=== PATIENT | male | born 1980 | race Caucasian/White ===

== ENCOUNTER 2022-08-04 09:50 | Outpatient (OUT) | payer MEDICAID, SELFPAY ==
--- NOTE | 2022-08-04 11:09 | CONS_ITS ---
CONSULTATION DATE: ??08/04/2022 TO:? HEIDI Jones CHIEF COMPLAINT:? Severe right sided mid back pain. HISTORY:? He rates the pain as being 7/10, sharp in character, increased with activities such as lifting maneuvers, pushing/pulling maneuvers, standing and walking and performing transitioning maneuvers.? He feels most comfortable in the semi-recumbent position.? Denies any change in bowel and bladder habits or new sensorimotor changes in the lower extremities. EXAM:? Notable for patient having no clinical radiculopathy or myelopathy involving the lower extremities.? Patient did have severe pain with thoracic facet loading maneuvers on the right side at T10-11, T11-12, with myofascial spasm over the thoracic iliocostalis muscle on the right side as well.? IMPRESSION:? 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 He has undergone one diagnostic facet joint injection on the right side at T10-11, T11-12 levels with 95-100% reduction in pain symptoms, starting in the immediate post procedural period, lasting for several hours, with recurrence of pain back to his baseline.? During that time, his activity level also improved.? RECOMMENDATIONS:? I have recommended repeating the second diagnostic procedure at the same levels to establish reliability.? In the interim, I have asked him to continue with the Celebrex, Lyrica and Flexeril.? As part of providing excellent, safe, comprehensive care, the following was completed at our patient's visit: 1. A medication reconciliation and review to ensure accurate knowledge of current/active medications, including asking our patients to inform us about any xska-han-uywuafh medications or herbal remedies/nutritional supplements/alternative remedies. 2. A review to specifically ensure our patients have had annual screening for: elevated body mass index (BMI, see intake chart for exact total), tobacco use, screening for depression, and screening for unhealthy alcohol use.? When screening is concerning, patients are provided with education and the specific recommendation to discuss the concerning health issue and treatment options with their primary care provider. AISSATOU
== END 2022-08-04 09:51 ==
LOC: PM 09:59
PROVIDERS: PCP Nurse Practitioner Family; Visit Provider Anesthesiology Pain Medicine
DX: G89.29 Other chronic pain (principal); M47.814 Spondylosis without myelopathy or radiculopathy, thoracic region; M54.9 Dorsalgia, unspecified
CPT/HCPCS: G0463

== ENCOUNTER 2022-08-30 07:09 | Day surgery (SDC) | payer MEDICAID, SELFPAY ==
[2022-08-30 07:26] VITALS: BP 119/75; PULSE 61; RESP 16; TEMP 36.7; O2SAT 98
[2022-08-30 07:31] LABS: INR 1.59; Prothrombin Time 16.4 sec (9.0-11.6)
[2022-08-30 08:05] VITALS: BP 143/80; PULSE 53; RESP 20; O2SAT 96
[2022-08-30] MEDS: BUPIVACAINE HCL 0.25% PF 25 MG/10 ML VIAL 4 ML INJ (08:08)
[2022-08-30 08:09] VITALS: BP 138/77; PULSE 52; RESP 20; O2SAT 97
--- NOTE | 2022-08-30 09:59 | W.PM.PROCNOT ---
Date of procedure: 08/30/22 Pre-op diagnosis: Thoracic Spondylosis Post-op diagnosis: same Procedure: Right Thoracic 11/23 and 12/25 facet injection Under fluoroscopic guidance Solution injected: 2millilitersMarcaine 0.25% Anesthesia :none Immediate complications none Time out process compliant After informed consent obtained from the patient placed in the Prone proposition . area was prepped and draped in a sterile fashion using betadine. 25 gauge spinal needle inserted over each of the above mentioned target areas. [place] were directed towards the target under fluoroscopic guidance . after encountering each of the targets , no indication of intravascular intraneuronal or intrathecal needle tip placement. Then 0 .5 to 1 Milliliter was injected at each level. [place] removed postoperatively. patient transferred to recovery in stable condition to be discharged home after meeting criteria Surgeon: Dalila Venegas
== END 2022-08-30 08:13 | disposition home or self-care (01) ==
LOC: SURGOUT 07:09
PROVIDERS: PCP Nurse Practitioner Family; Visit Provider Anesthesiology Pain Medicine
DX: M47.814 Spondylosis without myelopathy or radiculopathy, thoracic region (principal)
CPT/HCPCS: 36415; 64490; 64491; 85610

== ENCOUNTER 2022-09-09 09:17 | Outpatient (OUT) | payer MEDICAID, SELFPAY ==
--- NOTE | 2022-09-09 09:58 | P.CN_ITS ---
Consult Note: HPI Data of Consult Patient: known to practice within the last 3 years Requesting Physician: Analia Talbot NP Primary Care Provider: PAOLO BLACKMON Consult Narrative Reason for consult: FI #2 Right Side T 11/23 12/25 cc:: CC: Analia Talbot NP Review of Systems ROS Status of ROS 10 or more systems reviewed and unremarkable except as noted in history and below [facility] Medical History (Updated 09/09/22 @ 10:01 by nAalia Talbot NP) Surgical History Meds Home Medications and Allergies Home Medications Medication Instructions Recorded Confirmed Type albuterol sulfate 2.5 mg/0.5 mL 2.5 mg inhalation Q6H 08/08/22 08/30/22 History solution for nebulization albuterol sulfate 90 mcg/actuation 1 inh inhalation Q6H 08/08/22 08/30/22 Histor y aerosol inhaler (Proventil HFA) amlodipine 10 mg tablet 10 mg PO DAILY 08/08/22 08/30/22 History aspirin 81 mg capsule 81 mg PO DAILY 08/08/22 08/30/22 History atorvastatin 20 mg tablet 20 mg PO DAILY 08/08/22 08/30/22 History celecoxib 100 mg capsule 100 mg PO DAILY 08/08/22 08/30/22 History cholecalciferol (vitamin D3) 10 10 mcg PO DAILY 08/08/22 08/30/22 History mcg (400 unit) capsule cyclobenzaprine 10 mg tablet 10 mg PO TID 08/08/22 08/30/22 History duloxetine 60 mg capsule,delayed 60 mg PO DAILY 08/08/22 08/30/22 History release (Cymbalta) krill oil 500 mg capsule 500 mg PO DAILY 08/08/22 08/30/22 History loratadine 10 mg tablet 10 mg PO DAILY 08/08/22 08/30/22 History magnesium 250 mg tablet 250 mg PO DAILY 08/08/22 08/30/22 History metoprolol tartrate 25 mg tablet 12.5 mg PO BID 08/08/22 08/30/22 History omeprazole 40 mg capsule,delayed 40 mg PO DAILY 08/08/22 08/30/22 History release pregabalin 150 mg capsule (Lyrica) 150 mg PO BID 08/08/22 08/30/22 History warfarin 5 mg tablet 5 mg PO QTUTHSASU 08/08/22 08/30/22 History warfarin 7.5 mg tablet 7.5 mg PO QMWF 08/08/22 08/30/22 History Allergies Allergy/AdvReac Type Severity Reaction Status Date / Time No Known Drug Allergies Allergy Verified 08/08/22 10:46 Exam Constitutional Common normals: no apparent distress, oriented x3, healthy appearing, alert and well nourished General appearance: cooperative HENID Common normals: normocephalic Head and scalp: normocephalic Mouth: oral and palatal mucosa normal Eye Common normals: PERRL Pupil: PERRL Neck & C-Spine Common normals: full ROM General: normal visual inspection Chest Common normals: inspection of chest normal Respiratory Common normals: normal respiratory effort, no retractions and no use of accessory muscles Back & Pelvis Thoracic spine/upper back: normal to inspection, thoracic ROM normal, pain with ROM and paraspinal muscle tenderness Lumbar spine/lower back: normal to inspection, lumbar ROM normal and pain with ROM Extremity Common normals: normal to inspection, full ROM and no joint enlargement Neuro Common normals: oriented x3, CN's II-XII intact bilaterally, moves all extremities, no focal motor deficits, no sensory deficits noted, deep tendon reflexes 2+ bilaterally and gait normal Sensorium/orientation: alert Cranial nerves: CN normal except as noted Speech: speech normal Gait (neuro): normal gait Motor exam: no movement abnormalities noted and strength abnormal (4/5 BLE strength) Psych Common normals: mental status grossly normal, thought process normal, cooperativ e, affect normal, speech normal and activity/motor behavior normal Speech: normal speech Thought process: normal thought process Assessment and Plan Assessment and Plan (1) Spondylosis of thoracic region without myelopathy or radiculopathy: (2) Muscle spasm: Plan Patient following up after facet injection #2 at T10/11 11/12 levels. Patient experienced 90% pain relief from injection with improvement in ADLs. Patient does not have radiculopathy. No change in bowel or bladder continence. Patient would like to proceed with RFA at T10/11 11/12 and would benefit from thermal radiofrequency ablation under fluoroscopy with IV sedation as he has failed conservative therapies and benefited from 2 diagnostic blocks. Patient does not have any questions at this time, has had RFAs in the past with success for at [place] one year.
== END 2022-09-09 09:18 | disposition home or self-care (01) ==
LOC: PM 09:36
PROVIDERS: PCP Nurse Practitioner Family; Visit Provider Nurse Practitioner
DX: M47.814 Spondylosis without myelopathy or radiculopathy, thoracic region (principal); M62.838 Other muscle spasm
CPT/HCPCS: G0463

== ENCOUNTER 2022-10-31 08:02 | Outpatient (OUT) | payer MEDICAID, SELFPAY ==
--- NOTE | 2022-10-31 08:31 | PM.CN ---
Consult Note: HPI Data of Consult Patient: known to practice within the last 3 years Consult date: 10/31/22 Requesting Physician: Mahamed Driver MD Primary Care Provider: PAOLO BLACKMON Consult Narrative Reason for consult: right shoulder pain Narrative: 42yom who presents for assessment. new patient to me. increasing right paracervical pain which prevents activity with right upper extremity. has had TPIs in the past, which provided >50% relief for >3 months. continues in home exercise program. utilizes lyrica and celebrex. denies adverse medication side effects. cc:: CC: Mahamed Driver MD Review of Systems ROS Status of ROS 10 or more systems reviewed and unremarkable except as noted in history and below [facility] Medical History Surgical History Meds Home Medications and Allergies Home Medications Medication Instructions Recorded Confirmed Type albuterol sulfate 2.5 mg/0.5 mL 2.5 mg inhalation Q6H 08/08/22 08/30/22 History solution for nebulization albuterol sulfate 90 mcg/actuation 1 inh inhalation Q6H 08/08/22 08/30/22 History aerosol inhaler (Proventil HFA) amlodipine 10 mg tablet 10 mg PO DAILY 08/08/22 08/30/22 History aspirin 81 mg capsule 81 mg PO DAILY 08/08/22 08/30/22 History atorvastatin 20 mg tablet 20 mg PO DAILY 08/08/22 08/30/22 History celecoxib 100 mg capsule 100 mg PO DAILY 08/08/22 08/30/22 History cholecalciferol (vitamin D3) 10 10 mcg PO DAILY 08/08/22 08/30/22 History mcg (400 unit) capsule cyclobenzaprine 10 mg tablet 10 mg PO TID 08/08/22 08/30/22 History duloxetine 60 mg capsule,delayed 60 mg PO DAILY 08/08/22 08/30/22 History release (Cymbalta) krill oil 500 mg capsule 500 mg PO DAILY 08/08/22 08/30/22 History loratadine 10 mg tablet 10 mg PO DAILY 08/08/22 08/30/22 History magnesium 250 mg tablet 250 mg PO DAILY 08/08/22 08/30/22 History metoprolol tartrate 25 mg tablet 12.5 mg PO BID 08/08/22 08/30/22 History omeprazole 40 mg capsule,delayed 40 mg PO DAILY 08/08/22 08/30/22 History release pregabalin 150 mg capsule (Lyrica) 150 mg PO BID 08/08/22 08/30/22 History warfarin 5 mg tablet 5 mg PO QTUTHSASU 08/08/22 08/30/22 History warfarin 7.5 mg tablet 7.5 mg PO QMWF 08/08/22 08/30/22 History Allergies Allergy/AdvReac Type Severity Reaction Status Date / Time No Known Drug Allergies Allergy Verified 08/08/22 10:46 Exam Narrative Exam Narrative: Psych-alert and oriented x 3.? Attentive and appropriate, constitutionally normal, displays normal mood and affect per situation.? There are no obvious deficits in memory, reasoning, or intellect.? Skin-no obvious rashes, bruising, or erythema noted to the patient's area of pain. Extremities-upper extremities are warm with minimal edema and palpable pulses. Cervical- tenderness to palpation noted in the cervical spine and paraspinal musculature.?Multiple trigger points expressed on palpation. Pain is elicited with extension, and lateral rotation of the cervical spine.? Range of motion is slightly diminished due to pain. Facet loading maneuvers are positive bilaterally. Coordination remains intact.? Gait remains non-antalgic. Assessment and Plan Assessment and Plan (1) Myofascial pain syndrome, cervical: Plan pleasant 42yom who presents for assessment. worsening right paracervical and shoulder pain. previous relief with TPIs, as noted above. given previous relief and current symptoms, prudent to repeat right paracervical trigger point injections. he is in agreement. medications reviewed, and no changes. follow up in 3 months. Procedure: Right paracervical trigger point injection Medications: Bupivacaine 0.25% 4cc, kenalog 40mg I explained the details of the procedure to the patient including the risks, benefits and alternatives. We had an informed discussion and the patient verbalized understanding and signed the consent form. All questions were answered appropriately.? A time out was performed.? After obtaining a comfortable seated position, the right paracervical region was prepped with alcohol x3. A syringe containing the above medication was attached to a 27 guage, 1.5 inch needle under strict aseptic technique. The trigger points were palpated. The needle was then advanced through the subcutaneous tissue.? The contents of the syringe were gently injected without any resistance. The needle was removed and pressure was applied to the injection site to decrease the incidence of ecchymosis and hematoma formation.? A sterile bandage was applied.
== END 2022-10-31 08:03 | disposition home or self-care (01) ==
LOC: PM 08:02
PROVIDERS: PCP Nurse Practitioner Family; Visit Provider Anesthesiology
DX: M79.18 Myalgia, other site (principal); M25.511 Pain in right shoulder; M54.2 Cervicalgia
CPT/HCPCS: 20553

== ENCOUNTER 2022-11-01 07:10 | Day surgery (SDC) | payer MEDICAID, SELFPAY ==
[2022-11-01 07:42] VITALS: BP 118/76; PULSE 63; RESP 16; TEMP 36.7; O2SAT 97
[2022-11-01] MEDS: 0.9 % SODIUM CHLORIDE 500 ML 50 ML IV (07:47)
[2022-11-01 07:50] LABS: INR 0.94
[2022-11-01] MEDS: METHYLPREDNISOLONE ACETATE 40 MG/ML VIAL INJ (08:35)
[2022-11-01] MEDS: LIDOCAINE HCL 2% 400 MG/20 ML MDV 8 ML INJ (08:35)
[2022-11-01] MEDS: BUPIVACAINE HCL 0.25% PF 25 MG/10 ML VIAL 4 ML INJ (08:35)
[2022-11-01 08:48] VITALS: BP 106/60; PULSE 51; RESP 16; TEMP 36.8; O2SAT 98
[2022-11-01 08:49] VITALS: BP 92/59; PULSE 53; RESP 16; TEMP 36.8; O2SAT 98
--- NOTE | 2022-11-01 09:03 | W.PM.PROCNOT ---
Date of procedure: 11/01/22 Pre-op diagnosis: Thoracic Spondylosis Post-op diagnosis: same as pre-op Procedure: Right Thoracic 11/23, 12/25 Radiofrequency ablation Under fluoroscopic guidance Rhizotomy was created using radio frequency ablation at 80?C for 90 seconds 1 to 2 lesions created at each site. Post lesioning injection of 2 mL each of 0.25% Marcaine and 2% lidocaine with Depo-Medrol 40mg. 0.5 to 1 mL injected at each site IV in place yes If Intravenous fluids: NS at KVO Anesthesia local 2% lidocaine for Anesthesia Other: MAC Timeout process compliant After informed consent obtained.Patient brought to the procedure room placed in the prone position skin overlying the area was prepped and draped in a sterile fashion using betadine. 25 gauge needle was used to create a skin wheal over each of the targeted areas utilizing 2% lidocaine. A rhizotomy needle with a 10 mm active tip was inserted over each of the anesthetized areas and directed towards each of the medial branches accomplished under fluoroscopic guidance. after encountering the same we had positive sensory stimulation, negative motor stimulation was noted. lesions were then created. Post lesioning, steroid solution was injected needles removed. Patient was transferred to recovery room in stable condition to be discharged home after meeting criteria. Anesthesia: MAC Surgeon: Dalila Venegas Condition: stable
== END 2022-11-01 09:13 | disposition home or self-care (01) ==
PROVIDERS: PCP Nurse Practitioner Family; Visit Provider Anesthesiology Pain Medicine
PROC: (CPT 1992; principal; 2022-11-01 08:10)
DX: M47.814 Spondylosis without myelopathy or radiculopathy, thoracic region (principal)
CPT/HCPCS: 36415; 64633; 64634; 85610; J1030; J2704

== ENCOUNTER 2022-11-30 15:04 | Outpatient (OUT) | payer MEDICAID, SELFPAY ==
--- NOTE | 2022-11-30 15:41 | PM.CN ---
Consult Note: HPI Data of Consult Patient: known to practice within the last 3 years Requesting Physician: Analia Talbot NP Primary Care Provider: PAOLO BLACKMON Consult Narrative Reason for consult: F/u Narrative: Chris Malhotra a pleasant 42 year old male presents for evaluation and management of chronic pain, today neck and low back pain. Patient recently had a right T10/11 T11/12 RFA with 90-95% pain relief ongoing and functional improvement. Today rating pain 3/10 ache. Reports he is doing well on current medication regimen without side effects. cc:: CC: Analia Talbot NP Review of Systems ROS Status of ROS 10 or more systems reviewed and unremarkable except as noted in history and below Musculoskeletal Reports: back pain and neck pain PFSH PFSH Medical History Acid reflux ?K21.9 - Gastro-esophageal reflux disease without esophagitis (ICD-10) Angina at rest ?I20.8 - Other forms of angina pectoris (ICD-10) Asthma ?J45.909 - Unspecified asthma, uncomplicated (ICD-10) Chronic cough ?R05.3 - Chronic cough (ICD-10) Heart murmur ?R01.1 - Cardiac murmur, unspecified (ICD-10) Heartburn ?R12 - Heartburn (ICD-10) High cholesterol ?E78.00 - Pure hypercholesterolemia, unspecified (ICD-10) Irregular heart beat ?I49.9 - Cardiac arrhythmia, unspecified (ICD-10) Kidney stone ?N20.0 - Calculus of kidney (ICD-10) Loud snoring ?R06.83 - Snoring (ICD-10) Low back pain ?M54.50 - Low back pain, unspecified (ICD-10) Neck pain ?M54.2 - Cervicalgia (ICD-10) Numbness and tingling ?R20.0 - Anesthesia of skin (ICD-10) ?R20.2 - Paresthesia of skin (ICD-10) Osteoarthritis ?M19.90 - Unspecified osteoarthritis, unspecified site (ICD-10) Smoker ?F17.200 - Nicotine dependence, unspecified, uncomplicated (ICD-10) Upper back pain ?M54.9 - Dorsalgia, unspecified (ICD-10) Surgical History H/O aortic valve replacement ?Z95.2 - Presence of prosthetic heart valve (ICD-10) H/O arthroscopy of shoulder ?Z98.890 - Other specified postprocedural states (ICD-10) H/O cardiac catheterization ?Z98.890 - Other specified postprocedural states (ICD-10) Meds Home Medications and Allergies Home Medications Medication Instructions Recorded Confirmed Type albuterol sulfate 2.5 mg/0.5 mL 2.5 mg inhalation Q6H 08/08/22 11/01/22 History solution for nebulization albuterol sulfate 90 mcg/actuation 1 inh inhalation Q6H 08/08/22 11/01/22 History aerosol inhaler (Proventil HFA) amlodipine 10 mg tablet 10 mg PO DAILY 08/08/22 11/01/22 History aspirin 81 mg capsule 81 mg PO DAILY 08/08/22 11/01/22 History atorvastatin 20 mg tablet 20 mg PO DAILY 08/08/22 11/01/22 History celecoxib 100 mg capsule 100 mg PO DAILY 08/08/22 11/01/22 History cholecalciferol (vitamin D3) 10 10 mcg PO DAILY 08/08/22 11/01/22 History mcg (400 unit) capsule cyclobenzaprine 10 mg tablet 10 mg PO TID 08/08/22 11/01/22 History duloxetine 60 mg capsule,delayed 60 mg PO DAILY 08/08/22 11/01/22 History release (Cymbalta) krill oil 500 mg capsule 500 mg PO DAILY 08/08/22 11/01/22 History loratadine 10 mg tablet 10 mg PO DAILY 08/08/22 11/01/22 History magnesium 250 mg tablet 250 mg PO DAILY 08/08/22 11/01/22 History metoprolol tartrate 25 mg tablet 12.5 mg PO BID 08/08/22 11/01/22 History omeprazole 40 mg capsule,delayed 40 mg PO DAILY 08/08/22 11/01/22 History release pregabalin 150 mg capsule (Lyrica) 150 mg PO BID 08/08/22 11/01/22 History warfarin 5 mg tablet 5 mg PO QTUTHSASU 08/08/22 11/01/22 History warfarin 7.5 mg tablet 7.5 mg PO QMWF 08/08/22 11/01/22 History Allergies Allergy/AdvReac Type Severity Reaction Status Date / Time No Known Drug Allergies Allergy Verified 11/01/22 07:36 Exam Constitutional Documenting provider has reviewed patient's vital signs: yes Common normals: no apparent distress, oriented x3, healthy appearing, alert and well nourished General appearance: cooperative HENMT Common normals: normocephalic, hearing grossly normal bilaterally and moist oral mucous membranes Head and scalp: normocephalic Eye Common normals: PERRL Pupil: PERRL Neck & C-Spine General: normal visual inspection Cervical spine: pain with cervical ROM, cervical spine tenderness and paracervical muscle tenderness Chest Common normals: inspection of chest normal Respiratory Common normals: normal respiratory effort, no retractions and no use of accessory muscles Neuro Common normals: oriented x3, CN's II-XII intact bilaterally, moves all extremities, no focal motor deficits, no sensory deficits noted and deep tendon reflexes 2+ bilaterally Sensorium/orientation: alert Motor exam: strength 5/5 throughout and no movement abnormalities noted Psych Common normals: mental status grossly normal, thought process normal, cooperative, affect normal, speech normal and activity/motor behavior normal Speech: normal speech Thought process: normal thought process Results Additional Findings Additional findings: I have checked an [facility] report on this patient today and there are no aberrancies noted in the prescribing history.?? A drug screen was completed and reviewed within the last year, and if there has not been a drug screen completed we ordered one today to monitor higher risk, state monitored pain medication use. As part of providing excellent, safe, comprehensive care, the following was completed at our patient's visit: 1. A medication reconciliation and review to ensure accurate knowledge of current/active medications, including asking our patients to inform us about any xdke-oyi-[id number] medications or herbal remedies/nutritional supplements/alternative remedies. 2. A review to specifically ensure our patients have had annual screening for: elevated body mass index (BMI), tobacco use, screening for depression, and screening for unhealthy alcohol use. When screening is concerning, patients are provided with education and the specific recommendation to discuss the concerning health issue and treatment options with their primary care provider. Assessment and Plan Assessment and Plan (1) Myofascial pain syndrome, cervical: (2) Muscle spasm: (3) Spondylosis of thoracic region without myelopathy or radiculopathy: Plan continue current medication regimen start transdermal therapeutics cream #8 to neck TID-QID f/u 3 months
== END 2022-11-30 15:05 | disposition home or self-care (01) ==
PROVIDERS: PCP Nurse Practitioner Family; Visit Provider Nurse Practitioner
DX: M62.838 Other muscle spasm (principal); M47.814 Spondylosis without myelopathy or radiculopathy, thoracic region; M79.18 Myalgia, other site
CPT/HCPCS: G0463

== ENCOUNTER 2023-02-01 12:36 | Emergency (ER) | payer MEDICAID, SELFPAY ==
[2023-02-01 12:58] VITALS: BP 154/94; PULSE 72; RESP 18; TEMP 36.6; O2SAT 95; BMI 29.8
[2023-02-01 13:30] LABS: SARS-CoV-2 Ag NEGATIVE (NEGATIVE)
--- NOTE | 2023-02-01 13:49 | XR_ITS ---
The [address] [address] Patient Name: KEVIN HILTON MRN: [id number] date: 1980 Sex: M Assigned Patient Location: ER Current Patient Location: ER Accession/Order Number: [id number] Exam Date: 02/01/2023 14:04 Report Date: 02/01/2023 14:16 At the request of: RENETTA MOJICA Procedure: XR chest 1V EXAMINATION: XR chest 1V, 02/01/2023 2:04 PM EST HISTORY: cough COMPARISON: 01/30/2022 TECHNIQUE: AP portable view of the chest performed. FINDINGS: Medical devices: None. Cardiomediastinal silhouette is within normal limits. The lungs are clear. No large pleural effusion, or pneumothorax. XR/XR chest 1V IMPRESSION: 1. No acute cardiopulmonary abnormality. Electronically authenticated by: WALTER RODRIGUEZ Date: 02/01/2023 14:16
--- NOTE | 2023-02-01 13:50 | ED_ITS ---
Documented by User: Kelley Arciniega 02/01/23 15:54 HPI - URI/Sore Throat General Chief Complaint: Upper Respiratory Infection Stated Complaint: FLU SYMPTOMS Time Seen by Provider: 02/01/23 13:49 Source: patient Limitations: no limitations History of Present Illness HPI Narrative: 42 year old male presents to the ED for cough, SOB, wheezing, fatigue, body aches. Onset was 01/27/23. Denies fever, emesis, diarrhea. He has been using his inhaler without relief. He misplaced his nebulizer tubing. States he was advised by his employer to come to the ED today for evaluation. Denies pain. Related Data Home Medications Medication Instructions Recorded Confirmed albuterol sulfate 2.5 mg/0.5 mL 2.5 mg inhalation Q6H 08/08/22 11/01/22 solution for nebulization albuterol sulfate 90 mcg/actuation 1 inh inhalation Q6H 08/08/22 11/01/22 aerosol inhaler (Proventil HFA) amlodipine 10 mg tablet 10 mg PO DAILY 08/08/22 11/01/22 aspirin 81 mg capsule 81 mg PO DAILY 08/08/22 11/01/22 atorvastatin 20 mg tablet 20 mg PO DAILY 08/08/22 11/01/22 celecoxib 100 mg capsule 100 mg PO DAILY 08/08/22 11/01/22 cholecalciferol (vitamin D3) 10 10 mcg PO DAILY 08/08/22 11/01/22 mcg (400 unit) capsule cyclobenzaprine 10 mg tablet 10 mg PO TID 08/08/22 11/01/22 duloxetine 60 mg capsule,delayed 60 mg PO DAILY 08/08/22 11/01/22 release (Cymbalta) krill oil 500 mg capsule 500 mg PO DAILY 08/08/22 11/01/22 loratadine 10 mg tablet 10 mg PO DAILY 08/08/22 11/01/22 magnesium 250 mg tablet 250 mg PO DAILY 08/08/22 11/01/22 metoprolol tartrate 25 mg tablet 12.5 mg PO BID 08/08/22 11/01/22 omeprazole 40 mg capsule,delayed 40 mg PO DAILY 08/08/22 11/01/22 release pregabalin 150 mg capsule (Lyrica) 150 mg PO BID 08/08/22 11/01/22 warfarin 5 mg tablet 5 mg PO QTUTHSASU 08/08/22 11/01/22 warfarin 7.5 mg tablet 7.5 mg PO QMWF 08/08/22 11/01/22 Previous Rx's Medication Instructions Recorded celecoxib 100 mg capsule (Celebrex) 100 mg PO DAILY #30 caps 11/30/22 pregabalin 150 mg capsule (Lyrica) 150 mg PO BID #60 caps 11/30/22 benzonatate 100 mg capsule 200 mg (2 x 100 mg) PO TID PRN 02/01/23 cough #30 caps prednisone 10 mg tablet See Rx Instructions .Route 02/01/23 .COMPLEX #30 tabs Allergies Allergy/AdvReac Type Severity Reaction Status Date / Time No Known Drug Allergies Allergy Verified 11/01/22 07:36 Review of Systems ROS Constitutional Reports: fatigue; Denies: fever Ears, nose, mouth, and throat Denies: throat pain or neck pain Cardiovascular Denies: chest pain or palpitations Respiratory Reports: shortness of breath, cough and wheezing Gastrointestinal Denies: abdominal pain, nausea, vomiting or diarrhea Musculoskeletal Denies: back pain or neck pain Integumentary/Breast Denies: rash Neurological Denies: headache PFSH PFS Medical History Acid reflux ?K21.9 - Gastro-esophageal reflux disease without esophagitis (ICD-10) Angina at rest ?I20.8 - Other forms of angina pectoris (ICD-10) Asthma ?J45.909 - Unspecified asthma, uncomplicated (ICD-10) Chronic cough ?R05.3 - Chronic cough (ICD-10) Heart murmur ?R01.1 - Cardiac murmur, unspecified (ICD-10) Heartburn ?R12 - Heartburn (ICD-10) High cholesterol ?E78.00 - Pure hypercholesterolemia, unspecified (ICD-10) Irregular heart beat ?I49.9 - Cardiac arrhythmia, unspecified (ICD-10) Kidney stone ?N20.0 - Calculus of kidney (ICD-10) Loud snoring ?R06.83 - Snoring (ICD-10) Low back pain ?M54.50 - Low back pain, unspecified (ICD-10) Neck pain ?M54.2 - Cervicalgia (ICD-10) Numbness and tingling ?R20.0 - Anesthesia of skin (ICD-10) ?R20.2 - Paresthesia of skin (ICD-10) Osteoarthritis ?M19.90 - Unspecified osteoarthritis, unspecified site (ICD-10) Smoker ?F17.200 - Nicotine dependence, unspecified, uncomplicated (ICD-10) Upper back pain ?M54.9 - Dorsalgia, unspecified (ICD-10) Surgical History H/O aortic valve replacement ?Z95.2 - Presence of prosthetic heart valve (ICD-10) H/O arthroscopy of shoulder ?Z98.890 - Other specified postprocedural states (ICD-10) H/O cardiac catheterization ?Z98.890 - Other specified postprocedural states (ICD-10) Social History Smoking status: Current every day smoker Exam Constitutional Vital Signs, click to edit/add: Last Vital Signs Temp 97.9 F 02/01/23 12:58 Pulse 66 02/01/23 14:08 Resp 18 02/01/23 12:58 BP 154/94 H 02/01/23 12:58 Pulse Ox 97 02/01/23 14:09 O2 Del Method Room Air 02/01/23 14:09 Common normals: no apparent distress and oriented x3 General appearance: cooperative; not ill appearing [facility] Common normals: normocephalic Nose: external nose normal External ear: external ears normal Mouth: oral and palatal mucosa normal, lip normal and tongue normal Eye Common normals: conjunctivae normal and no scleral icterus Neck & C-Spine Common normals: supple Chest Chest: symmetrical chest wall rise Respiratory Common normals: normal respiratory effort Effort & inspection: symmetric chest movement Auscultation: wheezes Cardio Common normals: regular rate and regular rhythm Neuro Common normals: oriented x3 Sensorium/orientation: awake and alert Speech: speech normal Course Vital Signs Vital signs: Vital Signs Temperature 97.9 F 02/01/23 12:58 Pulse Rate 72 02/01/23 12:58 Respiratory Rate 18 02/01/23 12:58 Blood Pressure 154/94 H 02/01/23 12:58 Pulse Oximetry 95 02/01/23 12:58 Oxygen Delivery Method Room Air 02/01/23 12:58 Temperature 97.9 F 02/01/23 12:58 Pulse Rate 66 02/01/23 14:08 Respiratory Rate 18 02/01/23 12:58 Blood Pressure 154/94 H 02/01/23 12:58 Pulse Oximetry 97 02/01/23 14:09 Oxygen Delivery Method Room Air 02/01/23 14:09 MDM - URI/Sore Throat MDM Narrative Medical decision making narrative: Covid-19 was negative. Chest x-ray was negative for acute findings. He was medicated with prednisone and an albuterol treatment here in the ED with improvement. He preferred discharge home. He has nebulizer medication at home. He was sent home with nebulizer tubing and a mouthpiece. Prescriptions were provided for prednisone and tessalon perles. Follow up with pcp for a recheck, further evaluation and treatment. Return precautions were discussed. Differential Diagnosis Differential diagnosis: Likely upper respiratory infection, viral infection and influenza Medical Records Attestation: I reviewed the patient's medical records. Lab Data Attestation: I reviewed the patient's lab results. Labs: Lab Results 02/01/23 Range/Units 13:04 SARS-CoV-2 (PCR) Negative (NEGATIVE) Imaging Data Chest x-ray: Attestation: I have reviewed the pertinent imaging results. Radiologist's impression: Procedure: XR chest 1V EXAMINATION: XR chest 1V, 02/01/2023 2:04 PM EST HISTORY: cough COMPARISON: 01/30/2022 TECHNIQUE: AP portable view of the chest performed. FINDINGS: Medical devices: None. Cardiomediastinal silhouette is within normal limits. The lungs are clear. No large pleural effusion, or pneumothorax. XR/XR chest 1V IMPRESSION: 1. No acute cardiopulmonary abnormality. Electronically authenticated by: WALTER RODRIGUEZ Date: 02/01/2023 14:16 Discharge Plan Discharge Chief Complaint: Upper Respiratory Infection Clinical Impression: Upper respiratory infection, viral, COPD exacerbation Patient Disposition: Home, Self-Care Time of Disposition Decision: 14:30 Condition: Good Mode of Transportation: Private Vehicle Prescriptions / Home Meds: New prednisone 10 mg tablet See Rx Instructions .ROUTE .COMPLEX Qty: 30 0RF Rx Instructions: Take 5 tablets on days 1-2, 4 tabs on days 3-4, 3 tabs on days 5-6, 2 tabs on days 7-8, 1 tab on days 9-10. benzonatate 100 mg capsule 200 mg PO TID PRN (Reason: cough) Qty: 30 0RF No Action aspirin 81 mg capsule 81 mg PO DAILY celecoxib 100 mg capsule 100 mg PO DAILY cholecalciferol (vitamin D3) 10 mcg (400 unit) capsule 10 mcg PO DAILY warfarin 7.5 mg tablet 7.5 mg PO QMWF warfarin 5 mg tablet 5 mg PO QTUTHSASU duloxetine [Cymbalta] 60 mg capsule,delayed release(DR/EC) 60 mg PO DAILY cyclobenzaprine 10 mg tablet 10 mg PO TID krill oil 500 mg capsule 500 mg PO DAILY loratadine 10 mg tablet 10 mg PO DAILY pregabalin [Lyrica] 150 mg capsule 150 mg PO BID magnesium 250 mg tablet 250 mg PO DAILY albuterol sulfate [Proventil HFA] 90 mcg/actuation HFA aerosol inhaler 1 inh inhalation Q6H albuterol sulfate 2.5 mg/0.5 mL solution for nebulization 2.5 mg inhalation Q6H amlodipine 10 mg tablet 10 mg PO DAILY atorvastatin 20 mg tablet 20 mg PO DAILY metoprolol tartrate 25 mg tablet 12.5 mg PO BID omeprazole 40 mg capsule,delayed release(DR/EC) 40 mg PO DAILY pregabalin [Lyrica] 150 mg capsule 150 mg PO BID Qty: 60 0RF celecoxib [Celebrex] 100 mg capsule 100 mg PO DAILY Qty: 30 2RF Instructions: Upper Respiratory Infection (ED), COPD (Chronic Obstructive Pulmonary Disease) (ED) Stand Alone Forms: Portal Instructions Referrals: PAOLO BLACKMON [Primary Care Provider] - As soon as possible Discharge Date/Time: 02/01/23 14:38 Documented by User: Gianni Perez MD 02/01/23 18:44 HPI - URI/Sore Throat General Chief Complaint: Upper Respiratory Infection Stated Complaint: FLU SYMPTOMS Time Seen by Provider: 02/01/23 13:49 Related Data Home Medications Medication Instructions Recorded Confirmed albuterol sulfate 2.5 mg/0.5 mL 2.5 mg inhalation Q6H 08/08/22 11/01/22 solution for nebulization albuterol sulfate 90 mcg/actuation 1 inh inhalation Q6H 08/08/22 11/01/22 aerosol inhaler (Proventil HFA) amlodipine 10 mg tablet 10 mg PO DAILY 08/08/22 11/01/22 aspirin 81 mg capsule 81 mg PO DAILY 08/08/22 11/01/22 atorvastatin 20 mg tablet 20 mg PO DAILY 08/08/22 11/01/22 celecoxib 100 mg capsule 100 mg PO DAILY 08/08/22 11/01/22 cholecalciferol (vitamin D3) 10 10 mcg PO DAILY 08/08/22 11/01/22 mcg (400 unit) capsule cyclobenzaprine 10 mg tablet 10 mg PO TID 08/08/22 11/01/22 duloxetine 60 mg capsule,delayed 60 mg PO DAILY 08/08/22 11/01/22 release (Cymbalta) krill oil 500 mg capsule 500 mg PO DAILY 08/08/22 11/01/22 loratadine 10 mg tablet 10 mg PO DAILY 08/08/22 11/01/22 magnesium 250 mg tablet 250 mg PO DAILY 08/08/22 11/01/22 metoprolol tartrate 25 mg tablet 12.5 mg PO BID 08/08/22 11/01/22 omeprazole 40 mg capsule,delayed 40 mg PO DAILY 08/08/22 11/01/22 release pregabalin 150 mg capsule (Lyrica) 150 mg PO BID 08/08/22 11/01/22 warfarin 5 mg tablet 5 mg PO QTUTHSASU 08/08/22 11/01/22 warfarin 7.5 mg tablet 7.5 mg PO QMWF 08/08/22 11/01/22 Previous Rx's Medication Instructions Recorded celecoxib 100 mg capsule (Celebrex) 100 mg PO DAILY #30 caps 11/30/22 pregabalin 150 mg capsule (Lyrica) 150 mg PO BID #60 caps 11/30/22 benzonatate 100 mg capsule 200 mg (2 x 100 mg) PO TID PRN 02/01/23 cough #30 caps prednisone 10 mg tablet See Rx Instructions .Route 02/01/23 .COMPLEX #30 tabs Allergies Allergy/AdvReac Type Severity Reaction Status Date / Time No Known Drug Allergies Allergy Verified 11/01/22 07:36 [facility] Medical History Acid reflux ?K21.9 - Gastro-esophageal reflux disease without esophagitis (ICD-10) Angina at rest ?I20.8 - Other forms of angina pectoris (ICD-10) Asthma ?J45.909 - Unspecified asthma, uncomplicated (ICD-10) Chronic cough ?R05.3 - Chronic cough (ICD-10) Heart murmur ?R01.1 - Cardiac murmur, unspecified (ICD-10) Heartburn ?R12 - Heartburn (ICD-10) High cholesterol ?E78.00 - Pure hypercholesterolemia, unspecified (ICD-10) Irregular heart beat ?I49.9 - Cardiac arrhythmia, unspecified (ICD-10) Kidney stone ?N20.0 - Calculus of kidney (ICD-10) Loud snoring ?R06.83 - Snoring (ICD-10) Low back pain ?M54.50 - Low back pain, unspecified (ICD-10) Neck pain ?M54.2 - Cervicalgia (ICD-10) Numbness and tingling ?R20.0 - Anesthesia of skin (ICD-10) ?R20.2 - Paresthesia of skin (ICD-10) Osteoarthritis ?M19.90 - Unspecified osteoarthritis, unspecified site (ICD-10) Smoker ?F17.200 - Nicotine dependence, unspecified, uncomplicated (ICD-10) Upper back pain ?M54.9 - Dorsalgia, unspecified (ICD-10) Surgical History H/O aortic valve replacement ?Z95.2 - Presence of prosthetic heart valve (ICD-10) H/O arthroscopy of shoulder ?Z98.890 - Other specified postprocedural states (ICD-10) H/O cardiac catheterization ?Z98.890 - Other specified postprocedural states (ICD-10) Social History Smoking status: Current every day smoker Exam Constitutional Vital Signs, click to edit/add: Last Vital Signs Temp 97.9 F 02/01/23 12:58 Pulse 66 02/01/23 14:08 Resp 18 02/01/23 12:58 BP 154/94 H 02/01/23 12:58 Pulse Ox 97 02/01/23 14:09 O2 Del Method Room Air 02/01/23 14:09 Course Vital Signs Vital signs: Vital Signs Temperature 97.9 F 02/01/23 12:58 Pulse Rate 72 02/01/23 12:58 Respiratory Rate 18 02/01/23 12:58 Blood Pressure 154/94 H 02/01/23 12:58 Pulse Oximetry 95 02/01/23 12:58 Oxygen Delivery Method Room Air 02/01/23 12:58 Temperature 97.9 F 02/01/23 12:58 Pulse Rate 66 02/01/23 14:08 Respiratory Rate 18 02/01/23 12:58 Blood Pressure 154/94 H 02/01/23 12:58 Pulse Oximetry 97 02/01/23 14:09 Oxygen Delivery Method Room Air 02/01/23 14:09 MDM - URI/Sore Throat MDM Narrative Medical decision making narrative: Covid-19 was negative. Chest x-ray was negative for acute findings. He was medicated with prednisone and an albuterol treatment here in the ED with improvement. He preferred discharge home. He has nebulizer medication at home. He was sent home with nebulizer tubing and a mouthpiece. Prescriptions were provided for prednisone and tessalon perles. Follow up with pcp for a recheck, further evaluation and treatment. Return precautions were discussed. I, Dr Perez, have reviewed the above progress note and course of action in the ER; agree with the above. I have personally seen and evaluated this patient, gone over history and physical, and discussed disposition and treatment plan with the patient. Lab Data Labs: Lab Results 02/01/23 Range/Units 13:04 SARS-CoV-2 (PCR) Negative (NEGATIVE) Discharge Plan Discharge Chief Complaint: Upper Respiratory Infection Clinical Impression: Upper respiratory infection, viral, COPD exacerbation Patient Disposition: Home, Self-Care Time of Disposition Decision: 14:30 Condition: Good Mode of Transportation: Private Vehicle Prescriptions / Home Meds: New prednisone 10 mg tablet See Rx Instructions .ROUTE .COMPLEX Qty: 30 0RF Rx Instructions: Take 5 tablets on days 1-2, 4 tabs on days 3-4, 3 tabs on days 5-6, 2 tabs on days 7-8, 1 tab on days 9-10. benzonatate 100 mg capsule 200 mg PO TID PRN (Reason: cough) Qty: 30 0RF No Action aspirin 81 mg capsule 81 mg PO DAILY celecoxib 100 mg capsule 100 mg PO DAILY cholecalciferol (vitamin D3) 10 mcg (400 unit) capsule 10 mcg PO DAILY warfarin 7.5 mg tablet 7.5 mg PO QMWF warfarin 5 mg tablet 5 mg PO QTUTHSASU duloxetine [Cymbalta] 60 mg capsule,delayed release(DR/EC) 60 mg PO DAILY cyclobenzaprine 10 mg tablet 10 mg PO TID krill oil 500 mg capsule 500 mg PO DAILY loratadine 10 mg tablet 10 mg PO DAILY pregabalin [Lyrica] 150 mg capsule 150 mg PO BID magnesium 250 mg tablet 250 mg PO DAILY albuterol sulfate [Proventil HFA] 90 mcg/actuation HFA aerosol inhaler 1 inh inhalation Q6H albuterol sulfate 2.5 mg/0.5 mL solution for nebulization 2.5 mg inhalation Q6H amlodipine 10 mg tablet 10 mg PO DAILY atorvastatin 20 mg tablet 20 mg PO DAILY metoprolol tartrate 25 mg tablet 12.5 mg PO BID omeprazole 40 mg capsule,delayed release(DR/EC) 40 mg PO DAILY pregabalin [Lyrica] 150 mg capsule 150 mg PO BID Qty: 60 0RF celecoxib [Celebrex] 100 mg capsule 100 mg PO DAILY Qty: 30 2RF Instructions: Upper Respiratory Infection (ED), COPD (Chronic Obstructive Pulmonary Disease) (ED) Stand Alone Forms: Portal Instructions Referrals: PAOLO BLACKMON [Primary Care Provider] - As soon as possible Discharge Date/Time: 02/01/23 14:38
[2023-02-01] MEDS: PREDNISONE 20 MG TABLET 40 MG PO (14:01)
[2023-02-01 14:08] VITALS: PULSE 66; O2SAT 97
[2023-02-01] MEDS: ALBUTEROL SULFATE 2.5 MG/3 ML VIAL NEB IH (14:08)
[2023-02-01 14:09] VITALS: O2SAT 97
[2023-02-02 16:01] LABS: SARS-CoV-2 NAA INCONCLUSIVE (NOT DETECTE)
== END 2023-02-01 14:38 | disposition home or self-care (01) ==
PROVIDERS: Emergency Provider Emergency Medicine; PCP Nurse Practitioner Family
DX: J06.9 Acute upper respiratory infection, unspecified (principal); J44.1 Chronic obstructive pulmonary disease with (acute) exacerbation; Z20.822 Contact with and (suspected) exposure to COVID-19; Z79.899 Other long term (current) drug therapy; Z79.82 Long term (current) use of aspirin; Z79.01 Long term (current) use of anticoagulants; K21.9 Gastro-esophageal reflux disease without esophagitis; E78.00 Pure hypercholesterolemia, unspecified; Z87.442 Personal history of urinary calculi; M19.90 Unspecified osteoarthritis, unspecified site; Z95.2 Presence of prosthetic heart valve; Z98.890 Other specified postprocedural states; F17.210 Nicotine dependence, cigarettes, uncomplicated
CPT/HCPCS: 71045; 87635; 87811; 94640; 99284

== ENCOUNTER 2023-03-02 08:18 | Outpatient (OUT) | payer MEDICAID, SELFPAY ==
--- OUTSIDE RECORDS SUMMARY | 2023-03-02 08:21 | XMS_ITS | CCD ---
Author Name Unknown Address [address] [place] [address] Organization [facility] Care Team Providers Care Cafeteria Team Leader Name Role Phone Bharti Perez Unavailable Joanna Bower Unavailable ENID ., DR JESSICA Rowell Attending Unavailable BYRNE ., DR JESSICA Rowell Admitting Unavailable ROHRBACHER, JOANNA A Primary Care Unavailab le PLATA .GALINA Consulting Unavailable LAKSHMIPATHY ., NARENDGLENDYATH Consulting Amanda vailable LAKSHMIPATHY ., ADRIANNA Attending Amanda vailable LAKSHMIPATHY ., REYNOLDATH Admitting Amanda vailable BRYANNARBACHEParish JOANNA A Primary Care Unavailab le ROHRBACHERVICENTEJOANNA A Primary Care Unavailab le LAKSHMIPATHY ., NARENDGLENDYATH Attending Amanda vailable LAKSHMIPATHY ., NARENDGLENDYATH Admitting Amanda vailable VICENTE BOWERNIFER A Consulting Unavailab le LAKSHMIPATHY ., NARTAMIA Consulting Amanda vailable BYRNE ., DR JESSICA Rowell Admitting Unavailable BYRNE ., DR JESSICA Rowell Consulting Unavailable EMACHEARCELIA LugoFER A Primary Care Unavailab le BYRNE ., DR JESSICA Rowell Attending Unavailable JOANNA BOWER A Consulting Unavailab le ERIK PEREZ Consulting Unavailable LAKSHMIPATHY ., NARENDGLENDYATH Consulting Amanda vailable LAKSHMIPATHY ., NARENDADALBERTO Attending Amanda vailable LAKSHMIPATHY ., ADRIANNA Admitting Amanda vailable EMACHER, JOANNA A Primary Care Unavailab le BYRNE ., DR JESSICA Rowell Attending Unavailable ROHRBACHER, JOANNA A Primary Care Unavailab le BYRNE ., DR JESSICA Rowell Admitting Unavailable ROHRBACHER, JOANNA A Primary Care Unavailab le ROHRBACHER, JOANNA A Admitting Unavailab le ROHRBACHER, JOANNA A Attending Unavailab le ROHRBACHER, JOANNA A Consulting Unavailab le ROHRBACHER, JOANNA A Primary Care Unavailab le BYRNE ., DR JESSICA Rowell Admitting Unavailable BYRNE ., DR JESSICA Rowell Consulting Unavailable BYRNE ., DR JESSICA Rowell Attending Unavailable ROHRBACHER, JOANNA A Consulting Unavailab le FRANSICO, CLAUDIA Consulting Unavailable RUFUS, SHELL Consulting Unavailable ROHRBACHER, JOANNA A Primary Care Unavailab le PLATA ., GALINA Consulting Unavailable BYRNE ., DR JESSICA Rowell Admitting Unavailable BYRNE ., DR JESSICA Rowell Attending Unavailable ROHRBACHER, JOANNA A Primary Care Unavailab le BYRNE ., DR JESSICA Rowell Admitting Unavailable BYRNE ., DR JESSICA Rowell Consulting Unavailable BYRNE ., DR JESSICA Rowell Attending Unavailable BYRNE ., DR JESSICA Rowell Consulting Unavailable BYRNE ., DR JESSICA Rowell Admitting Unavailable ROHRBACHER, JOANNA A Primary Care Unavailab le BYRNE ., DR JESSICA Rowell Attending Unavailable ANAERIK Butts Consulting Unavailable BYRNE ., DR JESSICA Rowell Consulting Unavailable MISC, DR MÁRQUEZ Primary Care Unavailable BYRNE ., DR JESSICA Rowell Admitting Unavailable BYRNE ., DR JESSICA Rowell Attending Unavailable PLATA ., GALINA Consulting Unavailable ROHRBACHER, JOANNA A Primary Care Unavailab le BYRNE ., DR JESSICA Rowell Admitting Unavailable MISC, DR MÁRQUEZ Consulting Unavailable BYRNE ., DR JESSICA Rowell Attending Unavailable BYRNE ., DR JESSICA Rowell Consulting Unavailable ROHRBACHER, JOANNA A Primary Care Unavailab le PLATA ., GALINA Consulting Unavailable BYRNE ., DR JESSICA Rowell Attending Unavailable BYRNE ., DR JESSICA Rowell Admitting Unavailable ROHRBACHER, JOANNA A Primary Care Unavailab le AGNES ., JOHNY Attending Unavailable AGNES ., JOHNY Admitting Unavailable DAVID ., MR MATIAS Consulting Unavailable AGNES ., JOHNY Consulting Unavailable GISELL OJEDA Consulting Unavailable ROHRBACHER, JOANNA A Primary Care Unavailab le PAY ., DR VARGAS Consulting Unavailable PAY ., DR VARGAS Admitting Unavailable PAY ., DR VARGAS Attending Unavailable LAKSHMIPATHY ., ADRIANNA Attending Amanda vailable RAMU ., LAENDGLENDYATH Admitting Amanda leninilable DR DORINA CERNA Consulting Unavailable JOANNA BOWER Primary Care Unavailab le RAOULMIPATHY ., ADRIANNA Consulting Amanda vailable Asaad, Imad Unavailable ANEL Bower Primary Care Provider MD Bryant Sharma Attending Provider Bryant Sharma Unavailable Joanna Bower Primary Care Unavailable Bryant Sharma Attending UnavailBryant Flores Admitting UnavailLorenzo Wade Unavailable Sathish TAM-CHAIR SPRING ASSEMBLER, Joanna Primary Care Provid er SERVICE, JOBST Referring Unavailable JOANNA BOWER Primary [facility] Unavailable SERVICE, JOBST Referring Unavailable JOANNA BOWER Primary [facility] Unavailable JOANNA BOWER Primary [facility] Unavailable DORINA MEYERS Attending Unavailable Medications Current Medications Medication Drug Class(es) Dates Sig (Normalized) Sig (Original) [id number] 200 actuat albuterol 0.09 mg/actuat metered dose inhaler (1 source) beta2-Adrenergic Agonist take 1-2 puff(s) by mouth every four hours as needed Albuterol Sulfate HFA 108 (90 Base) MCG/ACT INHALE 1-2 PUFFS BY MOUTH EVERY 4 HOURS NEEDED for 25 Active amLODIPine 5 mg oral tablet (10 sources) Dihydropyridine Calcium Channel Dee Start: 11-11-2022 take 5 mg by mouth once daily Amlodipine Active 5 MG PO Daily November 11, 2022 12:00am Start: 02-27-2019 take 1 tablet by anusha th once daily amLODIPine (NORVASC) 10 mg tablet Indications: S/P aortic valve replacement TAKE 1 TABLET BY MOUTH EVERY DAY 30 tablet 11 02/27/2019 Active amoxicillin 500 mg oral capsule (1 source) Penicillin-class Antibacterial Start: 02-17-2023 End: 02-27-2023 take 1 capsule by mouth three times daily amoxicillin (AMOXIL) 500 mg capsule Take 1 capsule (500 mg total) by mouth 3 (three) times a day for 10 days. 30 capsule 0 02/17/2023 02/27/2023 Active aspirin 81 mg delayed release oral tablet (9 sources) Platelet Aggregation Inhibitor, Nonsteroidal Anti-inflammatory Drug take 1 tablet by mouth in the morning aspirin 81 mg Take 1 tablet (81 mg total) by mouth in the morning. 0 Active take 1 tablet by mouth once susanne y Aspirin 81 81 MG 1 tablet Orally Once a day Active take 1 tablet by mouth once susanne y Aspirin 81 81 MG 1 tablet Orally Once a day Active atorvastatin 40 mg oral tablet (10 sources) HMG-CoA Reductase Inhibitor Start: 11-11-2022 take 40 mg by mouth at bedtime Atorvastatin Active 40 MG PO Bedtime November 11, 2022 12:00am Start: 02-27-2017 take 1 tablet by anusha th in the morning atorvastatin (LIPITOR) 20 mg tablet Take 1 tablet (20 mg total) by mouth in the morning. 0 02/27/2017 Active BALANCED B-100 400 mcg tablet extended release (2 sources) Start: 07-30-2019 take 1 tablet by mouth once daily BALANCED B-100 400 mcg tablet extended release Take 1 tablet by mouth daily. 0 07/30/2019 Active benzonatate 100 mg oral capsule (1 source) Non-narcotic Antitussive Start: 02-17-2023 take 1 capsule by mouth three times daily as needed for cough benzonatate (TESSALON PERLES) 100 mg capsule Take 1 capsule (100 mg total) by mouth 3 (three) times a day as needed for cough. 20 capsule 0 02/17/2023 Active busPIRone hydrochloride 30 mg oral tablet (1 source) take 1 tablet by mouth every twelve hours busPIRone HCl 30 MG 1 tablet Orally Twice a day Active calcium carbonate 1250 mg / cholecalciferol 200 unt oral tablet (3 sources) Vitamin D Start: 07-01-2019 take 1 tablet by mouth once in the morning [facility] 500 + D3 500 mg(1,250mg) -200 unit per tablet Take 1 tablet by mouth in the morning. 0 07/01/2019 Active take 1 tablet by mouth once susanne y [facility] Calcium + D3 500-200 MG-UNIT TAKE 1 TABLET BY MOUTH EVERY DAY Oral for 30 Active celecoxib 100 mg oral capsule (10 sources) Nonsteroidal Anti-inflammatory Drug Start: 07-26-2018 take 1 capsule by mouth once daily celecoxib (CeleBREX) 100 mg capsule Indications: Cervical spondylosis without myelopathy Take 1 capsule (100 mg total) by mouth daily. 30 day supply 30 capsule 5 07/26/2018 Active cholecalciferol 0.025 mg oral tablet (9 sources) Vitamin D take 1 tablet by mouth in the morning cholecalciferol, vitamin D3, (VITAMIN D3) 1,000 units tablet Take 1 tablet (1,000 Units total) by mouth in the morning. 0 Active take 2 capsules by m outh every twenty-four hours [facility] D3 50 MCG (2000 UT) 2 capsule Oral Once a day for 30 days Needs Refill Active [facility] Balanced B100 - (7 sources) take 1 tablet by mouth once daily [facility] Balanced B100 - TAKE 1 TABLET BY MOUTH EVERY DAY Oral for 30 Active [facility] One Daily Essential - (7 sources) take 1 tablet by mouth once daily [facility] One Daily Essential - TAKE 1 TABLET BY MOUTH EVERY DAY Oral for 30 Active cyclobenzaprine hydrochloride 10 mg oral tablet (10 sources) Muscle Relaxant Start: 11-12-19 take 10 mg by mouth three times daily Cyclobenzaprine Active 10 MG PO Three times daily November 11, 2022 12:00am take 1 tablet by anusha once daily at bedtime cyclobenzaprine (FLEXERIL) 10 mg tablet Take 1 tablet (10 mg total) by mouth once daily at bedtime. 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 16 mL 0 12/02/2022 Active Fish Oils (8 sources) Start: 07-29-2019 take 1 tablet by mouth once daily FISH OIL 300-1,000 mg capsule Take 1 tablet by mouth daily. 0 07/29/2019 Active take 1 capsule by mouth twice da tammy Fish Oil 1000 MG 1 capsule Orally Twice a day for 30 day(s) Active fluocinonide 0.5 mg/ml topical solution (7 sources) Corticosteroid Fluocinonide 0.0 5 % APPLY TO SCALP TWICE DAILY External for 30 Active hydrOXYzine hydrochloride 25 mg oral tablet (2 sources) Antihistamine Start: 01-29-2020 take 1 tablet by mouth every six hours as needed hydrOXYzine (ATARAX) 25 mg tablet Take 1 tablet (25 mg total) by mouth every 6 (six) hours as needed for itching for up to 20 doses. 20 tablet 0 01/29/2020 Active krill oil 500 mg oral capsule (8 sources) krill oil 500 mg capsule Take by mouth. 0 Active Krill Oil 1000 M G as directed Orally bid for 30 day(s) Active 200 actuat levalbuterol 0.045 mg/actuat metered dose inhaler (3 sources) beta2-Adrenergic Agonist Start: 11-11-2022 take 1 puff(s) by inhalation four times daily Levalbuterol Tartrate Active 2 PUFF INHALATION Four times daily November 11, 2022 12:00am Start: 06-27-2022 take 2 puff(s) by mo uth four times daily as needed for wheezing levalbuterol (XOPENEX HFA) 45 mcg/actuation inhaler INHALE 2 PUFFS BY MOUTH 4 TIMES A DAY NEEDED FOR WHEEZING 15 g 5 06/27/2022 Active loratadine 10 mg oral tablet (10 sources) Start: 05-24-2018 take 1 tablet by mouth in the morning loratadine (CLARITIN) 10 mg tablet Take 1 tablet (10 mg total) by mouth in the morning. 2 05/24/2018 Active magnesium oxide 400 mg oral tablet (9 sources) Start: 07-03-2019 take 1 tablet by mouth once daily at bedtime magnesium oxide (MAG-OX) 400 mg tablet TAKE 1 TABLET BY MOUTH EVERYDAY AT BEDTIME 0 07/03/2019 Active melatonin 10 mg sublingual tablet (9 sources) Start: 07-13-2019 melatonin 10 m g tablet, sublingual as needed. 0 07/13/2019 Active take 2 tablets by mo uth once daily at bedtime [facility] Melatonin 10 MG TAKE 2 TABLETS BY MO UTH EVERY DAY AT BEDTIME Sublingual for 30 2200 - 2300 Active metoprolol tartrate 25 mg oral tablet (10 sources) beta-Adrenergic Dee Start: 10-10-2022 take 1 tablet by mouth in the morning, then take 1 tablet by mouth at bedtime metoprolol tartrate (LOPRESSOR) 25 mg tablet Indications: S/P aortic valve replacement TAKE 1 TABLET (25 MG TOTAL) BY MOUTH IN THE MORNING AND 1 TABLET (25 MG TOTAL) BEFORE BEDTIME. 60 tablet 8 10/10/2022 Active [id number]-c alcium &mins (THERAGRAN-M) 9 mg iron-400 mcg tablet (2 sources) [id number] - calcium &mins (THERAGRAN-M) 9 mg iron-400 mcg tablet Take 1 tablet by mouth in the morning. 0 Active Multivitamin With Folic Acid (Daily-Shena (With Folic Acid)) 400 mcg tablet (1 source) Start: 11-11-2022 take 1 tablet by mouth once daily Multivitamin With Folic Acid (Daily-Shena (With Folic Acid)) 400 mcg tablet Active 1 TAB PO Daily November 11, 2022 12:00am nicotine 4 mg chewing gum (1 source) Cholinergic Nicotinic Agonist [facility] Nicotine Polacrilex 4 MG CHEW 1 PIECE OF GUM FOR 30 MINUTES NEEDED 24 TIMES A DAY for 30 Active omeprazole 40 mg delayed release oral capsule (10 sources) Proton Pump Inhibitor Start: 07-13-2019 omeprazole (PriLOSEC) 40 mg capsule Take by mouth daily. 0 07/13/2019 Active ONE DAILY ESSENTIAL 400 mcg tablet (2 sources) Start: 07-29-2019 take 1 tablet by mouth once daily in the morning ONE DAILY ESSENTIAL 400 mcg tablet Take 1 tablet by mouth in the morning. 0 07/29/2019 Active Oyster Shell Calcium/D 500-200 MG-UNIT (7 sources) take 1 tablet by mouth once daily Oyster Shell Calcium/D 500-200 MG-UNIT TAKE 1 TABLET BY MOUTH EVERY DAY Oral for 30 Active polyethylene glycol 3350 313857 mg / potassium chloride 2970 mg / sodium bicarbonate 6740 mg / sodium chloride 5860 mg / sodium sulfate 74940 mg powder for oral solution (5 sources) Osmotic Laxative Start: 12-22-2022 take 4000 mL by mouth once Golytely 236 GM 4,000 ML Orally once for 1 Dec, Active Start: 10-03-2022 Golytely 236 G M At 4:00 pm the day prior to colonoscopy Orally 8 ounces every 15 minutes for 1 days PLEASE CHECK ALLERGIES Sep, Active pregabalin 150 mg oral capsule (10 sources) Start: 11-11-2022 take 150 mg by mouth twice daily Pregabalin Active 150 MG PO Twice daily November 11, 2022 12:00am Start: 11-08-2018 take 1 capsule by [facility] three times daily pregabalin (LYRICA) 100 mg capsule Indications: Cervical spondylosis without myelopathy Take 1 capsule (100 mg total) by mouth 3 (three) times a day. 90 capsule 1 11/08/2018 Active terbinafine hydrochloride 10 mg/ml topical cream (2 sources) Allylamine Antifungal Start: 02-14-2019 ATHLETE'S FOOT, TERBINAFINE, 1 % cream as needed. 0 02/14/2019 Active traZODone hydrochloride 50 mg oral tablet (9 sources) Serotonin Reuptake Inhibitor Start: 07-13-2019 traZODone (DESYREL) 50 mg tablet 7 actuat umeclidinium 0.0625 mg/actuat / vilanterol 0.025 mg/actuat dry powder inhaler (1 source) Anticholinergic, beta2-Adrenergic Agonist take 1 puff(s) by inhalation once daily Anoro Ellipta 62.5-25 MCG/INH 1 puff Inhalation Once a day for 30 days Active Vitamin B Complex (2 sources) take 1 tablet by mouth once daily vitamin B complex (COMPLEX B-100 ORAL) Take 1 tablet by mouth daily. 0 Active warfarin sodium 5 mg oral tablet (10 sources) Vitamin K Antagonist Start: 01-04-2023 take 1-1.5 tablets by mouth in the evening warfarin (COUMADIN) 5 mg tablet Indications: S/P AVR (aortic valve replacement) , History of aortic valve replacement Take 1-1.5 tablets (5-7.5 mg total) by mouth in the evening. as directed by Francoise ROGER (Medication Therapy Management). 135 tablet 1 01/04/2023 Active Start: 11-11-2022 Warfarin Activ e 5 MG PO As Directed November 11, 2022 12:00am 7.5MG 5 DAYS A WEEK, 5MG THE OTHER 2 DAYS Coumadin 5 MG 1 tablet Orally Once a day 3 days. 7.5 mg 4 days Active Coumadin 5 MG 1 tablet Orally Once a day 4x a week as needed, Patient takes 7.5 mg 3 times a week Active Completed/Discontinued Medications Medication Drug Class(es) Dates Sig (Normalized) Sig (Original) Tiotropium-Olodate rol (3 sources) Anticholinergic, beta2-Adrenergic Agonist Start: 11-11-2022 End: 11-11-2022 Tiotropium-Olodatero l (Stiolto Respimat) 2.5-2.5 mcg/actuation mist Discontinued INHALATION November 11, 2022 12:00am November 11, 2022 10:06am Start: 07-07-2022 STIOLTO RESPIM AT 2.5-2.5 mcg/actuation mist INHALE 2 PUFFS BY MOUTH DAILY 4 g 6 07/07/2022 Active triamcinolone acetonide 0.001 mg/mg topical ointment (1 source) Corticosteroid Start: 08-07-2019 Triamcinolone Acetonide 0.1 % 1 application Externally Twice a day for 14 days Jul, Not-Taking Problems Active Problems Problem Classification Problem Date Documented Date Episodic/Chronic Acute and chronic tonsillitis (2 sources) Chronic tonsillitis; Translations: [Chronic tonsillitis] Onset: 09-02-2019 Resolved: 09-23-2019 09-23-2019 Chronic Anxiety disorders (7 sources) Mixed anxiety and depressive disorder; Translations: [Other specified anxiety disorders] Chronic Asthma (8 sources) Mild intermittent asthma; Translations: [Mild intermittent asthma, uncomplicated] Chronic Chronic obstructive pulmonary disease and bronchiectasis (4 sources) Emphysema, unspecified; Translations: [Moderate chronic obstructive pulmonary disease] Onset: 05-24-2018 05-24-2018 Chronic Coma; stupor; and brain damage (7 sources) Daytime somnolence; Translations: [Somnolence] Episodic Disorders of lipid metabolism (14 sources) Hypercholesterolemia; Translations: [Pure hypercholesterolemia, unspecified] Onset: 04-20-2022 Chronic Esophageal disorders (8 sources) Gastroesophageal reflux disease; Translations: [Gastro-esophageal reflux disease without esophagitis] Chronic Essential hypertension (15 sources) Essential hypertension; Translations: [Essential (primary) hypertension] Onset: 04-01-2019 Chronic Headache; including migraine (1 source) Headache; including migraine Onset: 02-17-2023 Heart valve disorders (17 sources) History of aortic valve replacement; Translations: [Presence of prosthetic heart valve] Onset: 06-30-2014 Resolved: 04-01-2019 Chronic Nutritional deficiencies (9 sources) Vitamin D deficiency; Translations: [Vitamin D deficiency, unspecified] Onset: 04-20-2022 Chronic Other aftercare (6 sources) Anticoagulant effect; Translations: [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) use of anticoagulants] Episodic Other aftercare (1 source) Encounter for therapeutic drug level monitoring; Translations: [Encounter for therapeutic drug level monitoring] Onset: 01-13-2023 Episodic Other hereditary and degenerative nervous system conditions (7 sources) Restless legs; Translations: [Restless legs syndrome] Chronic Other inflammatory condition of skin (7 sources) Lupus erythematosus tumidus; 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 Other inflammatory condition of skin (1 source) Discoid lupus erythematosus Chronic Other lower respiratory disease (7 sources) Lung mass; Translations: [Solitary pulmonary nodule] Episodic Other lower respiratory disease (1 source) Solitary pulmonary nodule Episodic Other nervous system disorders (7 sources) Chronic pain; Translations: [Other chronic pain] Chronic Other nervous system disorders (7 sources) Sleep-wake schedule disorder, delayed phase type; Translations: [Circadian rhythm sleep disorder, delayed sleep phase type] Chronic Other nervous system disorders (6 sources) Other chronic pain; Translations: [OTHER CHRONIC PAIN] Onset: 05-20-2022 Chronic Other non-traumatic joint disorders (4 sources) Pain in right hip; Translations: [PAIN IN RIGHT HIP] Onset: 2022 Episodic Other non-traumatic joint disorders (1 source) Pain in left hip; Translations: [PAIN IN LEFT HIP] Onset: 05-20-2022 Episodic Other nutritional; endocrine; and metabolic disorders (7 sources) Body mass index 30+ - obesity; Translations: [Body mass index (BMI) 30.0-30.9, adult] Chronic Other nutritional; endocrine; and metabolic disorders (7 sources) Cholesterol level - finding; Translations: [Lipoprotein deficiency] Chronic Other nutritional; endocrine; and metabolic disorders (7 sources) Obesity; Translations: [Other obesity due to excess calories] Chronic Other nutritional; endocrine; and metabolic disorders (2 sources) Lipoprotein deficiency; Translations: [LIPOPROTEIN DEFICIENCY] Onset: 04-20-2022 Chronic Other nutritional; endocrine; and metabolic disorders (1 source) Other obesity due to excess calories Chronic Other nutritional; endocrine; and metabolic disorders (1 source) Body mass index (BMI) 29.0-29.9, adult Episodic Residual codes; unclassified (7 sources) Periodic limb movement disorder; Translations: [Periodic limb movement disorder] Chronic Residual codes; unclassified (1 source) Tobacco use Episodic Residual codes; unclassified (2 sources) Family history of malignant neoplasm of digestive organs; Translations: [Family history of malignant neoplasm of gastrointestinal tract] Episodic Residual codes; unclassified (1 source) Family history of cancer of colon; Translations: [Family history of malignant neoplasm of digestive organs] 11-11-2022 Episodic Spondylosis; intervertebral disc disorders; other back problems (20 sources) Spondylosis without myelopathy or radiculopathy, thoracic region; Translations: [Other intervertebral disc degeneration, thoracic region] Onset: 06-06-2016 Chronic Substance-related disorders (8 sources) Tobacco dependence syndrome; Translations: [Nicotine dependence, cigarettes, with other nicotine-induced disorders] Onset: 02-01-2022 Chronic Systemic lupus erythematosus and connective tissue disorders (2 sources) Lupus erythematosus; Translations: [Systemic lupus erythematosus, unspecified] Onset: 01-04-2021 01-04-2021 Chronic Unclassified (1 source) CONTACT W/AND (SUSP) EXPOS COVID-19; Translations: [CONTACT W/AND (SUSP) EXPOS COVID-19] Onset: 02-01-2022 Unclassified (2 sources) COUGH, UNSPECIFIED; Translations: [COUGH, UNSPECIFIED] Onset: 01-25-2022 Unclassified (1 source) Encounter for screening for malignant neoplasm of colon; Translations: [Encounter for screening for malignant neoplasm of colon] Onset: 11-11-2022 Unclassified (1 source) Cold Like Symptoms Onset: 02-17-2023 Past or Other Problems Problem Classification Problem Date Documented Da te Episodic/Chronic Immunizations and screening for infectious disease (1 source) Contact with and (suspected) exposure to other viral communicable diseases Onset: 06-11-2021 Resolved: 06-11-2021 Episodic Mood disorders (2 sources) Mood disorders Onset: 09-02-2019 09-02-2019 Nonspecific chest pain (3 sources) Chest pain, unspecified; Translations: [Precordial pain] Onset: 02-18-2019 02-18-2019 Episodic Other aftercare (1 source) Other [facility] (current[facility] drug therapy; Translations: [OTH SECOND BUTLER CURRENT DRUG THERAPY] Onset: 02-01-2022 Episodic Other aftercare (3 sources) halfway (current) use of anticoagulants; Translations: [SECOND BUTLER CURRNT USE ANTICOAGULANTS] Onset: 10-24-2017 Episodic Other aftercare (1 source) halfway (current) use of aspirin; Translations: [[facility] CURRENT USE OF ASPIRIN] Onset: 02-01-2022 Episodic Other aftercare (3 sources) Long-term current use of anticoagulant; Translations: [halfway (current) use of anticoagulants] Onset: 06-13-2016 02-17-2023 Episodic Other connective tissue disease (5 sources) Other muscle spasm; Translations: [OTHER MUSCLE SPASM] Onset: 01-24-2022 Episodic Other lower respiratory disease (4 sources) Shortness of breath; Translations: [SHORTNESS OF BREATH] Onset: 01-30-2022 Episodic Other lower respiratory disease (2 sources) Nodule of lung; Translations: [Solitary pulmonary nodule] Onset: 06-25-2019 06-25-2019 Episodic Other lower respiratory disease (2 sources) Dyspnea; Translations: [Shortness of breath] Onset: 04-04-2017 Resolved: 06-25-2019 06-25-2019 Episodic Other lower respiratory disease (2 sources) Radiologic infiltrate of lung ; Translations: [Other nonspecific abnormal finding of lung field] Onset: 05-24-2018 Resolved: 06-25-2019 06-25-2019 Episodic Other nervous system disorders (9 sources) Paresthesia; Translations: [Paresthesia of skin] Onset: 04-13-2017 04-13-2017 Episodic Other non-traumatic joint disorders (2 sources) Bilateral chronic pain of upper limbs; Translations: [Pain in right shoulder] Onset: 09-12-2017 02-22-2018 Episodic Other non-traumatic joint disorders (2 sources) Chronic pain of right upper limb; Translations: [Pain in right shoulder] Onset: 10-04-2018 10-04-2018 Episodic Other screening for suspected conditions (not mental disorders or infectious disease) (3 sources) Encounter for screening for malignant neoplasm of colon; Translations: [Echocardiogram abnormal] Onset: 03-18-2019 Episodic Other upper respiratory disease (2 sources) Deviated nasal septum; Translations: [Deviated nasal septum] Onset: 09-02-2019 Resolved: 09-23-2019 09-23-2019 Episodic Other upper respiratory infections (6 sources) Acute upper respiratory infection, unspecified; Translations: [Acute pharyngitis, unspecified] Onset: 06-07-2016 Resolved: 06-11-2021 Episodic Residual codes; unclassified (9 sources) Tobacco user; Translations: [Tobacco use] Onset: 05-24-2018 05-24-2018 Episodic Spondylosis; intervertebral disc disorders; other back problems (12 sources) Dorsalgia, unspecified; Translations: [Muscle spasm of back] Onset: 06-06-2016 Episodic Unclassified (1 source) COUGH, UNSPECIFIED; Translations: [COUGH, UNSPECIFIED] Onset: 01-21-2022 Unclassified (1 source) Lumbar pain M54.50 Results Test Name Value Interpretation Reference Range Facility POCT Protime / INRon 024 INR Coag (PPP) [Relative time] 2.1 {INR} Abnormal 0.8 - 1.2 [facility] Interpretation and review of laboratory results Abnormal [facility] RAPID STREP SCR NURSINGon S. pyogenes Ag EIA Ql (Throat) Positive Abnormal NEG [facility] Comment on above: Performed By: #### 6 [id number] #### [facility] ([id number]) [address] [place] [address], [place] [address] SARS/FLU A+B/RSV by NAAT/Mol ecularon 02-17-2023 SARS/FLU A+B/RSV by NAAT/Molecular FLU A PCR Negative (qualifier value) FLU B PCR Negative (qualifier value) RSV by PCR Negative (qualifier value) SARS CoV 2 Not detected (qualifier value) NOTE The Xpert Xpress SARS-CoV-2/Flu/RSV Plus test is a rapid, multiplexed real-time RT-PCR test intended for the simultaneous qualitative detection and differentiation of SARS-CoV-2, influenza A, influenza B and respiratory syncytial virus (RSV) viral RNA from individuals suspected of respiratory viral infection consistent with COVID-19 by their healthcare provider. This test has not been validated in asymptomatic patients. The Xpert Xpress SARS-CoV-2 test is intended for use by qualified and trained operators who are performing tests using either GeneXpert DX or GeneXpert Infinity systems and is limited to laboratories that meet the CLIA requirements to perform high and moderate complexity tests. The Xpert Xpress SARS-CoV-2/Flu/RSV Plus is only for use under the Food and Drug Administration's Emergency Use Authorization. Results are for the simultaneous detection and differentiation of SARS-CoV-2, influenza A, influenza B and RSV nucleic acids in clinical specimens. SARS-CoV-2, influenza A, influenza B and RSV RNA identified by this test are generally detectable in upper respiratory samples during the acute phase of infection. Positive results are indicative of the presence of the identified virus, but do not rule out bacterial infection or co-infection with other pathogens not detected by this test. Clinical correlation with patient history and other diagnostic information is necessary to determine patient infection status. The agent detected may not be the definite cause of disease. Negative results do not preclude SARS-CoV-2, influenza A, influenza B and RSV infection and should not be used as the sole basis for treatment or other patient management decisions. Negative results must be combined with clinical observations, patient history and epidemiological information. An Invalid result may occur with specimen-associated inhibition unable to be resolved with specimen repeat. Fact Sheet for Healthcare Providers: https://www.fda.gov/media/ 016998/download Fact Sheet for Patients: https://www.fda.gov/media/ 390751/download Normal [facility] Comment on above: Performed By: #### C OVFLR #### [facility] ([id number]) [address] [place] [address], [place] [address] Activated partial thrombopla stin time (aPTT) in platelet poor plasma by coagulation aOrdered By: Bryant Sharma on 11-11-2022 aPTT Coag (PPP) [Time] 28.5 s 25.1-36.5 [facility] Comment on above: A hematocrit value g reater than 55% may lead to inaccurate results in coagulation testing. Patients having hematocrit values >55% require a special collection tube for coagulation studies. Please contact the laboratory at [phone] for redraw instructions. Amphetamine Screen Ql (U)Ord ered By: Bryant Sharma on 11-11-2022 Amphetamines Ql (U) Negative Negative [facility] Barbiturates [Presence] in U rine by Screen methodOrdered By: Bryant Sharma on 11-11-2022 Barbiturates Screen Ql (U) Negative Negative [facility] Basophils Auto (Bld) [#/Vol] Ordered By: Bryant Sharma on 11-11-2022 Basophils (Bld) [#/Vol] 0.1 10*3/uL 0.0-0.2 [facility] Basophils/100 WBC Auto (Bld) Ordered By: Bryant Sharma on 11-11-2022 Basophils/100 WBC (Bld) 1.1 % . [facility] Benzodiazepines Screen Ql (U )Ordered By: Bryant Sharma on 11-11-2022 Benzodiazepines Ql (U) Negative Negative [facility] Benzoylecgonine [Presence] i n Urine by Screen methodOrdered By: Bryant Sharma on 11-11-2022 Benzoylecgonine Screen Ql (U) Negative Negative [facility] Cannabinoids [Presence] in U rine by Screen methodOrdered By: Bryant Sharma on 11-11-2022 Cannabinoids Screen Ql (U) Positive Negative [facility] Comment on above: These are unconfirme d results and should not be used for legal purposes. Drug Cut-Off Concentration: AMPH 1000 ng/mL LISA 200 ng/mL VILMA 200 ng/mL COCM 300 ng/mL OP 300 ng/mL PCP 25 ng/mL THC 20 ng/mL Complete Blood Count Auto Di ffon 11-11-2022 Basophils (Bld) [#/Vol] 0.1 10*3/uL Normal 0.0-0.2 [facility] Comment on above: Result Comment: PERF ORMED BY: [place] [address] PATHOLOGIST CHEMISTRY TUTOR MATT VIEIRA M.D. Performed By: #### C BC #### [facility] [address] Basophils/100 WBC (Bld) 1.1 % Normal . [facility] Comment on above: Performed By: #### C BC #### [facility] [address] Eosinophils (Bld) [#/Vol] 0.2 10*3/uL Normal 0.0-0.45 [facility] Comment on above: Performed By: #### C BC #### [address] Eosinophils/100 WBC (Bld) 1.6 % Normal . [facility] Comment on above: Performed By: #### C BC #### [address] Erythrocyte distribution width (RBC) [Ratio] 14.8 % Normal 12.0-14.8 [facility] Comment on above: Performed By: #### C BC #### [address] Hematocrit (Bld) [Volume fraction] 42.6 % Normal 38.8-50.0 [facility] Comment on above: Performed By: #### C BC #### [address] Hemoglobin (Bld) [Mass/Vol] 14.5 g/dL Normal 13.0-17.0 [facility] Comment on above: Performed By: #### C BC #### [address] Lymphocytes (Bld) [#/Vol] 2.5 10*3/uL Normal 1.00-4.8 [facility] Comment on above: Performed By: #### C BC #### [address] Lymphocytes/100 WBC (Bld) 25.7 % Normal . [facility] Comment on above: Performed By: #### C BC #### [address] MCH (RBC) [Entitic mass] 31.1 pg Normal 27.5-35.2 [facility] Comment on above: Performed By: #### C BC #### [address] MCV (RBC) [Entitic vol] 91.0 fL Normal 83.5-101 [facility] Comment on above: Performed By: #### C BC #### [facility] [address] Mean Corpuscular HGB Conc 34.1 g/dL Normal 32.5-35.6 [facility] Comment on above: Performed By: #### C BC #### [facility] [address] [place] [address] [place] Monocytes (Bld) [#/Vol] 0.6 10*3/uL Normal 0.0-0.8 [facility] Comment on above: Performed By: #### C BC #### [facility] [address] Monocytes/100 WBC (Bld) 6.5 % Normal . [facility] Comment on above: Performed By: #### C BC #### [facility] [address] Neutrophils (Bld) [#/Vol] 6.4 10*3/uL Normal 1.8-7.7 [facility] Comment on above: Performed By: #### C BC #### [facility] [address] Neutrophils/100 WBC (Bld) 65.1 % Normal . [facility] Comment on above: Performed By: #### C BC #### [facility] [address] [place] [address] [place] NRBC% 0.0 /100{WBC} Normal 0-0.5 [facility] Comment on above: Performed By: #### C BC #### [facility] [address] Platelet mean volume (Bld) [Entitic vol] 7.5 fL Normal 6.6-10.1 [facility] Comment on above: Performed By: #### C BC #### [facility] [address] [place] [address] [place] Platelets (Bld) [#/Vol] 223 10*3/uL Normal 150-450 [facility] Comment on above: Performed By: #### C BC #### [facility] [address] RBC (Bld) [#/Vol] 4.68 10*6/uL Normal 3.90-5.60 [facility] Comment on above: Performed By: #### C BC #### [address] WBC (Bld) [#/Vol] 9.8 10*3/uL Normal 4.1-10.5 [facility] Comment on above: Performed By: #### C BC #### [address] Drug Screen,Urineon 11-12-19 23 Amphetamine Screen,Urine Negative Normal Negative [facility] Comment on above: Performed By: #### U RDS #### [address] Barbiturate Screen,Urine Negative Normal Negative [facility] Comment on above: Performed By: #### U RDS #### [address] Benzodiazepines Screen,Urine Negative Normal Negative [facility] Comment on above: Performed By: #### U RDS #### [address] Cannabinoid Screen,Urine Positive High Negative [facility] Comment on above: Result Comment: Thes e are unconfirmed results and should not be used for legal purposes. Drug Cut-Off Concentration: AMPH 1000 ng/mL LISA 200 ng/mL VILMA 200 ng/mL COCM 300 ng/mL OP 300 ng/mL PCP 25 ng/mL THC 20 ng/mL PERFORMED BY: [place] [address] PATHOLOGIST CHEMISTRY TUTOR MATT VIEIRA M.D. Performed By: #### U RDS #### [place] [address] [place] Cocaine Screen,Urine Negative Normal Negative [facility] Comment on above: Performed By: #### U RDS #### [place] [address] [place] Opiate Screen,Urine Negative Normal Negative [facility] Comment on above: Performed By: #### U RDS #### [facility] [address] [place] [address] [place] Phencyclidine Screen,Urine Negative Normal Negative [facility] Comment on above: Performed By: #### U RDS #### [facility] [address] Eosinophils Auto (Bld) [#/Vo l]Ordered By: Bryant Sharma on 11-11-2022 Eosinophils (Bld) [#/Vol] 0.2 10*3/uL 0.0-0.45 [facility] Eosinophils/100 WBC Auto (Bl d)Ordered By: Bryant Sharma on 11-11-2022 Eosinophils/100 WBC (Bld) 1.6 % . [facility] Erythrocyte distribution wid th Auto (RBC) [Ratio]Ordered By: Bryant Sharma on 11-11-2022 Erythrocyte distribution width (RBC) [Ratio] 14.8 % 12.0-14.8 [facility] Hematocrit Auto (Bld) [Volum e fraction]Ordered By: Bryant Sharma on 11-11-2022 Hematocrit (Bld) [Volume fraction] 42.6 % 38.8-50.0 [facility] Hemoglobin [Mass/volume] in BloodOrdered By: Bryant Sharma on 11-11-2022 Hemoglobin (Bld) [Mass/Vol] 14.5 g/dL 13.0-17.0 [facility] INR in Platelet poor plasma by Coagulation assayOrdered By: Bryant Sharma on 11-11-2022 INR Coag (PPP) [Relative time] 1.0 {INR} [facility] Comment on above: INR Therapeutic Rang e A) Pre- and Peroperative OAT started two weeks before surgery. NOT HIP SURGERY: 1.5 - 2.5 HIP SURGERY: 2 - 3B) Primary and secondary prevention of venous THROMBOSIS: 2 - 3C) Active venous thrombosis, pulmonary embolismand prevention of recurrent venous thrombosis: 2 - 3D) Prevention of arterial thromboembolismincluding patients with mechanical heart valves: 3 - 4.5 Leukocytes [#/volume] correc shari for nucleated erythrocytes in Blood by Automated counOrdered By: Bryant Sharma on 11-11-2022 WBC corrected for nucl RBC Auto (Bld) [#/Vol] 9.8 10*3/uL 4.1-10.5 [facility] Lymphocytes Auto (Bld) [#/Vo l]Ordered By: Bryant Sharma on 11-11-2022 Lymphocytes (Bld) [#/Vol] 2.5 10*3/uL 1.00-4.8 [facility] Lymphocytes/100 WBC Auto (Bl d)Ordered By: Bryant Sharma on 11-11-2022 Lymphocytes/100 WBC (Bld) 25.7 % . [facility] MCH Auto (RBC) [Entitic mass ]Ordered By: Bryant Sharma on 11-11-2022 MCH (RBC) [Entitic mass] 31.1 pg 27.5-35.2 [facility] MCHC Auto (RBC) [Mass/Vol]Or dered By: Bryant Sharma on 11-11-2022 MCHC (RBC) [Mass/Vol] 34.1 g/dL 32.5-35.6 [facility] MCV Auto (RBC) [Entitic vol] Ordered By: Bryant Sharma on 11-11-2022 MCV (RBC) [Entitic vol] 91.0 fL 83.5-101 [facility] Monocytes Auto (Bld) [#/Vol] Ordered By: Bryant Sharma on 11-11-2022 Monocytes (Bld) [#/Vol] 0.6 10*3/uL 0.0-0.8 [facility] Monocytes/100 WBC Auto (Bld) Ordered By: Bryant Sharma on 11-11-2022 Monocytes/100 WBC (Bld) 6.5 % . [facility] Neutrophils Auto (Bld) [#/Vo l]Ordered By: Bryant Sharma on 11-11-2022 Neutrophils (Bld) [#/Vol] 6.4 10*3/uL 1.8-7.7 [facility] Neutrophils/100 WBC Auto (Bl d)Ordered By: Bryant Sharma on 11-11-2022 Neutrophils/100 WBC (Bld) 65.1 % . [facility] Nucleated erythrocytes [Pres ence] in Blood by Automated countOrdered By: Bryant Sharma on 11-11-2022 Nucleated RBC Auto Ql (Bld) 0.0 /100{WBC} 0-0.5 [facility] Opiates [Presence] in Urine by Screen methodOrdered By: Bryant Sharma on 11-11-2022 Opiates Screen Ql (U) Negative Negative [facility] Partial Thromboplastin Timeo n 11-11-2022 aPTT Coag (Bld) [Time] 28.5 s Normal 25.1-36.5 [facility] Comment on above: Result Comment: A he matocrit value greater than 55% may lead to inaccurate results in coagulation testing. Patients having hematocrit values >55% require a special collection tube for coagulation studies. Please contact the laboratory at [phone] for redraw instructions. PERFORMED BY: [place] [address] PATHOLOGIST CHEMISTRY TUTOR MATT VIEIRA M.D. Performed By: #### P T, PTT #### [address] Phencyclidine Screen Ql (U)O rdered By: Bryant Sharma on 11-11-2022 Phencyclidine Ql (U) Negative Negative [facility] Platelet mean volume Auto (B ld) [Entitic vol]Ordered By: Bryant Sharma on 11-11-2022 Platelet mean volume (Bld) [Entitic vol] 7.5 fL 6.6-10.1 [facility] Platelets Auto (Bld) [#/Vol] Ordered By: Bryant Sharma on 11-11-2022 Platelets (Bld) [#/Vol] 223 10*3/uL 150-450 [facility] Prothrombin Time INRon 11-11 INR Coag (PPP) [Relative time] 1.0 {INR} Normal [facility] Comment on above: Result Comment: INR Therapeutic Range A) Pre- and Peroperative OAT started two weeks before surgery. NOT HIP SURGERY: 1.5 - 2.5 HIP SURGERY: 2 - 3 B) Primary and secondary prevention of venous THROMBOSIS: 2 - 3 C) Active venous thrombosis, pulmonary embolism and prevention of recurrent venous thrombosis: 2 - 3 D) Prevention of arterial thromboembolism including patients with mechanical heart valves: 3 - 4.5 Performed By: #### P T, PTT #### [facility] [address] [place] [address] [facility] PT Coag (PPP) [Time] 11.8 s Normal 9.0-12.9 [facility] Comment on above: Result Comment: A he matocrit value greater than 55% may lead to inaccurate results in coagulation testing. Patients having hematocrit values >55% require a special collection tube for coagulation studies. Please contact the laboratory at [phone] for redraw instructions. Performed By: #### P T, PTT #### [facility] [address] [place] [address] [facility] Prothrombin time (PT)Ordered By: Bryant Sharma on 11-11-2022 PT Coag (PPP) [Time] 11.8 s 9.0-12.9 [facility] Comment on above: A hematocrit value g reater than 55% may lead to inaccurate results in coagulation testing. Patients having hematocrit values >55% require a special collection tube for coagulation studies. Please contact the laboratory at [phone] for redraw instructions. RBC Auto (Bld) [#/Vol]Ordere d By: Bryant Sharma on 11-11-2022 RBC (Bld) [#/Vol] 4.68 10*6/uL 3.90-5.60 [facility] WBC Auto (Bld) [#/Vol]Ordere d By: Bryant Sharma on 11-11-2022 WBC (Bld) [#/Vol] 9.8 10*3/uL 4.1-10.5 [facility] XR HIPS JUAN 3_4V WO PELVISon 05-20-2022 XR HIPS JUAN 3_4V WO PELVIS EXAMINATION: XR HIPS JUAN 3_4V WO PELVIS HISTORY: Bilateral hip joint pain COMPARISON: No relevant comparison available. FINDINGS: RIGHT FINDINGS: BONES: No significant arthropathy or acute abnormality. SOFT TISSUES: No visible soft tissue swelling. OTHER: Negative. LEFT FINDINGS: BONES: No significant arthropathy or acute abnormality. SOFT TISSUES: No visible soft tissue swelling. OTHER: Negative. IMPRESSION: RIGHT CONCLUSION: Unremarkable right hip. LEFT CONCLUSION: Unremarkable left hip. Electronically authenticated by: DORINA CERNA Date: 2022-05-20 06:51 Normal [facility] XR TSPINE 2 VIEWSon 05-21-19 XR TSPINE 2 VIEWS EXAMINATION: XR TSPI NE 2 VIEWS HISTORY: Thoracic spondylosis COMPARISON: XR T-spine 01/21/2021 FINDINGS: BONES: No significant spondylosis, scoliosis, fracture, or visible bony lesion. DISC SPACES: Multilevel mild degenerative disc disease. PARASPINOUS: Negative. No paraspinous abnormality is seen. OTHER: Skin surface marker projects posterior to the right T10-T11 facet joint. IMPRESSION: 1. Minimal degenerative changes of the thoracic spine. Electronically authenticated by: DORINA CERNA Date: 2022-05-20 06:54 Normal [facility] CBC AUTO DIFFon 04-19-2022 BASO # 0.1 103/ul Normal 0.0-0.1 [facility] Comment on above: Performed By: #### P T #### [facility] [address] [address] [address] Priya Cespedes Basophils/100 WBC (Bld) 0.9 % Normal 0.2-2.0 [facility] Comment on above: Performed By: #### P T #### [facility] [address] [place] [address] Dr. Priya Cespedes EO # 0.1 103/ul Normal 0.0-0.7 [facility] Comment on above: Performed By: #### P T #### [facility] [address] [address] [address] Pirya Cespedes Eosinophils/100 WBC (Bld) 1.5 % Normal 0.9-7.0 [facility] Comment on above: Performed By: #### P T #### [facility] [address] [address] [address] Priya Cespedes Erythrocyte distribution width (RBC) [Ratio] 14.5 % Normal 11.0-15.0 [facility] Comment on above: Performed By: #### P T #### [facility] [address] [place] [address] Dr. Priya Cespedes Hematocrit (Bld) [Volume fraction] 40.5 % Critically low 42.0-54.0 [facility] Comment on above: Performed By: #### P T #### [facility] [address] [place] [address] Dr. Priya Cespedes Hemoglobin (Bld) [Mass/Vol] 14.1 g/dL Normal 14.0-18.0 [facility] Comment on above: Performed By: #### P T #### [facility] [address] [place] [address] Dr. Priya Cespedes IG # 0.02 10e3/ul Normal 0.00-0.03 [facility] Comment on above: Performed By: #### P T #### [facility] [address] [place] [address] Dr. Priya Cespedes IG % 0.3 % Normal 0.0-0.5 [facility] Comment on above: Performed By: #### P T #### [facility] [address] [place] [address] Dr. Priya Cespedes LYMPH # 2.0 103/ul Normal 1.2-3.8 [facility] Comment on above: Performed By: #### P T #### [facility] [address] [place] [address] Dr. Priya Cespedes Lymphocytes/100 WBC (Bld) 25.8 % Normal 20.5-60.0 [facility] Comment on above: Performed By: #### P T #### [facility] [address] [place] [address] Dr. Priya Cespedes MANUAL DIFF REQ NO Normal [facility] Comment on above: Performed By: #### P T #### [facility] [address] [place] [address] Dr. Priya Cespedes MCH (RBC) [Entitic mass] 31.1 pg Normal 25.9-34.0 [facility] Comment on above: Performed By: #### P T #### [facility] [address] [place] [address] Dr. Priya Cespedes MCHC (RBC) [Mass/Vol] 34.8 g/dL Normal 29.9-35.2 [facility] Comment on above: Performed By: #### P T #### [facility] [address] [address] [address] Priya Cespedes MCV (RBC) [Entitic vol] 89.2 fL Normal 80.0-94.0 [facility] Comment on above: Performed By: #### P T #### [facility] [address] [address] [address] Priya Cespedes MONO # 0.6 103/ul Normal 0.3-0.8 [facility] Comment on above: Performed By: #### P T #### [facility] [address] [address] [address] Priya Cespedes Monocytes/100 WBC (Bld) 7.1 % Normal 1.7-12.0 [facility] Comment on above: Performed By: #### P T #### [facility] [address] [address] [address] Priya Cespedes NEUT # 5.1 103/ul Normal 1.4-6.5 [facility] Comment on above: Performed By: #### P T #### [facility] [address] [address] [address] Priya Cespedes Neutrophils/100 WBC (Bld) 64.4 % Normal 43.0-75.0 [facility] Comment on above: Performed By: #### P T #### [facility] [address] [address] [address] Priya Cespedes Platelet mean volume (Bld) [Entitic vol] 8.7 fL Critically low 9.5-13.5 [facility] Comment on above: Performed By: #### P T #### [facility] [address] [address] [address] Priya Cespedes PLT 191 103/ul Normal 150-450 [facility] Comment on above: Performed By: #### P T #### [facility] [address] [address] [address] Priya Cespedes RBC 4.54 106/ul Critically low 4.70-6.10 [facility] Comment on above: Performed By: #### P T #### [facility] [address] [address] [address] Priya Cespedes WBC 7.9 103/ul Normal 4.0-11.0 [facility] Comment on above: Performed By: #### P T #### [facility] [address] [address] [address] Priya Cespedes LIPID PROFILEon 04-19-2022 CHOL-HDL RATIO NORM SEE BELOW Normal [facility] Comment on above: Result Comment: 3.3 - 4.4 LOW RISK 4.4 - 7.1 AVERAGE RISK 7.1 - 11.0 MODERATE RISK >11.0 HIGH RISK Performed By: #### L IPID, CMP #### [facility] [address] [place] [address] Dr. Priya Cespedes Cholesterol [Mass/Vol] 249 mg/dL Critically high <=200 [facility] Comment on above: Performed By: #### L IPID, CMP #### [facility] [address] [place] [address] Dr. Priya Cespedes Cholesterol in HDL [Mass/Vol] 40 mg/dL Normal 40-60 [facility] Comment on above: Performed By: #### L IPID, CMP #### [facility] [address] [place] [address] Dr. Priya Cespedes Cholesterol in LDL [Mass/Vol] 174.0 mg/dL Normal [facility] Comment on above: Performed By: #### L IPID, CMP #### [facility] [address] [place] [address] Dr. Priya Cespedes Cholesterol.total/ Cholesterol in HDL [Mass ratio] 6.2 {ratio} Normal [facility] Comment on above: Performed By: #### L IPID, CMP #### [facility] [address] [place] [address] Dr. Priya Cespedes HDL NORMAL > or = 60 mg/dl - LO W CARDIOVASCULAR RISK <40 mg/dl - HIGH CARDIOVASCULAR RISK Normal [facility] Comment on above: Performed By: #### L IPID, CMP #### [facility] [address] [place] [address] Dr. Priya Cespedes LDL CALC NORMAL SEE BELOW Normal [facility] Comment on above: Result Comment: <100 mg/dl OPTIMAL 100 - 129 mg/dl NEAR OR ABOVE OPTIMAL 130 - 159 mg/dl BORDERLINE HIGH 160 - 189 mg/dl HIGH >190 mg/dl VERY HIGH Performed By: #### L IPID, CMP #### [facility] [address] [place] [address] Dr. Priya Cespedes Triglyceride [Mass/Vol] 175 mg/dL Critically high <=150 [facility] Comment on above: Performed By: #### L IPID, CMP #### [facility] [address] [place] [address] [address] Priya Cespedes VLDL CALC 35.0 mg/dL Normal [facility] Comment on above: Performed By: #### L IPID, CMP #### [facility] [address] [place] [address] Dr. Priya Cespedes PROF 14(COMP METB)on 023 Albumin [Mass/Vol] 3.9 g/dL Normal 3.4-5.0 [facility] Comment on above: Performed By: #### L IPID, CMP #### [facility] [address] [address] [address] Priya Cespedes Albumin/Globulin [Mass ratio] 1.3 {ratio} Normal [facility] Comment on above: Performed By: #### L IPID, CMP #### [facility] [address] [address] [address] Priya Cespedes ALP [Catalytic activity/Vol] 67 U/L Normal 46-116 [facility] Comment on above: Performed By: #### L IPID, CMP #### [facility] [address] [address] [address] Priya Cespedes ALT [Catalytic activity/Vol] 20 U/L Normal 16-63 [facility] Comment on above: Performed By: #### L IPID, CMP #### [facility] [address] [address] [address] Priya Cespedes Anion gap [Moles/Vol] 11.7 mmol/L Normal [facility] Comment on above: Performed By: #### L IPID, CMP #### [facility] [address] [address] [address] Priya Cespedes AST [Catalytic activity/Vol] 21 U/L Normal 15-37 [facility] Comment on above: Performed By: #### L IPID, CMP #### [facility] [address] [address] [address] Priya Cespedes Bilirubin [Mass/Vol] 0.5 mg/dL Normal 0.2-1.0 [facility] Comment on above: Performed By: #### L IPID, CMP #### [facility] [address] [address] [address] Priya Cespedes Calcium [Mass/Vol] 8.8 mg/dL Normal 8.5-10.1 [facility] Comment on above: Performed By: #### L IPID, CMP #### [facility] [address] [place] [address] Dr. Priya Cespedes Chloride [Moles/Vol] 107 mmol/L Normal 98-107 [facility] Comment on above: Performed By: #### L IPID, CMP #### [facility] [address] [place] [address] Dr. Priya Cespedes CO2 [Moles/Vol] 27.5 mmol/L Normal 21.0-32.0 [facility] Comment on above: Performed By: #### L IPID, CMP #### [facility] [address] [place] [address] Dr. Priya Cespedes Creatinine [Mass/Vol] 0.95 mg/dL Normal 0.70-1.30 [facility] Comment on above: Performed By: #### L IPID, CMP #### [facility] [address] [place] [address] Dr. Priya Cespedes EGFR-AF BRUNEIAN >60 Normal >=60 [facility] Comment on above: Performed By: #### L IPID, CMP #### [facility] [address] [place] [address] Dr. Priya Cespedes EGFR-NON AF BRUNEIAN >60 Normal >=60 [facility] Comment on above: Performed By: #### L IPID, CMP #### [facility] [address] [address] [address] Priya Cespedes Globulin (S) [Mass/Vol] 3.1 g/dL Normal [facility] Comment on above: Performed By: #### L IPID, CMP #### [facility] [address] [address] [address] Priya Cespedes Glucose [Mass/Vol] 107 mg/dL Critically high 74-106 [facility] Comment on above: Performed By: #### L IPID, CMP #### [facility] [address] [place] [address] Dr. Priya Cespedes Potassium [Moles/Vol] 4.2 mmol/L Normal 3.5-5.1 [facility] Comment on above: Performed By: #### L IPID, CMP #### [facility] [address] [place] [address] Dr. Priya Cespedes Protein [Mass/Vol] 7.0 g/dL Normal 6.4-8.2 [facility] Comment on above: Performed By: #### L IPID, CMP #### [facility] [address] [place] [address] Dr. Priya Cespedes Sodium [Moles/Vol] 142 mmol/L Normal 136-145 [facility] Comment on above: Performed By: #### L IPID, CMP #### [facility] [address] [place] [address] Dr. Priya Cespedes Urea nitrogen [Mass/Vol] 24.0 mg/dL Critically high 7.0-18.0 [facility] Comment on above: Performed By: #### L IPID, CMP #### [facility] [address] [place] [address] Dr. Priya Cespedes Urea nitrogen/Creatinin e [Mass ratio] 25.3 mg/mg Normal [facility] Comment on above: Performed By: #### L IPID, CMP #### [facility] [address] [place] [address] Dr. Priya Cespedes PROTIMEon 04-19-2022 INR Coag (PPP) [Relative time] 0.95 {INR} Normal [facility] Comment on above: Performed By: #### P T #### [facility] [address] [place] [address] Dr. Priya Cespedes INR GUIDELINES SEE BELOW Normal [facility] Comment on above: Result Comment: SOLIS RED INR: 2.0 - 3.0 CONDITIONS NOT LISTED BELOW 2.5 - 3.5 FOR PROSTHETIC HEART VALVE REPLACEMENT 2.5 - 3.5 RECURRENT THROMBOSIS Performed By: #### P T #### [facility] [address] [place] [address] Dr. Priya Cespedes PT Coag (PPP) [Time] 10.1 s Normal 9.0-11.6 [facility] Comment on above: Performed By: #### P T #### [facility] [address] [place] [address] Dr. Priya Cespedes VITAMIN D 25 OHon 04-19-2022 VIT D 25-OH 18.2 ng/mL Normal [facility] Comment on above: Performed By: #### V ITAD #### [facility] [address] [place] [address] Dr. Priya Cespedes VIT D RANGES SEE BELOW Normal [facility] Comment on above: Result Comment: <20 ng/mL Vit D deficient 20 - <30 ng/mL Vit D insufficient 30 - 100 ng/mL Vit D sufficient >100 ng/mL Potential Toxicity Performed By: #### V ITAD #### [facility] [address] [place] [address] Dr. Priya Cespedes PROTIMEon 02-22-2022 INR Coag (PPP) [Relative time] 1.00 {INR} Normal [facility] Comment on above: Performed By: #### P T #### [facility] [address] [place] [address] Dr. Priya Cespedes INR GUIDELINES SEE BELOW Normal [facility] Comment on above: Result Comment: SOLIS RED INR: 2.0 - 3.0 CONDITIONS NOT LISTED BELOW 2.5 - 3.5 FOR PROSTHETIC HEART VALVE REPLACEMENT 2.5 - 3.5 RECURRENT THROMBOSIS Performed By: #### P T #### [facility] [address] [place] [address] Dr. Priya Cespedes PT Coag (PPP) [Time] 10.8 s Normal 9.0-11.6 [facility] Comment on above: Performed By: #### P T #### [facility] [address] [place] [address] Dr. Priya Cespedes BNPon 01-30-2022 Natriuretic peptide B (Bld) [Mass/Vol] 31.0 pg/mL Normal <=450.0 [facility] Comment on above: Performed By: #### P T #### [facility] [address] [place] [address] Dr. Priya Cespedes CARDIAC OUSMANE ADMITon 022 CK [Catalytic activity/Vol] 61 U/L Normal 39-308 [facility] Comment on above: Performed By: #### P T #### [facility] [address] [place] [address] Dr. Priya Cespedes CK.MB [Mass/Vol] 0.53 ng/mL Normal <=3.[address] [facility] Comment on above: Performed By: #### P T #### [facility] [address] [place] [address] Dr. Priya Cespedes HSTROP 5.4 pg/mL Normal 4.0-76.1 [facility] Comment on above: Result Comment: CUT- OFF POINTS HAVE BEEN ESTABLISHED BASED ON THE FOURTH UNIVERSAL DEFINITIONS OF MYOCARDIAL INFARCTION. THE UPPER REFERENCE LIMIT (URL) OF TROPONIN, DEFINED THE 99TH PERCENTILE OF cTnI DISTRIBUTION IN A REFERENCE POPULATION, HAS BEEN CONFIRMED THE DECISION THRESHOLD FOR TX DIAGNOSIS. Performed By: #### P T #### [facility] [address] [place] [address] Dr. Priya Cespedes LAYLA 47 ng/mL Normal 16-96 [facility] Comment on above: Performed By: #### P T #### [facility] [address] [place] [address] Dr. Priya Cespedes CBC AUTO DIFFon 01-30-2022 BASO # 0.1 103/ul Normal 0.0-0.1 [facility] Comment on above: Performed By: #### C BC #### [facility] [address] [place] [address] Dr. Priya Cespedes Basophils/100 WBC (Bld) 0.5 % Normal 0.2-2.0 [facility] Comment on above: Performed By: #### C BC #### [facility] [address] [place] [address] Dr. Priya Cespedes EO # 0.1 103/ul Normal 0.0-0.7 [facility] Comment on above: Performed By: #### C BC #### [facility] [address] [place] [address] Dr. Priya Cespedes Eosinophils/100 WBC (Bld) 1.1 % Normal 0.9-7.0 [facility] Comment on above: Performed By: #### C BC #### [facility] [address] [place] [address] Dr. Priya Cespedes Erythrocyte distribution width (RBC) [Ratio] 13.1 % Normal 11.0-15.0 [facility] Comment on above: Performed By: #### C BC #### [facility] [address] [place] [address] Dr. Priya Cespedes Hematocrit (Bld) [Volume fraction] 43.5 % Normal 42.0-54.0 [facility] Comment on above: Performed By: #### C BC #### [facility] [address] [place] [address] Dr. Priya Cespedes Hemoglobin (Bld) [Mass/Vol] 15.3 g/dL Normal 14.0-18.0 [facility] Comment on above: Performed By: #### C BC #### [facility] [address] [place] [address] Dr. Priya Cespedes IG # 0.02 10e3/ul Normal 0.00-0.03 [facility] Comment on above: Performed By: #### C BC #### [facility] [address] [place] [address] Dr. Priya Cespedes IG % 0.2 % Normal 0.0-0.5 [facility] Comment on above: Performed By: #### C BC #### [facility] [address] [place] [address] Dr. Priya Cespedes LYMPH # 3.2 103/ul Normal 1.2-3.8 [facility] Comment on above: Performed By: #### C BC #### [facility] [address] [place] [address] Dr. Priya Cespedes Lymphocytes/100 WBC (Bld) 34.6 % Normal 20.5-60.0 [facility] Comment on above: Performed By: #### C BC #### [facility] [address] [place] [address] Dr. Priya Cespedes MANUAL DIFF REQ NO Normal [facility] Comment on above: Performed By: #### C BC #### [facility] [address] [place] [address] Dr. Pryia Cespedes MCH (RBC) [Entitic mass] 30.7 pg Normal 25.9-34.0 [facility] Comment on above: Performed By: #### C BC #### [facility] [address] [place] [address] Dr. Priya Cespedes MCHC (RBC) [Mass/Vol] 35.2 g/dL Normal 29.9-35.2 [facility] Comment on above: Performed By: #### C BC #### [facility] [address] [place] [address] Dr. Priya Cespedes MCV (RBC) [Entitic vol] 87.3 fL Normal 80.0-94.0 [facility] Comment on above: Performed By: #### C BC #### [facility] [address] [place] [address] Dr. Priya Cespedes MONO # 0.6 103/ul Normal 0.3-0.8 [facility] Comment on above: Performed By: #### C BC #### [facility] [address] [place] [address] Dr. Priya Cespedes Monocytes/100 WBC (Bld) 6.3 % Normal 1.7-12.0 [facility] Comment on above: Performed By: #### C BC #### [facility] [address] [place] [address] Dr. Priya Cespedes NEUT # 5.2 103/ul Normal 1.4-6.5 [facility] Comment on above: Performed By: #### C BC #### [facility] [address] [place] [address] Dr. Priya Cespedes Neutrophils/100 WBC (Bld) 57.3 % Normal 43.0-75.0 [facility] Comment on above: Performed By: #### C BC #### [facility] [address] [place] [address] Dr. Priya Cespedes Platelet mean volume (Bld) [Entitic vol] 9.1 fL Critically low 9.5-13.5 [facility] Comment on above: Performed By: #### C BC #### [facility] [address] [place] [address] Dr. Priya Cespedes PLT 375 103/ul Normal 150-450 [facility] Comment on above: Performed By: #### C BC #### [facility] [address] [place] [address] Dr. Priya Cespedes RBC 4.98 106/ul Normal 4.70-6.10 [facility] Comment on above: Performed By: #### C BC #### [facility] [address] [place] [address] Dr. Priya Cespedes WBC 9.2 103/ul Normal 4.0-11.0 [facility] Comment on above: Performed By: #### C BC #### [facility] [address] [place] [address] Dr. Priya Cespedes Covid-19 PCR ([facility])on 01-13 SARS-CoV-2 (COVID-19) RNA CHATO+probe Ql (Unsp spec) Not detected Normal NOT DETECTED [facility] Comment on above: Result Comment: When diagnostic testing is negative, the possibility of a false negative should be considered in the context of a patient's recent exposures and the presence of clinical signs and symptoms consistent with SARS-CoV-2. This test is not yet approved or cleared by the [place] FDA. When there are no FDA-approved or cleared tests available, and other criteria are met, FDA can make tests available under an emergency access mechanism called an Emergency Use Authorization (EUA). The EUA for this test is supported by the [place] of Health and Human Service's declaration that circumstances exist to justify the emergency use of in vitro diagnostics for the detection and/or diagnosis of the virus that causes COVID-19. This EUA will remain in effect for the duration of the COVID-19 declaration justifying emergency of IVDs, unless it is terminated or revoked by the FDA (after which the test may no longer be used). Performed By: #### [facility] #### [facility] [address] [place] [address] Dr. Priya Cespedes INFLUENZA A AND B [facility] 01-30 [facility] SEE BELOW Normal [facility] Comment on above: Result Comment: Nega tive for Flu A protein angiten. Infection due to Flu A cannot be ruled out. Flu A angiten in the sample may be below the detection limit of the test. Performed By: #### P T #### [facility] [address] [place] [address] Dr. [facility] Normal [facility] Comment on above: Result Comment: Nega tive for Flu B protein antigen. Infection due to Flu B cannot be ruled out. Flu B antigen in the sample may be below the detection limit of the test. Performed By: #### P T #### [facility] [address] [place] [address] Dr. Priya Cespedes INFLUENZA A AG Negative Normal NEGATIVE SEE COMMENT [facility] Comment on above: Performed By: #### P T #### [facility] [address] [place] [address] Dr. Priya Cespedes INFLUENZA B AG Negative Normal NEGATIVE SEE COMMENT [facility] Comment on above: Performed By: #### P T #### [facility] [address] [place] [address] Dr. Priya Cespedes INTERNAL CONTROLS Within Normal Limits Normal Wi thin Normal Limits [facility] Comment on above: Performed By: #### P T #### [facility] [address] [place] [address] Dr. Priya Cespedes LIPASEon 01-30-2022 Lipase [Catalytic activity/Vol] 169.0 U/L Normal 73.0-393.0 [facility] Comment on above: Performed By: #### P T #### [facility] [address] [place] [address] Dr. Priya Cespedes PROF CHEM 8 (BAS METB)on Anion gap [Moles/Vol] 10.6 mmol/L Normal [facility] Comment on above: Performed By: #### P T #### [facility] [address] [place] [address] Dr. Priya Cespedes Calcium [Mass/Vol] 9.1 mg/dL Normal 8.5-10.1 [facility] Comment on above: Performed By: #### P T #### [facility] [address] [place] [address] Dr. Priya Cespedes Chloride [Moles/Vol] 101 mmol/L Normal 98-107 [facility] Comment on above: Performed By: #### P T #### [facility] [address] [place] [address] Dr. Priya Cespedes CO2 [Moles/Vol] 27.0 mmol/L Normal 21.0-32.0 [facility] Comment on above: Performed By: #### P T #### [facility] [address] [place] [address] Dr. Priya Cespedes Creatinine [Mass/Vol] 1.13 mg/dL Normal 0.70-1.30 [facility] Comment on above: Performed By: #### P T #### [facility] [address] [place] [address] Dr. Priya Cespedes EGFR-AF BRUNEIAN >60 Normal >=[address] [facility] Comment on above: Performed By: #### P T #### [facility] [address] [place] [address] Dr. Priya Cespedes EGFR-NON AF BRUNEIAN >60 Normal >=60 [facility] Comment on above: Performed By: #### P T #### [facility] [address] [place] [address] Dr. Priya Cespedes Glucose [Mass/Vol] 138 mg/dL Critically high 74-106 T [facility] Comment on above: Performed By: #### P T #### [facility] [address] [place] [address] Dr. Priya Cespedes Potassium [Moles/Vol] 3.6 mmol/L Normal 3.5-5.1 [facility] Comment on above: Performed By: #### P T #### [facility] [address] [address] [address] Priya Cespedes Sodium [Moles/Vol] 135 mmol/L Critically low 136-145 [facility] Comment on above: Performed By: #### P T #### [facility] [address] [place] [address] Dr. Priya Cespedes Urea nitrogen [Mass/Vol] 22.0 mg/dL Critically high 7.0-18.0 [facility] Comment on above: Performed By: #### P T #### [facility] [address] [place] [address] Dr. Priya Cespedes Urea nitrogen/Creatinin e [Mass ratio] 19.5 mg/mg Normal [facility] Comment on above: Performed By: #### P T #### [facility] [address] [place] [address] Dr. Priya Cespedes PROTIMEon 01-30-2022 INR Coag (PPP) [Relative time] 1.06 {INR} Normal [facility] Comment on above: Performed By: #### P T #### [facility] [address] [place] [address] Dr. Priya Cespedes INR GUIDELINES SEE BELOW Normal [facility] Comment on above: Result Comment: SOLIS RED INR: 2.0 - 3.0 CONDITIONS NOT LISTED BELOW 2.5 - 3.5 FOR PROSTHETIC HEART VALVE REPLACEMENT 2.5 - 3.5 RECURRENT THROMBOSIS Performed By: #### P T #### [facility] [address] [place] [address] Dr. Priya Cespedes PT Coag (PPP) [Time] 11.4 s Normal 9.0-11.6 [facility] Comment on above: Performed By: #### P T #### [facility] [address] [place], [place] [address] Dr. Priya Cespedes PTTon 01-30-2022 aPTT Coag (Bld) [Time] 29.8 s Normal 22.3-36.2 [facility] Comment on above: Performed By: #### P T #### [facility] [address] [address] [address] Priya Cespedes RSVon 01-30-2022 RSV AG Negative Normal NEGATIVE [facility] Comment on above: Performed By: #### P T #### [facility] [address] [address] [address] Priya Cespedes XR CHEST 1 Von 01-30-2022 XR CHEST 1 V EXAM: XR CHEST 1 V, 01/30/2022 HISTORY: SHORTNESS OF BREATH COMPARISON: Previous x-ray from 10/30/2013. TECHNIQUE: Portable AP upright x-ray of the chest. FINDINGS: Status post sternotomy. Heart size within normal limits. No hilar or mediastinal enlargement. Lungs and costophrenic angles are clear. No acute osseous findings. IMPRESSION: No acute cardiopulmonary findings. Electronically authenticated by: GISELL OJEDA Date: 2022-01-30 15:10 Normal [facility] Covid-19 PCR ([facility]on SARS-CoV-2 (COVID-19) RNA CHATO+probe Ql (Unsp spec) Not detected Normal NOT DETECTED [facility] Comment on above: Result Comment: When diagnostic testing is negative, the possibility of a false negative should be considered in the context of a patient's recent exposures and the presence of clinical signs and symptoms consistent with SARS-CoV-2. This test is not yet approved or cleared by the [place] FDA. When there are no FDA-approved or cleared tests available, and other criteria are met, FDA can make tests available under an emergency access mechanism called an Emergency Use Authorization (EUA). The EUA for this test is supported by the [employer] of Health and Human Service's declaration that circumstances exist to justify the emergency use of in vitro diagnostics for the detection and/or diagnosis of the virus that causes COVID-19. This EUA will remain in effect for the duration of the COVID-19 declaration justifying emergency of IVDs, unless it is terminated or revoked by the FDA (after which the test may no longer be used). Performed By: #### C VDTBH #### [facility] [address] [place] [address] Dr. Priya Cespedes GROUP A STREP CULTUREon S. pyogenes Ag Ql (Unsp spec) Culture Observations: NEGATIVE FOR GROUP A STREPTOCOCCUS. Normal [facility] Comment on above: Performed By: #### C VDTBH #### [facility] [address] [place] [address] Dr. Priya Cespedes INFLUENZA A AND B AGon 01-21 INFLUBNEGH SEE BELOW Normal [facility] Comment on above: Result Comment: Nega tive for Flu B protein antigen. Infection due to Flu B cannot be ruled out. Flu B antigen in the sample may be below the detection limit of the test. Performed By: #### I NFLUAB #### [facility] [address] [place] [address] Dr. Priya Cespedes INFLUENZA A AG Positive Abnormal NEGATIVE SEE COMMENT [facility] Comment on above: Performed By: #### I NFLUAB #### [facility] [address] [place] [address] Dr. Priya Cespedes INFLUENZA B AG Negative Normal NEGATIVE SEE COMMENT [facility] Comment on above: Performed By: #### I NFLUAB #### [facility] [address] [place] [address] Dr. Priya Cespedes INFLUPOSH SEE BELOW Normal [facility] Comment on above: Result Comment: NOTE : Live attenuated influenzae vaccine viruses can cause a positive result for a rapid influenza diagnostic test if administered up to 7 days prior to rapid testing. Performed By: #### I NFLUAB #### [facility] [address] [place] [address] Dr. Priya Cespedes INTERNAL CONTROLS Within Normal Limits Normal Wi thin Normal Limits [facility] Comment on above: Performed By: #### I NFLUAB #### [facility] [address] [place] [address] Dr. Priya Cespedes STREPT SCREENon 01-21-2022 STREP SCREEN A Negative Normal NEGATIVE [facility] Comment on above: Performed By: #### C VDTBH #### [facility] [address] [place] [address] Dr. Priya Cespedes PROTIMEon 01-04-2022 INR Coag (PPP) [Relative time] 0.96 {INR} Normal [facility] Comment on above: Performed By: #### P T #### [facility] [address] [place] [address] Dr. Priya Cespedes INR GUIDELINES SEE BELOW Normal [facility] Comment on above: Result Comment: SOLIS RED INR: 2.0 - 3.0 CONDITIONS NOT LISTED BELOW 2.5 - 3.5 FOR PROSTHETIC HEART VALVE REPLACEMENT 2.5 - 3.5 RECURRENT THROMBOSIS Performed By: #### P T #### [facility] [address] [place] [address] Dr. Priya Cespedes PT Coag (PPP) [Time] 10.4 s Normal 9.0-11.6 [facility] Comment on above: Performed By: #### P T #### [facility] [address] [place] [address] Dr. Priya Cespedes PROTIMEon 08-24-2021 INR Coag (PPP) [Relative time] 0.93 {INR} Normal [facility] Comment on above: Performed By: #### P T #### [facility] [address] [place] [address] Dr. Priya Cespedes INR GUIDELINES SEE BELOW Normal [facility] Comment on above: Result Comment: SOLIS RED INR: 2.0 - 3.0 CONDITIONS NOT LISTED BELOW 2.5 - 3.5 FOR PROSTHETIC HEART VALVE REPLACEMENT 2.5 - 3.5 RECURRENT THROMBOSIS Performed By: #### P T #### [facility] [address] [place] [address] Dr. Priya Cespedes PT Coag (PPP) [Time] 10.1 s Normal 9.0-11.6 [facility] Comment on above: Performed By: #### P T #### [facility] [address] [place] [address] Dr. Priya Cespedes Quick Fluon 08-06-2021 FLUAV Ab CF (S) [Titer] Negative [employer] [facility] [employer] Other FLUBV Ab CF (S) [Titer] Negative [employer] [facility] [employer] Other PROTIMEon 08-03-2021 INR Coag (PPP) [Relative time] 0.95 {INR} Normal [facility] Comment on above: Performed By: #### P T #### [facility] [address] [address] [address] Priya Cespedes INR GUIDELINES SEE BELOW Normal [facility] Comment on above: Result Comment: SOLIS RED INR: 2.0 - 3.0 CONDITIONS NOT LISTED BELOW 2.5 - 3.5 FOR PROSTHETIC HEART VALVE REPLACEMENT 2.5 - 3.5 RECURRENT THROMBOSIS Performed By: #### P T #### [facility] [address] [address] [address] Priya Cespedes PT Coag (PPP) [Time] 10.3 s Normal 9.0-11.6 [facility] Comment on above: Performed By: #### P T #### [facility] [address] [address] [address] Priya Cespedes Provider Orderson 07-26-2021 Provider Orders [id number] [facility] Coding Summaryon 07-16-2021 Coding Summary [facility] XeynaymzGEj4aCp+PGhlYWQ+PE 5AWDAnJ47lmWOexD4FS3tNAA2Z UAMADOUHKY8BWC0qfQZ3KZdqH3 VybiAv UzefxTKzVI06XGv2TOZ5iGqtJO hwqH7uvSLrM1f7SnNyGF46cT99 PQcxESDlKcA5IvMxhcwjxGAl U8roVcXtkMZuWoj+PHRhYmxlIH ccSFOdKWvlCLIrQqYxqYweJR6v Pg3zKFJgNPQqqIixpFZaKrEc f0kiLCDoQCyrIP2koCrtB7OvhP Z4PSBce1s4Un94wKW+PHRkIHN0 hRayHTrhg696UrCvo8diIKP1 fKPfKFcpBPC0C67pg6H2JUWwID FtLCY6xPJ9zA0otAcvlthpN4Kq vSMnXgW6DYH5jUBxxM1kxBqz aaupnR6dBcl+V41IUL6GBWNXUK 6PCix5U9RaEwhsjCX+WC59WCBl RC13zYGayYCae8nadQz5VrFn NDPwWAF6hHccJTvqs7PtXSBrG4 7rbJMsa2W2QPEajNmapRUvCaJw pSX9vX1mGFqaoloko3msvsab Mdysx8nnss74uP77Y65qXTdsKP UcSRI0EXJvKWVcvWailq8mkN8g Ii8+RVpyt1yeg9geyIg1SmXx FBNaqmVeuXwxPUA1q5NaDt42H0 MxjDhev1CwZtf4sz36pYEmn3M6 fCX3YHhjHKZtfA5fPNsxGoP1 DJIwXmRavS07zDGnDDxkRw8zmH loeXrfRA0eGRQejosaFBSelB1e IKDnpZYknHtsSL7ySXAvqpmi f347IpAlQMI6KWAxdMOpF0XhpI 4gKnTsUJRdQJVnW1VhfMYuEPcp W866ORogPmK9QMVnncGyJ5Xz BRXsuGahBaV0q2S0Rw2Le8Work pzGQL1UYwaBSI1CpSuSdQuSrB0 T3FvHop9GISocOkgXJ0eZ2Ff JLIfplyosktqkZJ7WSGaISKjxA 70pEKaCCrrPb1tu4V1r997OULl BYHvtO26Lj2uyOxbXRDveVKQ aE8jmlads4lkwodbHdArCOFcOR u3ZVb7FAQxuEugMdGzXVN0LaT8 OMC2nIAfqW1htImjkyegvS9f Oyc+C45xdG7yJKR3QWB5lcvrSS WmqmRcLZ81QI38K0NoAxincQSc bGU+ZAVxdgLmaKdoUT5dEfHt j5vff0DbRMnoX5EfFJVmGVduYd e4CZHsKZU6cCP9kB4nMXWsRBst n4O1rRM4T4TifzKzlx4fh6ee UVCdOSppR14dwHRil4O4UBUlxF N7PLGnpPdtYrUzlN86Mhd+PGNv yMwjk3LsMtkta9vht5hpyFj8 MyXgNUAstkHitSbySAU7k2BuGk 25R33zBKdxTVVtDQKsPKYuBYBf iQhtmk7jvG1iSa9+PGNvbCB3 pOP4aC4sASTvFgW2QPtsR343Vt MsnBDlUaekt4nej5keiIk2JwPu AMZzrvTzuSxlAJA1u7CkKu07 V42sDWqqOKZsFHVzZQWsCFOviN qhtq0svJ7zUq8+HW6ls4thng79 wV67lYX+SAGnGWJ0sZbjROfb RBNupK7aUXjcKgL9MQGxVkXaaZ 50xJFfYPftNd4rdMtkzOvaMR3q GFHqnlocn353HrSlg4duFAUh nBRbFAhmOLI4J76ki3Z3OUJiLH ApZFJ7xKA1tC9jxRqogsbyyPXs wClzkdYeiLilOKevRJlgX424 IHRvcDsnPlBhdGllbnQgTmFtZT l0G9FaIuo3ODMesUmfZP6caWDh DQfzIy7whXhouNnaVZ3nSGTn shtpw432XeTol3neFASbqMEwUT qbWRZ0M30gq5U4NSNsUKGfUCM8 xTO4rH0paGjsndeleZWpgOds nuAndLqzISgkZAriZ883CICnoC gbRnSajnYqLGYcwSM7OD40LP50 dXCov9U0gOE7P3MzIEMswnxj szxgyEY5IHNxJKTgtQ43Pj2oxU rrQh2tHFCpDVW2GHGkoHHoY4Gq dP1nItLmIFWiIMVfG3TkvKOn TNgzE651FQrwZaX9LKQcmbHjN2 StDMXjuBygFwF7n1P7Xl3FY8L3 OO16XO86jJQxm5I7nHM1V6Bi GVNjbeejpvazpPL3TOJnJNVkxW 11Sr2fxTwfBd8aLWMgXVL4FIDb uMDxN1HatH9yDzIsHQXiGSYv L7RhtLRjJHijR720DDxzWbQ7VL HndrOiK5WrRXPtgZhrNeY9p6G7 Ej4LGBu4OA22XS74xFMfd4D0 lEH9S3CxXDJbwfrlgkbywHH9LG VyEJGuvH34Yc4jpZbvSt6tJYFw YIW6BIAdrCZdJ8CwoT1oKpOe AWXpVEKlF2RhoVLzVOfnI595IM yhLaW8BJKwhpQfZ0ReMTWnvNwt SdS7h3F7Zf3AZQCwBQ45UUD1 lIE8ZN27WM24N3TuFwbiyIBleN U+PHRhYmxlIHdpZHRoPScxMDAl NjJonQdvXY2qJo9rZYOnNBXg oRujuRBzFnWds1iePWRvTSwaAN 2bpCdkU4MalRC9CQNji5t4Hy21 G14eM4FtdNV+HYXiyAW5dZU9 sW6rGsJtRgU2KDzqO361PrIriQ RcAitwt0ztt1qntSr2JxR8OXPn vfZcvIocCAF1q1CfYv33E67q IHdpZHRoPSIxNSUiIHZhbGlnbj 7dgP6pUu8+YZDvxCV7qCM5uU7d JnYoGfD7PAkmB943WhKfdKNb Hjjev2aaf2susUj5PbEiYHZnjl ZysDsbNRS9l4JfSj91E7UulIwk s9EkIkz8ef67lPTjt0D5bPK1 A4MbSOCftrsztDUouSpdRN2gET LnyklxIUMduN3jZQUjQ6p4ZkQq ZxL5VOfjM5EatdJ9PDNxzCEf RXbeBIS3T72wn0B2ILAjDHGwAY O5eWD1lC5shBurfsdtgQDmoSea ibBggNpaOHicYDusA763GSFs iRexIJHcxU0eJVFbtPLtgSwfHE 6gWDAwajdlLxlUQyLrHWVKB76Q OqIZDO64GX29hFDyh3Z3qSP7 V2YdFQQsiwtudtnjxEY7VSEtFS BneC41wMTjGSgaDu9xm6K8c162 LMAyUMPyrO72Kj1xoPbkHYRg lMGPkX3yvhgoc5ylgtbaHbXpDW IqEBl0DMv3VQWmlUdeTrFzOWW1 LnQ3BJV7rMSuiN6yfGbpxhbc gT0jNlj+SBNtYLKeDPv7GKftwG Q+HOKzHBM8iKaeEVfxBCYwqF9x BYRdU8m6RjFoDdZ9QEmvZ6Am GHOxljprYi88lR3fRjNnOfJ9YE cjX1AfynN7LDImnPLyRUnvFYS2 V07lp8O4EDJbYUAsZDG6jIZ5 pW3uiFcubgoreJHtrYmmplUzwD ziTCbiOMkgO457LCVqwBuuDeWg QZivLCYnSO86FK89hMEii3I3 pJO3Q6IuWMVgyhuziimdpAW2DP SrSPPhpM94pCYpAZyeMs9ta3T0 n692DYFfECJqwW70Qb1ywKtq JJRwwIRSwK4hqfvyt9uueoxxOi PuMKPwHZg0STv7CXVuqCoiKnNd IGS1NhR3NML4yEGsfZ6elIeu jbjjnR8mOlp+TUFMRTwvdGQ+PH XqPLE8gCvpLUgdBVZvaL5iPJDg X5c1AbOuVsM8KZkiZ2CeDZWf ijscWc60qL4sDnKxVwE1HAkwO3 QmysV1LCIikKJkCYacUTL6L99n h2Z6LLRkIHHfVOM4fYP0jS6t bGlnbjogbGVmdDsgdmVydGljYW orFYefG666WPRdhDigSl6JTN70 GV15P7BlFpuoeJHlcJZ+PHRh YmxlIHdpZHRoPScxMDAlJyBzdH liFD1mRi7nDKDsSHBlxQrzsTNs ByUfh5ewKLHyYDthOK8aePwi F7SteMN3KXPug3p9Nk13E78nQ1 JvdXA+FZQtmPH9wMM1iB3yFzUk YpX3QSxgE454JmPnqZGwPjkc e2epk3xgtEp8GzDvSPYyhrPceH esAGC6c1ZlYq81E05iPDpsWGQo QXGeMCLaNVPvkOohlh3jvY5c Ii8+HIFxbEB7bTA3xV8yEzHrEw G6ZNsgD268TwXefMWeGhayP81j R0JjiWW+PKVyCmt9HCIqiDwk QX2naXGxTXlwXr8qNHV5PeEdSg CgRPkfA0ZxPKWkyyreqnvuvSG2 YUDoLOLpsU03Dp8vjNpeLw1s QAAvNEM7JKAgxANcE7PhdB4xTg YhFRIlXWHdP1HguCUpULrkK225 NStrJrT8TDUjueLiC3TqAFHv yGmbSeT0b6G1Km0YnLymjDVrDC 7nSjOzSIc0P8MjAfw1FWRvjNen WB8xzYRlUEeaEo1amDulkZrq IW3wPIGjwajij560TfArz1deQK StyAPoSHfdZTW4L26vg4X0TOUh SUZnMVO2gMX0eO9jeNbqyhvw bGVmdDsgdmVydGljYWwtYWxpZ2 58TFNicOisPlZWRdn9J0YgTyh8 TBLqlPimUV9tmRYgJQruPo1m rHjpyYwwTY1hXLYinaucx790Bx Fvh9ehBDBnaKCfCJxfITJ1B20f x9J8XFQdIVQrYID4fCB3uW0m bGlnbjogbGVmdDsgdmVydGljYW ehWZbnT959ISQiqEtnPt2QHoh7 R0BbUkb5QOPzmUsvJE7gcGKk RDecMs3dwErmsQavJS6tDFDnxj fpt327DuOzn9rpRSFkaODnUMay RIE8M95aq9M0FXJlIHMpYJT7 bZC5oD3maFnxubjqmXVvfIitus QibWevWAvpOGvbC916DSBqtBhe PlBheWVyOjwvdGQ+RU70cu43 S9ZcDcrbZaf4IDNhJXA2zWO1rV 9fELMiHSkne7O0xDO5V8JfhbQx eb3wt2meOTSkLVywG25miVZi c2U (more content not included)... Normal [facility] Quick Strepon 06-11-2021 S. pyogenes Org specific cx Ql (Throat) Negative [employer] Other Quick Strep [facility] [employer] Other Coding Summary.on 09-02-2018 Coding Summary. CODING DATE: 019 [facility] STATUS: Home (Routine DC) PAYOR: Medicaid EAPG DESCRIPTION 0471 PLAIN FILM 0674 CONTUSION, OPEN WOUND & OTHER TRAUMA TO SKIN & SUBCUTANEOUS TISSUE ADMIT DX: REASON FOR VISIT DX: M25.561 Pain in right knee FINAL DX: PRINCIPAL: S80.01XA Contusion of right knee, initial encounter SECONDARY: W22.8XXA Striking against or struck by other objects, initial encounter F17.210 Nicotine dependence, cigarettes, uncomplicated PYMT PROC EAPG STAT DESCRIPTION DOCTOR NAME DATE NOTE: The code number assigned matches the documented diagnosis and / or procedure in the patient's chart. However, the narrative phrase printed from the coding software may appear abbreviated, or result in slightly different terminology. Revised Coded By: Mayra NettlesrMerline Revised Date Saved: 09/02/2018 12:31 pm Normal [facility] ED Clinical Summaryon 2018 ED Clinical Summary [address] [place] [id number] ED Clinical Summary Person Information Name: KEVIN MALHOTRA [facility] Age: 38 Years : 1980 12:00 AM Sex: Male Language: Mongolian PCP: KIT AIKEN CNP Marital Status: Phone: [phone] Visit Id: Visit Reason: Knee pain-swelling; RIGHT KNEE INJURY Speciality: Acuity: 4 Enc Type: Emergency Med Service: Emergency Arrival: 08/29/2018 12:39 AM Discharge: 08/29/2018 2:01 AM LOS: 000 01:22 Checkin: 08/29/2018 12:39 AM Checkout: 08/29/2018 2:01 AM Dispo Type: Home (Routine DC) EVENTS: Event Name Event Status Request Date/Time Start Date/Time Complete Date/Time Arrive Complete 08/29/2018 12:39 AM 08/29/2018 12:39 AM 08/29/2018 12:39 AM Document Home Meds Request 08/29/2018 12:39 AM Triage Complete 08/29/2018 12:39 AM 08/29/2018 12:45 AM 08/29/2018 12:45 AM Bed Assign Complete 08/29/2018 12:45 AM 08/29/2018 12:45 AM 08/29/2018 12:[address] Exam Complete 08/29/2018 12:45 AM 08/29/2018 12:47 AM 08/29/2018 12:47 AM RN Exam Complete 08/29/2018 12:45 AM 08/29/2018 12:52 AM 08/29/2018 12:52 AM Registration Complete 08/29/2018 12:47 AM 08/29/2018 1:03 AM 08/29/2018 1:03 AM X-Ray Cancel 08/29/2018 12:48 AM 08/29/2018 12:50 AM X-Ray Complete 08/29/2018 12:50 AM 08/29/2018 12:52 AM 08/29/2018 1:01 AM Wet Read Request 08/29/2018 1:01 AM Reg Complete Request 08/29/2018 1:03 AM Patient Care Request 08/29/2018 1:42 AM Meds Admin Complete 08/29/2018 1:42 AM 08/29/2018 1:57 AM Discharge Complete 08/29/2018 1:44 AM 08/29/2018 2:01 AM 08/29/2018 2:01 AM Transfer Complete 08/29/2018 2:01 AM 08/29/2018 2:01 AM 08/29/2018 2:01 AM ADDRESS: [address] [place] [phone] PHYS DOC NOTES: MEDICAL INFORMATION: Prescriptions Given: Prescription Display orphenadrine (orphenadrine 100 mg ER Tab) 100 mg = 1 tab(s), Oral, BID, X 7 day(s), # 14 tab(s), Refills(s) 0, Pharmacy: [facility]/pharmacy #[id number] PATIENT EDUCATION INFORMATION: Instructions: Contusion, Dhlj-uc-Ppje; Cryotherapy, Xzfy-ey-Cvqu Follow up: With: Address: When: Ramu Kamara [address] [place] [address] Business (1) Within 1 to 2 days Comments: ORTHO With: Address: When: KIT AIKEN [address] [place] [address] Business (1) Within 1 to 2 days Comments: Return to ED if symptoms worsen DIAGNOSIS: 1:Knee contusion Normal [facility] ED Note-Physicianon 08-30-19 ED Note-Physician Basic Information Time Seen: Renuka Brantley DO 08/29/2018 00:47 Chief Complaint states tripped over a corn hole board on monday causingi him to fall. pain to right knee History of Present Illness 38M PRESENTS TO THE ED WITH RIGHT KNEE HE STATES HE WAS OUT PLAYING [employer]N HOLE ON MONDAY HE STATES HE TRIPPED OVER THE BOARD HE CAUGHT HIMSELF BUT FELT SOME PAIN IN THE KNEE HE STATES HE HAS TRIED ICE AND ELEVATION WITH NO RELIEF NO MEDICATIONS TAKEN Review of Systems ALL ORGAN SYSTEMS ARE REVIEWED. PERTINENT POSITIVE AND NEGATIVE FINDINGS MENTIONED IN THE HPI Physical Exam Vitals & Measurements T: 36.4 ?C (Oral) HR: 84(Peripheral) RR: 16 BP: 121/71 SpO2: 98% HT: 170 cm WT: 83 kg BMI: 28.72 General: no acute distress Head: Normacephalic, atraumatic. Skin: warm, dry and intact. no rash, no pallor Neck: Supple Cardio: Normal peripheral perfusion Resp: Nonlabored MSK: No edema No deformiy Right knee: Diffuse tenderness to palpation to the knee. There is minimal swelling noted. No ligamentous laxity. The extensor mechanism is intact. Negative anterior and posterior drawer signs. Negative Alta's test. No tenderness to the joints above and below. Pain is noted with range of motion. Neuro: Alert Psych: cooperative Medical Decision Making XRAY NEGATIVE PERCOCET X 1 DOSE FOR PAIN KNEE IMMOBILIZER AND CRUTCHES FOLLOW UP WITH ORTHO REST, ICE AND ELEVATE Assessment/Plan 1. Knee contusion (S80.00XA: Contusion of unspecified knee, initial encounter) Orders: acetaminophen-oxycodone, 1 tab(s), Tab, Oral, Once, Stop date 08/29/18 1:42:00 EDT, STAT, Start date 08/29/18 1:42:00 EDT orphenadrine, 100 mg = 1 tab(s), Oral, BID, X 7 day(s), # 14 tab(s), Refills(s) 0, Pharmacy: [facility]/pharmacy #[id number] Crutches Immobilizer XR Knee Complete 4+ Views Right Medications Administered Given Percocet 325 mg-5 mg Tab, 1 tab(s), Oral Disposition Plan Patient Discharge Condition STABLE Discharge Disposition HOME Discharge Prescription List Prescriptions orphenadrine 100 mg ER Tab, 100 mg= 1 tab(s), Oral, BID Follow-up With When Contact Information Ramu Brown Within 1 to 2 days [address] [place] [address]- Business (1) Additional Instructions: ORTHO KIT AIKEN Within 1 to 2 days [address] [place] [address]- Business (1) Additional Instructions: Return to ED if symptoms worsen Patient Education Contusion, Orxd-mv-Aami Cryotherapy, Mdns-ga-Ayca Problem List/Past Medical History Ongoing Smoker Historical No qualifying data Medications Inpatient No active inpatient medications Home orphenadrine 100 mg ER Tab, 100 mg= 1 tab(s), Oral, BID Allergies No Known Medication Allergies Social History Alcohol - Denies Alcohol Use, 04/06/2018 Substance Abuse - Denies Substance Abuse, 04/06/2018 Tobacco - High Risk, 08/29/2018 10 or more cigarettes (1/2 pack or more)/day in last 30 days Tobacco Use:. Cigarettes, 04/06/2018 Lab Results No qualifying data available. Diagnostic Results No qualifying data available. Normal [facility] Comment on above: Result Comment: Elec tronically Signed By: Renuka Brantley DO\.br\Date and Time Signed: 08/29/18 03:56 EDT ED Patient Education Noteon 08-29-2018 ED Patient Education Note Family Medicine Contusion A contusion is a deep bruise. Contusions happen when an injury causes bleeding under the skin. Signs of bruising include pain, puffiness (swelling), and discolored skin. The contusion may turn blue, purple, or yellow. HOME CARE ? Put ice on the injured area. ? Put ice in a plastic bag. ? Place a towel between your skin and the bag. ? Leave the ice on for 15-20 minutes, 03-04 times a day. ? Only take medicine as told by your doctor. ? Rest the injured area. ? If possible, raise (elevate) the injured area to lessen puffiness. GET HELP RIGHT AWAY IF: ? You have more bruising or puffiness. ? You have pain that is getting worse. ? Your puffiness or pain is not helped by medicine. MAKE SURE YOU: ? Understand these instructions. ? Will watch your condition. ? Will get help right away if you are not doing well or get worse. Document Released: 07/18/2008 Document Revised: 04/23/2012 Document Reviewed: 12/05/2011 ExitCare? Patient Information ?2015 [employer]. This information is not intended to replace advice given to you by your health care provider. Make sure you discuss any questions you have with your health care provider. Cryotherapy Cryotherapy is when you put ice on your injury. Ice helps lessen pain and puffiness (swelling) after an injury. Ice works the best when you start using it in the first 24 to 48 hours after an injury. HOME CARE ? Put a dry or damp towel between the ice pack and your skin. ? You may press gently on the ice pack. ? Leave the ice on for no more than 10 to 20 minutes at a time. ? Check your skin after 5 minutes to make sure your skin is okay. ? Rest at least 20 minutes between ice pack uses. ? Stop using ice when your skin loses feeling (numbness). ? Do not use ice on someone who cannot tell you when it hurts. This includes small children and people with memory problems (dementia). GET HELP RIGHT AWAY IF: ? You have white spots on your skin. ? Your skin turns blue or pale. ? Your skin feels waxy or hard. ? Your puffiness gets worse. MAKE SURE YOU: ? Understand these instructions. ? Will watch your condition. ? Will get help right away if you are not doing well or get worse. Document Released: 07/18/2008 Document Revised: 04/23/2012 Document Reviewed: 09/22/2011 ExitCare? Patient Information ?2015 [employer]. This information is not intended to replace advice given to you by your health care provider. Make sure you discuss any questions you have with your health care provider. Normal [facility] ED Patient Summaryon 019 ED Patient Summary (Inserted Image. Amanda ble to display) [place] [id number] Patient Discharge Instructions Person Information Name: KEVIN MALHOTRA Age: 38 Years Arrival Date: 08/29/2018 12:39 AM Discharge Diagnosis: 1:Knee contusion Primary Care Physician: KIT AIKEN CNP Provider Information Primary Provider: Renuka Brantley DO Advanced Induction Heat Treater:None The exam and treatment you received in the Emergency Department were for an urgent problem and are not intended as complete care. It is important that you follow up with a doctor, nurse practitioner, or physician?s front office medical assistant for ongoing care. If your symptoms become worse or you do not improve as expected and you are unable to reach your usual health care provider, you should return to the Emergency Department. We are available 24 hours a day. KEVIN MALHOTRA has been given the following list of patient education materials, prescriptions and follow-up instructions: Follow-up Instructions: With: Address: When: Ramu [address]ara [address] [place] [address] Business (1) Within 1 to 2 days Comments: ORTHO With: Address: When: KIT AIKEN [address] [place] [address] Business (1) Within 1 to 2 days Comments: Return to ED if symptoms worsen In the event that this physician does not participate in your insurance network, please consult with your insurance company to find a nearby participating provider. Patient Education Materials: Contusion, Gkzm-yo-Joyz; Cryotherapy, Bwyd-ip-Hwqx A MESSAGE TO ALL PATIENTS REGARDING OPIOIDS PRESCRIPTION OPIOIDS: WHAT YOU NEED TO KNOW Prescription opioids can be used to help relieve ecakyhaf-ee-ugbhne pain and are often prescribed following a surgery or injury, or for certain health conditions. These medications can be an important part of the treatment but also come with serious risks. It is important to work with your healthcare provider to make sure you are getting the safest, most effective care. WHAT ARE THE RISKS AND SIDE EFFECTS OF OPIOID USE? Prescription opioids carry serious risks of addiction and overdose, especially with prolonged use. An opioid overdose, often marked by slowed breathing, can cause sudden . The use of prescription opioids can have a number of side effects as well, even when taken as directed: ? Tolerance?meaning you might need to take more of the medication for the same pain relief ? Physical dependence?meaning you have symptoms of withdrawal when a medication is stopped ? Increased sensitivity to pain ? Constipation ? Nausea, vomiting, and dry mouth ? Sleepiness and dizziness ? Confusion ? Depression ? Low levels of testosterone that can result in lower sex drive, energy, and strength ? Itching and sweating RISKS ARE GREATER WITH: ? History of drug misuse, substance use disorder, or overdose ? Mental health conditions (such as depression or anxiety) ? Sleep apnea ? Older age (65 years and older) ? Avoid alcohol while taking prescription opioids. Also, unless specifically advised by your health care provider, medications to avoid include: ? Benzodiazepines (such as Xanax or Valium) ? Muscle relaxants (such as Soma or Flexeril) ? Hypnotics (such as Ambien or Lunesta) ? Other prescription opioids KNOW YOUR OPTIONS Talk to your health care provider about ways to manage your pain that don?t involve prescription opioids. Some of these options may actually work better and have fewer risks and side effects. Options may include: ? Pain relievers such as acetaminophen, ibuprofen, and naproxen ? Some medication that are also used for depression or seizures ? Physical therapy and exercise ? Cognitive behavioral therapy, a psychological, goal-directed approach, in which patients learn how to modify physical, behavioral, and emotional triggers of pain and stress. IF YOU ARE PRESCRIBED OPIOIDS FOR PAIN: ? Never take opioids in greater amounts or more often than prescribed. ? Follow up with your primary health care provider. o Work together to create a plan on how to manage your pain. o Talk about ways to help manage your pain that don?t involve prescription opioids. o Talk about any and all concerns and side effects. ? Help prevent misuse and abuse o Never sell or share prescription opioids. o Never use another person?s prescription opioids. ? Store prescription opioids in a secure place and out of reach of others (this may include visitors, children, friends, and family). ? Safely dispose of unused prescription opioids: Find your community drug take-back program or your pharmacy mail-back program, or flush them down the toilet, following guidance from the Food and Drug Administration (www.fda.gov/Drugs/Resourc esForYou). ? Visit www.cdc.gov/drugoverdose to learn about the risks of opioids abuse and overdose. ? If you believe you may be struggling with addiction, tell your health health care recruiter and ask for guidance or call [employer]?S National Helpline at 5-946-209-[facility]. v Source: [place] Department of Health and Human Services/Center for Disease Control & Prevention [facility] Medications Given: Medication Dose Route acetaminophen-oxycodone 1.00 tab(s) Oral Medication Information: New Medications [id number], [address], [place] [id number], [phone] orphenadrine (orphenadrine 100 mg ER Tab) 1 Tabs By Mouth 2 times a day for 7 Days. Refills: 0. Comment: Pharmacy Information: Thank you for choosing [facility] [place] Patient Education Materials: Contusion A contusion is a deep bruise. Contusions happen when an injury causes bleeding under the skin. Signs of bruising include pain, puffiness (swelling), and discolored skin. The contusion may turn blue, purple, or yellow. HOME CARE ? Put ice on the injured area. ? Put ice in a plastic bag. ? Place a towel between your skin and the bag. ? Leave the ice on for 15-20 minutes, 03-04 times a day. ? Only take medicine as told by your doctor. ? Rest the injured area. ? If possible, raise (elevate) the injured area to lessen puffiness. GET HELP RIGHT AWAY IF: ? You have more bruising or puffiness. ? You have pain that is getting worse. ? Your puffiness or pain is not helped by medicine. MAKE SURE YOU: ? Understand these instructions. ? Will watch your condition. ? Will get help right away if you are not doing well or get worse. Document Released: 07/18/2008 Document Revised: 04/23/2012 Document Reviewed: 12/05/2011 ExitCare? Patient Information ?2015 [employer] [facility]. This information is not intended to replace advice given to you by your health care provider. Make sure you discuss any questions you have with your health care provider. Cryotherapy Cryotherapy is when you put ice on your injury. Ice helps lessen pain and puffiness (swelling) after an injury. Ice works the best when you start using it in the first 24 to 48 hours after an injury. HOME CARE ? Put a dry or damp towel between the ice pack and your skin. ? You may press gently on the ice pack. ? Leave the ice on for no more than 10 to 20 minutes at a time. ? Check your skin after 5 minutes to make sure your skin is okay. ? Rest at least 20 minutes between ice pack uses. ? Stop using ice when your skin loses feeling (numbness). ? Do not use ice on someone who cannot tell you when it hurts. This includes small children and people with memory problems (dementia). GET HELP RIGHT AWAY IF: ? You have white spots on your skin. ? Your skin turns blue or pale. ? Your skin feels waxy or hard. ? Your puffiness gets worse. MAKE SURE YOU: ? Understand these instructions. ? Will watch your condition. ? Will get help right away if you are not doing well or get worse. Document Released: 07/18/2008 Document Revised: 04/23/2012 Document Reviewed: 09/22/2011 ExitCare? Patient Information ?2015 [employer]. This information is not intended to replace advice given to you by your health care provider. Make sure you discuss any questions you have with your health care provider. YOBANI Horner THOMAS C , have received the following patient education materials/instructions and have verbalized understanding: Patient Education Materials: Contusion, Jheo-xw-Znnx; Cryotherapy, Ocuz-lg-Wzut Follow-up Instructions: With: Address: When: Ramu Kamara [address] [place] [address] [facility] (1) Within 1 to 2 days Comments: ORTHO With: Address: When: KIT AIKEN [address] [place] [address] [facility] (1) Within 1 to 2 days Comments: Return to ED if symptoms worsen Prescriptions: [orphenadrine (orphenadrine 100 mg ER Tab)] Patient Signature __ Date Clinician/Nurse Signature Date 08/29/18 02:01:36 [facility] XR Knee Complete 4+ Views Lon agee 08-29-2018 XR Knee Complete 4+ Views Right Exam Date/Time: 08/29/2018 01:01 EDT Reason for Exam: Fall Report IMPRESSION: SUSPECTED JOINT EFFUSION. NO EVIDENCE OF FRACTURE. CLINICAL HISTORY: Fall. Pain right knee. COMMENT: 4 views. The bones of the right knee appear normal without evidence of fracture or dislocation. There is soft tissue fullness in the suprapatellar patellar bursa region, suggesting a joint effusion. FINAL REPORT Dictated: 08/29/2018 8:02 am Kranthi Finch M.D. Signed (Electronic Signature): 08/29/2018 8:02 am Signed by: Kranthi Finch M.D. Transcribed by: GERDA Technologist: CIRILO [facility] ED Note-Physicianon 04-15-19 ED Note-Physician Basic Information Time Seen: Alec Douglas PA-C 04/06/2018 15:20 Chief Complaint Pt states he has had a cough for about a week. Pt states he coughs up blood in the morning for the past two days. pt is a smoker. Pt has sinus congestion and a headache. History of Present Illness 37-year-old smoker with a known history of valvular disease status post valve repair presents for evaluation of an intermittent cough. He states that he has been seen and evaluated by his machine hostler and is scheduled to have a KAYLEIGH on Monday. He states that over the last one day he started to get sinus congestion. He is starting to get fever and headache. He states that the cough is normal for him however the other symptoms are new. He is here with his daughter who is also being evaluated for similar illness one day longer than this patient. The patient is having no chest pains or shortness of breath. He states that he has no nausea, vomiting or diarrhea. His daughter was positive for influenza A. Review of Systems All Organ systems are reviewed. Pertinent positive and negative findings as mentioned in the HPI Physical Exam Vitals & Measurements T: 36.7 ?C (Oral) HR: 56(Peripheral) RR: 16 BP: 127/82 SpO2: 99% HT: 170 cm WT: 79 kg BMI: 27.34 Nurses note and vital signs reviewed and patient is not hypoxic. General: The patient appears well and in no apparent distress. Patient is resting comfortably on cart. Skin: Warm, dry, no pallor noted. There is no rash noted. Head: Normocephalic, atraumatic Eye: Normal conjunctiva Ears, Nose, Mouth, and Throat: oral mucosa is mildly dry. There is bilateral TM bulging without erythema. I notice clear fluid in both TMs. No perforation. Postnasal drip noted with mild pharyngeal erythema without exudate. Nasal congestion with purulent drainage. Handles secretions well. Uvula midline. Cardiovascular: Regular Rate and Rhythm, heart murmur noted, history of bovine valve replacement Respiratory: Patient is in no distress, no accessory muscle use, lungs are clear to auscultation, no wheezing, rales or rhonchi Back: non-tender, no CVA tenderness bilaterally to percussion. GI: Normal bowel sounds, no tenderness to palpation, no masses appreciated. No rebound, guarding, or rigidity noted. Musculoskeletal: The patient has no evidence of calf tenderness, no pitting edema, symmetrical pulses noted bilaterally Neurological: A&O x4, normal speech Psychiatric: Cooperative Medical Decision Making The patient's daughter who is also being evaluated was influenza A positive. Patient is immunocompromised and scheduled to have a KAYLEIGH on Monday. I advised him to call his machine hostler to let him know of the symptoms. The patient would like to be treated with Tamiflu as he is immunocompromised. The patient had a negative strep exam. The patient's overall vital signs are stable. He is discharged to home. Patient is to return back if any new or worsening symptoms. Assessment/Plan Flu-like symptoms Orders: benzonatate, 100 mg = 1 cap(s), Oral, TID, X 7 day(s), # 21 cap(s), Refills(s) 0, Pharmacy: [facility]/pharmacy #[id number] oseltamivir, 75 mg = 1 cap(s), Oral, BID, X 5 day(s), # 10 cap(s), Refills(s) 0, Pharmacy: [facility]acy #[id number] Disposition Plan Patient Discharge Condition Stable Discharge Disposition Discharge home Discharge Prescription List Prescriptions Tamiflu 75 mg Cap, 75 mg= 1 cap(s), Oral, BID Tessalon 100 mg Cap, 100 mg= 1 cap(s), Oral, TID Follow-up With When Contact Information KIT AIKEN In 3 days 04/09/2018 EST [address] [place] [phone] Business (1) Additional Instructions: Patient Education Viral Infections Attestation The patient's care was supervised by Dr. Perez including history, physical, medical decision making, and disposition. Teaching-Supervisory Addendum-Brief I participated in the following activities of this patients care: the medical history. I personally performed: supervision of the patient's care, the medical history, the physical exam, the medical decision making. The case was discussed with: the physician front office medical assistant, Alec Douglas PA-C. Procedures: I directly supervised the entire procedure. Evaluation and management service: I agree with the evaluation and management decisions made in this patient's care. Results interpretation: I agree with the study interpretation in this patient's care, I agree with the documentation of the study interpretation. Problem List/Past Medical History Ongoing Smoker Historical No qualifying data Medications Inpatient No active inpatient medications Home Tamiflu 75 mg Cap, 75 mg= 1 cap(s), Oral, BID Tessalon 100 mg Cap, 100 mg= 1 cap(s), Oral, TID Allergies No Known Medication Allergies Social History Alcohol - Denies Alcohol Use, 04/06/2018 Substance Abuse - Denies Substance Abuse, 04/06/2018 Tobacco 10 or more cigarettes (1/2 pack or more)/day in last 30 days Tobacco Use:. Cigarettes, 04/06/2018 Lab Results Rapid Strep: NEGATIVE1 (04/06/18 15:41:00 EST) Influenzae A Ag: NEGATIVE1 (04/06/18 15:32:00 EST) Influenzae B Ag: NEGATIVE1 (04/06/18 15:32:00 EST) Diagnostic Results No qualifying data available. Normal [facility] Comment on above: Result Comment: Elec tronically Signed By: Stella GAONA, Alec Dean\.br\Date and Time Signed: 04/06/18 16:42 EST\.br\Electronically Co-Signed By: Kevin SU, Arun\.br\Date and Time Co-Signed: 04/14/18 09:53 EST Coding Summary.on 04-09-2018 Coding Summary. CODING DATE: 019 FINAL [facility] STATUS: Home (Routine DC) PAYOR: Medicaid EAPG DESCRIPTION 0396 LEVEL I MICROBIOLOGY TESTS 0395 LEVEL II IMMUNOLOGY TESTS ADMIT DX: REASON FOR VISIT DX: R05 Cough R51 Headache FINAL DX: PRINCIPAL: J11.1 Influenza due to unidentified influenza virus with other respiratory manifestations SECONDARY: F17.210 Nicotine dependence, cigarettes, uncomplicated PYMT PROC EAPG STAT DESCRIPTION DOCTOR NAME DATE NOTE: The code number assigned matches the documented diagnosis and / or procedure in the patient's chart. However, the narrative phrase printed from the coding software may appear abbreviated, or result in slightly different terminology. Coded By: Marianna Diop Date Saved: 04/09/2018 02:34 pm Normal [facility] C Strep Screenon 04-08-2018 Strep Screen Microbiology PROCEDURE: Strep Screen Culture [R1] SOURCE: Throat BODY SITE: COLLECTED DATE/TIME: 04/06/2018 15:41 EST RECEIVED DATE/TIME: 04/06/2018 17:28 EST START DATE/TIME: 04/06/2018 17:28 EST FREE TEXT SOURCE: Kevin SU, Arun Perez MD, Arun FINAL REPORTS Final Report [] Verified Date/Time: 04/08/2018 06:57 EST Beta Hemolytic Streptococci, non group A or B Presumptive isolated. Penicillin is the drug of choice for Beta Hemolytic Streptococci Isolates. Routine susceptibility testing on Beta Hemolytic Streptococcus isolates is no longer performed. Susceptibilities will continue to be performed on Isolates from sterile body fluids and serious wound infections. Performing Locations R1: [facility] at: [facility], [address] [place] [address], [phone] , [facility] Comment on above: Performed By: #### 2 [id number] #### [facility] [address] [place] [id number] ED Clinical Summaryon 2018 ED Clinical Summary [place] [id number] ED Clinical Summary Person Information Name: KEVIN MALHOTRA/Mai Age: 37 Years : 1980 12:00 AM Sex: Male Language: Mongolian PCP: KIT AIKEN CNP Marital Status: Phone: [phone] Visit Id: Visit Reason: Sinus Pain/Congestion; Cough; FLU LIKE SYMPTOMS Speciality: Acuity: 4 Enc Type: Emergency Med Service: Emergency Arrival: 04/06/2018 3:10 PM Discharge: 04/06/2018 4:37 PM LOS: 000 01:27 Checkin: 04/06/2018 3:10 PM Checkout: 04/06/2018 4:37 PM Dispo Type: Home (Routine DC) EVENTS: Event Name Event Status Request Date/Time Start Date/Time Complete Date/Time Arrive Complete 04/06/2018 3:10 PM 04/06/2018 3:10 PM 04/06/2018 3:10 PM Document Home Meds Complete 04/06/2018 3:10 PM 04/06/2018 4:01 PM 04/06/2018 4:01 PM Triage Complete 04/06/2018 3:10 PM 04/06/2018 3:31 PM 04/06/2018 3:31 PM Bed Assign Complete 04/06/2018 3:19 PM 04/06/2018 3:19 PM 04/06/2018 3:[address] Exam Complete 04/06/2018 3:19 PM 04/06/2018 3:20 PM 04/06/2018 3:20 PM RN Exam Complete 04/06/2018 3:19 PM 04/06/2018 3:47 PM 04/06/2018 3:47 PM Registration Complete 04/06/2018 3:20 PM 04/06/2018 3:43 PM 04/06/2018 3:43 PM Pending Labs Complete 04/06/2018 3:22 PM 04/06/2018 4:15 PM Swab Complete 04/06/2018 3:22 PM 04/06/2018 4:15 PM Pending Labs Complete 04/06/2018 3:39 PM 04/06/2018 4:14 PM Reg Complete Request 04/06/2018 3:43 PM Pending Labs Collected 04/06/2018 4:14 PM 04/06/2018 4:14 PM Lab Collected 04/06/2018 4:14 PM 04/06/2018 4:14 PM Discharge Complete 04/06/2018 4:32 PM 04/06/2018 4:37 PM 04/06/2018 4:37 PM Transfer Complete 04/06/2018 4:37 PM 04/06/2018 4:37 PM 04/06/2018 4:37 PM ADDRESS: [address] [place] [id number] PHYS DOC NOTES: MEDICAL INFORMATION: Prescriptions Given: Prescription Display benzonatate (Tessalon 100 mg Cap) 100 mg = 1 cap(s), Oral, TID, X 7 day(s), # 21 cap(s), Refills(s) 0, Pharmacy: [facility]/pharmacy #[id number] oseltamivir (Tamiflu 75 mg Cap) 75 mg = 1 cap(s), Oral, BID, X 5 day(s), # 10 cap(s), Refills(s) 0, Pharmacy: [facility]/pharmacy #[id number] PATIENT EDUCATION INFORMATION: Instructions: Viral Infections Follow up: With: Address: When: KIT AIKEN [address] [place], [place] [id number] Business (1) In 3 days 04/09/2018 DIAGNOSIS: Flu-like symptoms Normal [facility] ED Patient Education Noteon 04-06-2018 ED Patient Education Note Family Medicine Viral Infections A viral infection can be caused by different types of viruses.?Most viral infections are not serious and resolve on their own. However, some infections may cause severe symptoms and may lead to further complications. SYMPTOMS Viruses can frequently cause: ? Minor sore throat. ? Aches and pains. ? Headaches. ? Runny nose. ? Different types of rashes. ? Watery eyes. ? Tiredness. ? Cough. ? Loss of appetite. ? Gastrointestinal infections, resulting in nausea, vomiting, and diarrhea. These symptoms do not respond to antibiotics because the infection is not caused by bacteria. However, you might catch a bacterial infection following the viral infection. This is sometimes called a superinfection. Symptoms of such a bacterial infection may include: ? Worsening sore throat with pus and difficulty swallowing. ? Swollen neck glands. ? Chills and a high or persistent fever. ? Severe headache. ? Tenderness over the sinuses. ? Persistent overall ill feeling (malaise), muscle aches, and tiredness (fatigue). ? Persistent cough. ? Yellow, green, or brown mucus production with coughing. HOME CARE INSTRUCTIONS ? Only take ccce-jfn-unswqvv or prescription medicines for pain, discomfort, diarrhea, or fever as directed by your caregiver. ? Drink enough water and fluids to keep your urine clear or pale yellow. Sports drinks can provide valuable electrolytes, sugars, and hydration. ? Get plenty of rest and maintain proper nutrition. Soups and broths with crackers or rice are fine. SEEK IMMEDIATE MEDICAL CARE IF: ? You have severe headaches, shortness of breath, chest pain, neck pain, or an unusual rash. ? You have uncontrolled vomiting, diarrhea, or you are unable to keep down fluids. ? You or your child has an oral temperature above 102? F (38.9? C), not controlled by medicine. ? Your baby is older than 3 months with a rectal temperature of 102? F (38.9? C) or higher. ? Your baby is 3 months old or younger with a rectal temperature of 100.4? F (38? C) or higher. MAKE SURE YOU: ? Understand these instructions. ? Will watch your condition. ? Will get help right away if you are not doing well or get worse. Document Released: 11/09/2005 Document Revised: 04/23/2012 Document Reviewed: 06/06/2011 ExitCare? Patient Information ?2015 [place]. This information is not intended to replace advice given to you by your health care provider. Make sure you discuss any questions you have with your health care provider. Normal [facility] ED Patient Summaryon 019 ED Patient Summary (Inserted Image. Amanda ble to display) [address] [address] Patient Discharge Instructions Person Information Name: KEVIN MALHOTRA Age: 37 Years Arrival Date: 04/06/2018 3:10 PM Discharge Diagnosis: Flu-like symptoms Primary Care Physician: KIT AIKEN CNP Provider Information Primary Provider: [facility] [employer] Treater:Alec Douglas PA-C The exam and treatment you received in the Emergency Department were for an urgent problem and are not intended as complete care. It is important that you follow up with a doctor, nurse practitioner, or physician?s front office medical assistant for ongoing care. If your symptoms become worse or you do not improve as expected and you are unable to reach your usual health care provider, you should return to the Emergency Department. We are available 24 hours a day. KEVIN MALHOTRA has been given the following list of patient education materials, prescriptions and follow-up instructions: Follow-up Instructions: With: Address: When: KIT AIKEN [address] [place] [phone] Business (1) In 3 days 04/09/2018 In the event that this physician does not participate in your insurance network, please consult with your insurance company to find a nearby participating provider. Patient Education Materials: Viral Infections A MESSAGE TO ALL PATIENTS REGARDING OPIOIDS PRESCRIPTION OPIOIDS: WHAT YOU NEED TO KNOW Prescription opioids can be used to help relieve dgdcvqaa-uh-megnbi pain and are often prescribed following a surgery or injury, or for certain health conditions. These medications can be an important part of the treatment but also come with serious risks. It is important to work with your healthcare provider to make sure you are getting the safest, most effective care. WHAT ARE THE RISKS AND SIDE EFFECTS OF OPIOID USE? Prescription opioids carry serious risks of addiction and overdose, especially with prolonged use. An opioid overdose, often marked by slowed breathing, can cause sudden . The use of prescription opioids can have a number of side effects as well, even when taken as directed: ? Tolerance?meaning you might need to take more of the medication for the same pain relief ? Physical dependence?meaning you have symptoms of withdrawal when a medication is stopped ? Increased sensitivity to pain ? Constipation ? Nausea, vomiting, and dry mouth ? Sleepiness and dizziness ? Confusion ? Depression ? Low levels of testosterone that can result in lower sex drive, energy, and strength ? Itching and sweating RISKS ARE GREATER WITH: ? History of drug misuse, substance use disorder, or overdose ? Mental health conditions (such as depression or anxiety) ? Sleep apnea ? Older age (65 years and older) ? Avoid alcohol while taking prescription opioids. Also, unless specifically advised by your health care provider, medications to avoid include: ? Benzodiazepines (such as Xanax or Valium) ? Muscle relaxants (such as Soma or Flexeril) ? Hypnotics (such as Ambien or Lunesta) ? Other prescription opioids KNOW YOUR OPTIONS Talk to your health care provider about ways to manage your pain that don?t involve prescription opioids. Some of these options may actually work better and have fewer risks and side effects. Options may include: ? Pain relievers such as acetaminophen, ibuprofen, and naproxen ? Some medication that are also used for depression or seizures ? Physical therapy and exercise ? Cognitive behavioral therapy, a psychological, goal-directed approach, in which patients learn how to modify physical, behavioral, and emotional triggers of pain and stress. IF YOU ARE PRESCRIBED OPIOIDS FOR PAIN: ? Never take opioids in greater amounts or more often than prescribed. ? Follow up with your primary health care provider. o Work together to create a plan on how to manage your pain. o Talk about ways to help manage your pain that don?t involve prescription opioids. o Talk about any and all concerns and side effects. ? Help prevent misuse and abuse o Never sell or share prescription opioids. o Never use another person?s prescription opioids. ? Store prescription opioids in a secure place and out of reach of others (this may include visitors, children, friends, and family). ? Safely dispose of unused prescription opioids: Find your community drug take-back program or your pharmacy mail-back program, or flush them down the toilet, following guidance from the Food and Drug Administration (www.fda.gov/Drugs/Resourc esForYou). ? Visit www.cdc.gov/drugoverdose to learn about the risks of opioids abuse and overdose. ? If you believe you may be struggling with addiction, tell your health health care recruiter and ask for guidance or call [facility] National Helpline at 3-229-964-ITHH. o Source: US Department of Health and Human Services/Center for Disease Control & Prevention [facility] Medications Given: Medication Dose Route No medications found. Medication Information: New Medications [facility]/pharmacy #[id number], [address], [place] [id number], [phone] benzonatate (Tessalon 100 mg Cap) 1 Capsules By Mouth 3 times a day for 7 Days. Refills: 0. oseltamivir (Tamiflu 75 mg Cap) 1 Capsules By Mouth 2 times a day for 5 Days. Refills: 0. Comment: Pharmacy Information: Thank you for choosing [facility] Patient Education Materials: Viral Infections A viral infection can be caused by different types of viruses.?Most viral infections are not serious and resolve on their own. However, some infections may cause severe symptoms and may lead to further complications. SYMPTOMS Viruses can frequently cause: ? Minor sore throat. ? Aches and pains. ? Headaches. ? Runny nose. ? Different types of rashes. ? Watery eyes. ? Tiredness. ? Cough. ? Loss of appetite. ? Gastrointestinal infections, resulting in nausea, vomiting, and diarrhea. These symptoms do not respond to antibiotics because the infection is not caused by bacteria. However, you might catch a bacterial infection following the viral infection. This is sometimes called a superinfection. Symptoms of such a bacterial infection may include: ? Worsening sore throat with pus and difficulty swallowing. ? Swollen neck glands. ? Chills and a high or persistent fever. ? Severe headache. ? Tenderness over the sinuses. ? Persistent overall ill feeling (malaise), muscle aches, and tiredness (fatigue). ? Persistent cough. ? Yellow, green, or brown mucus production with coughing. HOME CARE INSTRUCTIONS ? Only take tyua-eor-qxsqxjl or prescription medicines for pain, discomfort, diarrhea, or fever as directed by your caregiver. ? Drink enough water and fluids to keep your urine clear or pale yellow. Sports drinks can provide valuable electrolytes, sugars, and hydration. ? Get plenty of rest and maintain proper nutrition. Soups and broths with crackers or rice are fine. SEEK IMMEDIATE MEDICAL CARE IF: ? You have severe headaches, shortness of breath, chest pain, neck pain, or an unusual rash. ? You have uncontrolled vomiting, diarrhea, or you are unable to keep down fluids. ? You or your child has an oral temperature above 102? F (38.9? C), not controlled by medicine. ? Your baby is older than 3 months with a rectal temperature of 102? F (38.9? C) or higher. ? Your baby is 3 months old or younger with a rectal temperature of 100.4? F (38? C) or higher. MAKE SURE YOU: ? Understand these instructions. ? Will watch your condition. ? Will get help right away if you are not doing well or get worse. Document Released: 11/09/2005 Document Revised: 04/23/2012 Document Reviewed: 06/06/2011 ExitCare? Patient Information ?2014 [place]. This information is not intended to replace advice given to you by your health care provider. Make sure you discuss any questions you have with your health care provider. YOBANI Horner THOMAS , have received the following patient education materials/instructions and have verbalized understanding: Patient Education Materials: Viral Infections Follow-up Instructions: With: Address: When: KIT AIKEN [address] [place] [phone] Business (0) In 3 days 04/09/2018 Prescriptions: [benzonatate (Tessalon 100 mg Cap)] [oseltamivir (Tamiflu 75 mg Cap)] Patient Signature __ Date Clinician/Nurse Signature Date 04/06/18 16:37:13 Normal [facility] Influenza A&B Agon 9 Influenzae A Ag Negative Normal Negative [facility] Comment on above: Performed By: #### 1 [id number] #### [facility] [address] [place] [address] Influenzae B Ag Negative Normal Negative [facility] Comment on above: Result Comment: Test sensitivity and specificity vary for age group, specimen type, antigen types, and prevalence of disease. Test results must be evaluated in conjunction with other clinical data available to the physician. Individuals who received nasally administered Influenza A vaccine may have positive test results up to 3 days after vaccination. Performed By: #### 1 [id number] #### [facility] [facility] [address] [place] [address] Vital Signs Date Time Vital Sign Value Performing Clinician Facility 11-11-2022 11:28-0400 Diastolic blood pressure 80 mm[Hg] PYROMETER OPERATORBenjamín Bower Work Phone: [facility] 11-11-2022 11:28-0400 Heart rate 49 /min PYROMETER OPERATORBenjamín Bower Work Phone: [facility] 11-11-2022 11:28-0400 Respiratory rate 18 /min PYROMETER OPERATORBenjamín Bower Work Phone: [facility] 11-11-2022 11:28-0400 SaO2% (BldA) [Mass fraction] 99 % PYROMETER OPERATORBenjamín Bower Work Phone: [facility] 11-11-2022 11:28-0400 Systolic blood pressure 121 mm[Hg] PYROMETER OPERATORBenjamín Bower Work Phone: [facility] 11-11-2022 10:08-0400 Body height 170.18 cm PYROMETER OPERATORBenjamín Bower Work Phone: [facility] 11-11-2022 10:08-0400 Body temperature 98.6 [degF] PYROMETER OPERATORBenjamín Bower Work Phone: [facility] 11-11-2022 10:08-0400 Body weight 86.18 kg PYROMETER OPERATORBenjamín Bower Work Phone: [facility] 09-09-2022 10:30-0400 Body height 171.45 cm Joanna Bower Other [facility] Other 09-09-2022 10:30-0400 Body mass index (BMI) [Ratio] 28.39 kg/m2 Joanna Bower Other [facility] Other 09-09-2022 10:30-0400 Body weight 83.46 kg Joanna Sathish Other [facility] Other 09-09-2022 10:30-0400 Diastolic blood pressure 82 mm[Hg] Joanna Sathish Other [facility] Other 09-09-2022 10:30-0400 Systolic blood pressure 120 mm[Hg] Joanna Sathish Other [facility] Other 06-11-2021 10:15-0400 Body height 171.45 cm Bharti Perez Other [facility] Other 06-11-2021 10:15-0400 Body mass index (BMI) [Ratio] 27.77 kg/m2 Bharti Perez Other [facility] Other 06-11-2021 10:15-0400 Body temperature 98 [degF] Bharti Perez Other [facility] Other 06-11-2021 10:15-0400 Body weight 81.65 kg Bharti Perez Other [facility] Other 06-11-2021 10:15-0400 Respiratory rate 18 /min Bharti Perez Other [facility] Other 06-11-2021 10:15-0400 SaO2% (BldA) [Mass fraction] 96 % Bharti Perez Other [facility] Other Encounters Encounter Date Encounter Type Care Provider Facility Start: 02-23-2023 Telephone encounter Ashlyn Hayden MA [facility] Start: 02-17-2023 End: 02-17-2023 Emergency department patient visit JOANNA BOWER 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 (Primary Dx); S/P AVR (aortic valve replacement) Start: 01-13-2023 End: 02-13-2023 ambulatory [facility] Start: 12-22-2022 End: 12-22-2022 ambulatory Lorenzo Morgan Other [facility] Other Start: 12-22-2022 Telephone encounter Lorenzo Morgan [facility] Start: 11-25-2022 End: 11-25-2022 ambulatory Joanna Bower Other [facility] Other Start: 11-25-2022 Telephone encounter Joanna Holt her [facility] Start: 11-17-2022 End: 11-17-2022 ambulatory Bryant Sharma Other [facility] Other Start: 11-17-2022 Telephone encounter Bryant lala [facility] Start: 11-11-2022 End: 11-11-2022 ambulatory Joanna Bower Facility:[facility] Start: 11-11-2022 End: 11-11-2022 Admission to same day surgery center ANEL Bower Work Phone: [facility] Work Phone: Start: 11-11-2022 End: 11-11-2022 ambulatory ANEL Bower Work Phone: [facility] Work Phone: Start: 09-29-2022 End: 09-29-2022 ambulatory Imad Asaad Other [facility] Other Start: 09-29-2022 Telephone encounter Imad Asaad [facility] Start: 09-09-2022 End: 09-09-2022 ambulatory Joanna Sathish Other [employer] Other Start: 09-09-2022 Encounter for genera l adult medical examination without abnormal findings Joanna Bower [facility] Start: 09-09-2022 Periodic preventive med est patient 40-64yrs Joanna Bower [facility] Start: 07-12-2022 End: 07-12-2022 ambulatory NARENDRANATH LAKSHMIPATHY . Facility:[facility] Start: 06-14-2022 End: 06-15-2022 ambulatory NARENDRANATH LAKSHMIPATHY . Facility:[facility] Start: 2022 End: 05-20-2022 ambulatory NARENDRANATH LAKSHMIPATHY . Facility:[facility] Start: 04-19-2022 End: 04-20-2022 ambulatory JOANNA BOWER Facility:[facility] Start: 03-10-2022 End: 03-11-2022 ambulatory JOANNA BOWER Facility:[facility] Start: 02-22-2022 End: 02-22-2022 ambulatory JOANNA BOWER Facility:[facility] Start: 01-31-2022 End: 01-31-2022 ambulatory Joanna Bower Other [facility] Other Start: 01-31-2022 Telephone encounter Joanna tim [facility] Start: 01-30-2022 End: 01-30-2022 ambulatory JOANNA BOWER Facility:[facility] Start: 01-21-2022 End: 01-21-2022 ambulatory JOANNA BOWER Facility:[facility] Start: 01-20-2022 End: 01-21-[address] JESSICA BYRNE . Facility:[facility] Start: 01-04-2022 End: 01-04-2022 ambulatory JOANNA BOWER Facility:[facility] Start: 12-16-2021 End: 12-17-2021 ambulatory JOANNA BOWER Facility:[facility] Start: 09-23-2021 End: 09-24-[address] JESSICA BYRNE . Facility:[facility] Start: 08-24-2021 End: 08-24-[address] JESSICA BYRNE . Facility:[facility] Start: 08-03-2021 End: 08-03-[address] JESSICA BYRNE . Facility:[facility] Start: 07-29-[address] JESSICA BYRNE . Faci lity:[facility] Start: 06-11-2021 End: 06-11-2021 ambulatory Bharti Perez Other [facility] Other Start: 06-11-2021 Office outpatient visit 15 minutes Bharti Perez [facility] Start: 08-31-2018 Patient encounter status Pmh 1 [facility] Work Phone: Procedures Date Procedure Procedure Detail Performing Clinician Start: 02-17-2023 Prothrombin time [employer] Work Phone: Start: 11-11-2022 Colonoscopy PYROMETER OPERATOR Joanna Bower Work Phone: Start: 09-23-2019 H/O: surgery S/P nasal septoplasty Pmh 1 Start: 09-23-2019 History of tonsillectomy S/P tonsillectomy Pm 1 Plan of Treatment Date Care Activity Detail Author Start: 02-18-2024 Adult BMI Screening Adult BMI Screening [facility] Start: 12-03-2023 Tobacco Screening Tobacco Screening [facility] Start: 03-17-2023 End: 03-17-2023 Patient encounter procedure 03/17/2023 9:00 AM EST Appointment [facility] [address] [place] [address] Colten Fitzgerald MD [address] [place] [address] [facility] Start: 03-10-2023 End: 03-10-2023 Follow-up encounter 03/10/2023 8:45 AM EST Follow Up Anticoagulation [facility] Medication Therapy Management [address] [place] [address] Cortez Beltran MD [address] [place] [address] [facility] Medication Therapy Management Start: 11-11-2022 [facility] Start: 10-14-2022 Influenza vaccination [facility] Start: 05-18-1998 DTaP,Tdap and Td Vaccines (1 - Tdap) DTaP,Tdap and Td Vaccines (1 - Tdap) [facility] Start: 05-18-1997 Adult BMI Follow Up Plan Adult BMI Follow Up Plan [facility] Start: 1991 Depression Screening [facility] Screening [facility] Start: 1979 Tobacco Counseling Tobacco Counseling [facility] Patient Education Hemorrhoids (DC) [facility] Work Phone: Payers Date Payer Category Payer Self-pay [id number] 2022 Medicaid [id number] 2022 Medicaid [employer] MEDICAID [facility] MEDICAID [id number] 2022-Present [address] [place] [address] [id number] 1979 Unknown [id number] 2.16.840.1.430208.3.579.2.593 1979 Unknown [id number] 2.16.840.1.112312.3.579.2.593 1979 Unknown [id number] 2.16.840.1.445947.3.579.2.593 1979 Unknown [id number] 2.16.840.1.272750.3.579.2.593 1979 Unknown [id number] 2.16.840.1.943228.3.579.2.593 1979 Unknown [id number] 2.16.840.1.524577.3.579.2.593 1979 Unknown [id number] 2.16.840.1.513317.3.579.2.593 1979 Unknown [id number] 2.16.840.1.141245.3.579.2.593 1979 Unknown [id number] 2.16.840.1.656021.3.579.2.593 1979 Unknown [id number] 2.16.840.1.047241.3.579.2.593 1979 Unknown [id number] 2.16.840.1.577455.3.579.2.593 1979 Unknown [id number] 2.16.840.1.378767.3.579.2.593 1979 Unknown [id number] 2.16.840.1.189371.3.579.2.593 1979 Unknown [id number] 2.16.840.1.852536.3.579.2.593 1979 Unknown [id number] 2.16.840.1.396701.3.579.2.593 1979 Unknown [id number] 2.16.840.1.851911.3.579.2.593 1979 Unknown [id number] 2.16.840.1.239338.3.579.2.593 1979 Unknown [id number] 2.16.840.1.884142.3.579.2.1286 1979 Unknown [id number] 2.16.840.1.309646.3.579.2.1286 1979 Unknown [id number] 2.16.840.1.456422.3.579.2.1286 1959 Unknown [id number] 2.16.840.1.643861.19 1959 Unknown [id number] Unknown [id number] 2.16.840.1.022210.3.579.2.531 Social History Date Type Detail Facility Unknown if ever smoked [facility] Other Start: 03-03-2020 End: 12-02-2022 Sex Assigned At [facility] Start: 11-11-2022 Tobacco smoking stat [facility] Ex-smoker (finding) [facility] Start: 1980 Sex Assigned At Male F [facility] Start: 05-27-2022 Tobacco smoking stat [facility] Smokes tobacco daily [facility] History of tobacco use Cigarette Smoker P [facility] Start: 03-03-2020 End: 05-27-2022 Cigarettes smoked current (pack per day) - Reported 1 [facility] Start: 05-27-2022 Tobacco use and exposure Smokeless tobacco non-user [facility] Start: 12-02-2022 Alcohol intake Current drinke r of alcohol (finding) [facility] Adolescent depressio n screening assessment 0 [facility] Start: 09-02-2019 Alcohol Comment rare [facility] Start: 1980 Sex Assigned At Not on file P [facility] Medical Equipment Procedure Code Equipment Code Equipment Origin al Text Equipment Identifier Dates Tiss Aldrm Gft 2 x4cm 6-12 Ea=1 Sheet=8 Cm2 - [id number] - [id number] Start: 09-16-2019 Goals Date Patient Goal Desired Activity /State Clinical Notes 03-31-2014 to 02-23-2023 Telephone Encounter - Ashlyn Hayden MA - 02/23/2023 8:10 AM ESTTelephone Encounter - Ashlyn Hayden MA - 02/23/2023 8:10 AM Taylor Moreland [facility] - 02/17/2023 8:45 AM EST Note Date & Type Note Facility 02-23-2023 Miscellaneous Notes The patient LVM requesting to reschedule his appointment. Acid Blower called home number and spoke with his as cell number does not have a voice mailbox set up yet. will get a message to patient to call [facility] back. documented in this encounter [facility] 02-23-2023 Telephone encounter Note The patient LVM requesting to reschedule his appointment. Acid Blower called home number and spoke with his as cell number does not have a voice mailbox set up yet. will get a message to patient to [facility]. [facility] 02-17-2023 History of Presen t illness Narrative 15 minute [id number] follow-up anticoagulation appointment. INR performed in office per protocol. INR 2.1 (goal range: 2.0-3.0). Patient reports: Taking warfarin dosing as documented. Missed or extra doses of warfarin: patient was ill last week with cough and viral infection and states he is not sure if he missed a dose while he was not feeling well Changes to medications: Yes, Patient reports a steroid medication last week for cough/virus. Exact med name and dose not known but patient describes it as a 5 day taper. Changes to lifestyle (diet / alcohol / smoking / activity): Yes, was ill last week but starting to feel better Recent emergency department visit / hospitalization / health changes / new contraindication to current anticoagulant: Yes, [facility] 02/14 for virus Signs/symptoms of bruising/bleeding or clotting or any intolerable adverse events: No Upcoming procedures: No Anticoagulant prescription needed: No Seen referring provider in the last year Duration of therapy reviewed Assessment: INR is remaining stable in therapeutic range on current warfarin regimen. Plan: Patient instructed to continue warfarin 5 mg every Mon, , Sat; 7.5 mg all other days. Check INR in 3 week(s). Patient verbalizes understanding of anticoagulant dosing instructions and information discussed. Dosing regimen, counseling, and follow-up appointment were provided to the patient. Patient reminded to call with questions or any medication changes. Patient instructed to seek medical attention if any major bleeding/bleeding that persists or worsens. Chung Moreland RPH 02/17/23 0916 documented in this encounter [facility] 11-11-2022 Procedure note [facility] 09-09-2022 Evaluation note Encounter Date Diagnosis Assessment Notes Aug, Essential hypertension (ICD-10 - I10) To goal. Prior to your visit today we reviewed your chart and outlined the tetsing and treatment needed for your care. We discussed the possible complications of high blood pressure, including increased risk for heart disease, stroke, and kidney disease. Our goal is to keep your blood pressure below 130/85 (an preferably < 120/80) and maintain a healthy weight with a BMI less than 26. We are working together to acheive these goals with the following plan; healthier diet, increased activity and exercise, understanding your medicaitons, and your complaince. You have been given relevant education handouts. Aug, Wellness examination (ICD-10 - Z00.00) Personalized health advice was given to the beneficiary including a written plan for screenings discussed and provided. Advanced care planning reviewed and/or information given as requested. Additional counseling was provided here today in regards to general topics regarding health education were discussed in detail. All preventative issues were discussed including remaining a nonsmoker, colorectal screening, the importance of proper sleep for brain health maintenance, maintaining a heart-healthy balanced diet, recognizing and addressing signs of anxiety and depression, maintaining positive relationships with family and friends. Aug, H/O aortic valve replacement (ICD-10 - Z95.2) He follows dr. Murphy at [facility] every 6 months. Follows with the [facility] for Coumadin management. Aug, Anticoagulated on Coumadin (ICD-10 - Z79.01) Aug, Hypercholesterolemia (ICD-10 - E78.00) Stable. Due for new labs. Dicsussed importance of maintaining an LDL level at specified goal. Discussed associated risk factors of hyperlipidemia including stroke and heart attack. Treatment with medications discussed and we have agrees upon appropirate action of treatment and goals. Discussed dietary modifications, including decreasing red meat consumption, decreased alcohol consumption, avoiding fried foods, and cake and cookies, and sweets. Encouraged increasing fiber in diet and eat a diet rich in omega-3. Encouraged to exericse at least 150 minutes weekly. Barriers to plan of care have been addressed. Follow-up as directed. Patient given a copy of the plan of care. Aug, Low HDL (under 40) (ICD-10 - E78.6) Changed perscription from Fish oil to Krill oil. Will continue to monitor. Discusse with him to increase exercise and to top coat foods with olive oil. He does states that it is difficult for him to exercise due to the neck pain. He verbalizes understanding. Aug, Gastroesophageal reflux disease, esophagitis presence not specified (ICD-10 - K21.9) Stable. Denies breakthrough symptoms. Reflux symptoms remain unchanged. Discussed the importance of meal content. They should avoid overeating and eating meals late in the evening. Take medication as directed and we will continue to monitor. Aug, Chronic pain (ICD-10 - G89.29) He is currently on Duloxetine with some benefit. He is also under the care of Dr. Byrne for pain management. Aug, Cervical pain (ICD-10 - M54.2) Aug, Lumbar pain (ICD-10 - M54.50) Aug, Mild intermittent asthma without complication (ICD-10 - J45.20) Under control. He denies any cough or wheezing. Prior to your visit today we reviewed your chart and outlined the testing and treatment needed for your care. We discussed the possible complications of asthma , including increased risk for acute exacerbation and respiratory failure. Our goal is to keep your COPD under control to avoid exacerbation and hospitalization s. maintain a healthy weight with a BMI less than 26. 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 Discussed if he needs any further referral to contact the office. Will refer to rheumatology as needed. Aug, Vitamin D deficiency (ICD-10 - E55.9) Check 25 Hydroxy Vitamin D with next labs. Aug, Lung nodule seen on imaging study (ICD-10 - R91.1) Follows with Pulmonology for repeat CT scans. Aug, Tobacco abuse (ICD-10 - Z72.0) We discussed possible complications of smoking including risk of heart disease, stroke, lung disease, and increase risk of cancer. Your goal is to quit smoking. The availability, risks, and benefits of medication used to treat nicotine addiction as releveant to you have been discussed. We are working together to achieve these goals with the following plan; barriers to these goals have been discussed. You have been given relevant education handouts and a summary of your care plan. Your next follow-up visit for this problem is six months, we will continue to ask progress for quitting and willingness to quit at each appointment. Aug, Other obesity due to excess calories (ICD-10 - E66.09) Aug, Screening for colon cancer (ICD-10 - Z12.11) Patient due for screening colonoscopy. Referral sent to GI today. Aug, Family history of colon cancer requiring screening colonoscopy (ICD-10 - Z80.0) Aug, BMI 29.0-29.9,adult (ICD-10 - Z68.29) [facility] 05-02-2023 NoteCONSULTATION CONSULTATION DATE: 06/14/2022 TO: Dr. Bower CHIEF COMPLAINT: Includes mid pain back. HISTORY: He reports the pain as 5-7/10 pain in his right mid back area, sharp in character, increased with activities such as standing, walking and performing transitioning maneuvers. He feels most comfortable in the semi-recumbent position. He denies any change in bowel and bladder habits or new sensorimotor changes in the lower extremities. EXAM: Notable for patient having no clinical radiculopathy or myelopathy involving the lower extremities. Patient did have severe pain with thoracic facet loading maneuvers on the right side at T10-11, T11-12, with associated myofascial spasm of the thoracic paravertebral muscles on the right side, namely the iliocostalis. IMPRESSION: Our impression is the patient appears to have chronic pain. He has undergone a successful rhizotomy using radiofrequency ablation on the right side at T7-8 and T9-10; however, T10-11, T11-12 are now involved or unmasking of the T10-11, T11-12 levels. We have placed a skin marker over the most painful area and sent him for thoracic spine films to determine which level his residual pain symptoms are extending from, and the skin marker did reveal the T10-11 levels on the right side. RECOMMENDATIONS: I have gone over the details of the procedure with the patient. All his questions answered. He agrees to proceed with the outlined plan. In the interim, I have asked him to trial increasing his Flexeril to 10 mg pills, 1-2 t.i.d. as tolerated; 100 pills to last him one month's time. As part of providing excellent, safe, comprehensive care, the following was completed at our patient's visit: 1. A medication reconciliation and review to ensure accurate knowledge of current/active medications, including asking our patients to inform us about any loia-cfv-bipxltu medications or herbal remedies/nutritional supplements/alternative remedies. 2. A review to specifically ensure our patients have had annual screening for: elevated body mass index (BMI, see intake chart for exact total), tobacco use, screening for depression, and screening for unhealthy alcohol use. When screening is concerning, patients are provided with education and the specific recommendation to discuss the concerning health issue and treatment options with their primary care provider.[id number] Note CONSULTATION CONSULTATION DATE: 2022 TO: Joanna Bower NP CHIEF COMPLAINT: Includes severe mid back pain, worse on the right than the left side; bilateral hip pain and buttock pain, left side worse than the right side HISTORY: Overall, he reports the pain as being 5-7/10 pain, sharp in character, increased with activities such as standing, walking and performing transitioning maneuvers. He feels most comfortable in the semi-recumbent position. He denies any change in bowel and bladder habits or new sensorimotor changes in the lower extremities. EXAM: His exam is notable for patient having positive bilateral FABERs sign, more significant on the left than the right side. He had no clinical radiculopathy or myelopathy involving the lower extremities. He did have significant pain with thoracic facet loading maneuvers that appeared to be at an area near T6-7, T7-8 levels, unclear, but he had reproducible pain at this location with point tenderness, more on the right than the left side. I have marked the area with a skin marker, and will obtain thoracic spine films to evaluate this area. He had nothing to suggest thoracic compression fracture on today's visit. He did have a fair amount of myofascial spasm of this thoracic paravertebral muscles, as well as his gluteal muscles, namely his gluteus medius bilaterally, more significant on the left than the right side. IMPRESSION: Patient with chronic pain secondary to multiple etiology; bilateral hip pain, left worse than the right side, etiology unclear, most likely osteoarthrosis; thoracic spondylosis level indeterminate at this time, but appears to be at T6-T7, possibly T7-T8. I have marked the area. RECOMMENDATIONS: We will obtain thoracic spine films by placing a skin marker to further evaluate that area. I have placed him on Skelaxin 400 mg b.i.d. We will see the patient back in the office in two weeks' time or sooner if needed. As part of providing excellent, safe, comprehensive care, the following was completed at our patient's visit: 1. A medication reconciliation and review to ensure accurate knowledge of current/active medications, including asking our patients to inform us about any ojms-xqj-jhbexnq medications or herbal remedies/nutritional supplements/alternative remedies. 2. A review to specifically ensure our patients have had annual screening for: elevated body mass index (BMI, see intake chart for exact total), tobacco use, screening for depression, and screening for unhealthy alcohol use. When screening is concerning, patients are provided with education and the specific recommendation to discuss the concerning health issue and treatment options with their primary care provider.[facility] [id number] Note CONSULTATION CONSULTATION DATE: 03/10/2022 HISTORY OF PRESENT ILLNESS: This is a pleasant, 41-year-old gentleman who returns to the clinic status post #2 bilateral MBB of T7, T8 and T9, T10 completed on 02/22/2022. The patient received 100% relief for three days. 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 His endurance increased as well. He is having some tightness to his right cervical trapezius muscle, which has been problematic in the past. Today, he feels his pain is at baseline, which is 8/10 to his thoracic area. Medications include Celebrex 100 mg daily, Lyrica 150 mg b.i.d., Flexeril 10 mg q.h.s., trazodone and Tylenol. He is also on Coumadin. Patient is complaining of increased muscle cramps to his bilateral lower extremities. Patient's REVIEW OF SYSTEMS / PAST MEDICAL HISTORY / ALLERGIES and IMAGES have been reviewed and noted on the chart. PHYSICAL EXAM: VITAL SIGNS: Blood pressure 108/70, heart rate is 86. He is 5'7 , weighs 81 kg. GENERAL IMPRESSION: Pleasant, appropriate, in no acute distress. FOCUSED EXAM - NECK: Range of motion is functional in lateral rotation and flexion/extension. Trigger point identified to the right cervical trapezius muscle along the C6-C7 region. Compression along this area reproduced the patient's pain pattern. BACK: Compression along the thoracic facets reproduces the patient's pain symptomatology. Fullness is felt as well, indicative of facet arthropathy, thoracic spondylosis of T7, T8 and T9, T10. The thoracic trapezius muscles are non-spasmodic. Range of motion is functional in lateral rotation and flexion/extension. MUSCULOSKELETAL: Motor is intact, 5/5 bilaterally to upper and lower extremities. Musculature is strong with good tone. NEUROLOGICALLY: Radicular sensory is intact. Negative polyneuropathy. Reflexes upper and lower extremities are +2. DIAGNOSIS: Cervical right trapezius spasm, thoracic spondylosis, thoracic degenerative disc disease and thoracic pain. PLAN: The patient will receive a right cervical trapezius trigger point injection in the office, which he does consent to. We will progress forward with bilateral radiofrequency ablation of T7, T8 and T9, T10. We will gain approval as well to hold his Coumadin prior to the procedure. He is to continue with his multivitamin, stretches and heat application. Patient agrees with this plan, will be followed up in the office thereafter.[id number] NoteCONSULTATION PROCEDURE DATE: 03/10/2022 PREOPERATIVE DIAGNOSIS: Right cervical trapezius spasm. POSTOPERATIVE DIAGNOSIS: Right cervical trapezius spasm. PROCEDURE: Right cervical trapezius trigger point injection. Subsequent to obtaining informed consent, the patient was placed in the upright sitting neutral position. Alcohol prep was used to sterilize the site. A 25 gauge needle with 0.125% Marcaine and 40 mg of Kenalog was placed inside the trigger zone. Negative heme. Medication was injected in a slow, fan-like pattern, and the patient tolerated it well. He will be followed up in the office.[facility] [id number] NoteCONSULTATION PROCEDURE DATE: 01/20/2022 PREOPERATIVE DIAGNOSIS: Bilateral cervical trapezius spasms. POSTOPERATIVE DIAGNOSIS: Bilateral cervical trapezius spasms. PROCEDURE: Bilateral cervical trigger point injections. Subsequent to obtaining informed consent, the patient was placed in an upright sitting position. Alcohol prep was used to sterilize the skin. A 25 gauge needle with 0.125% Marcaine and 40 mg of tramadol was divided into two locations. Needle was placed inside the trigger zone. Negative aspiration. Medication was injected in a slow, fan-like pattern into two locations. Patient will be followed up in the clinic and tolerated the procedure well.[facility] [id number] NoteCONSULTATION CONSULTATION DATE: 01/20/2022 HISTORY OF PRESENT ILLNESS: This is a 41-year-old male returning to the clinic status post #1 bilateral MBB of T7, T8 and T9, T10 completed on 01/04/2022. Patient is stating he received 18 hours of 100% relief. Patient went to work shortly after the procedure and stated it took approximately four hours for the relief to start. He was able to sleep without waking up in the middle of the night with pain. He was able to have longer endurance in standing, bending and lifting. Today, he feels he is at his baseline at the level of 7/10, describes it as achy and burning. He is also complaining of bilateral neck stiffness. He had cervical radiofrequency ablations done in August of this year. Current medications include Celebrex 100 mg daily, Lyrica 150 mg b.i.d., Flexeril, trazodone and Extra Strength Tylenol. Patient's REVIEW OF SYSTEMS / PAST MEDICAL HISTORY / ALLERGIES and IMAGES have been reviewed and noted on the chart. PHYSICAL EXAM: VITAL SIGNS: Blood pressure 152/84, heart rate is 85. Temperature is 97.1. He is 5'7 , weighs 82 kg. GENERAL APPEARANCE: Pleasant, appropriate, no acute distress. FOCUSED EXAM - NECK: Range of motion is functional in lateral rotation and flexion/extension. Bilateral trapezius muscles are taut with trigger points identified. Compression along those zones reproduce patient's pain symptomatology. BACK: Spinal axial pain is reproduced along compression of the T7, T8, T9 and T10 facets. Fullness palpated as well, indicative of thoracic spondylosis. Range of motion is guarded in lateral rotation and flexion/extension. MUSCULOSKELETAL: Motor is intact upper and lower extremities, 5/5 bilaterally. No vasomotor weakness noted. NEUROLOGICAL: Patchy hypoesthesia noted along left arm to the level of his wrist along C7, C8 dermatome. Patient is cognitively intact with +1 brachioradialis reflexes bilaterally. DIAGNOSIS: Cervical trapezius spasms, thoracic spondylosis, thoracic degenerative disc and thoracic pain. PLAN: We will move forward with #2 bilateral MBB of T7, T8 and T9, T10. Patient will receive bilateral cervical trigger point injections in the clinic today, which he does consent to. There will be no changes in his medications today. He is to continue with his home supportive care. Patient to follow up in the clinic post procedure.[facility] [id number] NoteCONSULTATION CONSULTATION DATE: 12/16/2021 This is a 41-year-old gentleman who returns to the clinic of a 3-month follow-up for chronic neck and back pain. Today, he is complaining of mid-thoracic pain that he rates 7 out of 10. He describes it as achy and sore. It is aggravated by prolonged standing, walking, lifting, ADLs and change in the weather. We did complete cervical RFA series in August which he is still reporting relief but stiffness. The thoracic pain is primary site today. He did have prior ablations on those regions at a [facility] in the past. REVIEW OF SYSTEMS, PAST MEDICAL HISTORY, ALLERGIES AND IMAGES: Have been reviewed and noted in the chart. PHYSICAL EXAM: VITAL SIGNS: Blood pressure 119/71, heart rate is 56, temperature is 97. Height is 5'7 , weighs 82 kg. GENERAL APPEARANCE: Pleasant, appropriate and in no acute distress. FOCUSED EXAM: BACK: Range of motion is guarded in lateral rotation and flexion/extension. Reproduction of pain pattern upon deep compression along the thoracic facets of T7, T8 and T9, T10. Pain is non-radiating. Bilateral trapezius muscles are very taut, but non-spasmodic. MUSCULOSKELETAL: Motor is intact, 5 out of 5 bilaterally, lower extremities and 4/5 bilateral upper arms. NEUROLOGICAL: Patchy hypesthesia noted along L4 and L5 bilateral lower extremities to level of mid-femur along the lateral aspects of the lower extremities. DIAGNOSIS: Thoracic pain, thoracic spondylosis, thoracic degenerative disk disease. PLAN: We will move forward to authorize #1 bilateral MBB of T7, T8 and T9, T10. We will authorize an approval to hold his Coumadin pre-procedure as well. His Celebrex will be increased to 100 mg b.i.d. The patient is in agreement to move forward and be followed in the clinic thereafter.[facility] 09-23-2021 NoteCONSULTATION CONSULTATION DATE: 09/23/2021 HISTORY OF PRESENT ILLNESS: This is a 41-year-old gentleman, returning to the clinic status post bilateral RFA of C3, C4 and C5, C6 with his last procedure being done on 08/24/2021. The patient received 85% relief to the right and 90% relief to the left. The patient states great improvement and was doing well until approximately a week ago when he saw [facility] and had an EMG done of his bilateral cervical region and upper arms. The stimulation of the nerves ramped up his pain and has caused muscle spasms. He describes his pain as 6/10, achy, sore with sharp pains. His medications include Lyrica 150 mg b.i.d., Flexeril 10 mg q.h.s. and trazodone 50 mg q.h.s. Activities that aggravate his pain are twisting, pushing, pulling, sitting, lifting, bending and physical activity. The use of heat and massage decreases his pain. Patient's REVIEW OF SYSTEMS / PAST MEDICAL HISTORY / ALLERGIES and IMAGES have been reviewed and they are noted on the chart. PHYSICAL EXAM: VITAL SIGNS: Blood pressure is 126/75. Heart rate is 64. Temperature is 98.2. He is 5'7 , weighs 85 kg. GENERAL APPEARANCE: Pleasant, appropriate, no acute distress. FOCUSED EXAM - NECK: Range of motion is function in lateral rotation and flexion/extension. Bilateral cervical trapezius muscles are spasmodic with bilateral triggers identified upon palpation. Compression reproduces patient's pain symptomatology. No reproduction of spinal axial pain to the cervical facets of C3 through C6, which is indicative of successful RFA. MUSCULOSKELETAL: Bilateral upper extremities - Motor is 5/5 bilaterally. NEUROLOGICALLY: Patchy hypoesthesia noted to bilateral upper extremities, left greater than right, which is in a diffuse pattern. +2 bilateral brachioradialis and triceps reflexes. IMPRESSION: Cervicalgia, cervical trapezius spasms bilateral, cervical degenerative disc disease, cervical spondylosis. PLAN: Patient will receive bilateral cervical trigger point injections in the clinic today, which he does consent to. Education was given regarding heat rub, stretches and I highly encouraged massage. Medications will be unchanged today. We will see him in three months' time unless otherwise indicated.[facility] [id number] NoteCONSULTATION PROCEDUREDATE: 09/23/2021 PREOPERATIVE DIAGNOSIS: Bilateral cervical trapezius spasms. POSTOPERATIVE DIAGNOSIS: Bilateral cervical trapezius spasms. PROCEDURE: Bilateral cervical trigger point injection x2. Subsequent to obtaining informed consent, the patient was placed in the sitting position, upright neutral stance. Alcohol prep was used to sterilize the site. A 25 gauge needle with 0.125% Marcaine and 40 mg of Kenalog was divided into two locations. The needle was placed to rest inside the trigger zone. Negative heme. Medication was injected in a fan-like pattern and patient tolerated procedure well. He will be followed up in the clinic.[facility] [id number] Evaluation note* Encounter Date Diagnosis Assessment Notes Treatment Notes Treatment Clinical Notes May, Contact with and (suspected) exposure to other viral communicable diseases (ICD-10 - Z20.828) May, Viral URI (ICD-10 - J06.9) strep and flu tests neg. based on clinical exam and testing, low suspicion for bacterial infection. likely viral etiology. advised symptomatic tx at this time, continue otc claritin, may add flonase nasal spray. recommended hot steam baths, cool mist humidifier and/or sinus lavage with Neti Pot. push rest/fluids. reinforced universal infection control protocols and good hand hygiene for infection control. pt education and anticipatory guidance provided on viral vs bacterial infection progression. immediate eval if warning s/s of intractable fevers, respir distress or other emergent symptoms. otherwise f/u with PCP if febrile or new/worsening s/s. pt verbalizes understanding and agrees with tx plan. May, Other Additional time spent conducting pre-visit phone call, screening for symptoms, instructions on social distancing, application and removal of PPE, and cleaning of examination room, equipment and supplies was preformed. Patient education given for testing methodology and results. Patient care instructions given in writting by [facility] document. Due to infection control protocols for COVID-19 virus, direct physical contact with patient was limited to only the absolute essential needed assessments. [facility] Other 02-16-2015 History general Narrative - Reported* Type Description Date Medical History Asthma Medical History Aortic regurgitation d/t bicuspid aortic valve with congenital bicuspid mitral valve-replaced 03/31/2014. follows with cardiology regularly in [place] Medical History Nonrheumatic aortic valve stenos is with murmur Medical History chronic neck/back pa in [facility] pain management team Medical History Osteoartritis Medical History Hemorrhoids, internal Medical History GERD Medical History urolithiasis Medical History depression going to [facility] Counselling in [place] seeing counselor and will see psychiatrist in 05/2019 Medical History Chronic right mastoiditis Medical History fibromyalgia Medical History Extra Stomach acid Medical History Tumid Lupus Surgical History COLONOSCOPY 2012 Surgical History EGD 2011 Surgical History Open Heart surgery with Aortic valve replacement 03-31-2014 Surgical History 2 toe nails removed Surgical History Nerve blocks Surgical History Left shoulder surgery 05/2018 Surgical History tonsillectomy and adenoidectomy Surgical History Bone spurs removed from sinus c avities. 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 Report any NEW abdominal pain or vomiting. FOR SEDATION FOR 24 HOURS: -NO driving -Do NOT operate machinery such as power tools, lawn mowers, snow blowers, sewing machines, etc. -Avoid alcoholic beverages and drugs for allergies, nerves, or sleep. -Do NOT stay alone. Do NOT leave your child unattended. -Do NOT make important personal or business decisions or sign any legal documents. -Eat solid foods and drink liquids in smaller amounts than usual until normal appetite returns. If you should experience an upset stomach, liquids high in sugar content (soda, Khai-aid, non-acid juices) are recommended. -You can resume normal activities tomorrow. FOLLOW UP Please call the office and make a follow up appointment to see me as needed. Repeat colonoscopy in 5 years -Notify the doctor if you have any problems. -Office number [phone] Work Phone: InstructionsNot on filedocumented in this encounter [facility] [facility] Summary Purpose Family History Relationship Condition Age at Onset Recorded Date/T harrison family member Malignant neoplasm of colon Unknown grandparent Malignant neoplasm of colon Unknown Not Specified Crohn's disease Unknown Advance Directives Advance Directive Response Recorded Date/ Time Advance Directives No July 16 9 3:31pm Latest Code Status on File Code Status Date Activated Date Inactivated Comments Full Code 06/07/2016 2:38 AM 06/08/2016 9:30 PM Reason for Referral Reason due for screeni ng and has a family history Diagnosis 1 Screening for colon cancer (Z12.11) Diagnosis 2 Family history of co randi cancer requiring screening colonoscopy (Z80.0) Referral Organization [facility] [place] Referring Provider First Name Joanna Referring Provider Last Name Sathish Referring Provider Specialty Nurse Pract itioner Referred Organization [facility] Gastroenterolo gy Referred Provider Lorenzo Morgan Referred Address [address] ,[place], [place],[address] Referred Provider Specialty Gastroentero logy Referral Priority Routine General Notes Kadie Murray 11:12:52 AM >received today, sent P2P Chief Complaint and Reason for Visit Chief Complaint Family Hx of Colon C ancer Reason for Visit Family history of co randi cancer requiring screening colonoscopy Additional Source Comments (unrecognized sect ion and content) No Status Records FoundNo Status Records FoundNo Status Records FoundNo Status Records FoundNo Status Records Found INFORMATION SOURCE (unrecogn ized section and content) DATE CREATED AUTHOR 09/02/2018 [facility] DATE CREATED AUTHOR AUTHOR'S ORGANIZ ATION 07/27/2021 [facility] DATE CREATED AUTHOR AUTHOR'S ORGANIZ ATION 07/22/2022 [facility] DATE CREATED AUTHOR AUTHOR'S ORGANIZ ATION 11/21/2022 [facility] DATE CREATED AUTHOR AUTHOR'S ORGANIZ ATION 02/19/2023 [facility] REASON FOR VISIT (unrecogniz ed section and content) 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, RUNNY NOSE, AL LERGIES, EYES ITCHY X 1 DAYER follow up6 month follow up (KNOWS TO GO TO [place])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 REFERRALPREP PPW Care Teams (unrecognized sec tion and content) Team Status: Active Member Role Status Dates Joanna Bower APRN CHAIR [employer]ING [employer]SEMBLER-C Primary Care Provider Active Team Status: Inactive Member Role Status Dates Joanna Bower APRN CHAIR [employer]ING [employer]SEM[employer]ER-C Primary Care Provider Active Bryant Sharma MD Attending Provider Active [employer] Team Leader Relationship Specialty Start Date End Date Joanna Bower APRN-NP [address] [place] [address] PCP - General Nurse Practitioner 12/02/22 [employer]eteria Team Leader Relationship Specialty Start Date End Date Joanna Bower APRN-NP [address] [place] [address] PCP - General Nurse Practitioner 12/02/22 FOR RECORDS PERTAINING TO PATIENTS WHO ARE OR HAVE BEEN ENROLLED IN A CHEMICAL DEPENDENCY/SUBSTANCEABUSE PROGRAM, SOME INFORMATION MAY BE OMITTED. This clinical summary was aggregated from multiple sources. Caution should be exercised in using it in the provision of clinical care. This summary normalizes information from multiple sources, and as a consequence, information in this document may materially change the coding, format and clinical context of patient data. In addition, data may be omitted in some cases. CLINICAL DECISIONS SHOULD BE BASED ON THE PRIMARY CLINICAL RECORDS. [facility]. provides no warranty or guarantee of the accuracy or completeness of information in this document.
--- NOTE | 2023-03-02 08:40 | P.CN_ITS ---
Consult Note: HPI Data of Consult Patient: known to practice within the last 3 years Requesting Physician: Analia Talbot NP Primary Care Provider: PAOLO BLAKCMON Consult Narrative Reason for consult: F/u Narrative: Chris caldera pleasant 42 year old male presents for evaluation and management of chronic pain, today neck and low back pain. Pain today 5/10 in neck and low back, constant sharp ache with weakness to bilateral legs. Pain increases to 8/10 with stairs and activity, improved with rest. Patient is active at home and work. Patient has failed to benefit from conservative measures and PT in the past, active in [facility]. cc:: CC: Analia Talbot NP Review of Systems 2 ROS0 Status of ROS 10 or more systems reviewed and unremark able except as noted in history and below Musculoskeletal Reports: back pain and neck pain PFSH PFSH Medical History Chronic cough ?R05.3 - Chronic cough (ICD-10) Kidney stone ?N20.0 - Calculus of kidney (ICD-10) Osteoarthritis ?M19.90 - Unspecified osteoarthritis, unspecified site (ICD-10) Upper back pain ?M54.9 - Dorsalgia, unspecified (ICD-10) Neck pain ?M54.2 - Cervicalgia (ICD-10) Low back pain ?M54.50 - Low back pain, unspecified (ICD-10) Numbness and tingling ?R20.0 - Anesthesia of skin (ICD-10) ?R20.2 - Paresthesia of skin (ICD-10) Heartburn ?R12 - Heartburn (ICD-10) Acid reflux ?K21.9 - Gastro-esophageal reflux disease without esophagitis (ICD-10) Loud snoring ?R06.83 - Snoring (ICD-10) Asthma ?J45.909 - Unspecified asthma, uncomplicated (ICD-10) Smoker ?F17.200 - Nicotine dependence, unspecified, uncomplicated (ICD-10) Angina at rest ?I20.8 - Other forms of angina pectoris (ICD-10) Irregular heart beat ?I49.9 - Cardiac arrhythmia, unspecified (ICD-10) Heart murmur ?R01.1 - Cardiac murmur, unspecified (ICD-10) High cholesterol ?E78.00 - Pure hypercholesterolemia, unspecified (ICD-10) Surgical History H/O cardiac catheterization ?Z98.890 - Other specified postprocedural states (ICD-10) H/O arthroscopy of shoulder ?Z98.890 - Other specified postprocedural states (ICD-10) H/O aortic valve replacement ?Z95.2 - Presence of prosthetic heart valve (ICD-10) Social History Smoking status: Current every day smoker Meds Home Medications and Allergies Home Medications Medication Instructions Recorded Confirmed Type albuterol sulfate 2.5 mg/0.5 mL 2.5 mg inhalation Q6H 08/08/22 11/01/22 History solution for nebulization albuterol sulfate 90 mcg/actuation 1 inh inhalation Q6H 08/08/22 11/01/22 History aerosol inhaler (Proventil HFA) amlodipine 10 mg tablet 10 mg PO DAILY 08/08/22 11/01/22 History aspirin 81 mg capsule 81 mg PO DAILY 08/08/22 11/01/22 History atorvastatin 20 mg tablet 20 mg PO DAILY 08/08/22 11/01/22 History celecoxib 100 mg capsule 100 mg PO DAILY 08/08/22 11/01/22 History cholecalciferol (vitamin D3) 10 10 mcg PO DAILY 08/08/22 11/01/22 History mcg (400 unit) capsule cyclobenzaprine 10 mg tablet 10 mg PO TID 08/08/22 11/01/22 History duloxetine 60 mg capsule,delayed 60 mg PO DAILY 08/08/22 11/01/22 History release (Cymbalta) krill oil 500 mg capsule 500 mg PO DAILY 08/08/22 11/01/22 History loratadine 10 mg tablet 10 mg PO DAILY 08/08/22 11/01/22 History magnesium 250 mg tablet 250 mg PO DAILY 08/08/22 11/01/22 History metoprolol tartrate 25 mg tablet 12.5 mg PO BID 08/08/22 11/01/22 History omeprazole 40 mg capsule,delayed 40 mg PO DAILY 08/08/22 11/01/22 History release pregabalin 150 mg capsule (Lyrica) 150 mg PO BID 08/08/22 11/01/22 History warfarin 5 mg tablet 5 mg PO [id number] 08/08/22 11/01/22 History warfarin 7.5 mg tablet 7.5 mg PO QMWF 08/08/22 11/01/22 History celecoxib 100 mg capsule (Celebrex) 100 mg PO DAILY #30 caps 11/30/22 Rx pregabalin 150 mg capsule (Lyrica) 150 mg PO BID #60 caps 11/30/22 Rx benzonatate 100 mg capsule 200 mg (2 x 100 mg) PO TID PRN 02/01/23 Rx cough #30 caps prednisone 10 mg tablet See Rx Instructions .Route 02/01/23 Rx .COMPLEX #30 tabs Allergies Allergy/AdvReac Type Severity Reaction Status Date / Time No Known Drug Allergies Allergy Verified 11/01/22 07:36 Exam Constitutional Documenting provider has reviewed patient's vital signs: yes Common normals: no apparent distress and oriented x3 General appearance: cooperative; not ill appearing HENCO Common normals: normocephalic Head and scalp: normocephalic Nose: external nose normal External ear: external ears normal Mouth: oral and palatal mucosa normal, lip normal and tongue normal Eye Common normals: conjunctivae normal and no scleral icterus Pupil: PERRL Neck & C-Spine Common normals: supple General: normal visual inspection Cervical spine: pain with cervical ROM, cervical spine tenderness and paracervical muscle tenderness Other: mild pain with facet maneuvers, no radiculopathy. strength 5/5 in BUE Chest Common normals: inspection of chest normal Chest: symmetrical chest wall rise Respiratory Common normals: normal respiratory effort Effort & inspection: symmetric chest movement Auscultation: wheezes Cardio Common normals: regular rate and regular rhythm Back & Pelvis Thoracic spine/upper back: pain with ROM Lumbar spine/lower back: pain with ROM and straight leg raise negative bilaterally Sacroiliac joints: SI joint(s) abnormal (bilateral + thigh thrust, gaenslens, fadir/chandana, tender over PSIS) Other: bilateral facet loading pain, worse on right side over L4-5 L5-S1 positive bilateral SIJ exam as noted above worse on right Back image (male): 2 1. myofascial pain and tenderness Extremity Common normals: normal to inspection and full ROM Other: negative bilateral hip exam (internal and external rotation of leg) intermittent weakness to BLE with activity and stairs Neuro Common normals: oriented x3 Sensorium/orientation: awake and alert Speech: speech normal Motor exam: strength 5/5 throughout and no movement abnormalities noted Psych Common normals: mental status grossly normal, thought process normal, cooperative, affect normal, speech normal and activity/motor behavior normal Speech: normal speech Thought process: normal thought process Assessment and Plan Assessment and Plan (1) Lumbar spondylosis: Assessment and Plan: The patient has had over 3 months of moderate to severe low back pain with functional impairment and inadequate response to conservative care including NSAIDS (unless there are contraindication such as concurrent blood thinners), multiple oral or topical pain medications, and home exercise program/physical therapy.? Patient has completed >6 weeks of guided home exercise program and/or formal physical therapy program without relief of their symptoms.? The Oswestry Disability Index was completed, and the patient scored a 42%.? The patient noted the following:?? moderate to severe pain, pain with walking, pain with lifting heavy objects, pain impacting sleep and personal life? (2) Lumbar stenosis with neurogenic claudication: (3) Muscle spasm: (4) Bilateral sacroiliitis: (5) Cervical spondylosis: Assessment and Plan: continues to find greater than 50% relief from prior RFA (6) Thoracic spondylosis: Assessment and Plan: continues to find greater than 50% relief from prior RFA (7) Low back pain: (8) Neck pain: (9) Upper back pain: (10) Osteoarthritis: (11) Smoker: Assessment and Plan: Patient identified through screening process as a tobacco user, this generated a brief counseling of less than 3 minutes between the provider and the patient about the benefits of ceasing tobacco use. Education handout was provided following discussion.? (12) BMI 30.0-30.9,adult: Assessment and Plan: The patient was counseled that proper dietary changes and consistent participation in a home exercise plan can lead to weight loss. Weight loss can help to improve functionality in patients with chronic pain.? Plan repeat right paracervical muscle spasm TPI with Dr Venegas as previous injection provided significant pain relief for months per patient lumbosacral xray with flexion and extension to evaluate chronic low back pain and stability, symptoms of sacroilitis on exam MRI of lumbar spine without contrast to evaluate lumbar stenosis with NC, injection/procedure options vs need for surgical intervention continue current medications, tolerating well without side effects f/u with Dr Venegas for TPI follow up with me after MRI
== END 2023-03-02 08:19 | disposition home or self-care (01) ==
LOC: PM 08:18
PROVIDERS: PCP Nurse Practitioner Family; Visit Provider Nurse Practitioner
DX: M47.816 Spondylosis without myelopathy or radiculopathy, lumbar region (principal); M48.062 Spinal stenosis, lumbar region with neurogenic claudication; M62.838 Other muscle spasm; M46.1 Sacroiliitis, not elsewhere classified; M47.812 Spondylosis without myelopathy or radiculopathy, cervical region; M47.814 Spondylosis without myelopathy or radiculopathy, thoracic region; M54.50 Low back pain, unspecified; M54.2 Cervicalgia; M54.6 Pain in thoracic spine; M19.90 Unspecified osteoarthritis, unspecified site; Z87.891 Personal history of nicotine dependence
CPT/HCPCS: G0463

== ENCOUNTER 2023-03-21 12:24 | Outpatient (OUT) | payer MEDICAID, SELFPAY ==
--- NOTE | 2023-03-21 | CONS_ITS ---
PROCEDURE DATE: 03/21/2023 PROCEDURE: Right splenius capitis trigger point injection. PREOPERATIVE DIAGNOSIS: Pain secondary to right splenius capitis myofascial spasm, right shoulder rotator cuff strain. POSTOPERATIVE DIAGNOSIS: Pain secondary to right splenius capitis myofascial spasm, right shoulder rotator cuff strain. SOLUTION USED FOR INJECTION: 2 mL of 2% lidocaine, 2 mL of 0.25% Marcaine and 10 mg of Kenalog, total of 5 mL, and 2 mL used for the injection. IMMEDIATE COMPLICATIONS: None. PROCEDURE: After informed consent was obtained from the patient, placed in the sitting position with the neck flexed. Skin overlying the area was prepped with alcohol. A 25 gauge, 1 ?? needle was inserted into the substance of right splenius capitis at approximately the C3 level. Needle tip advanced until there was a mild twitch response, at which point we injected 1-2 mL of solution. No indication of intravascular or intraneural needle tip placement or intravascular or intraneural injection noted. No evidence of intrathecal injection as well. Post procedure, patient reports a dramatic reduction in pain symptoms. AISSATOU
--- OUTSIDE RECORDS SUMMARY | 2023-03-21 12:36 | XMS_ITS | CCD ---
Author Name Unknown Address [address] [place] [address] Organization [facility] Care Team Providers Care Glass Designer Name Role Phone Bharti Perez Unavailable Joanna Bower Unavailable [phone] ENID ., DR JESSICA Rowell Attending Unavailable BYRNE ., DR JESSICA Rowell Admitting Unavailable JOANNA BOWER A Primary Care Unavailab le PLATA .GALINA Consulting Unavailable LAKSHMIPATHY ., NARENDGLENDYATH Consulting Aamnda vailable LAKSHMIPATHY ., NARTAMIA Attending Amanda vailable LAKSHMIPATHY ., NARCHELAATH Admitting Amanda vailable ARCELIA BOWERFER A Primary Care Unavailab le ROHRBACHEJOANNA Lugo A Primary Care Unavailab le LAKSHMIPATHY ., NARTAMIA Attending Amanda vailable LAKSHMIPATHY ., ADRIANNA Admitting Amanda vailable JOANNA BOWER Consulting Unavailab le LAKSHMIPATHY ., NARTAMIA Consulting Amanda vailable BYRNE ., DR JESSICA Rowell Admitting Unavailable BYRNE ., DR JESSICA Rowell Consulting Unavailable JOANNA BOWER A Primary Care Unavailab le BYRNE ., DR JESSICA Rowell Attending Unavailable JOANNA BOWER Consulting Unavailab le ERIK PEREZ Consulting Unavailable LAKSHMIPATHY ., NARENDADALBERTO Consulting Amanda vailable LAKSHMIPATHY ., NARENDADALBERTO Attending Amanda vailable LAKSHMIPATHY ., ADRIANNA Admitting Amanda vailable JOANNA BOWER A Primary Care Unavailab le BYRNE ., [...] BYRNE ., DR JESSICA Rowell Attending Unavailable ERIK PEREZ Consulting Unavailable BYRNE ., DR JESSICA Rowell [...] Unavailable LAKSHMIPATHY ., ADRIANNA Attending Amanda vailable LAKSHMIPATHY ., ADRIANNA Admitting Amanda vailable DR DORINA CERNA Consulting Unavailable JOANNA BOWER A Primary Care Unavailab le LAKSHMIPATHY ., ADRIANNA Consulting Amanda vailable Asaad, Imad Unavailable ANEL Bower Primary Care Provider MD Bryant Sharma Attending Provider Bryant Sharma Unavailable [phone] Sathish, Joanna Primary Care Unavailable Bryant Sharma Attending UnavailBryant Flores Admitting Unavailabl e Lorenzo Morgan Unavailable Sathish 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, [facility] Primary [facility] er SERVICE, STEVE Referring Unavailable [facility] Primary Care Unavailable SERVICE, STEVE Referring Unavailable [facility] Primary Care Unavailable BRYANNAACHER, [facility] Primary Care Unavailable DORINA MEYERS Attending Unavailable SERVICE, STEVE Referring Unavailable [facility] Primary Care Unavailable SERVICE, STEVE Referring Unavailable [facility] Primary Care Unavailable JOSIE FITZGERALD Attending Unavailable JOSIE FITZGERALD Referring [facility] Primary Care Unavailable Medications Current Medications Medication Drug Class(es) Dates Sig (Normalized) Sig (Original) [id number] 200 actuat albuterol 0.09 mg/actuat metered dose inhaler (1 source) beta2-Adrenergic Agonist take 1-2 puff(s) by mouth every four hours as needed Albuterol Sulfate HFA 108 (90 Base) MCG/ACT INHALE 1-2 PUFFS BY MOUTH EVERY 4 HOURS NEEDED for 25 Active amLODIPine 5 mg oral tablet (12 sources) Dihydropyridine Calcium Channel Dee Start: 11-11-2022 [...] aspirin 81 mg delayed release oral tablet (11 sources) Platelet Aggregation Inhibitor, Nonsteroidal Anti-inflammatory Drug take 1 tablet by mouth every twenty-four hours Aspirin 81 81 MG 1 tablet Orally Once a day Active take 1 tablet by mouth once susanne y Aspirin 81 81 MG 1 tablet Orally Once a day Active take 1 tablet by mouth once susanne y Aspirin 81 81 MG 1 tablet Orally Once a day Active atorvastatin 40 mg oral tablet (12 sources) HMG-CoA Reductase Inhibitor Start: 11-11-2022 take 40 mg by mouth at bedtime Atorvastatin Active 40 MG PO Bedtime November 11, 2022 12:00am Start: 02-27-2017 take 1 tablet by anusha th in the morning atorvastatin (LIPITOR) 20 mg tablet Take 1 tablet (20 mg total) by mouth in the morning. 0 02/27/2017 Active BALANCED B-100 400 mcg tablet extended release (3 sources) Start: 07-30-2019 take 1 tablet by mouth once daily BALANCED B-100 400 mcg tablet extended release Take 1 tablet by mouth daily. 0 07/30/2019 Active benzonatate 100 mg oral capsule (2 sources) Non-narcotic Antitussive Start: 02-17-2023 take 1 capsule [...] mg / cholecalciferol 200 unt oral tablet (4 sources) Vitamin D Start: 07-01-2019 take 1 [...] 30 Active celecoxib 100 mg oral capsule (12 sources) Nonsteroidal Anti-inflammatory Drug Start: 07-26-2018 take 1 capsule by mouth once daily celecoxib (CeleBREX) 100 mg capsule Indications: Cervical spondylosis without myelopathy Take 1 capsule (100 mg total) by mouth daily. 30 day supply 30 capsule 5 07/26/2018 Active cholecalciferol 0.05 mg oral capsule (11 sources) Vitamin D take 2 capsules by mouth every twenty-four hours [facility]S D3 50 MCG (2000 UT) 2 capsule Oral Once a day for 30 days Needs Refill Active take 1 tablet by mouth in the mo rning cholecalciferol, vitamin D3, (VITAMIN D3) 1,000 units tablet Take 1 tablet (1,000 Units total) by mouth in the morning. 0 Active [facility] Balanced B100 - (8 sources) take 1 tablet by mouth once daily [facility] Balanced B100 - TAKE 1 TABLET BY MOUTH EVERY DAY Oral for 30 Active [facility] One Daily Essential - (8 sources) take 1 tablet by mouth once daily [facility]S One Daily Essential - TAKE 1 TABLET BY MOUTH EVERY DAY Oral for 30 Active cyclobenzaprine hydrochloride 10 mg oral tablet (12 sources) Muscle Relaxant Start: 11-12-19 take 10 mg by mouth three times daily Cyclobenzaprine Active 10 MG PO Three times daily November 11, 2022 12:00am take 1 tablet by anusha th once daily at bedtime Cyclobenzaprine HCl 10 MG TAKE 1 TABLET BY MOUTH EVERYDAY AT BEDTIME Oral Active DULoxetine 60 mg delayed release oral capsule (12 sources) Serotonin and Norepinephrine Reuptake Inhibitor Start: 11-11-2022 take 60 mg by mouth twice daily Duloxetine Active 60 MG PO Twice daily November 11, 2022 12:00am 1 ml enoxaparin sodium 100 mg/ml prefilled syringe (3 sources) Low Molecular Weight Heparin Start: 12-02-2022 inject 0.9 mL by subcutaneous injection once enoxaparin (LOVENOX) 100 mg/mL syringe Indications: salvage determiner current use of anticoagulant therapy Inject 0.9 mL (90 mg total) under the skin every 12 (twelve) hours. 16 mL 0 12/02/2022 Active Fish Oils (10 sources) Start: 07-29-2019 take 1 tablet by mouth once daily FISH OIL 300-1,000 mg capsule Take 1 tablet by mouth daily. 0 07/29/2019 Active take 1 capsule by mouth twice da tammy Fish Oil 1000 MG 1 capsule Orally Twice a day for 30 day(s) Active fluocinonide 0.5 mg/ml topic al solution (8 sources) Corticosteroid Fluocinonide 0.0 5 % APPLY TO SCALP TWICE DAILY External for 30 Active Fluocinonide 0.0 5 % APPLY TO SCALP TWICE DAILY External for 30 Active hydrOXYzine hydrochloride 25 mg oral tablet (3 sources) Antihistamine Start: 01-29-2020 take 1 tablet by mouth every six hours as needed hydrOXYzine (ATARAX) 25 mg tablet Take 1 tablet (25 mg total) by mouth every 6 (six) hours as needed for itching for up to 20 doses. 20 tablet 0 01/29/2020 Active krill oil 1000 mg oral capsule (10 sources) Krill Oil 1000 M G as directed Orally bid for 30 day(s) Active krill oil 500 mg capsule Take by mouth. 0 Active 200 actuat levalbuterol 0.045 mg/actuat metered dose inhaler (4 sources) beta2-Adrenergic Agonist Start: 11-11-2022 take 1 [...] 06/27/2022 Active loratadine 10 mg oral tablet (12 sources) Start: 05-24-2018 take 1 tablet by mouth in the morning loratadine (CLARITIN) 10 mg tablet Take 1 tablet (10 mg total) by mouth in the morning. 2 05/24/2018 Active magnesium oxide 400 mg oral tablet (11 sources) Start: 07-03-2019 take 1 tablet by mouth once daily at bedtime magnesium oxide (MAG-OX) 400 mg tablet TAKE 1 TABLET BY MOUTH EVERYDAY AT BEDTIME 0 07/03/2019 Active melatonin 10 mg sublingual tablet (11 sources) Start: 07-13-2019 melatonin 10 m g tablet, sublingual as needed. 0 07/13/2019 Active take 2 tablets by mo uth once daily at bedtime CVS Melatonin 10 MG TAKE 2 TABLETS BY MO UTH EVERY DAY AT BEDTIME Sublingual for 30 2199 - 2299 Active take 2 tablets by mo uth once daily at bedtime CVS Melatonin 10 MG TAKE 2 TABLETS BY MO UTH EVERY DAY AT BEDTIME Sublingual for 30 2199 - 2299 Active metoprolol tartrate 25 mg oral tablet (12 sources) beta-Adrenergic Dee Start: 10-10-2022 take 1 tablet by mouth in the morning, then take 1 tablet by mouth at bedtime metoprolol tartrate (LOPRESSOR) 25 mg tablet Indications: S/P aortic valve replacement TAKE 1 TABLET (25 MG TOTAL) BY MOUTH IN THE MORNING AND 1 TABLET (25 MG TOTAL) BEFORE BEDTIME. 60 tablet 8 10/10/2022 Active [id number] alcium &mins (THERAGRAN-M) 9 mg iron-400 mcg tablet (3 sources) [id number] - calcium &mins (THERAGRAN-M) 9 mg iron-400 [...] omeprazole 40 mg delayed release oral capsule (12 sources) Proton Pump Inhibitor Start: 07-13-2019 omeprazole (PriLOSEC) 40 mg capsule Take by mouth daily. 0 07/13/2019 Active ONE DAILY ESSENTIAL 400 mcg tablet (3 sources) Start: 07-29-2019 take 1 tablet by mouth once daily in the morning ONE DAILY ESSENTIAL 400 mcg tablet Take 1 tablet by mouth in the morning. 0 07/29/2019 Active Oyster Shell Calcium/D 500-200 MG-UNIT (8 sources) take 1 tablet by mouth once daily Oyster Shell Calcium/D 500-200 MG-UNIT TAKE 1 TABLET BY MOUTH EVERY DAY Oral for 30 Active polyethylene glycol 3350 109308 mg / potassium chloride 2970 mg / sodium bicarbonate 6740 mg / sodium chloride 5860 mg / sodium sulfate 57519 mg powder for oral solution (5 sources) Osmotic Laxative Start: 12-22-2022 take 4000 mL by mouth once Golytely 236 GM 4,000 ML Orally once for 1 Dec, Active Start: 10-03-2022 Golytely 236 G M At 4:00 pm the day prior to colonoscopy Orally 8 ounces every 15 minutes for 1 days PLEASE CHECK ALLERGIES Sep, Active pregabalin 150 mg oral capsule (12 sources) Start: 11-11-2022 take 150 mg by mouth twice daily Pregabalin Active 150 MG PO Twice daily November 11, 2022 12:00am Start: 11-08-2018 take 1 capsule by [facility] three times daily pregabalin (LYRICA) 100 mg capsule Indications: Cervical spondylosis without myelopathy Take 1 capsule (100 mg total) by mouth 3 (three) times a day. 90 capsule 1 11/08/2018 Active terbinafine hydrochloride 10 mg/ml topical cream (3 sources) Allylamine Antifungal Start: 02-14-2019 ATHLETE'S FOOT, TERBINAFINE, 1 % cream as needed. 0 02/14/2019 Active traZODone hydrochloride 50 mg oral tablet (11 sources) Serotonin Reuptake Inhibitor Start: 07-13-2019 traZODone (DESYREL) 50 mg tablet 7 actuat umeclidinium 0.0625 mg/actuat / vilanterol 0.025 mg/actuat dry powder inhaler (1 source) Anticholinergic, beta2-Adrenergic Agonist take 1 puff(s) by inhalation once daily Anoro Ellipta 62.5-25 MCG/INH 1 puff Inhalation Once a day for 30 days Active Vitamin B Complex (3 sources) take 1 tablet by mouth once daily vitamin B complex (COMPLEX B-100 ORAL) Take 1 tablet by mouth daily. 0 Active warfarin sodium 5 mg oral tablet (12 sources) Vitamin K Antagonist Start: 01-04-2023 take 1-1.5 tablets by mouth in the evening warfarin (COUMADIN) 5 mg tablet Indications: S/P AVR (aortic valve replacement) , History of aortic valve replacement Take 1-1.5 tablets (5-7.5 mg total) by mouth in the evening. as directed by Steve ROGER (Medication Therapy Management). 135 tablet 1 [...] Dates Sig (Normalized) Sig (Original) Tiotropium-Olodate rol (4 sources) Anticholinergic, beta2-Adrenergic Agonist Start: 11-11-2022 End: [...] Active Problems Problem Classification Problem Date Documented Da te Episodic/Chronic Acute and chronic tonsillitis (3 sources) Chronic tonsillitis; Translations: [Chronic tonsillitis] Onset: 0 Resolved: 0 09-23-2019 Chronic Anxiety disorders (8 sources) Mixed anxiety and depressive disorder; Translations: [Other specified anxiety disorders] Chronic Asthma (10 sources) Mild intermittent asthma; Translations: [Mild intermittent asthma, uncomplicated] Chronic Chronic obstructive pulmonary disease and bronchiectasis (5 sources) Emphysema, unspecified; Translations: [Moderate chronic obstructive pulmonary disease] Onset: 9 05-24-2018 Chronic Coma; stupor; and brain damage (8 sources) Daytime somnolence; Translations: [Somnolence] Episodic Disorders of lipid metabolism (17 sources) Hypercholesterolemia; Translations: [Pure hypercholesterolemia, unspecified] Onset: 3 Chronic Esophageal disorders (10 sources) Gastroesophageal reflux disease; Translations: [Gastro-esophageal reflux disease without esophagitis] Chronic Essential hypertension (19 sources) Essential hypertension; Translations: [Essential (primary) hypertension] Onset: 0 Chronic Headache; including migraine (1 source) Headache; including migraine Onset: 4 Heart valve disorders (20 sources) History of aortic valve replacement; Translations: [Presence of prosthetic heart valve] Onset: 5 Resolved: 0 Chronic Nutritional deficiencies (11 sources) Vitamin D deficiency; Translations: [Vitamin D deficiency, unspecified] Onset: 3 Chronic Other aftercare (7 sources) Anticoagulant effect; Translations: [salvage determiner (current) use of anticoagulants] Episodic Other aftercare (4 sources) [facility] (current) use of anticoagulants; Translations: [TUBE WINDER CURRNT USE ANTICOAGULANTS] Onset: 8 Episodic Other aftercare (5 sources) Long-term current use of anticoagulant; Translations: [[facility]I (current) use of anticoagulants] Onset: 7 02-17-2023 Episodic Other aftercare (1 source) Encounter for therapeutic drug level monitoring; Translations: [Encounter for therapeutic drug level monitoring] Onset: 3 Episodic Other gastrointestinal disorders (1 source) Abdominal distension (gaseous) Episodic Other hereditary and degenerative nervous system conditions (8 sources) Restless legs; Translations: [Restless legs syndrome] Chronic Other inflammatory condition of skin (8 sources) Lupus erythematosus tumidus; 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 Other inflammatory condition of skin (2 sources) Discoid lupus erythematosus Chronic Other lower respiratory disease (8 sources) Lung mass; Translations: [Solitary pulmonary nodule] Episodic Other lower respiratory disease (2 sources) Solitary pulmonary nodule Episodic Other nervous system disorders (8 sources) Chronic pain; Translations: [Other chronic pain] Chronic Other nervous system disorders (8 sources) Sleep-wake schedule disorder, delayed phase type; Translations: [Circadian rhythm sleep disorder, delayed sleep phase type] Chronic Other nervous system disorders (7 sources) Other chronic pain; Translations: [OTHER CHRONIC PAIN] Onset: 3 Chronic Other nervous system disorders (11 sources) Paresthesia; Translations: [Paresthesia of skin] Onset: 8 04-13-2017 Episodic Other non-traumatic joint disorders (4 sources) Pain in right hip; Translations: [PAIN IN RIGHT HIP] Onset: 3 Episodic Other non-traumatic joint disorders (1 source) Pain in left hip; Translations: [PAIN IN LEFT HIP] Onset: 3 Episodic Other nutritional; endocrine; and metabolic disorders (8 sources) Body mass index 30+ - obesity; Translations: [Body mass index (BMI) 30.0-30.9, adult] Chronic Other nutritional; endocrine; and metabolic disorders (8 sources) Cholesterol level - finding; Translations: [Lipoprotein deficiency] Chronic Other nutritional; endocrine; and metabolic disorders (8 sources) Obesity; Translations: [Other obesity due to excess calories] Chronic Other nutritional; endocrine; and metabolic disorders (3 sources) Lipoprotein deficiency; Translations: [LIPOPROTEIN DEFICIENCY] Onset: 3 Chronic Other nutritional; endocrine; and metabolic disorders (2 sources) Other obesity due to excess calories Chronic Other nutritional; endocrine; and metabolic disorders (2 sources) Body mass index (BMI) 29.0-29.9, adult Episodic Other upper respiratory infections (7 sources) Acute upper respiratory infection, unspecified; Translations: [Acute pharyngitis, unspecified] Onset: 7 Resolved: 2 Episodic Residual codes; unclassified (8 sources) Periodic limb movement disorder; Translations: [Periodic limb movement disorder] Chronic Residual codes; unclassified (11 sources) Tobacco user; Translations: [Tobacco use] Onset: 9 05-24-2018 Episodic Residual codes; unclassified (3 sources) Tobacco use; Translations: [Tobacco use] Onset: 9 Episodic Residual codes; unclassified (2 sources) Family [...] [Other intervertebral disc degeneration, thoracic region] Onset: 7 Chronic Spondylosis; intervertebral disc disorders; other back problems (15 sources) Dorsalgia, unspecified; Translations: [Muscle spasm of back] Onset: 7 Episodic Substance-related disorders (9 sources) Tobacco dependence syndrome; Translations: [Nicotine dependence, cigarettes, with other nicotine-induced disorders] Onset: 2 Chronic Systemic lupus erythematosus and connective tissue disorders (3 sources) Lupus erythematosus; Translations: [Systemic lupus erythematosus, unspecified] Onset: 1 01-04-2021 Chronic Unclassified (1 source) CONTACT W/AND (SUSP) EXPOS COVID-19; Translations: [CONTACT W/AND (SUSP) EXPOS COVID-19] Onset: 2 Unclassified (2 sources) COUGH, UNSPECIFIED; Translations: [COUGH, UNSPECIFIED] Onset: 2 Unclassified (1 source) Encounter for screening for malignant neoplasm of colon; Translations: [Encounter for screening for malignant neoplasm of colon] Onset: 3 Unclassified (1 source) Cold Like Symptoms Onset: 4 Past or Other Problems Problem Classification Problem Date Documented Da te Episodic/Chronic Immunizations and screening for infectious disease (1 source) Contact with and (suspected) exposure to other viral communicable diseases Onset: 06-11-2021 Resolved: 06-11-2021 Episodic Mood disorders (3 sources) Mood disorders Onset: 09-02-2019 09-02-2019 Nonspecific chest pain (4 sources) Chest pain, unspecified; Translations: [Precordial pain] Onset: 02-18-2019 02-18-2019 Episodic Other aftercare (1 source) Other exterminator termite (current) drug therapy; Translations: [OTH SHELTER CURRENT DRUG THERAPY] Onset: 02-01-2022 Episodic Other aftercare (1 source) salvage determiner (current) use of aspirin; Translations: [SHELTER CURRENT USE OF ASPIRIN] Onset: 02-01-2022 Episodic Other connective tissue disease (5 sources) Other muscle spasm; Translations: [OTHER MUSCLE SPASM] Onset: 01-24-2022 Episodic Other lower respiratory disease (4 sources) Shortness of breath; Translations: [SHORTNESS OF BREATH] Onset: 01-30-2022 Episodic Other lower respiratory disease (3 sources) Nodule of lung; Translations: [Solitary pulmonary nodule] Onset: 06-25-2019 06-25-2019 Episodic Other lower respiratory disease (3 sources) Dyspnea; Translations: [Shortness of breath] Onset: 04-04-2017 Resolved: 06-25-2019 06-25-2019 Episodic Other lower respiratory disease (3 sources) Radiologic infiltrate of lung ; Translations: [Other nonspecific abnormal finding of lung field] Onset: 05-24-2018 Resolved: 06-25-2019 06-25-2019 Episodic Other non-traumatic joint disorders (3 sources) Bilateral chronic pain of upper limbs; Translations: [Pain in right shoulder] Onset: 09-12-2017 02-22-2018 Episodic Other non-traumatic joint disorders (3 sources) Chronic pain of right upper limb; Translations: [Pain in right shoulder] Onset: 10-04-2018 10-04-2018 Episodic Other screening for suspected conditions (not mental disorders or infectious disease) (4 sources) Encounter for screening for malignant neoplasm of colon; Translations: [Echocardiogram abnormal] Onset: 03-18-2019 Episodic Other upper respiratory disease (3 sources) Deviated nasal septum; Translations: [Deviated nasal septum] Onset: 09-02-2019 Resolved: 09-23-2019 09-23-2019 Episodic Unclassified (1 source) COUGH, UNSPECIFIED; Translations: [COUGH, UNSPECIFIED] Onset: 01-21-2022 Unclassified (2 sources) Lumbar pain M54.50 Results Test Name Value Interpretation Reference Range Facility POCT Protime / INRon 03-17- 024 INR Coag (PPP) [Relative time] 2.9 {INR} Abnormal 0.8 - 1.2 [facility] Interpretation and review of laboratory results Abnormal [facility] POCT Protime / INRon 024 INR Coag (PPP) [Relative time] 2.1 {INR} Abnormal 0.8 - 1.2 [facility] Interpretation and review of laboratory results Abnormal [facility] RAPID STREP SCR NURSINGon S. pyogenes Ag EIA Ql (Throat) Positive Abnormal NEG [facility] Comment on above: Performed By: #### 6 [id number] #### [facility] ([id number]) [address], [place] [address] SARS/FLU A+B/RSV by NAAT/Mol ecularon 02-17-2023 SARS/FLU [...] operators who are performing tests using either tocario or InstantQ systems and is limited to laboratories that [...] repeat. Fact Sheet for Healthcare Providers: https://www.fda.gov/media/ 169781/download Fact Sheet for Patients: https://www.fda.gov/media/ 777309/download Normal [facility] Comment on above: Performed By: #### C OVFLR #### [facility] ([id number]) [address] [place] [address], [place] [address] Activated partial thrombopla stin time (aPTT) in platelet poor plasma by coagulation aOrdered By: Bryant Sharma on 11-11-2022 aPTT Coag (PPP) [Time] 28.5 s 25.1-36.5 [facility] Comment on above: A hematocrit value g reater than 55% may lead to inaccurate results in coagulation testing. Patients having hematocrit values >55% require a special collection tube for coagulation studies. Please contact the laboratory at [phone] for redraw instructions. Amphetamine Screen Ql (U)Ord ered By: Bryant Sharma on 11-11-2022 Amphetamines Ql (U) Negative Negative [facility] Barbiturates [Presence] in U rine by Screen methodOrdered By: Bryant Sharma on 11-11-2022 Barbiturates Screen Ql (U) Negative Negative [facility] Basophils Auto (Bld) [#/Vol] Ordered By: Bryant Sharma on 11-11-2022 Basophils (Bld) [#/Vol] 0.1 10*3/uL 0.0-0.2 [facility] Basophils/100 WBC Auto (Bld) Ordered By: Bryant Sharma on 11-11-2022 Basophils/100 WBC (Bld) 1.1 % . [facility] Benzodiazepines Screen Ql (U )Ordered By: Bryant Sharma on 11-11-2022 Benzodiazepines Ql (U) Negative Negative [facility] Benzoylecgonine [Presence] i n Urine by Screen methodOrdered By: Bryant Sharma on 11-11-2022 Benzoylecgonine Screen Ql (U) Negative Negative [facility] Cannabinoids [Presence] in U rine by Screen methodOrdered By: Bryant Sharma on 11-11-2022 Cannabinoids Screen Ql (U) Positive Negative [facility] Comment on above: These are unconfirme d results and should not be used for legal purposes. Drug Cut-Off Concentration: AMPH 1000 ng/mL LISA 200 ng/mL VILMA 200 ng/mL COCM 300 ng/mL OP 300 ng/mL PCP 25 ng/mL THC 20 ng/mL Complete Blood Count Auto Di ffon 11-11-2022 Basophils (Bld) [#/Vol] 0.1 10*3/uL Normal 0.0-0.2 [facility] Comment on above: Result Comment: PERF ORMED BY: [place] [address] PATHOLOGIST DRUG SAFETY PHYSICIAN MATT VIEIRA M.D. Performed By: #### C BC #### [address] Basophils/100 WBC (Bld) 1.1 % Normal . [facility] Comment on above: Performed By: #### C BC #### [address] Eosinophils (Bld) [#/Vol] 0.2 10*3/uL Normal 0.0-0.45 [facility] Comment on above: Performed By: #### C BC #### [address] Eosinophils/100 WBC (Bld) 1.6 % Normal . [facility] Comment on above: Performed By: #### C BC #### [address] Erythrocyte distribution width (RBC) [Ratio] 14.8 % Normal 12.0-14.8 [facility] Comment on above: Performed By: #### C BC #### [address] Hematocrit (Bld) [Volume fraction] 42.6 % Normal 38.8-50.0 [facility] Comment on above: Performed By: #### C BC #### [address] Hemoglobin (Bld) [Mass/Vol] 14.5 g/dL Normal 13.0-17.0 [facility] Comment on above: Performed By: #### C BC #### [facility] [address] Lymphocytes (Bld) [#/Vol] 2.5 10*3/uL Normal 1.00-4.8 [facility] Comment on above: Performed By: #### C BC #### [address] Lymphocytes/100 WBC (Bld) 25.7 % Normal . [facility] Comment on above: Performed By: #### C BC #### [address] MCH (RBC) [Entitic mass] 31.1 pg Normal 27.5-35.2 [facility] Comment on above: Performed By: #### C BC #### [address] MCV (RBC) [Entitic vol] 91.0 fL Normal 83.5-101 [facility] Comment on above: Performed By: #### C BC #### [address] Mean Corpuscular HGB Conc 34.1 g/dL Normal 32.5-35.6 [facility] Comment on above: Performed By: #### C BC #### [address] Monocytes (Bld) [#/Vol] 0.6 10*3/uL Normal 0.0-0.8 [facility] Comment on above: Performed By: #### C BC #### [address] Monocytes/100 WBC (Bld) 6.5 % Normal . [facility] Comment on above: Performed By: #### C BC #### [place] [address] [place] Neutrophils (Bld) [#/Vol] 6.4 10*3/uL Normal 1.8-7.7 [facility] Comment on above: Performed By: #### C BC #### [place] [address] [place] Neutrophils/100 WBC (Bld) 65.1 % Normal . [facility] Comment on above: Performed By: #### C BC #### [facility] [address] NRBC% 0.0 /100{WBC} Normal 0-0.5 [facility] Comment on above: Performed By: #### C BC #### [address] Platelet mean volume (Bld) [Entitic vol] 7.5 fL Normal 6.6-10.1 [facility] Comment on above: Performed By: #### C BC #### [address] Platelets (Bld) [#/Vol] 223 10*3/uL Normal 150-450 [facility] Comment on above: Performed By: #### C BC #### [address] RBC (Bld) [#/Vol] 4.68 10*6/uL Normal 3.90-5.60 [facility] Comment on above: Performed By: #### C BC #### [address] WBC (Bld) [#/Vol] 9.8 10*3/uL Normal 4.1-10.5 [facility] Comment on above: Performed By: #### C BC #### [place] [address] [place] Drug Screen,Urineon 11-12-19 23 Amphetamine Screen,Urine Negative Normal Negative [facility] Comment on above: Performed By: #### U RDS #### [address] Barbiturate Screen,Urine Negative Normal Negative [facility] Comment on above: Performed By: #### U RDS #### [address] Benzodiazepines Screen,Urine Negative Normal Negative [facility] Comment on above: Performed By: #### U RDS #### [address] Cannabinoid Screen,Urine Positive High Negative [facility] Comment on above: Result Comment: Thes e are unconfirmed results and should not be used for legal purposes. Drug Cut-Off Concentration: AMPH 1000 ng/mL LISA 200 ng/mL VILMA 200 ng/mL COCM 300 ng/mL OP 300 ng/mL PCP 25 ng/mL THC 20 ng/mL PERFORMED BY: [place] [address] PATHOLOGIST DRUG SAFETY PHYSICIAN MATT VIEIRA M.D. Performed By: #### U RDS #### [address] Cocaine Screen,Urine Negative Normal Negative [facility] Comment on above: Performed By: #### U RDS #### [address] Opiate Screen,Urine Negative Normal Negative [facility] Comment on above: Performed By: #### U RDS #### [address] Phencyclidine Screen,Urine Negative Normal Negative [facility] Comment on above: Performed By: #### U RDS #### [address] Eosinophils Auto (Bld) [#/Vo l]Ordered By: Bryant Sharma on 11-11-2022 Eosinophils (Bld) [#/Vol] 0.2 10*3/uL 0.0-0.45 [facility] Eosinophils/100 WBC Auto (Bl d)Ordered By: Bryant Sharma on 11-11-2022 Eosinophils/100 WBC (Bld) 1.6 % . [facility] Erythrocyte distribution wid th Auto (RBC) [Ratio]Ordered By: Bryant Sharma on 11-11-2022 Erythrocyte distribution width (RBC) [Ratio] 14.8 % 12.0-14.8 [facility] Hematocrit Auto (Bld) [Volum e fraction]Ordered By: Bryant Sharma on 11-11-2022 Hematocrit (Bld) [Volume fraction] 42.6 % 38.8-50.0 [facility] Hemoglobin [Mass/volume] in BloodOrdered By: Bryant Sharma on 11-11-2022 Hemoglobin (Bld) [Mass/Vol] 14.5 g/dL 13.0-17.0 [facility] INR in Platelet poor plasma by Coagulation assayOrdered By: Bryant Sharma on 11-11-2022 INR Coag (PPP) [Relative time] 1.0 {INR} [facility] Comment on above: INR Therapeutic Rang e [...] RBC Auto (Bld) [#/Vol] 9.8 10*3/uL 4.1-10.5 [facility] Lymphocytes Auto (Bld) [#/Vo l]Ordered By: Bryant Sharma on 11-11-2022 Lymphocytes (Bld) [#/Vol] 2.5 10*3/uL 1.00-4.8 [facility] Lymphocytes/100 WBC Auto (Bl d)Ordered By: Bryant Sharma on 11-11-2022 Lymphocytes/100 WBC (Bld) 25.7 % . [facility] MCH Auto (RBC) [Entitic mass ]Ordered By: Bryant Sharma on 11-11-2022 MCH (RBC) [Entitic mass] 31.1 pg 27.5-35.2 [facility] MCHC Auto (RBC) [Mass/Vol]Or dered By: Bryant Sharma on 11-11-2022 MCHC (RBC) [Mass/Vol] 34.1 g/dL 32.5-35.6 [facility] MCV Auto (RBC) [Entitic vol] Ordered By: Bryant Sharma on 11-11-2022 MCV (RBC) [Entitic vol] 91.0 fL 83.5-101 [facility] Monocytes Auto (Bld) [#/Vol] Ordered By: Bryant Sharma on 11-11-2022 Monocytes (Bld) [#/Vol] 0.6 10*3/uL 0.0-0.8 [facility] Monocytes/100 WBC Auto (Bld) Ordered By: Bryant Sharma on 11-11-2022 Monocytes/100 WBC (Bld) 6.5 % . [facility] Neutrophils Auto (Bld) [#/Vo l]Ordered By: Bryant Sharma on 11-11-2022 Neutrophils (Bld) [#/Vol] 6.4 10*3/uL 1.8-7.7 [facility] Neutrophils/100 WBC Auto (Bl d)Ordered By: Bryant Sharma on 11-11-2022 Neutrophils/100 WBC (Bld) 65.1 % . [facility] Nucleated erythrocytes [Pres ence] in Blood by Automated countOrdered By: Bryant Sharma on 11-11-2022 Nucleated RBC Auto Ql (Bld) 0.0 /100{WBC} 0-0.5 [facility] Opiates [Presence] in Urine by Screen methodOrdered By: Bryant Sharma on 11-11-2022 Opiates Screen Ql (U) Negative Negative [facility] Partial Thromboplastin Timeo n 11-11-2022 aPTT Coag (Bld) [Time] 28.5 s Normal 25.1-36.5 [facility] Comment on above: Result Comment: A he matocrit value greater than 55% may lead to inaccurate results in coagulation testing. Patients having hematocrit values >55% require a special collection tube for coagulation studies. Please contact the laboratory at [phone] for redraw instructions. PERFORMED BY: [place] [address] PATHOLOGIST DRUG SAFETY PHYSICIAN MATT VIEIRA M.D. Performed By: #### P T, PTT #### [place] [id number] [facility] Phencyclidine Screen Ql (U)O rdered By: Bryant Sharma on 11-11-2022 Phencyclidine Ql (U) Negative Negative [facility] Platelet mean volume Auto (B ld) [Entitic vol]Ordered By: Bryant Sharma on 11-11-2022 Platelet mean volume (Bld) [Entitic vol] 7.5 fL 6.6-10.1 [facility] Platelets Auto (Bld) [#/Vol] Ordered By: Bryant Sharma on 11-11-2022 Platelets (Bld) [#/Vol] 223 10*3/uL 150-450 [facility] Prothrombin Time INRon 11-11 INR Coag (PPP) [Relative time] 1.0 {INR} Normal [facility] Comment on above: Result Comment: INR Therapeutic [...] Performed By: #### P T, PTT #### [facility] [address] [place] [address] PT Coag (PPP) [Time] 11.8 s Normal 9.0-12.9 [facility] Comment on above: Result Comment: A he matocrit value greater than 55% may lead to inaccurate results in coagulation testing. Patients having hematocrit values >55% require a special collection tube for coagulation studies. Please contact the laboratory at [phone] for redraw instructions. Performed By: #### P T, PTT #### [facility] [address] [place], [place] [id number] [facility] Prothrombin time (PT)Ordered By: Bryant Sharma on 11-11-2022 PT Coag (PPP) [Time] 11.8 s 9.0-12.9 [facility] Comment on above: A hematocrit value g reater than 55% may lead to inaccurate results in coagulation testing. Patients having hematocrit values >55% require a special collection tube for coagulation studies. Please contact the laboratory at [phone] for redraw instructions. RBC Auto (Bld) [#/Vol]Ordere d By: Bryant Sharma on 09-29-2023 RBC (Bld) [#/Vol] 4.68 10*6/uL 3.90-5.60 [facility] WBC Auto (Bld) [#/Vol]Ordere d By: Bryant Sharma on 11-11-2022 WBC (Bld) [#/Vol] 9.8 10*3/uL 4.1-10.5 [facility] XR HIPS JUAN 3_4V WO PELVISon 05-20-2022 [...] DORINA CERNA Date: 2022-05-20 06:51 Normal [facility] XR TSPINE 2 VIEWSon 05-21-19 23 XR TSPINE 2 VIEWS EXAMINATION: XR TSPI [...] DORINA CERNA Date: 2022-05-20 06:54 Normal [facility] CBC AUTO DIFFon 04-19-2022 BASO # 0.1 103/ul Normal 0.0-0.[address] [facility] Comment on above: Performed By: #### P T #### [facility] [address] [address] [address] Priya Cespedes Basophils/100 WBC (Bld) 0.9 % Normal 0.2-2.[address] [facility] Comment on above: Performed By: #### P T #### [facility] [address] [address] [address] Priya Cespedes EO # 0.1 103/ul Normal 0.0-0.7 [facility] Comment on above: Performed By: #### P T #### [facility] [address] [place] [address] Dr. Priya Cespedes Eosinophils/100 WBC (Bld) 1.5 % Normal 0.9-7.[address] [facility] Comment on above: Performed By: #### P T #### [facility] [address] [place] [address] Dr. Priya Cespedes Erythrocyte distribution width (RBC) [Ratio] 14.5 % Normal 11.0-15.[address] [facility] Comment on above: Performed By: #### P T #### [facility] [address] [place] [address] Dr. Priya Cespedes Hematocrit (Bld) [Volume fraction] 40.5 % Critically low 42.0-54.[address] [facility] Comment on above: Performed By: #### P T #### [facility] [address] [place] [address] Dr. Priya Cespedes Hemoglobin (Bld) [Mass/Vol] 14.1 g/dL Normal 14.0-18.[address] [facility] Comment on above: Performed By: #### P T #### [facility] [address] [place] [address] Dr. Priya Cespedes IG # 0.02 10e3/ul Normal 0.00-0.[address] [facility] Comment on above: Performed By: #### P T #### [facility] [address] [place] [address] Dr. Priya Cespedes IG % 0.3 % Normal 0.0-0.5 [facility] Comment on above: Performed By: #### P T #### [facility] [address] [place] [address] Dr. Priya Cespedes LYMPH # 2.0 103/ul Normal 1.2-3.8 [facility] Comment on above: Performed By: #### P T #### [facility] [address] [place] [address] Dr. Priya Cespedes Lymphocytes/100 WBC (Bld) 25.8 % Normal 20.5-60.[address] [facility] Comment on above: Performed By: #### P T #### [facility] [address] [place] [address] Dr. Priya Cespedes MANUAL DIFF REQ NO Normal [facility] Comment on above: Performed By: #### P T #### [facility] [address] [place] [address] Dr. Priya Cespedes MCH (RBC) [Entitic mass] 31.1 pg Normal 25.9-34.[address] [facility] Comment on above: Performed By: #### P T #### [facility] [address] [place] [address] Dr. Priya Cespedes MCHC (RBC) [Mass/Vol] 34.8 g/dL Normal 29.9-35.[address] [facility] Comment on above: Performed By: #### P T #### [facility] [address] [place] [address] Dr. Priya Cespedes MCV (RBC) [Entitic vol] 89.2 fL Normal 80.0-94.[address] [facility] Comment on above: Performed By: #### P T #### [facility] [address] [place] [address] Dr. Priya Cespedes MONO # 0.6 103/ul Normal 0.3-0.[address] [facility] Comment on above: Performed By: #### P T #### [facility] [address] [place] [address] Dr. Priya Cespedes Monocytes/100 WBC (Bld) 7.1 % Normal 1.7-12.[address] [facility] Comment on above: Performed By: #### P T #### [facility] [address] [place] [address] Dr. Priya Cespedes NEUT # 5.1 103/ul Normal 1.4-6.[address] [facility] Comment on above: Performed By: #### P T #### [facility] [address] [place] [address] Dr. Priya Cespedes Neutrophils/100 WBC (Bld) 64.4 % Normal 43.0-75.[address] [facility] Comment on above: Performed By: #### P T #### [facility] [address] [place] [address] Dr. Priya Cespedes Platelet mean volume (Bld) [Entitic vol] 8.7 fL Critically low 9.5-13.[address] [facility] Comment on above: Performed By: #### P T #### [facility] [address] [place] [address] Dr. Priya Cespedes PLT 191 103/ul Normal 150-[address] [facility] Comment on above: Performed By: #### P T #### [facility] [address] [place] [address] Dr. Priya Cespedes RBC 4.54 106/ul Critically low 4.70-6.10 [facility] Comment on above: Performed By: #### P T #### [facility] [address] [place] [address] Dr. Priya Cespedes WBC 7.9 103/ul Normal 4.0-11.[address] [facility] Comment on above: Performed By: #### P T #### [facility] [address] [place] [address] Dr. Priya Cespedes LIPID PROFILEon 04-19-2022 CHOL-HDL RATIO NORM SEE BELOW Normal [facility] Comment on above: Result Comment: 3.3 - 4.4 LOW RISK 4.4 - 7.1 AVERAGE RISK 7.1 - 11.0 MODERATE RISK >11.0 HIGH RISK Performed By: #### L IPID, CMP #### [facility] [address] [place] [address] Dr. Priya Cespedes Cholesterol [Mass/Vol] 249 mg/dL Critically high <=200 [facility] Comment on above: Performed By: #### L IPID, CMP #### [facility] [address] [place] [address] Dr. Priya Cespedes Cholesterol in HDL [Mass/Vol] 40 mg/dL Normal 40-[address] [facility] Comment on above: Performed By: #### L IPID, CMP #### [facility] [address] [address] [address] Priya Cespedes Cholesterol in LDL [Mass/Vol] 174.0 mg/dL Normal [facility] Comment on above: Performed By: #### L IPID, CMP #### [facility] [address] [place] [address] Dr. Priya Cespedes Cholesterol.total/ Cholesterol in HDL [Mass ratio] 6.2 {ratio} Normal [facility] Comment on above: Performed By: #### L IPID, CMP #### [facility] [address] [place] [address] Dr. Priya Cespedes HDL NORMAL > or = 60 mg/dl - LO W CARDIOVASCULAR RISK <40 mg/dl - HIGH CARDIOVASCULAR RISK Normal [facility] Comment on above: Performed By: #### L IPID, CMP #### [facility] [address] [place] [address] Dr. Priya Cespedes LDL CALC NORMAL SEE BELOW Normal [facility] Comment on above: Result Comment: <100 mg/dl OPTIMAL 100 - 129 mg/dl NEAR OR ABOVE OPTIMAL 130 - 159 mg/dl BORDERLINE HIGH 160 - 189 mg/dl HIGH >190 mg/dl VERY HIGH Performed By: #### L IPID, CMP #### [facility] [address] [place] [address] Dr. Priya Cespedes Triglyceride [Mass/Vol] 175 mg/dL Critically high <=[address] [facility] Comment on above: Performed By: #### L IPID, CMP #### [facility] [address] [place] [address] Dr. Priya Cespedes VLDL CALC 35.0 mg/dL Normal [facility] Comment on above: Performed By: #### L IPID, CMP #### [facility] [address] [address] [address] Priya Cespedes PROF 14(COMP METB)on 023 Albumin [Mass/Vol] 3.9 g/dL Normal 3.4-5.0 [facility] Comment on above: Performed By: #### L IPID, CMP #### [facility] [address] [place] [address] Dr. Priya Cespedes Albumin/Globulin [Mass ratio] 1.3 {ratio} Normal [facility] Comment on above: Performed By: #### L IPID, CMP #### [facility] [address] [place] [address] Dr. Priya Cespedes ALP [Catalytic activity/Vol] 67 U/L Normal 46-[address] [facility] Comment on above: Performed By: #### L IPID, CMP #### [facility] [address] [address] [address] Priya Cespedes ALT [Catalytic activity/Vol] 20 U/L Normal 16-[address] [facility] Comment on above: Performed By: #### L IPID, CMP #### [facility] [address] [place] [address] Dr. Priya Cespedes Anion gap [Moles/Vol] 11.7 mmol/L Normal [facility] Comment on above: Performed By: #### L IPID, CMP #### [facility] [address] [place] [address] Dr. Priya Cespedes AST [Catalytic activity/Vol] 21 U/L Normal 15-[address] [facility] Comment on above: Performed By: #### L IPID, CMP #### [facility] [address] [place] [address] Dr. Priya Cespedes Bilirubin [Mass/Vol] 0.5 mg/dL Normal 0.2-1.[address] [facility] Comment on above: Performed By: #### L IPID, CMP #### [facility] [address] [address] [address] Priya Cespedes Calcium [Mass/Vol] 8.8 mg/dL Normal 8.5-10.1 [facility] Comment on above: Performed By: #### L IPID, CMP #### [facility] [address] [place] [address] Dr. Priya Cespedes Chloride [Moles/Vol] 107 mmol/L Normal 98-[address] [facility] Comment on above: Performed By: #### L IPID, CMP #### [facility] [address] [place] [address] Dr. Priya Cespedes CO2 [Moles/Vol] 27.5 mmol/L Normal 21.0-32.0 [facility] Comment on above: Performed By: #### L IPID, CMP #### [facility] [address] [address] [address] Priya Cespedes Creatinine [Mass/Vol] 0.95 mg/dL Normal 0.70-1.[address] [facility] Comment on above: Performed By: #### L IPID, CMP #### [facility] [address] [address] [address] Priya Cespedes EGFR-AF GUATEMALAN >60 Normal >=60 [facility] Comment on above: Performed By: #### L IPID, CMP #### [facility] [address] [place] [address] Dr. Priya Cespedes EGFR-NON AF GUATEMALAN >60 Normal >=[address] [facility] Comment on above: Performed By: #### L IPID, CMP #### [facility] [address] [place] [address] Dr. Priya Cespedes Globulin (S) [Mass/Vol] 3.1 g/dL Normal [facility] Comment on above: Performed By: #### L IPID, CMP #### [facility] [address] [place] [address] Dr. Priya Cespedes Glucose [Mass/Vol] 107 mg/dL Critically high 74-106 [facility] Comment on above: Performed By: #### L IPID, CMP #### [facility] [address] [place] [address] Dr. Priya Cespedes Potassium [Moles/Vol] 4.2 mmol/L Normal 3.5-5.[address] [facility] Comment on above: Performed By: #### L IPID, CMP #### [facility] [address] [place] [address] Dr. Priya Cespedes Protein [Mass/Vol] 7.0 g/dL Normal 6.4-8.2 [facility] Comment on above: Performed By: #### L IPID, CMP #### [facility] [address] [place] [address] Dr. Priya Cespedes Sodium [Moles/Vol] 142 mmol/L Normal 136-145 [facility] Comment on above: Performed By: #### L IPID, CMP #### [facility] [address] [place] [address] Dr. Priya Cespedes Urea nitrogen [Mass/Vol] 24.0 mg/dL Critically high 7.0-18.[address] [facility] Comment on above: Performed By: #### L IPID, CMP #### [facility] [address] [place] [address] Dr. Priya Cespedes Urea nitrogen/Creatinin e [Mass ratio] 25.3 mg/mg Normal [facility] Comment on above: Performed By: #### L IPID, CMP #### [facility] [address] [place] [address] Dr. Priya Cespedes PROTIMEon 04-19-2022 INR Coag (PPP) [Relative time] 0.95 {INR} [facility] Comment on above: Performed By: #### P T #### [facility] [address] [place] [address] Dr. Pirya Cespedes INR GUIDELINES SEE BELOW Normal [facility] Comment on above: Result Comment: SOLIS RED INR: 2.0 - 3.0 CONDITIONS NOT LISTED BELOW 2.5 - 3.5 FOR PROSTHETIC HEART VALVE REPLACEMENT 2.5 - 3.5 RECURRENT THROMBOSIS Performed By: #### P T #### [facility] [address] [place] [address] Dr. Priya Cespedes PT Coag (PPP) [Time] 10.1 s Normal 9.0-11.[address] [facility] Comment on above: Performed By: #### P T #### [facility] [address] [place] [address] Dr. Priya Cespedes VITAMIN D 25 OHon 04-19-2022 VIT D 25-OH 18.2 ng/mL Normal [facility] Comment on above: Performed By: #### V ITAD #### [facility] [address] [place] [address] Dr. Priya Cespedes VIT D RANGES SEE BELOW Normal [facility] Comment on above: Result Comment: <20 ng/mL Vit D deficient 20 - <30 ng/mL Vit D insufficient 30 - 100 ng/mL Vit D sufficient >100 ng/mL Potential Toxicity Performed By: #### V ITAD #### [facility] [address] [place] [address] Dr. Priya Cespedes PROTIMEon 02-22-2022 INR Coag (PPP) [Relative time] 1.00 {INR} Normal [facility] Comment on above: Performed By: #### P T #### [facility] [address] [place] [address] Dr. Priya Cespedes INR GUIDELINES SEE BELOW Normal [facility] Comment on above: Result Comment: SOLIS RED INR: 2.0 - 3.0 CONDITIONS NOT LISTED BELOW 2.5 - 3.5 FOR PROSTHETIC HEART VALVE REPLACEMENT 2.5 - 3.5 RECURRENT THROMBOSIS Performed By: #### P T #### [facility] [address] [place] [address] Dr. Priya Cespedes PT Coag (PPP) [Time] 10.8 s Normal 9.0-11.[address] [facility] Comment on above: Performed By: #### P T #### [facility] [address] [place] [address] Dr. Priya Cespedes BNPon 01-30-2022 Natriuretic peptide B (Bld) [Mass/Vol] 31.0 pg/mL Normal <=450.[address] [facility] Comment on above: Performed By: #### P T #### [facility] [address] [place] [address] Dr. Priya Cespedes CARDIAC OUSMANE ADMITon 022 CK [Catalytic activity/Vol] 61 U/L Normal 39-[address] [facility] Comment on above: Performed By: #### P T #### [facility] [address] [place] [address] Dr. Priya Cespedes CK.MB [Mass/Vol] 0.53 ng/mL Normal <=3.60 [facility] Comment on above: Performed By: #### P T #### [facility] [address] [place] [address] Dr. Priya Cespedes HSTROP 5.4 pg/mL Normal 4.0-76.[address] [facility] Comment on above: Result Comment: CUT- OFF POINTS HAVE BEEN ESTABLISHED BASED ON THE FOURTH UNIVERSAL DEFINITIONS OF MYOCARDIAL INFARCTION. THE UPPER REFERENCE LIMIT (URL) OF TROPONIN, DEFINED THE 99TH PERCENTILE OF cTnI DISTRIBUTION IN A REFERENCE POPULATION, HAS BEEN CONFIRMED THE DECISION THRESHOLD FOR [place] DIAGNOSIS. Performed By: #### P T #### [facility] [address] [place] [address] Dr. Priya Cespedes LAYLA 47 ng/mL Normal 16-96 [facility] Comment on above: Performed By: #### P T #### [facility] [address] [place] [address] Dr. Priya Cespedes CBC AUTO DIFFon 01-30-2022 BASO # 0.1 103/ul Normal 0.0-0.[address] [facility] Comment on above: Performed By: #### C BC #### [facility] [address] [place] [address] Dr. Priya Cespedes Basophils/100 WBC (Bld) 0.5 % Normal 0.2-2.[address] [facility] Comment on above: Performed By: #### C BC #### [facility] [address] [place] [address] Dr. Priya Cespedes EO # 0.1 103/ul Normal 0.0-0.[address] [facility] Comment on above: Performed By: #### C BC #### [facility] [address] [place] [address] Dr. Priya Cespedes Eosinophils/100 WBC (Bld) 1.1 % Normal 0.9-7.[address] [facility] Comment on above: Performed By: #### C BC #### [facility] [address] [place] [address] Dr. Priya Cespedes Erythrocyte distribution width (RBC) [Ratio] 13.1 % Normal 11.0-15.[address] [facility] Comment on above: Performed By: #### C BC #### [facility] [address] [place] [address] Dr. Priya Cespedes Hematocrit (Bld) [Volume fraction] 43.5 % Normal 42.0-54.[address] [facility] Comment on above: Performed By: #### C BC #### [facility] [address] [place] [address] Dr. Priya Cespedes Hemoglobin (Bld) [Mass/Vol] 15.3 g/dL Normal 14.0-18.[address] [facility] Comment on above: Performed By: #### C BC #### [facility] [address] [place] [address] Dr. Priya Cespedes IG # 0.02 10e3/ul Normal 0.00-0.[address] [facility] Comment on above: Performed By: #### C BC #### [facility] [address] [place] [address] Dr. Priya Cespedes IG % 0.2 % Normal 0.0-0.[address] [facility] Comment on above: Performed By: #### C BC #### [facility] [address] [place] [address] Dr. Priya Cespedes LYMPH # 3.2 103/ul Normal 1.2-3.[address] [facility] Comment on above: Performed By: #### C BC #### [facility] [address] [place] [address] Dr. Priya Cespedes Lymphocytes/100 WBC (Bld) 34.6 % Normal 20.5-60.[address] [facility] Comment on above: Performed By: #### C BC #### [facility] [address] [place] [address] Dr. Priya Cespedes MANUAL DIFF REQ NO Normal [facility] Comment on above: Performed By: #### C BC #### [facility] [address] [place] [address] Dr. Priya Cespedes MCH (RBC) [Entitic mass] 30.7 pg Normal 25.9-34.[address] [facility] Comment on above: Performed By: #### C BC #### [facility] [address] [place] [address] Dr. Priya Cespedes MCHC (RBC) [Mass/Vol] 35.2 g/dL Normal 29.9-35.[address] [facility] Comment on above: Performed By: #### C BC #### [facility] [address] [address] [address] Priya Cespedes MCV (RBC) [Entitic vol] 87.3 fL Normal 80.0-94.[address] [facility] Comment on above: Performed By: #### C BC #### [facility] [address] [address] [address] Priya Cespedes MONO # 0.6 103/ul Normal 0.3-0.[address] [facility] Comment on above: Performed By: #### C BC #### [facility] [address] [address] [address] Priya Cespedes Monocytes/100 WBC (Bld) 6.3 % Normal 1.7-12.[address] [facility] Comment on above: Performed By: #### C BC #### [facility] [address] [place] [address] Dr. Priya Cespedes NEUT # 5.2 103/ul Normal 1.4-6.[address] [facility] Comment on above: Performed By: #### C BC #### [facility] [address] [place] [address] Dr. Priya Cespedes Neutrophils/100 WBC (Bld) 57.3 % Normal 43.0-75.[address] [facility] Comment on above: Performed By: #### C BC #### [facility] [address] [place] [address] Dr. Priya Cespedes Platelet mean volume (Bld) [Entitic vol] 9.1 fL Critically low 9.5-13.[address] [facility] Comment on above: Performed By: #### C BC #### [facility] [address] [place] [address] Dr. Priya Cespedes PLT 375 103/ul Normal 150-450 [facility] Comment on above: Performed By: #### C BC #### [facility] [address] [place] [address] Dr. Priya Cespedes RBC 4.98 106/ul Normal 4.70-6.10 [facility] Comment on above: Performed By: #### C BC #### [facility] [address] [place] [address] Dr. Priya Cespedes WBC 9.2 103/ul Normal 4.0-11.0 [facility] Comment on above: Performed By: #### C BC #### [facility] [address] [address] [address] Priya Cespedes Covid-19 PCR ([facility])on 01-13 SARS-CoV-2 (COVID-19) RNA CHATO+probe Ql (Unsp spec) Not detected Normal NOT DETECTED [facility] Comment on above: Result Comment: When diagnostic [...] for this test is supported by the [place] of Health and Human Service's declaration that [...] longer be used). Performed By: #### C VDTB #### [facility] [address] [place] [address] Dr. Priya Cespedes INFLUENZA A AND [facility] Normal [facility] Comment on above: Result Comment: Nega tive for Flu A protein angiten. Infection due to Flu A cannot be ruled out. Flu A angiten in the sample may be below the detection limit of the test. Performed By: #### P T #### [facility] [address] [place] [address] Dr. Priya Cespedes INFLUBNEG SEE BELOW Normal [facility] Comment on above: Result Comment: Nega tive for Flu B protein antigen. Infection due to Flu B cannot be ruled out. Flu B antigen in the sample may be below the detection limit of the test. Performed By: #### P T #### [facility] [address] [place] [address] Dr. Priya Cespedes INFLUENZA A AG Negative Normal NEGATIVE SEE COMMENT [facility] Comment on above: Performed By: #### P T #### [facility] [address] [place] [address] Dr. Priya Cespedes INFLUENZA B AG Negative Normal NEGATIVE SEE COMMENT [facility] Comment on above: Performed By: #### P T #### [facility] [address] [place] [address] Dr. Priya Cespedes INTERNAL CONTROLS Within Normal Limits Normal Wi thin Normal Limits [facility] Comment on above: Performed By: #### P T #### [facility] [address] [place] [address] Dr. Priya Cespedes LIPASEon 01-30-2022 Lipase [Catalytic activity/Vol] 169.0 U/L Normal 73.0-393.[address] [facility] Comment on above: Performed By: #### P T #### [facility] [address] [place] [address] Dr. Priya Cespedes PROF CHEM 8 (BAS METB)on Anion gap [Moles/Vol] 10.6 mmol/L Normal [facility] Comment on above: Performed By: #### P T #### [facility] [address] [place] [address] Dr. Priya Cespedes Calcium [Mass/Vol] 9.1 mg/dL Normal 8.5-10.1 [facility] Comment on above: Performed By: #### P T #### [facility] [address] [place] [address] Dr. Priya Cespedes Chloride [Moles/Vol] 101 mmol/L Normal 98-[address] [facility] Comment on above: Performed By: #### P T #### [facility] [address] [place] [address] Dr. Priya Cespedes CO2 [Moles/Vol] 27.0 mmol/L Normal 21.0-32.0 [facility] Comment on above: Performed By: #### P T #### [facility] [address] [address] [address] Priya Cespedes Creatinine [Mass/Vol] 1.13 mg/dL Normal 0.70-1.[address] [facility] Comment on above: Performed By: #### P T #### [facility] [address] [address] [address] Priya Cespedes EGFR-AF GUATEMALAN >60 Normal >=60 [facility] Comment on above: Performed By: #### P T #### [facility] [address] [address] [address] Priya Cespedes EGFR-NON AF GUATEMALAN >60 Normal >=[address] [facility] Comment on above: Performed By: #### P T #### [facility] [address] [place] [address] Dr. Priya Cespedes Glucose [Mass/Vol] 138 mg/dL Critically high 74-106 [facility] Comment on above: Performed By: #### P T #### [facility] [address] [place] [address] Dr. Priya Cespedes Potassium [Moles/Vol] 3.6 mmol/L Normal 3.5-5.[address] [facility] Comment on above: Performed By: #### P T #### [facility] [address] [place] [address] Dr. Priya Cespedes Sodium [Moles/Vol] 135 mmol/L Critically low 136-145 [facility] Comment on above: Performed By: #### P T #### [facility] [address] [place] [address] Dr. Priya Cespedes Urea nitrogen [Mass/Vol] 22.0 mg/dL Critically high 7.0-18.[address] [facility] Comment on above: Performed By: #### P T #### [facility] [address] [place] [address] Dr. Priya Cespedes Urea nitrogen/Creatinin e [Mass ratio] 19.5 mg/mg Normal [facility] Comment on above: Performed By: #### P T #### [facility] [address] [address] [address] Priya Cespedes PROTIMEon 01-30-2022 INR Coag (PPP) [Relative time] 1.06 {INR} Normal [facility] Comment on above: Performed By: #### P T #### [facility] [address] [place] [address] Dr. Priya Cespedes INR GUIDELINES SEE BELOW Normal [facility] Comment on above: Result Comment: SOLIS RED INR: 2.0 - 3.0 CONDITIONS NOT LISTED BELOW 2.5 - 3.5 FOR PROSTHETIC HEART VALVE REPLACEMENT 2.5 - 3.5 RECURRENT THROMBOSIS Performed By: #### P T #### [facility] [address] [address] [address] Priya Cespedes PT Coag (PPP) [Time] 11.4 s Normal 9.0-11.[address] [facility] Comment on above: Performed By: #### P T #### [facility] [address] [place] [address] Dr. Priya Cespedes PTTon 01-30-2022 aPTT Coag (Bld) [Time] 29.8 s Normal 22.3-36.2 [facility] Comment on above: Performed By: #### P T #### [facility] [address] [place] [address] Dr. Priya Cespedes RSVon 01-30-2022 RSV AG Negative Normal NEGATIVE [facility] Comment on above: Performed By: #### P T #### [facility] [address] [place] [address] Dr. Priya Cespedes XR CHEST 1 Von [...] by: GISELL OJEDA Date: 2022-01-30 15:[address] [facility] Covid-19 PCR ([facility])on SARS-CoV-2 (COVID-19) RNA CHATO+probe Ql (Unsp spec) Not detected Normal NOT DETECTED [facility] Comment on above: Result Comment: When diagnostic [...] for this test is supported by the [place] of Health and Human Service's declaration that [...] used). Performed By: #### C VDTBH #### [facility] [address] [place] [address] Dr. Priya Cespedes GROUP A STREP CULTUREon S. pyogenes Ag Ql (Unsp spec) Culture Observations: NEGATIVE FOR GROUP A STREPTOCOCCUS. Normal [facility] Comment on above: Performed By: #### C VDTBH #### [facility] [address] [place] [address] Dr. Priya Cespedes INFLUENZA A AND B AGon 01-21 INFLUBNEGH SEE BELOW Normal [facility] Comment on above: Result Comment: Nega tive for Flu B protein antigen. Infection due to Flu B cannot be ruled out. Flu B antigen in the sample may be below the detection limit of the test. Performed By: #### I NFLUAB #### [facility] [address] [place] [address] Dr. Priya Cespedes INFLUENZA A AG Positive Abnormal NEGATIVE SEE COMMENT [facility] Comment on above: Performed By: #### I NFLUAB #### [facility] [address] [place] [address] Dr. Priya Cespedes INFLUENZA B AG Negative Normal NEGATIVE SEE COMMENT [facility] Comment on above: Performed By: #### I NFLUAB #### [facility] [address] [place] [address] Dr. Priya Cespedes INFLUPOSH SEE BELOW Normal [facility] Comment on above: Result Comment: NOTE : Live attenuated influenzae vaccine viruses can cause a positive result for a rapid influenza diagnostic test if administered up to 7 days prior to rapid testing. Performed By: #### I NFLUAB #### [facility] [address] [place] [address] Dr. Priya Cespedes INTERNAL CONTROLS Within Normal Limits Normal Wi thin Normal Limits [facility] Comment on above: Performed By: #### I NFLUAB #### [facility] [address] [place] [address] Dr. Priya Cespedes STREPT SCREENon 01-21-2022 STREP SCREEN A Negative Normal NEGATIVE [facility] Comment on above: Performed By: #### C VDTBH #### [facility] [address] [place] [address] Dr. Priya Cespedes PROTIMEon 01-04-2022 INR Coag (PPP) [Relative time] 0.96 {INR} Normal [facility] Comment on above: Performed By: #### P T #### [facility] [address] [place] [address] Dr. Priya Cespedes INR GUIDELINES SEE BELOW Normal [facility] Comment on above: Result Comment: SOLIS RED INR: 2.0 - 3.0 CONDITIONS NOT LISTED BELOW 2.5 - 3.5 FOR PROSTHETIC HEART VALVE REPLACEMENT 2.5 - 3.5 RECURRENT THROMBOSIS Performed By: #### P T #### [facility] [address] [place] [address] Dr. Priya Cespedes PT Coag (PPP) [Time] 10.4 s Normal 9.0-11.6 [facility] Comment on above: Performed By: #### P T #### [facility] [address] [place] [address] Dr. Priya Cespedes PROTIMEon 08-24-2021 INR Coag (PPP) [Relative time] 0.93 {INR} Normal [facility] Comment on above: Performed By: #### P T #### [facility] [address] [place] [address] Dr. Priya Cespedes INR GUIDELINES SEE BELOW Normal [facility] Comment on above: Result Comment: SOLIS RED INR: 2.0 - 3.0 CONDITIONS NOT LISTED BELOW 2.5 - 3.5 FOR PROSTHETIC HEART VALVE REPLACEMENT 2.5 - 3.5 RECURRENT THROMBOSIS Performed By: #### P T #### [facility] [address] [place] [address] Dr. Priya Cespedes PT Coag (PPP) [Time] 10.1 s Normal 9.0-11.[address] [facility] Comment on above: Performed By: #### P T #### [facility] [address] [place] [address] Dr. Priya Cespedes Quick Fluon 08-06-2021 FLUAV Ab CF (S) [Titer] Negative [employer] Other FLUBV Ab CF (S) [Titer] Negative [employer] Other PROTIMEon 08-03-2021 INR Coag (PPP) [Relative time] 0.95 {INR} Normal [facility] Comment on above: Performed By: #### P T #### [facility] [address] [place] [address] Dr. Priya Cespedes INR GUIDELINES SEE BELOW Normal [facility] Comment on above: Result Comment: SOLIS RED INR: 2.0 - 3.0 CONDITIONS NOT LISTED BELOW 2.5 - 3.5 FOR PROSTHETIC HEART VALVE REPLACEMENT 2.5 - 3.5 RECURRENT THROMBOSIS Performed By: #### P T #### [facility] [address] [place] [address] Dr. Priya Cespedes PT Coag (PPP) [Time] 10.3 s Normal 9.0-11.[address] [facility] Comment on above: Performed By: #### P T #### [facility] [address] [place] [address] Dr. Priya Cespedes Provider Orderson 07-26-2021 Provider Orders [id number] [facility] Coding Summaryon 07-16-2021 Coding Summary [employer]Base 64 RqkiukybLHx0aSa+PGhlYWQ+PE 8MPYIpE26pqVDnlS2MM9bYDD8V NQHKQRJOGX5OMY8fsWC0QUcsT9 VybiAv OwntoKOpUG24RPf8JQY4zXhyZI mhnH2dvVZoP2p2CuErXL74tX48 MTmvXQLpXyQ2CkUrwktyqYQa D0gdLwZylXSiLli+PHRhYmxlIH ziZUIxDLnbUXFtOwHmhJjgDN9s Hn0vNEDfQTHptXtotSYqSoZh l5rcMRMgWXgoGH8mgZyxR9PnuR X1GYIjy8c3Qn66gOI+PHRkIHN0 kOznNHkbt641TyQue0akBEP1 pFCmGRzkXLO3D86pp0Y3CKZgQY UrJLV1jAB3wF1yjFiwyxneF6Hi wTJeTxP0PFW5tKJntX9dwKmz vgspvM0lZez+B66DVF6TZTLQRW 6LJas5X0ViOeinnYJ+CQ38DMEa EP59yFWdhYAkm8vtaOi6YgMb HPJdINR7pUngWKavv3LtBQSkQ8 2voQVvh0Q9DNJwlSdjpPLbBdYu iNG4gH4vFHnlnqwbj3xdciyp Hggmh7hlou72pG03P54yCRveKZ HpEBV4RXLjORFmpUablo5ipF9h Ii8+IKhza8hqd3hjrCe3SdXn PAPzecWanGyfDTR7a8RjCx29S2 NukJdfc0BcGdw8gm46uTBah8B1 hJA1QXltOVHupP8eQDxnPuC4 NNVpNfLxiX91eKZqZHzfMv2xoL spoAdxAD7cQZKoophmTIKcgL3g ZDUhlQOgfSqzGY2zUZNdbbwd o247XbNtBNP7AEEqiGMnY5ZhjD 4fTgOdPFPdUHWaL1ZbiASrEIac V753EVioUgC4EKRyehQmE4Gn WUOunBapEwD7x2N0Fo3Yx8Pqwr acHRO2KPqfGIM0IdAdMqEiCkQ0 G1WyXlt4HFYwwNpgSF7cK4Mr ZZHccaexbswgiDO2CKKkGYYkvC 84nRPiPVnoTc2wi3O4i647SAMy ECKjfQ33Sr2jwYxdMIOnbIDS wJ1uqbprn3afvgyzIgBsENElOC l2KMf2ZYJhcVvnTkIfTXF1TlV6 PWZ4eLKgyU9fgNoezxwycJ6e Oyc+M87lsQ5mUCD7PES1nzrcVY AnriPpMB39YP13Q5VmBydugFCb bGU+XSIzfaMckHctZN3rQwSo c1qft7GaTAmfI1RaVQLuMIuyXk f7SVNoMBO1cKK5rP3zFLXzJIqr s1A7kEB5J6LfncGvji9zu6os RSVwORkaB27ihDKlq1Z5VQWszW S7QYJjoAhpLzHltU31Rxm+PGNv zYlbo2VvFslkz6vlz4rojZk1 HbEsDXYhhgQyeQfaVCE5d6YtSm 48G27aRClnOISjBAMiTWIxGUYt iFjgqv8fcK0hSa2+PGNvbCB3 kJI1eA5rUVCaQzT9YIwjB638Pj IhpDXhUtrrv1kfa6cqxCw6TlJx POPspmTzgQxjWJG4h3MeBw77 D32cVOmzWQLfMIFrLFTdZIVdbK uhkz5xiC0gMy1+GB6sj7vohh72 uB41dXV+ROUlXZE9cFgrETqj KGLekZ9fYPahMpW8PVRmAxDnmJ 87uEDhMOxkIc2emUaqdJkyZJ9p NSZkypcty278ThDas4jzGSRz fTSfYYgyAJU8M70gd8N4SZNzJV YcFYG2sWO6cK7rvCwdaxbcsKMp gJflqcTnkEdkAHhrNWruB961 IHRvcDsnPlBhdGllbnQgTmFtZT b9P8QrCxv8DROnvXabFF4vvIHr ANlkCn1abUlxmBoeED5uPOVc qazml351KuFsc6hjQKPctCHbPS lsWSQ3Z23zi1F8PIGrDPDdCZW6 dIT6qZ2yxWkhpbimtFEanCqe baRwgBuhGRiiZQmpE811SYRttO oaQyPevbInCNXfhLO2QG93UK94 pPSjd8D9lKX5Z9UvYIEgafqx ddohpID3LRWrKHDqpE08Sj9ngF fpJv1jCWNpKCF6LRGitRHwZ6Zw lC0rTbGxBLZgZXWxB0BjcVYh OLzzN446TAbbLnJ2WPCjubCpB7 FiMOHmgRheWlR3r2C9Xz2XF3M1 QI12XI59gANjt8Z8wOT1G3Lg ZGUduznmsmvngVN0WXKxGDSozY 64Xf7pzQebFk0bGIUbWBE3NSFo zDFlC5BwvR5pHjKvIUQgBWRw C5OkeWSeIUpdJ352GRwzYnG9PM FqlsZwW1LkKWKqePvcGnR0s7Z9 So5AKBz9CM30OV24eHYye7R6 pSO0E5GwOCNlenrtetneiZL9NQ CjYYCuoK58Om6gbJrbWr7zPAJg IPW6JWCutPViN6LzqS2nRoLf LRZmUXHxC5UrpFXyFVsyJ666XU qzXfF0HCVuogKtQ9WvYVByzZym ZqR8q6V8Li0NVWZgBX11ATI3 gUS7OO95KQ17M4LwFpmdcOWeeC U+PHRhYmxlIHdpZHRoPScxMDAl IuSbiBjcVO7rIr6pXYHsFSSi bLytkRNjFrZkk8mtKNFgITxgYA 0fzDrhY3MwvQN6URIot9a9Pi40 V56cS1JvcVG+LTTcfHW9lYG6 mJ1jYxOgGfA7SOoaK618OoFqbG UeXtfzl9mwe3tusDd0RzK3UOBt dfVcfJnmTDU4b9XdDm69U72r IHdpZHRoPSIxNSUiIHZhbGlnbj 2qqJ7xFu2+LIRptUH6vWD6aZ4p RqCpSzI8YOgrY289AnCohMPw Dubay6llh0nrwVk7DnLbNZRdlt ZxeDluQDB4p9EjOj56I7KczLhc u0MkXyf4ij46bXQfm9C3vPZ9 F3IoKJRfubgfwWTodEokTA5sUE PbhtwePTWduY2pMUUvJ7r8XtDh JnA1CUkhY7PadeZ8LFCvnNDc AGjlZZQ7Q32pd4F0NRSnWUYlXF L8mMF3oP9ndKxvqywfsIBgtErg qeRvkQtlQZrgZGlbW427UHAo tCgtNGGoeW0dXLQhpDKzsDoxMS 5iCXRyvgchTmhTTqLvBVYMA24Z GrTCIZ22NP02vQKmh3H2nNT1 C3SjPKUsjmjdbxepeRK4NYGzKP DztS27eSVzUEtkSk9kr0H3l036 KAVoVYDvjG94Cy2daIbcQDKx pDBTlD3wfjfur0sxxpchKuFaUI LqQGc6XXo7UDFueMkeYjIhBJQ9 JnY9BKS9nFIbxT0rdEhrowpp mX7eJcj+ZREfAPYjGQo5LVwazL Q+UGOpVGV1nVfmIPpcSIZaeQ4e ZZAkY4w1KyQsCqM6ALtsB2Bc EIXtnfxgVf58aC1jGeWoNrS3IT opJ0NqawK8NOQhqXXtYPszDWX6 S04ns4I2ADMwOPMpSSR9zCY6 xM6zkXecwmmdhDYixLtidcThgT ajWJmeQVdqU094COAmaPmtOtWm EFecEQMkHA66XQ65kTLse7C0 yVF6M6BnLGQkdhwwtnbwvZI4UE VkSBFoaH57uOHgJTbwMj8me7V9 q873EOOcVEKkoA54Ps4rzOgr QHHspIBYzK7bnagrk1scnghvGa VzBKBmCGf1TEx9HZLhoEgbTvVu KGK5ToQ9KTP3wPWhjA1siCxq rhnmkY0lVhw+TUFMRTwvdGQ+PH FaPKS4sVaeKUpxATFqpT8pKMPr A1i1DpSsVnS4APpqI7TiVOEq xusrYw68dR3fFmYmLvF4RBnoK2 GjfcV8SENcxQRsHGbeXTI3N53o m4R6PNRwKTIoYWJ1iEO9mN4q bGlnbjogbGVmdDsgdmVydGljYW dnTDwgA413RQOrkOvuWm1YSK99 YJ85X2BxKnacqWVnbWB+PHRh YmxlIHdpZHRoPScxMDAlJyBzdH ujVP1qPy0fZPNyGSWmcPnryITr QbThn1vrFRSiXHdlJR6wtPkl S7EmiWN2BOKaa0q7Gz14B13nJ4 JvdXA+NNGjySM6wJD9kC5dGlFh VqY4EHdpB202HzNskCXeBpyj b1dck3llsUj0HhTfVXKwqpFoaA wtNCB9g9YwQc65X65eGOxpVVWh LCUpNCGsIKUqvTrywg6ykG1q Ii8+SZCodDW4fJR5pJ1eChUiQz C3MBxuJ131ZyHrnGQtDbkaY02y E7VtzIC+RCBaPrn0CIFwmGjw GQ8yqDKtXNlvQf3tZUZ2OyOwGp XaARmgJ5AgROMuqpuxnapsoLC7 VANqZVRhhL68Rc0tmLpfAg6f BPAeOYE2LNCowPAbM7RikN7iEh FrQKPyCBEzU7EoqUWcAZakF526 SLezMkA4VQAwqfJeB7QcDOPk sSvwUnX6q5E4Ih2LpAavgIDaVN 7fMgFsIWx0B9VtBcb6XZBrnAzl ZL1svMRdXHulFr6hkFoxyBko TL6iIQHmfjtsm013KgXbr1rkEO ArsKHyQWyqUVW4P15dj9R1EHVg VFPjQZT1kPA1qI5vjOzbbjkj bGVmdDsgdmVydGljYWwtYWxpZ2 21GOTutGoyMdIQJiz3G9HmMbp8 YRDidGmqVI1ilQCmRTyfUh4j jGeugGccKJ4dEXTsjftqy674Pc Rey0bbLRIrkJYvKOtlIDV0J04s d6K8TXPeQAWmJSZ8cYC3wF0n bGlnbjogbGVmdDsgdmVydGljYW dcFJhaB925NJKedBhxFn8WUvu4 Y7IzRnl4LVIxbTxyUN6hrUAz ZAewRp0vdZuwzVpcXM3cBWDsse hsh767LaJza6ldXEYssTWnCMke BLH7X07lj8I8DDAmUZUeLYH9 sTX4uF4crVwawivcqZGtaBanbr AnsCdkSOloLLjhU136QXPjwLuf PlBheWVyOjwvdGQ+TL24fe15 C4FmQwylIca9FZEoHEH9oUJ6dM 0cBCJaACqod6M1lYW6B5NmczKa tt9te3blLOCkQKkmZ64rqZSs c2U (more content not included)... Normal [facility] Quick Strepon 06-11-2021 S. pyogenes Org specific cx Ql (Throat) Negative [facility] Other Quick Strep [facility] Other Coding Summary.on 09-02-2018 Coding Summary. CODING DATE: 019 [facility] STATUS: Home (Routine DC) PAYOR: Medicaid EAPG [...] in slightly different terminology. Revised Coded By: Merline Rubio Revised Date Saved: 09/02/2018 12:31 pm Normal [facility] ED Clinical Summaryon 2018 ED Clinical Summary [address] [address] ED Clinical Summary Person Information Name: KEVIN HILTON [place] Age: 38 Years : 1980 12:00 AM Sex: Male Language: Albanian PCP: KIT AIKEN CNP Marital Status: Phone: [phone] Visit Id: Visit Reason: Knee pain-swelling; RIGHT [...] 08/29/2018 2:01 AM 08/29/2018 2:01 AM ADDRESS: [address] [place] [id number] PHYS DOC NOTES: MEDICAL INFORMATION: Prescriptions Given: Prescription Display orphenadrine (orphenadrine 100 mg ER Tab) 100 mg = 1 tab(s), Oral, BID, X 7 day(s), # 14 tab(s), Refills(s) 0, Pharmacy: [facility]/pharmacy #[id number] PATIENT EDUCATION INFORMATION: Instructions: Contusion, Uczf-dh-Egin; Cryotherapy, Oflx-dk-Ihur Follow up: With: Address: When: Ramu Kamara [address] [place] [address] Business (1) Within 1 to 2 days Comments: ORTHO With: Address: When: KIT DASEUGENIA [address] [facility] [address] [place], [place] [phone] Business (1) Within 1 to 2 days Comments: Return to ED if symptoms worsen DIAGNOSIS: 1:Knee contusion Normal [facility] ED Note-Physicianon 08-30-19 ED Note-Physician Basic Information Time Seen: Renuka Brantley DO 08/29/2018 00:47 Chief Complaint states tripped over a corn [address] [employer] board on monday causingi him to fall. pain to right knee History of Present Illness 38M PRESENTS TO THE ED WITH RIGHT KNEE HE STATES HE WAS OUT PLAYING [employer] ON MONDAY HE STATES HE TRIPPED OVER [...] day(s), # 14 tab(s), Refills(s) 0, Pharmacy: [facility]/pharmacy #[id number] Crutches Immobilizer XR Knee Complete 4+ Views Right Medications Administered Given Percocet 325 mg-5 mg Tab, 1 tab(s), Oral Disposition Plan Patient Discharge Condition STABLE Discharge Disposition HOME Discharge Prescription List Prescriptions orphenadrine 100 mg ER Tab, 100 mg= 1 tab(s), Oral, BID Follow-up With When Contact Information Ramu Kamara Within 1 to 2 days [address] [place] [address]- Business (1) Additional Instructions: ORTHO KITTALAT AIKEN Within 1 to [address] days [address] [place] [address]- Business (1) Additional Instructions: Return to ED if symptoms worsen Patient Education Contusion, Qama-pr-Fzra Cryotherapy, Fnix-vq-Ejpn Problem List/Past Medical History Ongoing Smoker Historical [...] Diagnostic Results No qualifying data available. Normal [facility] Comment on above: Result Comment: Elec tronically [...] Document Reviewed: 12/05/2011 ExitCare? Patient Information ?2015 [employer]. This information is not intended to replace [...] 04/23/2012 Document Reviewed: 09/22/2011 ExitCare? Patient Information ?2014 [employer]. This information is not intended to replace advice given to you by your health care provider. Make sure you discuss any questions you have with your health care provider. Normal [facility] ED Patient Summaryon 019 ED Patient Summary (Inserted Image. Amanda ble to display) [address] [address] Patient Discharge Instructions Person Information Name: KEVIN HILTON Age: 38 Years Arrival Date: 08/29/2018 12:39 AM Discharge Diagnosis: 1:Knee contusion Primary Care Physician: KIT AIKEN CNP Provider Information Primary Provider: Renuka Brantley DO Advanced Converting Operator:None The exam and treatment you received in the Emergency Department were for an urgent problem and are not intended as complete care. It is important that you follow up with a doctor, nurse practitioner, or physician?s law office assistant for ongoing care. If your symptoms become worse or you do not improve as expected and you are unable to reach your usual health care provider, you should return to the Emergency Department. We are available 24 hours a day. YOBANIKEVIN has been given the following list of patient education materials, prescriptions and follow-up instructions: Follow-up Instructions: With: Address: When: Ramu Kamara [address] [place] [address] Business (1) Within 1 to 2 days Comments: ORTHO With: Address: When: KIT AIKEN [address] [place] [address] Business (1) Within 1 to 2 days Comments: Return to ED if symptoms worsen In the event that this physician does not participate in your insurance network, please consult with your insurance company to find a nearby participating provider. Patient Education Materials: Contusion, Knug-qv-Alhz; Cryotherapy, Uukr-rr-Mpwx A MESSAGE TO ALL PATIENTS REGARDING OPIOIDS PRESCRIPTION OPIOIDS: WHAT YOU NEED TO KNOW Prescription opioids can be used to help relieve uydzmios-el-tsfakz pain and are often prescribed following a [...] be struggling with addiction, tell your health healthcare account manager and ask for guidance or call [facility]S National Helpline at 5-703-253-AKWC. z Source: US Department of Health and Human Services/Center for Disease Control & Prevention [facility] Medications Given: Medication Dose Route acetaminophen-oxycodone 1.00 tab(s) Oral Medication Information: New Medications [id number], [address] [place], [place] [id number], [phone] orphenadrine (orphenadrine 100 mg ER Tab) 1 Tabs By Mouth 2 times a day for 7 Days. Refills: 0. Comment: Pharmacy Information: Thank you for choosing [facility] Patient Education Materials: Contusion A contusion is [...] Document Reviewed: 12/05/2011 ExitCare? Patient Information ?2015 [employer]. This information is not intended to replace [...] 04/23/2012 Document Reviewed: 09/22/2011 ExitCare? Patient Information ?2014 [employer]. This information is not intended to replace advice given to you by your health care provider. Make sure you discuss any questions you have with your health care provider. YOBANI Horner THOMAS C , have received the following patient education materials/instructions and have verbalized understanding: Patient Education Materials: Contusion, Utea-ab-Ooir; Cryotherapy, Szfh-da-Ucgp Follow-up Instructions: With: Address: When: Ramu Kamara [address] [place] [address] Business (1) Within 1 to 2 days Comments: ORTHO With: Address: When: KIT AIKEN [address] [place] [address] Business (1) Within 1 to 2 days Comments: Return to ED if symptoms worsen Prescriptions: [orphenadrine (orphenadrine 100 mg ER Tab)] Patient Signature __ Date Clinician/Nurse Signature Date 08/29/18 02:01:36 [facility] XR Knee Complete 4+ Views Lon [...] Finch M.D. 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 I advised him to call his radio repairman to let him know of the symptoms. [...] day(s), # 21 cap(s), Refills(s) 0, Pharmacy: [facility]/pharmacy #[id number] oseltamivir, 75 mg = 1 cap(s), Oral, BID, X 5 day(s), # 10 cap(s), Refills(s) 0, Pharmacy: [facility]/pharmacy #[id number] Disposition Plan Patient Discharge Condition Stable Discharge Disposition Discharge home Discharge Prescription List Prescriptions Tamiflu 75 mg Cap, 75 mg= 1 cap(s), Oral, BID Tessalon 100 mg Cap, 100 mg= 1 cap(s), Oral, TID Follow-up With When Contact Information KIT NELLI In 3 days 04/09/2018 EST [address] Business (1) Additional Instructions: Patient Education Viral [...] The case was discussed with: the physician law office assistant, Alec Douglas PA-C. Procedures: I directly [...] EST) Diagnostic Results No qualifying data available. [facility] Comment on above: Result Comment: Elec tronically Signed By: Alec Douglas PA-C\.br\Date and Time Signed: 04/06/18 16:42 EST\.br\Electronically Co-Signed By: Arun Perez MD\.br\Date and Time Co-Signed: 04/14/18 09:53 EST Coding Summary.on 04-09-2018 Coding Summary. CODING DATE: 019 FINAL [facility] DSC STATUS: Home (Routine DC) PAYOR: Medicaid EAPG [...] Marianna Diop Date Saved: 04/09/2018 02:34 pm [facility] C Strep Screenon 04-08-2018 Strep Screen [...] Locations R1: This test was performed at: [facility], [address] [place] [address], [id number] , [facility] Comment on above: Performed By: #### 2 [id number] #### [facility] [address] [place] [id number] ED Clinical Summaryon 2018 ED Clinical Summary [address] [address] ED Clinical Summary Person Information Name: KEVIN HILTON/[facility] Age: 37 Years : 1980 12:00 AM Sex: Male Language: Albanian PCP: KIT AIKEN CNP Marital Status: Phone: [phone] Visit Id: Visit Reason: Sinus Pain/Congestion; Cough; [...] 04/06/2018 4:37 PM 04/06/2018 4:37 PM ADDRESS: [address] [place] [id number] PHYS DOC NOTES: MEDICAL INFORMATION: Prescriptions Given: Prescription Display benzonatate (Tessalon 100 mg Cap) 100 mg = 1 cap(s), Oral, TID, X 7 day(s), # 21 cap(s), Refills(s) 0, Pharmacy: [facility]/pharmacy #[id number] oseltamivir (Tamiflu 75 mg Cap) 75 mg = 1 cap(s), Oral, BID, X 5 day(s), # 10 cap(s), Refills(s) 0, Pharmacy: [facility]/pharmacy #[id number] PATIENT EDUCATION INFORMATION: Instructions: Viral Infections Follow up: With: Address: When: KIT AIKEN [address] [place] [address] Business (1) In 3 days 04/09/2018 DIAGNOSIS: Flu-like symptoms Normal [facility] ED Patient Education Noteon 04-06-2018 ED Patient [...] coughing. HOME CARE INSTRUCTIONS ? Only take kkmx-pse-vnfotky or prescription medicines for pain, discomfort, diarrhea, [...] Document Reviewed: 06/06/2011 ExitCare? Patient Information ?2014 [employer]. This information is not intended to replace advice given to you by your health care provider. Make sure you discuss any questions you have with your health care provider. Normal [facility] ED Patient Summaryon 019 ED Patient Summary (Inserted Image. Amanda ble to display) [place] [id number] Patient Discharge Instructions Person Information Name: KEVIN HILTON Age: 37 Years Arrival Date: 04/06/2018 3:10 PM Discharge Diagnosis: Flu-like symptoms Primary Care Physician: KIT AIKEN CNP Provider Information Primary Provider: Advanced Converting Operator:Alec Douglas PA-C The exam and treatment you received in the Emergency Department were for an urgent problem and are not intended as complete care. It is important that you follow up with a doctor, nurse practitioner, or physician?s law office assistant for ongoing care. If your symptoms become worse or you do not improve as expected and you are unable to reach your usual health care provider, you should return to the Emergency Department. We are available 24 hours a day. KEVIN HILTON has been given the following list of patient education materials, prescriptions and follow-up instructions: Follow-up Instructions: With: Address: When: KIT DASGONZALOMRELIN [address] [place] [phone] Business (1) In 3 days 04/09/2018 In the event that this physician does not participate in your insurance network, please consult with your insurance company to find a nearby participating provider. Patient Education Materials: Viral Infections A MESSAGE TO ALL PATIENTS REGARDING OPIOIDS PRESCRIPTION OPIOIDS: WHAT YOU NEED TO KNOW Prescription opioids can be used to help relieve nxenvhcs-tw-rdfmsi pain and are often prescribed following a [...] be struggling with addiction, tell your health healthcare account manager and ask for guidance or call [facility] National Helpline at 8-458-006-HSSZ. y Source: US Department of Health and Human Services/Center for Disease Control & Prevention [facility] Medications Given: Medication Dose Route No medications found. Medication Information: New Medications [id number], [address] [place], [place] [id number], [phone] benzonatate (Tessalon 100 mg Cap) 1 Capsules By Mouth 3 times a day for 7 Days. Refills: 0. oseltamivir (Tamiflu 75 mg Cap) 1 Capsules By Mouth 2 times a day for 5 Days. Refills: 0. Comment: Pharmacy Information: Thank you for choosing [facility] Patient Education Materials: Viral Infections A viral [...] coughing. HOME CARE INSTRUCTIONS ? Only take xzjn-ldd-kjcssod or prescription medicines for pain, discomfort, diarrhea, [...] Document Reviewed: 06/06/2011 ExitCare? Patient Information ?2014 [employer]. This information is not intended to replace advice given to you by your health care provider. Make sure you discuss any questions you have with your health care provider. YOBANI Horner THOMAS , have received the following patient education materials/instructions and have verbalized understanding: Patient Education Materials: Viral Infections Follow-up Instructions: With: Address: When: KIT NELLI [address] [place] [phone] Business (1) In 3 days 04/09/2018 Prescriptions: [benzonatate (Tessalon 100 mg Cap)] [oseltamivir (Tamiflu 75 mg Cap)] Patient Signature __ Date Clinician/Nurse Signature Date 04/06/18 16:37:13 Normal [facility] Influenza A&B Agon 9 Influenzae A Ag Negative Normal Negative [facility] Comment on above: Performed By: #### 1 [id number] #### [facility] [address] [place] [address] Influenzae B Ag Negative Normal Negative [facility] Comment on above: Result Comment: Test sensitivity and specificity vary for age group, specimen type, antigen types, and prevalence of disease. Test results must be evaluated in conjunction with other clinical data available to the physician. Individuals who received nasally administered Influenza A vaccine may have positive test results up to 3 days after vaccination. Performed By: #### 1 [id number] #### [facility] [address] [place] [address] Vital Signs Date Time Vital Sign Value Performing Clinician Facility 03-17-2023 11:00-0500 Body height 171.45 cm Joanna Bower Other [facility] Other 03-17-2023 11:00-0500 Body mass index (BMI) [Ratio] 30.46 kg/m2 Joanna Bower Other [facility] Other 03-17-2023 11:00-0500 Body weight 89.54 kg Joanna Bower Other [facility] Other 03-17-2023 11:00-0500 Diastolic blood pressure 64 mm[Hg] Joanna Bower Other [facility] Other 03-17-2023 11:00-0500 SaO2% (BldA) [Mass fraction] 97 % Joanna Bower Other [facility] Other 03-17-2023 11:00-0500 Systolic blood pressure 118 mm[Hg] Joanna Meridaacher Other [facility] Other 11-11-2022 11:28-0400 Diastolic blood pressure 80 mm[Hg] PATIENT FINANCIAL COUNSELORBenjamín Meridaacher Work Phone: [facility] 11-11-2022 11:28-0400 Heart rate 49 /min PATIENT FINANCIAL COUNSELORBenjamín Meridaacher Work Phone: [facility] 11-11-2022 11:28-0400 Respiratory rate 18 /min PATIENT FINANCIAL COUNSELORBenjamín Andrewrbacher Work Phone: [facility] 11-11-2022 11:28-0400 SaO2% (BldA) [Mass fraction] 99 % PATIENT FINANCIAL COUNSELOR Joanna Fuadacher Work Phone: [facility] 11-11-2022 11:28-0400 Systolic blood pressure 121 mm[Hg] PATIENT FINANCIAL COUNSELORBenjamín LowJoanna Fuadacher Work Phone: [facility] 11-11-2022 10:08-0400 Body height 170.18 cm PATIENT FINANCIAL COUNSELORBenjamín Meridaacher Work Phone: [facility] 11-11-2022 10:08-0400 Body temperature 98.6 [degF] PATIENT FINANCIAL COUNSELORBenjamín LowJoanna Fuadacher Work Phone: [facility] 11-11-2022 10:08-0400 Body weight 86.18 kg PATIENT FINANCIAL COUNSELORBenjamín Meridaacher Work Phone: [facility] 09-09-2022 10:30-0400 Body height 171.45 cm Joanna Lucasr Other [facility] Other 09-09-2022 10:30-0400 Body mass index (BMI) [Ratio] 28.39 kg/m2 Joanna Sathish Other [facility] Other 09-09-2022 10:30-0400 Body weight 83.46 kg Joanna Sathish Other [facility] Other 09-09-2022 10:30-0400 Diastolic blood pressure 82 mm[Hg] Joanna Sathish Other [facility] Other 09-09-2022 10:30-0400 Systolic blood pressure 120 mm[Hg] Joanna Andrewghassan Other [facility] Other 06-11-2021 10:15-0400 Body height 171.45 cm Bharti Perez Other [facility] Other 06-11-2021 10:15-0400 Body mass index (BMI) [Ratio] 27.77 kg/m2 Bharti Perez Other [facility] Other 06-11-2021 10:15-0400 Body temperature 98 [degF] Bharti Perez Other [facility] Other 06-11-2021 10:15-0400 Body weight 81.65 kg Bharti Perez Other [facility] Other 06-11-2021 10:15-0400 Respiratory rate 18 /min Bharti Perez Other [facility] Other 06-11-2021 10:15-0400 SaO2% (BldA) [Mass fraction] 96 % Bharti Perez Other [facility] Other Encounters Encounter Date Encounter Type Care Provider Facility Start: 03-17-2023 Office outpatient visit 25 minutes Joanna Bower [facility] Start: 03-17-2023 End: 03-18-2023 ambulatory [facility] Start: 03-17-2023 End: 03-17-2023 Follow-up encounter Cortez Beltran MD Work Phone: [facility] Medication Therapy Management Comment on above: FCI current us e of anticoagulant therapy (Primary Dx); S/P AVR (aortic valve replacement) Start: 03-10-2023 End: 03-16-2023 [facility] Start: 02-23-2023 Telephone encounter Ashlyn Hayden [facility] Start: 02-17-2023 End: 02-17-2023 Emergency department patient visit JOANNA BOWER [facility] Start: 02-17-2023 End: 02-17-2023 ambulatory [facility] Start: 02-17-2023 End: 02-17-2023 Follow-up encounter Cortez Beltran MD Work Phone: [facility] Medication Therapy Management Comment on above: FCI current us e of anticoagulant therapy (Primary Dx); S/P AVR (aortic valve replacement) Start: 01-13-2023 End: 02-13-2023 ambulatory [facility] Start: 12-22-2022 End: 12-22-2022 ambulatory Lorenzo Morgan Other [facility] Other Start: 12-22-2022 Telephone encounter [facility] Start: 11-25-2022 End: 11-25-2022 ambulatory Joanna Bower Other [facility] Other Start: 11-25-2022 Telephone encounter Joanna tim [facility] Start: 11-17-2022 End: 11-17-2022 ambulatory Bryant Hendrixormack Other [facility] Other Start: 11-17-2022 Telephone encounter Bryant Oleg lala [facility] Start: 11-11-2022 End: 11-11-2022 ambulatory Joanna Bower Facility:[facility] Start: 11-11-2022 End: 11-11-2022 Admission to same day surgery center PATIENT FINANCIAL COUNSELOR Joanna Bower Work Phone: [facility] Work Phone: Start: 11-11-2022 End: 11-11-2022 ambulatory ANEL Bower Work Phone: [facility] Work Phone: Start: 09-29-2022 End: 09-29-2022 ambulatory Imad Asaad Other [facility] Other Start: 09-29-2022 Telephone encounter Imad Asanelli [facility] Start: 09-09-2022 End: 09-09-2022 ambulatory Joanna Bower Other [facility] Other Start: 09-09-2022 Encounter for genera l adult medical examination without abnormal findings Joanna Bower [facility] Start: 09-09-2022 Periodic preventive med est patient 40-64yrs Joanna Bower [facility] Start: 07-12-2022 End: 07-12-2022 ambulatory NARENDRANATH LAKSHMIPATHY . Facility: Start: 06-14-2022 End: 06-15-2022 ambulatory NARENDRANATH LAKSHMIPATHY . Facility:[facility] Start: 2022 End: 05-20-2022 ambulatory NARENDRANATH LAKSHMIPATHY . Facility:[facility] Start: 04-19-2022 End: 04-20-2022 ambulatory JOANNA Oconnell BRYANNAANDREWACHER Facility:[facility] Start: 03-10-2022 End: 03-11-2022 ambulatory JOANNA MERIDAACHER Facility:[facility] Start: 02-22-2022 End: 02-22-2022 ambulatory JOANNA MERIDAACHER Facility:[facility] Start: 01-31-2022 End: 01-31-2022 ambulatory Joanna Bower Other [facility] Other Start: 01-31-2022 Telephone encounter Joanna Meridaarcelia her [facility] Start: 01-30-2022 End: 01-30-2022 ambulatory JOANNA Oconnell SATHISH Facility:[facility] Start: 01-21-2022 End: 01-21-2022 ambulatory JOANNA Oconnell SAHTISH Facility:[facility] Start: 01-20-2022 End: 01-21-[address] JESSICA BYRNE . Facility:[facility] Start: 01-04-2022 End: 01-04-2022 ambulatory JOANNA Oconnell SATHISH Facility:[facility] Start: 12-16-2021 End: 12-17-2021 ambulatory JOANNA A SATHISH Facility:[facility] Start: 09-23-2021 End: 09-24-[address] JESSICA BYRNE . Facility:[facility] Start: 08-24-2021 End: 08-24-[address] JESSICA BYRNE . Facility:[facility] Start: 08-03-2021 End: 08-03-[address] JESSICA BYRNE . Facility:[facility] Start: 07-29-[address] JESSICA BYRNE . Faci lity:[facility] Start: 06-11-2021 End: 06-11-2021 ambulatory Bharti Perez Other [facility] Other Start: 06-11-2021 Office outpatient visit 15 minutes Bharti Perez [facility] Start: 08-31-2018 Patient encounter status Pm 1 [employer] Work Phone: Procedures Date Procedure Procedure Detail Performing Clinician Start: 03-17-2023 Prothrombin time Jobst Service Work Phone: Start: 02-17-2023 Prothrombin time Jobst Service Work Phone: Start: 11-11-2022 Colonoscopy ANEL Bower Work Phone: Start: 09-23-2019 H/O: surgery S/P nasal septoplasty Pm 1 Start: 09-23-2019 History of tonsillectomy S/P tonsillectomy Pm 1 Plan of Treatment Date Care Activity Detail Author Start: 02-18-2024 Adult BMI Screening Adult BMI Screening [facility] Start: 12-03-2023 Tobacco Screening Tobacco Screening [facility] Start: 04-14-2023 End: 04-14-2023 Follow-up encounter 04/14/2023 8:45 AM EST Follow Up Anticoagulation [facility] Medication Therapy Management [address] [place] [address] Cortez Beltran MD [employer] [facility] [place] [address] [facility] Start: 03-17-2023 End: 03-17-2023 Patient encounter procedure 03/17/2023 9:00 AM EST Appointment [facility] [facility] [address] [place] [address] Josie Fitzgerald MD [address] [place] [address] [facility] Cardiovascular Start: 03-10-2023 End: 03-10-2023 Follow-up encounter 03/10/2023 8:45 AM EST Follow Up Anticoagulation [facility] Medication Therapy Management [address] [place] [address] Cortez Beltran MD [address] [place] [address] [facility] Medication Therapy Management Start: 11-11-2022 [facility] Start: 10-14-2022 Influenza vaccination Influenza Vaccine [facility] Start: 05-18-1998 DTaP,Tdap and Td Vaccines (1 - Tdap) DTaP,Tdap and Td Vaccines (1 - Tdap) [facility] Start: 05-18-1997 Adult BMI Follow Up Plan Adult BMI Follow Up Plan [facility] Start: 1991 Depression Screening Depression Screening [facility] Start: 1979 Tobacco Counseling Tobacco Counseling [facility] tem Patient Education Hemorrhoids (DC) [facility] Work Phone: Payers Date Payer Category Payer Self-pay [id number] 2022 Medicaid [id number] 2022 Medicaid [place] MED[place] MED[place] [id number] 2022-Present [address] [place] [address] [id number] 1979 Unknown [id number] 2.840.1.142174.3.579.2.593 1979 Unknown [id number] 2.840.1.534992.3.579.2.59 1979 Unknown [id number] 2.16.840.1.110188.3.579.2.593 1979 Unknown [id number] 2.16.840.1.588047.3.579.2.593 1979 Unknown [id number] 2.16.840.1.099411.3.579.2.593 1979 Unknown [id number] 2.16.840.1.823879.3.579.2.593 1979 Unknown [id number] 2.16.840.1.777222.3.579.2.593 1979 Unknown [id number] 2.16.840.1.705443.3.579.2.593 1979 Unknown [id number] 2.16.840.1.566161.3.579.2.593 1979 Unknown [id number] 2.16.840.1.872157.3.579.2.593 1979 Unknown [id number] 2.16.840.1.327851.3.579.2.593 1979 Unknown [id number] 2.16.840.1.111979.3.579.2.593 1979 Unknown [id number] 2.16.840.1.925230.3.579.2.593 1979 Unknown [id number] 2.16.840.1.381118.3.579.2.593 1979 Unknown [id number] 2.16.840.1.390422.3.579.2.593 1979 Unknown [id number] 2.16.840.1.626432.3.579.2.593 1979 Unknown [id number] 2.16.840.1.416887.3.579.2.593 1979 Unknown [id number] 2.16.840.1.990721.3.579.2.128 1979 Unknown [id number] 2.16.840.1.806833.3.579.2.128 1979 Unknown [id number] 2.16.840.1.413559.3.579.2.1285 1979 Unknown [id number] 2.16.840.1.998892.3.579.2.1285 1979 Unknown [id number] 2.16.840.1.801132.3.579.2.1285 1979 Unknown [id number] 2.16.840.1.040148.3.579.2.1286 1959 Unknown [id number] 2.16.840.1.758217.19 1959 Unknown [id number] Unknown [id number] 2.16.840.1.589554.3.579.2.531 Social History Date Type Detail Facility Unknown if ever smoked [employer] Other Start: 03-03-2020 End: 12-02-2022 Sex Assigned At [facility] Start: 11-11-2022 Tobacco smoking stat [facility] Ex-smoker (finding) [facility] Start: 1980 Sex Assigned At Male [facility] Start: 05-27-2022 Tobacco smoking stat [facility] Smokes tobacco daily [facility] History of tobacco use Cigarette Smoker P [facility] Start: 03-03-2020 End: 05-27-2022 Cigarettes smoked current (pack per day) - Reported 1 [facility] Start: 05-27-2022 Tobacco use and exposure Smokeless tobacco non-user [facility] Start: 12-02-2022 Alcohol intake Current drinke r of alcohol (finding) [facility] Adolescent depressio n screening assessment 0 [facility] Start: 09-02-2019 Alcohol Comment rare [facility] Start: 1980 Sex Assigned At Not on file P [facility] Medical Equipment Procedure Code Equipment Code Equipment Origin al Text Equipment Identifier Dates Tiss Aldrm Gft 2 x4cm 6-12 Ea=1 Sheet=8 Cm2 - [id number] - [id number] Start: 09-16-2019 Goals Date Patient Goal Desired Activity /State Clinical Notes 03-31-2014 to 03-17-2023 Note Date & Type Note Facility 03-17-2023 Evaluation note Encounter Date Diagnosis Assessment Notes Mar, Essential hypertension (ICD-10 - I10) To goal. [...] You have been given relevant education handouts. Mar, H/O aortic valve replacement (ICD-10 - Z95.2) He follows Hilaria Jean every 6 months. Follows with the [facility] for Coumadin management. Mar, Anticoagulated on Coumadin (ICD-10 - Z79.01) Follows with [facility]. Mar, Hypercholesterolemia (ICD-10 - E78.00) Stable Due for new labs. Dicsussed importance of [...] a copy of the plan of care. Mar, Low HDL (under 40) (ICD-10 - E78.6) Changed perscription from Fish oil to Krill oil. Will continue to monitor. Discusse with him to increase exercise and to top coat foods with olive oil. He does states that it is difficult for him to exercise due to the neck pain. He verbalizes understanding. Mar, Gastroesophageal reflux disease, esophagitis presence not specified (ICD-10 - K21.9) Reports that he is havign breakthrough symptoms, of bloating and left sided abd pain after eating. He would like a referral to GI. Last EGD was in 2018. Referral placed. Mar, Abdominal bloating (ICD-10 - R14.0) Mar, Chronic pain (ICD-10 - G89.29) He is currently on Duloxetine with some benefit. He is also under the care of Dr. Byrne for pain management. 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 Discussed if he needs any further referral to contact the office. Will refer to rheumatology as needed. Mar, Vitamin D deficiency (ICD-10 - E55.9) Check 25 Hydroxy Vitamin D with next labs. Mar, Lung nodule seen on imaging study (ICD-10 - R91.1) Follows with Pulmonology for repeat CT scans. Mar, Tobacco abuse (ICD-10 - Z72.0) We discussed [...] and willingness to quit at each appointment. Mar, Other obesity due to excess calories (ICD-10 - E66.09) Mar, BMI 29.0-29.9,adult (ICD-10 - Z68.29) [employer] Other 02-02-2024 History of Present illness Narrative* Chung Moreland, [facility] - 03/17/2023 8:15 AM EST 02.17.23 NOTE.... CONSIDERATIONS/POTENTIAL PLAN: Been mostly stable, at goal 15 minute cvwt-jp-klzo follow-up anticoagulation appointment. INR performed in office per protocol. INR 2.9 (goal range: 2.0-3.0). Patient reports: Taking warfarin dosing as documented. Missed or extra doses of warfarin: No 2. Changes to medications: Finished antibiotic last week, finished steroid 2 weeks ago. Illness nowresolved Changes to lifestyle (diet / alcohol / smoking / activity): Yes, less salads in winter Recent emergency department visit / hospitalization / health changes / new contraindication to current anticoagulant: No, illness from last appt resolved Signs/symptoms of bruising/bleeding or clotting or any intolerable adverse events: No Upcoming procedures: No Anticoagulant prescription needed: No Seen referring provider in the last year Duration of therapy reviewed Assessment: INR is remaining stable in therapeutic range on current warfarin regimen. INR up likelyd/t decrease in salads and prednisone ex since last INR Plan: Patient instructed to continue warfarin 5 mg every Mon, , Sat; 7.5 mg all other days. Check INR in 4 week(s). Patient verbalizes understanding of anticoagulant dosing instructions and information discussed. Dosing regimen, counseling, and follow-up appointment were provided to the patient. Patient reminded to call with questions or any medication changes. Patient instructed to seek medical attention if anymajor bleeding/bleeding that persists or worsens. Chung Moreland RPH 03/17/23 0829 documented in [facility] Miscellaneous Notes* Telephone Encounter - Ashlyn Hayden MA - 02/23/2023 8:10 AM EST The patient LVM requesting to reschedule his appointment. Physical Chemistry Teacher called home number and spoke with his as cell number does not have a voice mailbox set up yet. will get a message to [facility]to call [facility]. documented [facility] Telephone encounter Note* Telephone Encounter - Ashlyn Hayden MA - 02/23/2023 8:10 AM EST The patient LVM requesting to reschedule his appointment. Physical Chemistry Teacher called home number and spoke with his as cell number does not have a voice mailbox set up yet. will get a message to patientto call [employer] [facility] back. [facility]01-05-2024 History of Present illness Narrative* Chung Moreland, [facility] - 02/17/2023 8:45 AM EST 15 minute kfkg-dx-lzgz follow-up anticoagulation appointment. INR performed in office [...] / new contraindication to current anticoagulant: Yes, [facility] / for virus Signs/symptoms of bruising/bleeding or clotting [...] Patient instructed to seek medical attention if anymajor bleeding/bleeding that persists or worsens. [facility]land [facility] 02/17/23 0916 documented in this encounterBrightlook HospitalKigo[facility]-29-2023 Procedure note [facility]07-28-2023 Evaluation note* Encounter Date Diagnosis Assessment Notes Treatment Notes Treatment Clinical Notes Aug, Essential hypertensi on (ICD-10 - I10) To goal. Prior to [...] - Z95.2) He follows dr. Murphy at [facility] every 6 months. Follows with the [facility] for Coumadin management. Aug, Anticoagulated [...] neck pain. He verbalizes understanding. Aug, Gastroesophageal ref lux disease, esophagitis presence not specified (ICD-10 - [...] Byrne for pain management. Aug, Cervical pain (ICD-1 0 - M54.2) Aug, Lumbar pain (ICD-10 - M54.50) Aug, Mild intermittent as thma without complication (ICD-10 - J45.20) Under control. He denies any cough or wheezing. Prior to your visit today we reviewed your chart and outlined the testing and treatment needed for your care. We discussed the possible complications of asthma , including increased risk for acute exacerbation and respiratory failure. Our goal is to keep your COPD under control to avoid exacerbation and hospitalizations. maintain a healthy weight with a BMI [...] for repeat CT scans. Aug, Tobacco abuse (ICD-1 0 - Z72.0) We discussed possible complications of [...] to GI today. Aug, Family history of co randi cancer requiring screening colonoscopy (ICD-10 - Z80.0) Aug, BMI 29.0-29.9,adult (ICD-10 - Z68.29) [employer] Other 05-02-2023 NoteCONSULTATION CONSULTATION DATE: 06/14/2022 TO: [...] our patients to inform us about any ycxx-fen-svhljuw medications or herbal remedies/nutritional supplements/alternative remedies. 2. [...] treatment options with their primary care provider.[facility] CenterLnhfnrvo21-08-7926 Note CONSULTATION CONSULTATION DATE: 2022 TO: Joanna [...] our patients to inform us about any oyjk-mls-ifsaeop medications or herbal remedies/nutritional supplements/alternative remedies. 2. [...] treatment options with their primary care provider.[facility] CenterNtbzysxi11-97-5341 Note CONSULTATION CONSULTATION DATE: 03/10/2022 HISTORY OF [...] be followed up in the office thereafter.[facility] CenterDssdwymg46-08-0578 NoteCONSULTATION PROCEDURE DATE: 03/10/2022 PREOPERATIVE DIAGNOSIS: Right [...] will be followed up in the office.[facility] CenterOfrafznx15-05-9906 NoteCONSULTATION PROCEDURE DATE: 01/20/2022 PREOPERATIVE DIAGNOSIS: Bilateral [...] the clinic and tolerated the procedure well.[facility] CenterWzxnkdrf79-50-8931 NoteCONSULTATION CONSULTATION DATE: 01/20/2022 HISTORY OF PRESENT [...] follow up in the clinic post procedure.[facility] CenterCnxztsbq39-04-9008 NoteCONSULTATION CONSULTATION DATE: 12/16/2021 This is a [...] prior ablations on those regions at a [facility] in the past. REVIEW OF [...] and be followed in the clinic thereafter.[facility] 09-23-2021 NoteCONSULTATION CONSULTATION DATE: 09/23/2021 HISTORY OF [...] in three months' time unless otherwise indicated.[facility] [id number] NoteCONSULTATION PROCEDUREDATE: 09/23/2021 PREOPERATIVE DIAGNOSIS: Bilateral cervical [...] will be followed up in the clinic.[facility] CenterVxmgvocn20-14-1497 Evaluation note* Encounter Date Diagnosis Assessment Notes [...] Patient care instructions given in writting by [facility] Care At Home document. Due to infection control protocols for COVID-19 virus, direct physical contact with patient was limited to only the absolute essential needed assessments. [employer] Other 02-16-2015 History general Narrative - Reported* Type Description Date Medical History Asthma Medical History Aortic regurgitation d/t bicuspid aortic valve with congenital bicuspid mitral valve-replaced 03/31/2014. 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 Medical History chronic neck/back pa in sees [facility] pain management team Medical History Osteoartritis Medical History Hemorrhoids, internal Medical History GERD Medical History urolithiasis Medical History depression going to [facility] in [place] seeing counselor and will see psychiatrist in [...] [facility] 1 03/2019 Hospitalization History Rash [place] [facility] 01/2020 [employer] Other Evaluation noteNo InformationNort [employer] Other Evaluation note* Diagnosis Onset Date Resolution Status Family history of colon canc er requiring screening colonoscopy acute [facility] Work Phone: Evlrqrbzbz note* Diagnosis FCI current use of anticoagulant therapy- Primary S/P AVR (aortic valve replacement) Heart valve replaced by other means documented [facility] encounter [facility]* Diagnosis 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 -Office number [phone] Work Phone: InstructionsNot on filedocumented in this encounter [employer] SystemInstructionsNot on filedocumented in this encounter Jigsee Summary Purpose Family History Relationship Condition Age [...] 06/08/2016 9:30 PM Reason for Referral Reason *FU 03/27 evaluate Diagnosis 1 Gastroesophageal ref lux disease, esophagitis presence not specified (K21.9) Diagnosis 2 Abdominal bloating ( R14.0) Referral Organization [facility] Referring Provider First Name Joanna Referring Provider Last Name Sathish Referring Provider Specialty Nurse Itzel jameson Referred Organization [facility] Referred Provider Michele Reddy Referred Address [address] [place] [id number] Referred Provider Specialty Gastroentero logy Referral Priority Routine General Notes Kadie Murray 10:23:24 AM >received today Kadie Murray 03/20/2023 10:26:35 AM >notes locked, ins attached, referral faxed Clinical Notes f: [phone] Reason due for screeni ng and has a family history Diagnosis 1 Screening for colon cancer (Z12.11) Diagnosis 2 Family history of co randi cancer requiring screening colonoscopy (Z80.0) Referral Organization [facility] Family Medicin [facility] [place] Referring Provider First Name Joanna Referring Provider Last Name Sathish Referring Provider Specialty Nurse Itzel jameson Referred Organization [facility] Gastroenterolo gy Referred Provider Lorenzo Morgan Referred Address [address] [facility] [address] ,[place], [place],[address] Referred Provider Specialty Gastroentero logy Referral Priority [...] section and content) DATE CREATED AUTHOR 09/02/2018 [facility] DATE CREATED AUTHOR AUTHOR'S ORGANIZ ATION 07/27/2021 [facility] DATE CREATED AUTHOR AUTHOR'S ORGANIZ ATION 07/22/2022 [facility] DATE CREATED AUTHOR AUTHOR'S ORGANIZ ATION 11/21/2022 [facility] DATE CREATED AUTHOR AUTHOR'S ORGANIZ ATION 03/19/2023 [facility] REASON FOR VISIT (unrecogniz ed section and content) 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, RUNNY NOSE, AL LERGIES, EYES ITCHY X 1 DAYER follow up6 month follow up (KNOWS TO GO TO [place])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 REFERRALPREP PPW6 month Follow up Care Teams (unrecognized sec tion and content) Team Status: Active Member Role Status Dates Joanna Bower APRN DIETARY CLERK-C Primary Care Provider Active Team Status: Inactive Member Role Status Dates Joanna Bower APRN DIETARY CLERK-C Primary Care Provider Active Bryant Sharma MD Attending Provider Active Glass Designer Relationship Specialty Start Date End Date Joanna Bower APRN-DIETARY CLERK [address] [place] [address] PCP - General Nurse Practitioner 12/02/22 Glass Designer Relationship Specialty Start Date End Date Joanna Bower APRRupertDIETARY CLERK [address] [place] [address] PCP - General Nurse Practitioner 12/02/22 Glass Designer Relationship Specialty Start Date End Date Joanna Bower APRDAVIDSON [address] [place] [address] PCP - General Nurse Practitioner 12/02/22 FOR [...] BE BASED ON THE PRIMARY CLINICAL RECORDS. [facility] [employer] [facility]. provides no warranty or guarantee of the accuracy or completeness of information in this document.
== END 2023-03-21 12:25 | disposition home or self-care (01) ==
LOC: PM 12:32
PROVIDERS: PCP Nurse Practitioner Family; Visit Provider Anesthesiology Pain Medicine
DX: M25.511 Pain in right shoulder (principal); M62.838 Other muscle spasm; S43.421A Sprain of right rotator cuff capsule, initial encounter
CPT/HCPCS: 20552; J0665; J3301

== ENCOUNTER 2023-04-03 15:56 | Outpatient (OUT) | payer MEDICAID, SELFPAY ==
--- NOTE | 2023-04-03 16:07 | XR_ITS ---
The [place] [address] Patient Name: KEVIN HILTON MRN: [id number] date: 1980 Sex: M Assigned Patient Location: [facility] Current Patient Location: [facility] Accession/Order Number: [id number] Exam Date: 04/03/2023 16:25 Report Date: 04/04/2023 15:10 At the request of: ISABEL FAULKNER Procedure: XR lumbar spine 6V w bending EXAMINATION: XR lumbar spine 6V w bending, XR sacrum coccyx min 2V HISTORY: low back pain , bilateral hip pain COMPARISON: No relevant comparison available. FINDINGS: VERTEBRA: Minimal degenerative facet arthropathy L4-5, L5-S1. No fracture or spondylolisthesis. DISC SPACES: Slight narrowing L1-2. Minimal narrowing L5-S1. PARASPINOUS: Negative. No paraspinous abnormality is seen. SACRUM: No fracture, disruption of the sacral ala line, or cortical irregularity. COCCYX: No fracture or suspicious alignment. SOFT TISSUES: No widening of the sacroiliac joints. No radiopaque foreign body. OTHER: Slight narrowing of the superior aspect of the hip joints bilaterally. XR/XR lumbar spine 6V w bending IMPRESSION: 1. Minimal degenerative disc disease L1-2 and L5-S1. 2. Minimal degenerative changes of hip joints. Electronically authenticated by: DORINA CERNA Date: 04/04/2023 15:10
--- NOTE | 2023-04-03 16:08 | XR_ITS ---
The [place] [id number] Patient Name: KEVIN HILTON MRN: [id number] date: 1980 Sex: M Assigned Patient Location: [facility] Current Patient Location: [facility] Accession/Order Number: [id number] Exam Date: 04/03/2023 16:25 Report Date: 04/04/2023 15:10 At the request of: ISABEL FAULKNER Procedure: XR sacrum coccyx min 2V EXAMINATION: XR lumbar spine 6V w bending, XR sacrum coccyx min 2V HISTORY: low back pain , bilateral hip pain COMPARISON: No relevant comparison available. FINDINGS: VERTEBRA: Minimal degenerative facet arthropathy L4-5, L5-S1. No fracture or spondylolisthesis. DISC SPACES: Slight narrowing L1-2. Minimal narrowing L5-S1. PARASPINOUS: Negative. No paraspinous abnormality is seen. SACRUM: No fracture, disruption of the sacral ala line, or cortical irregularity. COCCYX: No fracture or suspicious alignment. SOFT TISSUES: No widening of the sacroiliac joints. No radiopaque foreign body. OTHER: Slight narrowing of the superior aspect of the hip joints bilaterally. XR/XR sacrum coccyx min 2V IMPRESSION: 1. Minimal degenerative disc disease L1-2 and L5-S1. 2. Minimal degenerative changes of hip joints. Electronically authenticated by: DORINA CERNA Date: 04/04/2023 15:10
== END 2023-04-03 15:57 | disposition home or self-care (01) ==
LOC: RAD 15:58
PROVIDERS: PCP Nurse Practitioner Family; Visit Provider Nurse Practitioner
DX: M54.50 Low back pain, unspecified (principal); S46.011A Strain of muscle(s) and tendon(s) of the rotator cuff of right shoulder, initial encounter
CPT/HCPCS: 72114; 72220; 73030

== ENCOUNTER 2023-04-03 16:00 | Outpatient (OUT) | payer MEDICAID, SELFPAY ==
--- NOTE | 2023-04-03 16:09 | XR_ITS ---
The [address] [address] Patient Name: KEVIN HILTON MRN: [id number] date: 1980 Sex: M Assigned Patient Location: [facility] Current Patient Location: Accession/Order Number: [id number] Exam Date: 04/03/2023 16:25 Report Date: 04/04/2023 10:42 At the request of: ADRIANNA GUALLPA Procedure: XR shoulder RT min 2V EXAM: Right shoulder HISTORY: . right rotator cuff strain . COMPARISON: None. TECHNIQUE: 3 views FINDINGS: No fracture or dislocation of the shoulder is noted. Glenohumeral joint is unremarkable. Right AC joint appears normal. Surrounding soft tissues are unremarkable. XR/XR shoulder RT min 2V IMPRESSION: Negative right shoulder. Electronically authenticated by: REYNALDO COUGHLIN Date: 04/04/2023 10:42
== END 2023-04-03 16:01 | disposition home or self-care (01) ==
LOC: RAD 16:02
PROVIDERS: PCP Nurse Practitioner Family; Visit Provider Anesthesiology Pain Medicine
DX: M54.50 Low back pain, unspecified (principal); S46.011A Strain of muscle(s) and tendon(s) of the rotator cuff of right shoulder, initial encounter
CPT/HCPCS: 73030

== ENCOUNTER 2023-09-20 07:22 | Outpatient (OUT) | payer SELFPAY ==
--- OUTSIDE RECORDS SUMMARY | 2023-09-20 07:27 | XMS_ITS | CCD ---
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 GALINA Consulting Unavailable LAKSHMIPATHY ., NARENDADALBERTO Consulting Amanda vailable LAKSHMIPATHY ., ADRIANNA Attending Amanda vailable LAKSHMIPATHY ., NARENDADALBERTO Admitting Amanda vailable BRYANNARBACHER, JOANNA A Primary Care Unavailab le ROHRBACHER, JOANNA A Primary Care Unavailab le LAKSHMIPATHY ., NARENDGLENDYATH Attending Amanda vailable LAKSHMIPATHY ., NARENDGLENDYATH Admitting Amanda vailable BRYANNARBACHER, JOANNA A Consulting Unavailab le LAKSHMIPATHY ., NARENDGLENDYATH Consulting Amanda vailable BYRNE ., DR JESSICA Rowell Admitting Unavailable BYRNE ., DR JESSICA Rowell Consulting Unavailable JOANNA BOWER A Primary Care Unavailab le BYRNE ., DR JESSICA Rowell Attending Unavailable BRYANNARBACHEARCELIA LugoFER A Consulting Unavailab le ANAROCKLI Consulting Unavailable LAKSHMIPATHY ., NARENDGLENDYATH Consulting Amanda vailable LAKSHMIPATHY ., LAENDADALBERTO Attending Amanda vailable LAKSHMIPATHY ., NARENDADALBERTO Admitting Amanda vailable BRYANNARBACHER, JOANNA A Primary Care Unavailab le BYRNE ., DR JESSICA Rowell Attending Unavailable JOANNA BOWER A Primary Care Unavailab le BYRNE ., DR JESSICA Rowell Admitting Unavailable FUADACHERJOANNA A Primary Care Unavailab le ROHRBACHER, JOANNA A Admitting Unavailab le ROHRBACHER, JOANNA A Attending Unavailab le ROHRBACHER, JOANNA A Consulting Unavailab le ROHRBACHER, JOANNA A Primary Care Unavailab le BYRNE ., DR JESSICA Rowell Admitting Unavailable BYRNE ., DR JESSICA Rowell Consulting Unavailable BYRNE ., DR JESSICA Rowell Attending Unavailable ROHRBACHER, JOANNA A Consulting Unavailab CLAUDIA Sparrow Consulting Unavailable SHELL HOOPER Consulting Unavailable ROHRBACHER, JOANNA A Primary Care [...] Attending Unavailable AGNES ., JOHNY Admitting Unavailable HERNANDEZ ., MR MATIAS Consulting Unavailable AGNES ., JOHNY Consulting Unavailable GISELL OJEDA Consulting Unavailable ROHRBACHER, JOANNA A Primary Care Unavailab le PAY ., DR VARGAS Consulting Unavailable PAY ., DR VARGAS Admitting Unavailable PAY ., DR VARGAS Attending Unavailable LAKSHMIPATHY ., ADIRANNA Attending Amanda vailable LAKSHMIANA ., ADRIANNA Admitting Amanda vailable ZIDR DORINA LLOYD Consulting Unavailable ROHRBACHER, JOANNA A Primary Care Unavailab le RAMU ., NARENDRANATH Consulting Amanda vailable Asanelli Imad Unavailable ANEL Bower Primary Care Provider MD Bryant Sharma Attending Provider [phone] Bryant Sharma Unavailable [phone] Rohrbacher, Joanna Primary Care Unavailable Bryant Sharma Attending UnavailBryant Flores Admitting Unavailguy e Lorenzo Morgan Unavailable Rohrbacher 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, [facility] er SERVICE, JOBST Referring Unavailable ROHRBACHER, JOANNA Primary Care Unavailable SERVICE, JOBST Referring Unavailable ROHRBACHER, [facility] Primary Care Unavailable SERVICE, JOBST Referring Unavailable ROHRBACHER, [facility] Primary Care Unavailable ROHRBACHER, [facility] Primary Care Unavailable DORINA MEYERS Attending Unavailable SERVICE, JOBST Referring Unavailable ROHRBACHER, JOANNA Primary Care Unavailable SERVICE, JOBST Referring Unavailable ROHRBACHER, [facility] Primary Care Unavailable SERVICE, JOBST Referring Unavailable ROHRBACHER, JOANNA Primary Care Unavailable JOSIE FITZGERALD Attending Unavailable JOSIE FITZGERALD Referring Unavailable ROHRBACHER, [facility] Primary Care Unavailable KIT AIKEN Primary Care Physician SATHISH JOANNA A Referring Unavailab Michele Robbins Attending Unavaila ble Allergies Allergy Classification Reported Allergen(s) Allergy Type Date of Onset Reaction(s) Facility (1 source) No Known Medication Allergies; Translations: [No Known Medication Allergies] Propensity to adverse reactions (disorder) [facility] Repository Medications Current Medications Medication Drug Class(es) Dates Sig (Normalized) Sig (Original) [id number] 200 actuat albuterol 0.09 mg/actuat metered dose inhaler (1 source) beta2-Adrenergic Agonist take 1-2 puff(s) by mouth every four hours as needed Albuterol Sulfate HFA 108 (90 Base) MCG/ACT INHALE 1-2 PUFFS BY MOUTH EVERY 4 HOURS NEEDED for 25 Active amLODIPine 5 mg oral tablet (15 sources) Dihydropyridine Calcium Channel Dee Start: 07-21-2023 take 1 tablet by mouth once daily amLODIPine 5 mg Tab TAKE 1 TABLET BY MOUTH EVERY DAY FOR 30 DAYS Start Date: 07/21/23 Status: Ordered Start: 11-11-2022 take 5 mg by mouth [...] 0 02/17/2023 02/27/2023 Active aspirin 81 mg chewable tablet (14 sources) Platelet Aggregation Inhibitor, Nonsteroidal Anti-inflammatory Drug Start: 07-21-2023 aspirin 81 mg Chew Tab Refills(s) 0 Start Date: 07/21/23 Status: Ordered take 1 tablet by mouth in the mo rning aspirin 81 mg Take 1 tablet (81 mg total) by mouth in the morning. 0 Active take 1 tablet by mouth once susanne y Aspirin 81 81 MG 1 tablet Orally Once a day Active take 1 tablet by mouth once susanne y Aspirin 81 81 MG 1 tablet Orally Once a day Active atorvastatin 20 mg oral tablet (15 sources) HMG-CoA Reductase Inhibitor Start: 07-21-2023 take 1 tablet by mouth once daily atorvastatin 20 mg Tab TAKE 1 TABLET BY MOUTH EVERY DAY FOR 30 DAYS Start Date: 07/21/23 Status: Ordered Start: 11-11-2022 take 40 mg by mouth at bedtime Atorvastatin Active 40 MG PO Bedtime November 11, 2022 12:00am Start: 02-27-2017 take 1 tablet by anusha th in the morning atorvastatin (LIPITOR) 20 mg tablet Take 1 tablet (20 mg total) by mouth in the morning. 0 02/27/2017 Active BALANCED B-100 400 mcg tablet extended release (5 sources) Start: 07-30-2019 take 1 tablet by mouth once daily BALANCED B-100 400 mcg tablet extended release Take 1 tablet by mouth daily. 0 07/30/2019 Active benzonatate 100 mg oral capsule (4 sources) Non-narcotic Antitussive Start: 02-17-2023 take 1 [...] mg / cholecalciferol 200 unt oral tablet (6 sources) Vitamin D Start: 07-01-2019 take 1 [...] 30 Active celecoxib 100 mg oral capsule (15 sources) Nonsteroidal Anti-inflammatory Drug Start: 07-21-2023 take 1 capsule by mouth once daily celecoxib 100 mg Cap TAKE 1 CAPSULE BY MOUTH EVERY DAY Start Date: 07/21/23 Status: Ordered Start: 07-26-2018 take 1 capsule by mo uth once daily celecoxib (CeleBREX) 100 mg capsule Indications: Cervical spondylosis without myelopathy Take 1 capsule (100 mg total) by mouth daily. 30 day supply 30 capsule 5 07/26/2018 Active cholecalciferol 0.025 mg oral tablet (13 sources) Vitamin D take 1 tablet by mouth in the morning cholecalciferol, vitamin D3, (VITAMIN D3) 1,000 units tablet Take 1 tablet (1,000 Units total) by mouth in the morning. 0 Active take 2 capsules by m outh every twenty-four hours [facility] D3 50 MCG (1999 UT) 2 capsule Oral Once a day for 30 days Needs Refill Active [facility] Balanced B100 - (8 sources) [...] Active cyclobenzaprine hydrochloride 10 mg oral tablet (15 sources) Muscle Relaxant Start: 07-21-19 cyclobenzaprine 10 mg Tab Refills(s) 0 Start Date: 07/21/23 Status: Ordered Start: 11-11-2022 take 10 mg by mouth three times daily Cyclobenzaprine Active 10 MG PO Three times daily November 11, 2022 12:00am take 1 tablet by anusha once daily at bedtime cyclobenzaprine (FLEXERIL) 10 mg tablet Take 1 tablet (10 mg total) by mouth once daily at bedtime. 0 Active Daily Shena oral tablet (1 source) Start: 07-21-2023 take 1 tablet by mouth twice daily Daily Shena oral tablet TAKE 1 TABLET BY MOUTH TWICE A DAY Start Date: 07/21/23 Status: Ordered DULoxetine 60 mg delayed release oral capsule (15 sources) Serotonin and Norepinephrine Reuptake Inhibitor Start: 07-21-2023 duloxetine 60 mg oral delayed release capsule Refills(s) 0 Start Date: 07/21/23 Status: Ordered Start: 11-11-2022 take 60 mg by mouth twice susanne y Duloxetine Active 60 MG PO Twice daily November 11, 2022 12:00am 1 ml enoxaparin sodium 100 mg/ml prefilled syringe (5 sources) Low Molecular Weight Heparin Start: 12-02-2022 inject 0.9 mL by subcutaneous injection once enoxaparin (LOVENOX) 100 mg/mL syringe 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 16 mL 0 12/02/2022 Active Fish Oils (13 sources) Start: 07-21-2023 take 1 capsule by mouth twice daily EPA Fish Oil 1000 mg oral capsule TAKE 1 CAPSULE BY MOUTH TWICE A DAY FOR 30 DAYS Start Date: 07/21/23 Status: Ordered Start: 07-29-2019 take 1 tablet by anusha once daily FISH OIL 300-1,000 mg capsule Take 1 tablet by mouth daily. 0 07/29/2019 Active take 1 capsule by mo [facility] twice daily Fish Oil 1000 MG 1 capsule Orally Twice a day for 30 day(s) Active fluocinonide 0.5 mg/ml topic al solution (8 sources) Corticosteroid Fluocinonide 0.0 5 % APPLY TO SCALP TWICE DAILY External for 30 Active Fluocinonide 0.0 5 % APPLY TO SCALP TWICE DAILY External for 30 Active hydrOXYzine hydrochloride 25 mg oral tablet (5 sources) Antihistamine Start: 01-29-2020 take 1 tablet by mouth every six hours as needed hydrOXYzine (ATARAX) 25 mg tablet Take 1 tablet (25 mg total) by mouth every 6 (six) hours as needed for itching for up to 20 doses. 20 tablet 0 01/29/2020 Active ketoconazole 20 mg/ml medicated shampoo (1 source) Azole Antifungal Start: 07-21-2023 ketoconazole Top 2% Shampoo Refill(s) 0 Start Date: 07/21/23 Status: Ordered krill oil 500 mg oral capsule (12 sources) krill oil 500 mg capsule Take by mouth. 0 Active Krill Oil 1000 M G as directed Orally bid for 30 day(s) Active 200 actuat levalbuterol 0.045 mg/actuat metered dose inhaler (6 sources) beta2-Adrenergic Agonist Start: 11-11-2022 take 1 [...] 06/27/2022 Active loratadine 10 mg oral tablet (15 sources) Start: 07-21-2023 take 1 tablet by mouth once daily loratadine 10 mg Tab TAKE 1 TABLET BY MOUTH EVERY DAY FOR 30 DAYS Start Date: 07/21/23 Status: Ordered Start: 05-24-2018 take 1 tablet by anusha th in the morning loratadine (CLARITIN) 10 mg tablet Take 1 tablet (10 mg total) by mouth in the morning. 2 05/24/2018 Active magnesium oxide 400 mg oral tablet (14 sources) Start: 07-21-2023 magnesium oxid e 400 mg Tab Refills(s) 0 Start Date: 07/21/23 Status: Ordered Start: 07-03-2019 take 1 tablet by anusha th once daily at bedtime magnesium oxide (MAG-OX) 400 mg tablet TAKE 1 TABLET BY MOUTH EVERYDAY AT BEDTIME 0 07/03/2019 Active melatonin 10 mg oral capsule (14 sources) Start: 07-21-2023 take 1 capsule by mouth once daily at bedtime Melatonin 10 mg oral capsule TAKE 1 CAPSULE BY MOUTH EVERY DAY AT BEDTIME Start Date: 07/21/23 Status: Ordered Start: 07-13-2019 melatonin 10 m g tablet, sublingual as needed. 0 07/13/2019 Active take 2 tablets by mo uth once daily at bedtime [facility] Melatonin 10 MG TAKE 2 TABLETS BY MOUTH EVERY DAY AT BEDTIME Sublingual for 2199 - 0 Active take 2 tablets by mo uth once daily at bedtime [facility] Melatonin 10 MG TAKE 2 TABLETS BY MOUTH EVERY DAY AT BEDTIME Sublingual for 2199 - 0 Active metoprolol tartrate 25 mg oral tablet (15 sources) beta-Adrenergic Dee Start: 07-21-2023 take 1 tablet by mouth at bedtime Lopressor 25 mg oral tablet TAKE 1 TABLET (25 MG TOTAL) BY MOUTH IN THE MORNING AND BEFORE BEDTIME Start Date: 07/21/23 Status: Ordered Start: 10-10-2022 take 1 tablet by anusha th in the morning, then take 1 tablet by mouth at bedtime metoprolol tartrate (LOPRESSOR) 25 mg tablet Indications: S/P aortic valve replacement TAKE 1 TABLET (25 MG TOTAL) BY MOUTH IN THE MORNING AND 1 TABLET (25 MG TOTAL) BEFORE BEDTIME. 60 tablet 8 10/10/2022 Active berhlido-ljrd-SK-calcium &mins (THERAGRAN-M) 9 mg iron-400 mcg tablet (5 sources) mxvpsgwx-ofbo-OW -calcium &mins (THERAGRAN-M) 9 mg iron-400 mcg tablet Take 1 tablet by mouth in the morning. 0 Active Multivitamin With Folic Acid (Daily-Shena (With Folic Acid)) 400 mcg tablet (1 source) Star t: 0911-02 take 1 tablet by mouth once daily Multivitamin With Folic Acid (Daily-Shena (With Folic Acid)) 400 mcg tablet Active 1 TAB PO Daily November 11, 2022 12:00am nicotine 4 mg chewing gum (1 source) Cholinergic Nicotinic Agonist [facility] Nicotine Polacri laura 4 MG CHEW 1 PIECE OF GUM FOR 30 MINUTES NEEDED 24 TIMES A DAY for 30 Active omeprazole 40 mg delayed release oral capsule (15 sources) Proton Pump Inhibitor Star t: 09-01 omeprazole 40 mg Cap-DR TAKE 1 CAPSULE BY MOUTH 30 MINUTES BEFORE MORNING MEAL EVERY DAY FOR 30 DAYS Start Date: 07/21/23 Status: Ordered Start: 07-13-2019 omeprazole (Pr iLOSEC) 40 mg capsule Take by mouth daily. 0 07/13/2019 Active ONE DAILY ESSENTIAL 400 mcg tablet (5 sources) Start: 07-29-2019 take 1 tablet by mouth once daily in the morning ONE DAILY ESSENTIAL 400 mcg tablet Take 1 tablet by mouth in the morning. 0 07/29/2019 Active Oyster Shell Calcium with Vitamin D 500 mg-200 intl units oral tablet (1 source) Start: 07-21-2023 Oyster Shell Calcium with Vitamin D 500 mg-200 intl units oral tablet Refill(s) 0 Start Date: 07/21/23 Status: Ordered Oyster Shell Calcium/D 500-200 MG-UNIT (8 sources) take 1 tablet by mouth once daily Oyster Shell Calcium/D 500-200 MG-UNIT TAKE 1 TABLET BY MOUTH EVERY DAY Oral for 30 Active polyethylene glycol 3350 [id number] mg / potassium chloride 2970 mg / sodium bicarbonate 6740 mg / sodium chloride 5860 mg / sodium sulfate 96935 mg powder for oral solution (5 sources) Osmotic Laxative Start: 12-22-2022 take 4000 mL by mouth once Golytely 236 GM 4,000 ML Orally once for 1 Dec, Active Start: 10-03-2022 Golytely 236 G M At 4:00 pm the day prior to colonoscopy Orally 8 ounces every 15 minutes for 1 days PLEASE CHECK ALLERGIES Sep, Active pregabalin 150 mg oral capsule (15 sources) Start: 07-21-2023 take 1 capsule by mouth twice daily pregabalin 150 mg Cap TAKE 1 CAPSULE BY MOUTH TWICE A DAY Start Date: 07/21/23 Status: Ordered Start: 11-11-2022 take 150 mg by mouth twice francisco ly Pregabalin Active 150 MG PO Twice daily November 11, 2022 12:00am Start: 11-08-2018 take 1 capsule by [facility] three times daily pregabalin (LYRICA) 100 mg capsule Indications: Cervical spondylosis without myelopathy Take 1 capsule (100 mg total) by mouth 3 (three) times a day. 90 capsule 1 11/08/2018 Active terbinafine hydrochloride 10 mg/ml topical cream (5 sources) Allylamine Antifungal Start: 02-14-2019 ATHLETE'S FOOT, TERBINAFINE, 1 % cream as needed. 0 02/14/2019 Active traZODone hydrochloride 50 mg oral tablet (14 sources) Serotonin Reuptake Inhibitor Start: 07-21-2023 traZODONE 50 mg Tab Refills(s) 0 Start Date: 07/21/23 Status: Ordered Start: 07-13-2019 traZODone (ANASTASIIA YREL) 50 mg tablet 7 actuat umeclidinium 0.0625 mg/actuat / vilanterol 0.025 mg/actuat dry powder inhaler (1 source) Anticholinergic, beta2-Adrenergic Agonist take 1 puff(s) by inhalation once daily Anoro Ellipta 62.5-25 MCG/INH 1 puff Inhalation Once a day for 30 days Active Vitamin B Complex (5 sources) take 1 tablet by mouth once daily vitamin B complex (COMPLEX B-100 ORAL) Take 1 tablet by mouth daily. 0 Active Vitamin B-100 Complex Timed Release (1 source) Start: Vitamin B-100 Complex Timed Release Refills(s) 0 Start Date: 07/21/23 Status: Ordered Vitamin D3 2000 intl units oral Tab (1 source) Start: take 2 capsules by mouth once daily Vitamin D3 2000 intl units oral Tab TAKE 2 CAPSULES BY MOUTH ONCE DAILY Start Date: 07/21/23 Status: Ordered warfarin sodium 5 mg oral tablet (15 sources) Vitamin K Antagonist Start: warfarin 5 mg Tab TAKE 1 TO 1 AND 1/2 TABS BY MOUTH IN EVENING DIRECTED BY STEVE ROGER(MEDICATION THERAPY MANAGEMENT) Start Date: 07/21/23 Status: Ordered Start: 01-04-2023 take 1-1.5 tablets b y mouth in the evening warfarin (COUMADIN) 5 [...] Dates Sig (Normalized) Sig (Original) Tiotropium-Olodate rol (6 sources) Anticholinergic, beta2-Adrenergic Agonist Start: 11-11-2022 End: [...] Da te Episodic/Chronic Acute and chronic tonsillitis (5 sources) Chronic tonsillitis; Translations: [Chronic tonsillitis] Onset: 0 Resolved: 0 09-23-2019 Chronic Anxiety disorders (8 sources) Mixed anxiety and depressive disorder; Translations: [Other specified anxiety disorders] Chronic Asthma (11 sources) Mild intermittent asthma; Translations: [Mild intermittent asthma, uncomplicated] Onset: 8 Chronic Chronic obstructive pulmonary disease and bronchiectasis (7 sources) Emphysema, unspecified; Translations: [Moderate chronic obstructive pulmonary disease] Onset: 9 05-24-2018 Chronic Coma; stupor; and brain damage (8 sources) Daytime somnolence; Translations: [Somnolence] Episodic Disorders of lipid metabolism (18 sources) Hypercholesterolemia; Translations: [Pure hypercholesterolemia, unspecified] Onset: 3 Chronic Esophageal disorders (12 sources) Gastroesophageal reflux disease; Translations: [Gastro-esophageal reflux disease without esophagitis] Onset: 8 Chronic Essential hypertension (20 sources) Essential hypertension; Translations: [Essential (primary) hypertension] Onset: 0 Chronic Headache; including migraine (1 source) Headache; including migraine Onset: 4 Heart valve disorders (20 sources) History of aortic valve replacement; Translations: [Presence of prosthetic heart valve] Onset: 5 Resolved: 0 Chronic Nutritional deficiencies (12 sources) Vitamin D deficiency; Translations: [Vitamin D deficiency, unspecified] Onset: 3 Chronic Other aftercare (7 sources) Anticoagulant effect; Translations: [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] Episodic Other aftercare (1 source) Encounter for therapeutic drug level monitoring; Translations: [Encounter for therapeutic drug level monitoring] Onset: 4 Episodic Other gastrointestinal disorders (1 source) Abdominal distension (gaseous) Episodic Other gastrointestinal disorders (1 source) Swollen abdomen; Translations: [Abdominal distension (gaseous)] Onset: 4 Episodic Other gastrointestinal disorders (1 source) Abdominal bloating 07-21-2023 Episodic Other hereditary and degenerative nervous system conditions (8 sources) Restless legs; Translations: [Restless legs syndrome] Chronic Other inflammatory condition of skin (8 sources) Lupus erythematosus tumidus; 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 Other inflammatory condition of skin (3 sources) Discoid lupus erythematosus; Translations: [Discoid lupus erythematosus] Onset: 4 Chronic Other lower respiratory disease (8 sources) [...] [OTHER CHRONIC PAIN] Onset: 3 Chronic Other non-traumatic joint disorders (4 sources) [...] Chronic Other nutritional; endocrine; and metabolic disorders (9 sources) Cholesterol level - finding; Translations: [Lipoprotein deficiency] 07-21-2023 Chronic Other nutritional; endocrine; and metabolic disorders [...] (BMI) 29.0-29.9, adult Episodic Residual codes; unclassified (8 sources) Periodic limb movement disorder; Translations: [Periodic limb movement disorder] Chronic Residual codes; unclassified (2 sources) Family history [...] disc degeneration, thoracic region] Onset: 7 Chronic Comment on above: Outside Source Comme nt: Overview: Added automatically from request for surgery [id number] Spondylosis; intervertebral disc disorders; other back problems (20 sources) Dorsalgia, unspecified; Translations: [Muscle spasm of back] Onset: 7 Episodic Substance-related disorders (10 sources) Tobacco dependence syndrome; Translations: [Nicotine dependence, cigarettes, with other nicotine-induced disorders] Onset: 2 04-06-2018 Chronic Comment on above: Added secondary to d ocumentation in Social History. Systemic lupus erythematosus and connective tissue disorders (6 sources) Lupus erythematosus; Translations: [Systemic lupus erythematosus, unspecified] Onset: 1 01-04-2021 Chronic Comment on above: Outside Source Comme nt: Overview: Tumid lupus (cutaneous) Unclassified (1 source) CONTACT W/AND (SUSP) EXPOS [...] Onset: 06-11-2021 Resolved: 06-11-2021 Episodic Mood disorders (5 sources) Mood disorders Onset: 09-02-2019 09-02-2019 Nonspecific chest pain (6 sources) Chest pain, unspecified; Translations: [Precordial pain] Onset: 02-18-2019 02-18-2019 Episodic Other aftercare (1 source) Other shelter (current) drug therapy; Translations: [OTH PRISON CURRENT DRUG THERAPY] Onset: 02-01-2022 Episodic Other aftercare (4 sources) 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; Translations: [MAPPING PILOT CURRNT USE ANTICOAGULANTS] Onset: 10-24-2017 Episodic Other aftercare (1 source) 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) use of aspirin; Translations: [PRISON CURRENT USE OF ASPIRIN] Onset: 02-01-2022 Episodic Other aftercare (9 sources) Long-term current use of anticoagulant; Translations: [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] Onset: 06-13-2016 02-17-2023 Episodic Other connective tissue disease (5 sources) Other muscle spasm; Translations: [OTHER MUSCLE SPASM] Onset: 01-24-2022 Episodic Other lower respiratory disease (4 sources) Shortness of breath; Translations: [SHORTNESS OF BREATH] Onset: 01-30-2022 Episodic Other lower respiratory disease (6 sources) Nodule of lung; Translations: [Solitary pulmonary nodule] Onset: 06-25-2019 06-25-2019 Episodic Other lower respiratory disease (5 sources) Dyspnea; Translations: [Shortness of breath] Onset: 04-04-2017 Resolved: 06-25-2019 06-25-2019 Episodic Other lower respiratory disease (5 sources) Radiologic infiltrate of lung ; Translations: [Other nonspecific abnormal finding of lung field] Onset: 05-24-2018 Resolved: 06-25-2019 06-25-2019 Episodic Other nervous system disorders (13 sources) Paresthesia; Translations: [Paresthesia of skin] Onset: 04-13-2017 04-13-2017 Episodic Other non-traumatic joint disorders (5 sources) Bilateral chronic pain of upper limbs; Translations: [Pain in right shoulder] Onset: 09-12-2017 02-22-2018 Episodic Other non-traumatic joint disorders (5 sources) Chronic pain of right upper limb; Translations: [Pain in right shoulder] Onset: 10-04-2018 10-04-2018 Episodic Other screening for suspected conditions (not mental disorders or infectious disease) (6 sources) Encounter for screening for malignant neoplasm of colon; Translations: [Echocardiogram abnormal] Onset: 03-18-2019 Episodic Other upper respiratory disease (5 sources) Deviated nasal septum; Translations: [Deviated nasal septum] Onset: 09-02-2019 Resolved: 09-23-2019 09-23-2019 Episodic Other upper respiratory infections (9 sources) Acute upper respiratory infection, unspecified; Translations: [Acute pharyngitis, unspecified] Onset: 06-07-2016 Resolved: 06-11-2021 Episodic Residual codes; unclassified (14 sources) Tobacco user; Translations: [Tobacco use] Onset: 05-24-2018 05-24-2018 Episodic Residual codes; unclassified (3 sources) Tobacco use; Translations: [Tobacco use] Onset: 05-24-2018 Episodic Residual codes; unclassified (1 source) Chronic pain Onset: 11-14-2017 07-21-2023 Episodic Unclassified (1 source) COUGH, UNSPECIFIED; Translations: [COUGH, UNSPECIFIED] Onset: 01-21-2022 Unclassified (2 sources) Lumbar pain M54.50 Results Test Name Value Interpretation Reference Range Facility Physician Referralon 024 Physician Referral [id number] Normal [facility] Auth for Release of Medical Recordson 07-21-2023 Auth for Release of Medical Records [id number] Normal [facility] POCT Protime / INRon 024 INR Coag (PPP) [Relative time] 2.1 {INR} Abnormal 0.8 - 1.2 [facility] Interpretation and review of laboratory results Abnormal [facility] Physician Referralon 024 Physician Referral [id number] Normal [facility] POCT Protime / INRon 024 INR Coag (PPP) [Relative time] 2.9 {INR} Abnormal 0.8 - 1.2 [facility] Interpretation and review of laboratory results Abnormal [facility] [facility] Protime / INRon 024 INR Coag (PPP) [Relative time] 2.1 {INR} Abnormal 0.8 - 1.2 [facility] Interpretation and review of laboratory results Abnormal [facility] RAPID STREP SCR NURSINGon S. pyogenes Ag EIA Ql (Throat) Positive Abnormal NEG [facility] Comment on above: Performed By: #### 6 556-5 #### [facility] ([id number]) [address] [place] [address], [place] [address] SARS/FLU A+B/RSV by NAAT/Mol ecularon 02-17-2023 SARS/FLU [...] operators who are performing tests using either [employer] or [employer] systems and is limited to laboratories that [...] repeat. Fact Sheet for Healthcare Providers: https://www.fda.gov/media/ 159483/download Fact Sheet for Patients: https://www.fda.gov/media/ 903198/download Normal [facility] Comment on above: Performed By: #### C OVFLR #### [facility] ([id number]) [address] [place] [address], [place] [address] Activated partial thrombopla stin time (aPTT) in platelet poor plasma by coagulation aOrdered By: Bryant Sharma on 11-11-2022 aPTT Coag (PPP) [Time] 28.5 s 25.1-36.5 [facility] Comment on above: A hematocrit value g reater than 55% may lead to inaccurate results in coagulation testing. Patients having hematocrit values >55% require a special collection tube for coagulation studies. Please contact the laboratory at [phone] for redraw instructions. Amphetamine Screen Ql (U)Ord ered By: Bryant Sharma on 11-11-2022 Amphetamines Ql (U) Negative Negative [facility] Barbiturates [Presence] in U rine by Screen methodOrdered By: Bryant Sharma on 11-11-2022 Barbiturates Screen Ql (U) Negative Negative [facility] Basophils Auto (Bld) [#/Vol] Ordered By: Bryant Sharma on 11-11-2022 Basophils (Bld) [#/Vol] 0.1 10*3/uL 0.0-0.2 [facility] Basophils/100 WBC Auto (Bld) Ordered By: Bryant Sharma on 11-11-2022 Basophils/100 WBC (Bld) 1.1 % . [facility] Benzodiazepines Screen Ql (U )Ordered By: Bryant Sharma on 11-11-2022 Benzodiazepines Ql (U) Negative Negative [facility] Benzoylecgonine [Presence] i n Urine by Screen methodOrdered By: Bryant Sharma on 11-11-2022 Benzoylecgonine Screen Ql (U) Negative Negative [facility] Cannabinoids [Presence] in U rine by Screen methodOrdered By: Bryant Sharma on 11-11-2022 Cannabinoids Screen Ql (U) Positive Negative [facility] Comment on above: These are unconfirme d results and should not be used for legal purposes. Drug Cut-Off Concentration: AMPH 1000 ng/mL LISA 200 ng/mL VILMA 200 ng/mL COCM 300 ng/mL OP 300 ng/mL PCP 25 ng/mL THC 20 ng/mL Complete Blood Count Auto Di ffon 11-11-2022 Basophils (Bld) [#/Vol] 0.1 10*3/uL Normal 0.0-0.2 [facility] Comment on above: Result Comment: PERF ORMED BY: [address] [address] PATHOLOGIST GRAIN ORIGINATION SPECIALIST MATT VIEIRA M.D. Performed By: #### C BC #### [address] Basophils/100 WBC (Bld) 1.1 % Normal . [facility] Comment on above: Performed By: #### C BC #### [address] Eosinophils (Bld) [#/Vol] 0.2 10*3/uL Normal 0.0-0.45 [facility] Comment on above: Performed By: #### C BC #### [address] Eosinophils/100 WBC (Bld) 1.6 % Normal . [facility] Comment on above: Performed By: #### C BC #### [address] Erythrocyte distribution width (RBC) [Ratio] 14.8 % Normal 12.0-14.8 [facility] Comment on above: Performed By: #### C BC #### [address] Hematocrit (Bld) [Volume fraction] 42.6 % Normal 38.8-50.0 [facility] Comment on above: Performed By: #### C BC #### [address] Hemoglobin (Bld) [Mass/Vol] 14.5 g/dL Normal 13.0-17.0 [facility] Comment on above: Performed By: #### C BC #### [address] Lymphocytes (Bld) [#/Vol] 2.5 10*3/uL Normal 1.00-4.8 [facility] Comment on above: Performed By: #### C BC #### [address] Lymphocytes/100 WBC (Bld) 25.7 % Normal . [facility] Comment on above: Performed By: #### C BC #### [address] MCH (RBC) [Entitic mass] 31.1 pg Normal 27.5-35.2 [facility] Comment on above: Performed By: #### C BC #### [facility] [address] MCV (RBC) [Entitic vol] 91.0 fL Normal 83.5-101 [facility] Comment on above: Performed By: #### C BC #### [facility] [address] Mean Corpuscular HGB Conc 34.1 g/dL Normal 32.5-35.6 [facility] Comment on above: Performed By: #### C BC #### [facility] [address] Monocytes (Bld) [#/Vol] 0.6 10*3/uL Normal 0.0-0.8 [facility] Comment on above: Performed By: #### C BC #### [facility] [address] Monocytes/100 WBC (Bld) 6.5 % Normal . [facility] Comment on above: Performed By: #### C BC #### [facility] [address] Neutrophils (Bld) [#/Vol] 6.4 10*3/uL Normal 1.8-7.7 [facility] Comment on above: Performed By: #### C BC #### [facility] [address] Neutrophils/100 WBC (Bld) 65.1 % Normal . [facility] Comment on above: Performed By: #### C BC #### [facility] [address] NRBC% 0.0 /100{WBC} Normal 0-0.5 [facility] Comment on above: Performed By: #### C BC #### [facility] [address] Platelet mean volume (Bld) [Entitic vol] 7.5 fL Normal 6.6-10.1 [facility] Comment on above: Performed By: #### C BC #### [address] Platelets (Bld) [#/Vol] 223 10*3/uL Normal 150-450 [facility] Comment on above: Performed By: #### C BC #### [address] RBC (Bld) [#/Vol] 4.68 10*6/uL Normal 3.90-5.60 [facility] Comment on above: Performed By: #### C BC #### [address] WBC (Bld) [#/Vol] 9.8 10*3/uL Normal 4.1-10.5 [facility] Comment on above: Performed By: #### C BC #### [address] Drug Screen,Urineon 11-12-19 23 Amphetamine Screen,Urine Negative Normal Negative [facility] Comment on above: Performed By: #### U RDS #### [address] Barbiturate Screen,Urine Negative Normal Negative [facility] Comment on above: Performed By: #### U RDS #### [address] Benzodiazepines Screen,Urine Negative Normal Negative [facility] Comment on above: Performed By: #### U RDS #### [address] Cannabinoid Screen,Urine Positive High Negative [facility] Comment on above: Result Comment: Thes e are unconfirmed results and should not be used for legal purposes. Drug Cut-Off Concentration: AMPH 1000 ng/mL LISA 200 ng/mL VILMA 200 ng/mL COCM 300 ng/mL OP 300 ng/mL PCP 25 ng/mL THC 20 ng/mL PERFORMED BY: [place] [address] PATHOLOGIST GRAIN ORIGINATION SPECIALIST MATT VIEIRA M.D. Performed By: #### U RDS #### [address] [place] [address] [place] Cocaine Screen,Urine Negative Normal Negative [facility] Comment on above: Performed By: #### U RDS #### [facility] [address] Opiate Screen,Urine Negative Normal Negative [facility] Comment on above: Performed By: #### U RDS #### [facility] [address] Phencyclidine Screen,Urine Negative Normal Negative [facility] Comment on above: Performed By: #### U RDS #### [facility] [address] Eosinophils Auto (Bld) [#/Vo l]Ordered By: Bryant Sharma on 11-11-2022 Eosinophils (Bld) [#/Vol] 0.2 10*3/uL 0.0-0.45 [facility] Eosinophils/100 WBC Auto (Bl d)Ordered By: Bryant Sharma on 11-11-2022 Eosinophils/100 WBC (Bld) 1.6 % . [facility] Erythrocyte distribution wid th Auto (RBC) [Ratio]Ordered By: Bryant Sharma on 11-11-2022 Erythrocyte distribution width (RBC) [Ratio] 14.8 % 12.0-14.8 [facility] Hematocrit Auto (Bld) [Volum e fraction]Ordered By: Bryant Sharma on 11-11-2022 Hematocrit (Bld) [Volume fraction] 42.6 % 38.8-50.0 [facility] Hemoglobin [Mass/volume] in BloodOrdered By: Bryant Sharma on 11-11-2022 Hemoglobin (Bld) [Mass/Vol] 14.5 g/dL 13.0-17.0 [facility] INR in Platelet poor plasma by Coagulation assayOrdered By: Bryant Sharma on 11-11-2022 INR Coag (PPP) [Relative time] 1.0 {INR} [facility] Comment on above: INR Therapeutic Rang e [...] RBC Auto (Bld) [#/Vol] 9.8 10*3/uL 4.1-10.5 [facility] Lymphocytes Auto (Bld) [#/Vo l]Ordered By: Bryant Sharma on 11-11-2022 Lymphocytes (Bld) [#/Vol] 2.5 10*3/uL 1.00-4.8 [facility] Lymphocytes/100 WBC Auto (Bl d)Ordered By: Bryant Sharma on 11-11-2022 Lymphocytes/100 WBC (Bld) 25.7 % . [facility] MCH Auto (RBC) [Entitic mass ]Ordered By: Bryant Sharma on 11-11-2022 MCH (RBC) [Entitic mass] 31.1 pg 27.5-35.2 [facility] MCHC Auto (RBC) [Mass/Vol]Or dered By: Bryant Sharma on 11-11-2022 MCHC (RBC) [Mass/Vol] 34.1 g/dL 32.5-35.6 [facility] MCV Auto (RBC) [Entitic vol] Ordered By: Bryant Sharma on 11-11-2022 MCV (RBC) [Entitic vol] 91.0 fL 83.5-101 [facility] Monocytes Auto (Bld) [#/Vol] Ordered By: Bryant Sharma on 11-11-2022 Monocytes (Bld) [#/Vol] 0.6 10*3/uL 0.0-0.8 [facility] Monocytes/100 WBC Auto (Bld) Ordered By: Bryant Sharma on 11-11-2022 Monocytes/100 WBC (Bld) 6.5 % . [facility] Neutrophils Auto (Bld) [#/Vo l]Ordered By: Bryant Sharma on 11-11-2022 Neutrophils (Bld) [#/Vol] 6.4 10*3/uL 1.8-7.7 [facility] Neutrophils/100 WBC Auto (Bl d)Ordered By: Bryant Sharma on 11-11-2022 Neutrophils/100 WBC (Bld) 65.1 % . [facility] Nucleated erythrocytes [Pres ence] in Blood by Automated countOrdered By: Bryant Sharma on 11-11-2022 Nucleated RBC Auto Ql (Bld) 0.0 /100{WBC} 0-0.5 [facility] Opiates [Presence] in Urine by Screen methodOrdered By: Bryant Sharma on 11-11-2022 Opiates Screen Ql (U) Negative Negative [facility] Partial Thromboplastin Timeo n 11-11-2022 aPTT Coag (Bld) [Time] 28.5 s Normal 25.1-36.5 [facility] Comment on above: Result Comment: A he matocrit value greater than 55% may lead to inaccurate results in coagulation testing. Patients having hematocrit values >55% require a special collection tube for coagulation studies. Please contact the laboratory at [phone] for redraw instructions. PERFORMED BY: [place] [address] PATHOLOGIST GRAIN ORIGINATION SPECIALIST MATT VIEIRA M.D. Performed By: #### P T, PTT #### [address] Phencyclidine Screen Ql (U)O rdered By: Bryant Sharma on 11-11-2022 Phencyclidine Ql (U) Negative Negative [facility] Platelet mean volume Auto (B ld) [Entitic vol]Ordered By: Bryant Sharma on 11-11-2022 Platelet mean volume (Bld) [Entitic vol] 7.5 fL 6.6-10.1 [facility] Platelets Auto (Bld) [#/Vol] Ordered By: Bryant Sharma on 11-11-2022 Platelets (Bld) [#/Vol] 223 10*3/uL 150-450 [facility] Prothrombin Time INRon 11-11 INR Coag (PPP) [Relative time] 1.0 {INR} Normal [facility] Comment on above: Result Comment: INR Therapeutic [...] Performed By: #### P T, PTT #### [facility] [address] [id number] [facility] PT Coag (PPP) [Time] 11.8 s Normal 9.0-12.9 [facility] Comment on above: Result Comment: A he matocrit value greater than 55% may lead to inaccurate results in coagulation testing. Patients having hematocrit values >55% require a special collection tube for coagulation studies. Please contact the laboratory at [phone] for redraw instructions. Performed By: #### P T, PTT #### [facility] [address] [place] [address] [facility] Prothrombin time (PT)Ordered By: Bryant Sharma on 11-11-2022 PT Coag (PPP) [Time] 11.8 s 9.0-12.9 [facility] Comment on above: A hematocrit value g reater than 55% may lead to inaccurate results in coagulation testing. Patients having hematocrit values >55% require a special collection tube for coagulation studies. Please contact the laboratory at [phone] for redraw instructions. RBC Auto (Bld) [#/Vol]Ordere d By: Bryant Sharma on 11-11-2022 RBC (Bld) [#/Vol] 4.68 10*6/uL 3.90-5.60 [facility] WBC Auto (Bld) [#/Vol]Ordere d By: Bryant Sharma on 11-11-2022 WBC (Bld) [#/Vol] 9.8 10*3/uL 4.1-10.5 [facility] XR HIPS JUAN 3_4V WO PELVISon [...] DORINA CERNA Date: 2022-05-20 06:51 Normal [facility] XR TSPINE 2 VIEWSon 05-21-19 XR [...] DORINA CERNA Date: 2022-05-20 06:54 Normal [facility] CBC AUTO DIFFon 04-19-2022 BASO # 0.1 103/ul Normal 0.0-0.1 [facility] Comment on above: Performed By: #### P T #### [facility] [address] [address] [address] Priya Cespedes Basophils/100 WBC (Bld) 0.9 % Normal 0.2-2.0 [facility] Comment on above: Performed By: #### P T #### [facility] [address] [address] [address] Priya Cespedes EO # 0.1 103/ul Normal 0.0-0.7 [facility] Comment on above: Performed By: #### P T #### [facility] [address] [address] [address] Priya Cespedes Eosinophils/100 WBC (Bld) 1.5 % Normal 0.9-7.0 [facility] Comment on above: Performed By: #### P T #### [facility] [address] [address] [address] Priya Cespedes Erythrocyte distribution width (RBC) [Ratio] 14.5 % Normal 11.0-15.0 [facility] Comment on above: Performed By: #### P T #### [facility] [address] [address] [address] Priya Cespedes Hematocrit (Bld) [Volume fraction] 40.5 % Critically low 42.0-54.0 [facility] Comment on above: Performed By: #### P T #### [facility] [address] [address] [address] Priya Cespedes Hemoglobin (Bld) [Mass/Vol] 14.1 g/dL Normal 14.0-18.0 [facility] Comment on above: Performed By: #### P T #### [facility] [address] [place] [address] Dr. Priya Cespedes IG # 0.02 10e3/ul Normal 0.00-0.03 [facility] Comment on above: Performed By: #### P T #### [facility] [address] [place] [address] Dr. Priya Cespedes IG % 0.3 % Normal 0.0-0.5 [facility] Comment on above: Performed By: #### P T #### [facility] [address] [address] [address] Priya Cespedes LYMPH # 2.0 103/ul Normal 1.2-3.8 [facility] Comment on above: Performed By: #### P T #### [facility] [address] [place] [address] Dr. Priya Cespedes Lymphocytes/100 WBC (Bld) 25.8 % Normal 20.5-60.0 [facility] Comment on above: Performed By: #### P T #### [facility] [address] [place] [address] Dr. Priya Cespedes MANUAL DIFF REQ NO Normal [facility] Comment on above: Performed By: #### P T #### [facility] [address] [place] [address] Dr. Priya Cespedes MCH (RBC) [Entitic mass] 31.1 pg Normal 25.9-34.0 [facility] Comment on above: Performed By: #### P T #### [facility] [address] [address] [address] Priya Cespedes MCHC (RBC) [Mass/Vol] 34.8 g/dL Normal 29.9-35.2 [facility] Comment on above: Performed By: #### P T #### [facility] [address] [address] [address] Priya Cespedes MCV (RBC) [Entitic vol] 89.2 fL Normal 80.0-94.0 [facility] Comment on above: Performed By: #### P T #### [facility] [address] [place] [address] Dr. Priya Cespedes MONO # 0.6 103/ul Normal 0.3-0.8 [facility] Comment on above: Performed By: #### P T #### [facility] [address] [place] [address] Dr. Priya Cespedes Monocytes/100 WBC (Bld) 7.1 % Normal 1.7-12.0 [facility] Comment on above: Performed By: #### P T #### [facility] [address] [place] [address] Dr. Priya Cespedes NEUT # 5.1 103/ul Normal 1.4-6.5 [facility] Comment on above: Performed By: #### P T #### [facility] [address] [place] [address] Dr. Priya Cespedes Neutrophils/100 WBC (Bld) 64.4 % Normal 43.0-75.0 [facility] Comment on above: Performed By: #### P T #### [facility] [address] [place] [address] Dr. Priya Cespedes Platelet mean volume (Bld) [Entitic vol] 8.7 fL Critically low 9.5-13.5 [facility] Comment on above: Performed By: #### P T #### [facility] [address] [place] [address] Dr. Priya Cespedes PLT 191 103/ul Normal 150-450 [facility] Comment on above: Performed By: #### P T #### [facility] [address] [address] [address] Priya Cespedes RBC 4.54 106/ul Critically low 4.70-6.10 [facility] Comment on above: Performed By: #### P T #### [facility] [address] [address] [address] Priya Cespedes WBC 7.9 103/ul Normal 4.0-11.0 [facility] Comment on above: Performed By: #### P T #### [facility] [address] [address] [address] Priya Cespedes LIPID PROFILEon 04-19-2022 CHOL-HDL RATIO NORM SEE BELOW Normal [facility] Comment on above: Result Comment: 3.3 - 4.4 LOW RISK 4.4 - 7.1 AVERAGE RISK 7.1 - 11.0 MODERATE RISK >11.0 HIGH RISK Performed By: #### L IPID, CMP #### [facility] [address] [address] [address] Priya Cespedes Cholesterol [Mass/Vol] 249 mg/dL Critically high <=200 [facility] Comment on above: Performed By: #### L IPID, CMP #### [facility] [address] [address] [address] Priya Cespedes Cholesterol in HDL [Mass/Vol] 40 mg/dL Normal 40-60 [facility] Comment on above: Performed By: #### L IPID, CMP #### [facility] [address] [address] [address] Priya Cespedes Cholesterol in LDL [Mass/Vol] 174.0 mg/dL Normal [facility] Comment on above: Performed By: #### L IPID, CMP #### [facility] [address] [address] [address] Priya Cespedes Cholesterol.total/ Cholesterol in HDL [Mass ratio] 6.2 {ratio} Normal [facility] Comment on above: Performed By: #### L IPID, CMP #### [facility] [address] [address] [address] Priya Cespedes HDL NORMAL > or = 60 mg/dl - LO W CARDIOVASCULAR RISK <40 mg/dl - HIGH CARDIOVASCULAR RISK Normal [facility] Comment on above: Performed By: #### L IPID, CMP #### [facility] [address] [place] [address] Dr. Priya Cespedes LDL CALC NORMAL SEE BELOW Normal [facility] Comment on above: Result Comment: <100 mg/dl OPTIMAL 100 - 129 mg/dl NEAR OR ABOVE OPTIMAL 130 - 159 mg/dl BORDERLINE HIGH 160 - 189 mg/dl HIGH >190 mg/dl VERY HIGH Performed By: #### L IPID, CMP #### [facility] [address] [address] [address] Priya Cespedes Triglyceride [Mass/Vol] 175 mg/dL Critically high <=150 [facility] Comment on above: Performed By: #### L IPID, CMP #### [facility] [address] [place] [address] Dr. Priya Cespedes VLDL CALC 35.0 mg/dL Normal [facility] Comment on above: Performed By: #### L IPID, CMP #### [facility] [address] [place] [address] Dr. Priya Cespedes PROF 14(COMP METB)on 023 Albumin [Mass/Vol] 3.9 g/dL Normal 3.4-5.0 [facility] Comment on above: Performed By: #### L IPID, CMP #### [facility] [address] [place] [address] Dr. Priya Cespedes Albumin/Globulin [Mass ratio] 1.3 {ratio} Normal [facility] Comment on above: Performed By: #### L IPID, CMP #### [facility] [address] [place] [address] Dr. Priya Cespedes ALP [Catalytic activity/Vol] 67 U/L Normal 46-116 [facility] Comment on above: Performed By: #### L IPID, CMP #### [facility] [address] [address] [address] Priya Cespedes ALT [Catalytic activity/Vol] 20 U/L Normal 16-63 [facility] Comment on above: Performed By: #### L IPID, CMP #### [facility] [address] [address] [address] Priya Cespedes Anion gap [Moles/Vol] 11.7 mmol/L Normal [facility] Comment on above: Performed By: #### L IPID, CMP #### [facility] [address] [address] [address] Priya Cespedes AST [Catalytic activity/Vol] 21 U/L Normal 15-37 [facility] Comment on above: Performed By: #### L IPID, CMP #### [facility] [address] [address] [address] Priya Cespedes Bilirubin [Mass/Vol] 0.5 mg/dL Normal 0.2-1.0 [facility] Comment on above: Performed By: #### L IPID, CMP #### [facility] [address] [place] [address] Dr. Priya Cespedes Calcium [Mass/Vol] 8.8 mg/dL Normal 8.5-10.1 [facility] Comment on above: Performed By: #### L IPID, CMP #### [facility] [address] [place] [address] Dr. Priya Cespedes Chloride [Moles/Vol] 107 mmol/L Normal 98-107 [facility] Comment on above: Performed By: #### L IPID, CMP #### [facility] [address] [place] [address] Dr. Priya Cespedes CO2 [Moles/Vol] 27.5 mmol/L Normal 21.0-32.0 [facility] Comment on above: Performed By: #### L IPID, CMP #### [facility] [address] [place] [address] Dr. Priya Cespedes Creatinine [Mass/Vol] 0.95 mg/dL Normal 0.70-1.30 [facility] Comment on above: Performed By: #### L IPID, CMP #### [facility] [address] [place] [address] Dr. Priya Cespedes EGFR-AF VENEZUELAN >60 Normal >=60 [facility] Comment on above: Performed By: #### L IPID, CMP #### [facility] [address] [address] [address] Priya Cespedes EGFR-NON AF VENEZUELAN >60 Normal >=60 [facility] Comment on above: Performed By: #### L IPID, CMP #### [facility] [address] [address] [address] Priya Cespedes Globulin (S) [Mass/Vol] 3.1 g/dL Normal [facility] Comment on above: Performed By: #### L IPID, CMP #### [facility] [address] [address] [address] Priya Cespedes Glucose [Mass/Vol] 107 mg/dL Critically high 74-106 [facility] Comment on above: Performed By: #### L IPID, CMP #### [facility] [address] [place] [address] Dr. Priya Cespedes Potassium [Moles/Vol] 4.2 mmol/L Normal 3.5-5.1 [facility] Comment on above: Performed By: #### L IPID, CMP #### [facility] [address] [place] [address] Dr. Priya Cespedes Protein [Mass/Vol] 7.0 g/dL Normal 6.4-8.2 [facility] Comment on above: Performed By: #### L IPID, CMP #### [facility] [address] [place] [address] Dr. Priya Cespedes Sodium [Moles/Vol] 142 mmol/L Normal 136-145 [facility] Comment on above: Performed By: #### L IPID, CMP #### [facility] [address] [place] [address] Dr. Priya Cespedes Urea nitrogen [Mass/Vol] 24.0 mg/dL Critically high 7.0-18.0 [facility] Comment on above: Performed By: #### L IPID, CMP #### [facility] [address] [place] [address] Dr. Priya Cespedes Urea nitrogen/Creatinin e [Mass ratio] 25.3 mg/mg Normal [facility] Comment on above: Performed By: #### L IPID, CMP #### [facility] [address] [address] [address] Priya Cespedes PROTIMEon 04-19-2022 INR Coag (PPP) [Relative time] 0.95 {INR} Normal [facility] Comment on above: Performed By: #### P T #### [facility] [address] [place] [address] Dr. Priya Cespedes INR GUIDELINES SEE BELOW Normal [facility] Comment on above: Result Comment: SOLIS RED INR: 2.0 - 3.0 CONDITIONS NOT LISTED BELOW 2.5 - 3.5 FOR PROSTHETIC HEART VALVE REPLACEMENT 2.5 - 3.5 RECURRENT THROMBOSIS Performed By: #### P T #### [facility] [address] [place] [address] Dr. Priya Cespedes PT Coag (PPP) [Time] 10.1 s Normal 9.0-11.6 [facility] Comment on above: Performed By: #### P T #### [facility] [address] [place] [address] Dr. Priya Cespedes VITAMIN D 25 OHon 04-19-2022 VIT D 25-OH 18.2 ng/mL Normal [facility] Comment on above: Performed By: #### V ITAD #### [facility] [address] [place] [address] Dr. Priya Cespedes VIT D RANGES SEE BELOW Normal [facility] Comment on above: Result Comment: <20 ng/mL Vit D deficient 20 - <30 ng/mL Vit D insufficient 30 - 100 ng/mL Vit D sufficient >100 ng/mL Potential Toxicity Performed By: #### V ITAD #### [facility] [address] [place] [address] Dr. Priya Cespedes PROTIMEon 02-22-2022 INR Coag (PPP) [Relative time] 1.00 {INR} Normal [facility] Comment on above: Performed By: #### P T #### [facility] [address] [place] [address] Dr. Priya Cespedes INR GUIDELINES SEE BELOW Normal [facility] Comment on above: Result Comment: SOLIS RED INR: 2.0 - 3.0 CONDITIONS NOT LISTED BELOW 2.5 - 3.5 FOR PROSTHETIC HEART VALVE REPLACEMENT 2.5 - 3.5 RECURRENT THROMBOSIS Performed By: #### P T #### [facility] [address] [place] [address] Dr. Priya Cespedes PT Coag (PPP) [Time] 10.8 s Normal 9.0-11.6 [facility] Comment on above: Performed By: #### P T #### [facility] [address] [place] [address] Dr. Priya Cespedes BNPon 01-30-2022 Natriuretic peptide B (Bld) [Mass/Vol] 31.0 pg/mL Normal <=450.0 [facility] Comment on above: Performed By: #### P T #### [facility] [address] [place] [address] Dr. Priya Cespedes CARDIAC OUSMANE ADMITon 022 CK [Catalytic activity/Vol] 61 U/L Normal 39-308 [facility] Comment on above: Performed By: #### P T #### [facility] [address] [place] [address] Dr. Priya Cespedes CK.MB [Mass/Vol] 0.53 ng/mL Normal <=3.60 [facility] Comment on above: Performed By: #### P T #### [facility] [address] [place] [address] Dr. Priya Cespedes HSTROP 5.4 pg/mL Normal 4.0-76.1 [facility] Comment on above: Result Comment: CUT- OFF POINTS HAVE BEEN ESTABLISHED BASED ON THE FOURTH UNIVERSAL DEFINITIONS OF MYOCARDIAL INFARCTION. THE UPPER REFERENCE LIMIT (URL) OF TROPONIN, DEFINED THE 99TH PERCENTILE OF cTnI DISTRIBUTION IN A REFERENCE POPULATION, HAS BEEN CONFIRMED THE DECISION THRESHOLD FOR [place] DIAGNOSIS. Performed By: #### P T #### [facility] [address] [place] [address] Dr. Priya Cespedes LAYLA 47 ng/mL Normal 16-96 [facility] Comment on above: Performed By: #### P T #### [facility] [address] [address] [address] Priya Cespedes CBC AUTO DIFFon 01-30-2022 BASO # 0.1 103/ul Normal 0.0-0.1 [facility] Comment on above: Performed By: #### C BC #### [facility] [address] [address] [address] Priya Cespedes Basophils/100 WBC (Bld) 0.5 % Normal 0.2-2.0 [facility] Comment on above: Performed By: #### C BC #### [facility] [address] [address] [address] Priya Cespedes EO # 0.1 103/ul Normal 0.0-0.7 [facility] Comment on above: Performed By: #### C BC #### [facility] [address] [place] [address] Dr. Priya Cespedes Eosinophils/100 WBC (Bld) 1.1 % Normal 0.9-7.0 [facility] Comment on above: Performed By: #### C BC #### [facility] [address] [place] [address] Dr. Priya Cespedes Erythrocyte distribution width (RBC) [Ratio] 13.1 % Normal 11.0-15.0 [facility] Comment on above: Performed By: #### C BC #### [facility] [address] [place] [address] Dr. Priya Cespedes Hematocrit (Bld) [Volume fraction] 43.5 % Normal 42.0-54.0 [facility] Comment on above: Performed By: #### C BC #### [facility] [address] [place] [address] Dr. Priya Cespedes Hemoglobin (Bld) [Mass/Vol] 15.3 g/dL Normal 14.0-18.0 [facility] Comment on above: Performed By: #### C BC #### [facility] [address] [place] [address] Dr. Priya Cespedes IG # 0.02 10e3/ul Normal 0.00-0.03 [facility] Comment on above: Performed By: #### C BC #### [facility] [address] [place] [address] Dr. Priya Cespedes IG % 0.2 % Normal 0.0-0.5 [facility] Comment on above: Performed By: #### C BC #### [facility] [address] [place] [address] Dr. Priya Cespedes LYMPH # 3.2 103/ul Normal 1.2-3.8 [facility] Comment on above: Performed By: #### C BC #### [facility] [address] [place] [address] Dr. Priya Cespedes Lymphocytes/100 WBC (Bld) 34.6 % Normal 20.5-60.0 [facility] Comment on above: Performed By: #### C BC #### [facility] [address] [place] [address] Dr. Priya Cespedes MANUAL DIFF REQ NO Normal [facility] Comment on above: Performed By: #### C BC #### [facility] [address] [place] [address] Dr. Priya Cespedes MCH (RBC) [Entitic mass] 30.7 pg Normal 25.9-34.0 [facility] Comment on above: Performed By: #### C BC #### [facility] [address] [place] [address] Dr. Priya Cespedes MCHC (RBC) [Mass/Vol] 35.2 g/dL Normal 29.9-35.2 [facility] Comment on above: Performed By: #### C BC #### [facility] [address] [place] [address] Dr. Priya Cespedes MCV (RBC) [Entitic vol] 87.3 fL Normal 80.0-94.0 [facility] Comment on above: Performed By: #### C BC #### [facility] [address] [place] [address] Dr. Priya Cespedes MONO # 0.6 103/ul Normal 0.3-0.8 [facility] Comment on above: Performed By: #### C BC #### [facility] [address] [place] [address] Dr. Priya Cespedes Monocytes/100 WBC (Bld) 6.3 % Normal 1.7-12.0 [facility] Comment on above: Performed By: #### C BC #### [facility] [address] [place] [address] Dr. Priya Cespedes NEUT # 5.2 103/ul Normal 1.4-6.5 [facility] Comment on above: Performed By: #### C BC #### [facility] [address] [place] [address] Dr. Priya Cespedes Neutrophils/100 WBC (Bld) 57.3 % Normal 43.0-75.0 [facility] Comment on above: Performed By: #### C BC #### [facility] [address] [place] [address] Dr. Priya Cespedes Platelet mean volume (Bld) [Entitic vol] 9.1 fL Critically low 9.5-13.5 [facility] Comment on above: Performed By: #### C BC #### [facility] [address] [place] [address] Dr. Priya Cespedes PLT 375 103/ul Normal 150-450 [facility] Comment on above: Performed By: #### C BC #### [facility] [address] [place] [address] Dr. Priya Cespedes RBC 4.98 106/ul Normal 4.70-6.10 [facility] Comment on above: Performed By: #### C BC #### [facility] [address] [place] [address] Dr. Priya Cespedes WBC 9.2 103/ul Normal 4.0-11.0 [facility] Comment on above: Performed By: #### C BC #### [facility] [address] [place] [address] Dr. Priya Cespedes Covid-19 PCR ([facility])on 01-13 SARS-CoV-2 (COVID-19) RNA CHATO+probe Ql (Unsp spec) Not detected Normal NOT DETECTED [facility] Comment on above: Result Comment: When [...] for this test is supported by the [place] of Health and Human Service's declaration that [...] longer be used). Performed By: #### [facility] #### [facility] [address] [place] [address] Dr. Priya Cespedes INFLUENZA A AND B [facility] 01-30 [facility] SEE BELOW Normal [facility] Comment on above: Result Comment: Nega tive for Flu A protein angiten. Infection due to Flu A cannot be ruled out. Flu A angiten in the sample may be below the detection limit of the test. Performed By: #### P T #### [facility] [address] [place] [address] Dr. Priya Cesped[facility] BEL[facility] Normal [facility] Comment on above: Result Comment: Nega tive for Flu B protein antigen. Infection due to Flu B cannot be ruled out. Flu B antigen in the sample may be below the detection limit of the test. Performed By: #### P T #### [facility] [address] [place] [address] Dr. Priya Cespedes INFLUENZA A AG Negative Normal NEGATIVE SEE COMMENT [facility] Comment on above: Performed By: #### P T #### [facility] [address] [place] [address] Dr. Priya Cespedes INFLUENZA B AG Negative Normal NEGATIVE SEE COMMENT [facility] Comment on above: Performed By: #### P T #### [facility] [address] [place] [address] Dr. Priya Cespedes INTERNAL CONTROLS Within Normal Limits Normal Wi thin Normal Limits [facility] Comment on above: Performed By: #### P T #### [facility] [address] [place] [address] Dr. Priya Cespedes LIPASEon 01-30-2022 Lipase [Catalytic activity/Vol] 169.0 U/L Normal 73.0-393.0 [facility] Comment on above: Performed By: #### P T #### [facility] [address] [place] [address] Dr. Priya Cespedes PROF CHEM 8 (BAS METB)on Anion gap [Moles/Vol] 10.6 mmol/L Normal [facility] Comment on above: Performed By: #### P T #### [facility] [address] [place] [address] Dr. Priya Cespedes Calcium [Mass/Vol] 9.1 mg/dL Normal 8.5-10.1 [facility] Comment on above: Performed By: #### P T #### [facility] [address] [place] [address] Dr. Priya Cespedes Chloride [Moles/Vol] 101 mmol/L Normal 98-107 [facility] Comment on above: Performed By: #### P T #### [facility] [address] [place] [address] Dr. Priya Cespedes CO2 [Moles/Vol] 27.0 mmol/L Normal 21.0-32.0 [facility] Comment on above: Performed By: #### P T #### [facility] [address] [place] [address] Dr. Priya Cespedes Creatinine [Mass/Vol] 1.13 mg/dL Normal 0.70-1.30 [facility] Comment on above: Performed By: #### P T #### [facility] [address] [place] [address] Dr. Priya Cespedes EGFR-AF VENEZUELAN >60 Normal >=60 [facility] Comment on above: Performed By: #### P T #### [facility] [address] [place] [address] Dr. Priya Cespedes EGFR-NON AF VENEZUELAN >60 Normal >=60 [facility] Comment on above: Performed By: #### P T #### [facility] [address] [address] [address] Priya Cespedes Glucose [Mass/Vol] 138 mg/dL Critically high 74-106 [facility] Comment on above: Performed By: #### P T #### [facility] [address] [address] [address] Priya Cespedes Potassium [Moles/Vol] 3.6 mmol/L Normal 3.5-5.1 [facility] Comment on above: Performed By: #### P T #### [facility] [address] [address] [address] Priya Cespedes Sodium [Moles/Vol] 135 mmol/L Critically low 136-145 [facility] Comment on above: Performed By: #### P T #### [facility] [address] [address] [address] Priya Cespedes Urea nitrogen [Mass/Vol] 22.0 mg/dL Critically high 7.0-18.0 [facility] Comment on above: Performed By: #### P T #### [facility] [address] [place] [address] Dr. Priya Cespedes Urea nitrogen/Creatinin e [Mass ratio] 19.5 mg/mg Normal [facility] Comment on above: Performed By: #### P T #### [facility] [address] [place] [address] Dr. Priya Cespedes PROTIMEon 01-30-2022 INR Coag (PPP) [Relative time] 1.06 {INR} Normal [facility] Comment on above: Performed By: #### P T #### [facility] [address] [place] [address] Dr. Priya Cespedes INR GUIDELINES SEE BELOW Normal [facility] Comment on above: Result Comment: SOLIS RED INR: 2.0 - 3.0 CONDITIONS NOT LISTED BELOW 2.5 - 3.5 FOR PROSTHETIC HEART VALVE REPLACEMENT 2.5 - 3.5 RECURRENT THROMBOSIS Performed By: #### P T #### [facility] [address] [address] [address] Priya Cespedes PT Coag (PPP) [Time] 11.4 s Normal 9.0-11.6 [facility] Comment on above: Performed By: #### P T #### [facility] [address] [address] [address] Priya Cespedes PTTon 01-30-2022 aPTT Coag (Bld) [Time] 29.8 s Normal 22.3-36.2 [facility] Comment on above: Performed By: #### P T #### [facility] [address] [address] [address] Priya Cespedes RSVon 01-30-2022 RSV AG Negative Normal NEGATIVE [facility] Comment on above: Performed By: #### P T #### [facility] [address] [place] [address] Dr. Priya Cespedes XR CHEST 1 Von [...] GISELL OJEDA Date: 2022-01-30 15:10 Normal [facility] Covid-19 PCR ([facility])on SARS-CoV-2 (COVID-19) RNA CHATO+probe Ql (Unsp spec) Not detected Normal NOT DETECTED [facility] Comment on above: Result Comment: When [...] for this test is supported by the [place] [employer] and Human Service's declaration that [...] used). Performed By: #### C VDTBH #### [facility] [address] [place] [address] Dr. Priya Cespedes GROUP A STREP CULTUREon - S. pyogenes Ag Ql (Unsp spec) Culture Observations: NEGATIVE FOR GROUP A STREPTOCOCCUS. Normal [facility] Comment on above: Performed By: #### C VDTBH #### [facility] [address] [place] [address] Dr. Priya Cespedes INFLUENZA A AND B AGon 01-21 INFLUBNEGH SEE BELOW Normal [facility] Comment on above: Result Comment: Nega tive for Flu B protein antigen. Infection due to Flu B cannot be ruled out. Flu B antigen in the sample may be below the detection limit of the test. Performed By: #### I NFLUAB #### [facility] [address] [place] [address] Dr. Priya Cespedes INFLUENZA A AG Positive Abnormal NEGATIVE SEE COMMENT [facility] Comment on above: Performed By: #### I NFLUAB #### [facility] [address] [place] [address] Dr. Priya Cespedes INFLUENZA B AG Negative Normal NEGATIVE SEE COMMENT [facility] Comment on above: Performed By: #### I NFLUAB #### [facility] [address] [place] [address] Dr. Priya Cespedes INFLUPOSH SEE BELOW Normal [facility] Comment on above: Result Comment: NOTE : Live attenuated influenzae vaccine viruses can cause a positive result for a rapid influenza diagnostic test if administered up to 7 days prior to rapid testing. Performed By: #### I NFLUAB #### [facility] [address] [place] [address] Dr. Priya Cespedes INTERNAL CONTROLS Within Normal Limits Normal Wi thin Normal Limits [facility] Comment on above: Performed By: #### I NFLUAB #### [facility] [address] [address] [address] Priya Cespedes STREPT SCREENon 01-21-2022 STREP SCREEN A Negative Normal NEGATIVE [facility] Comment on above: Performed By: #### C VDTBH #### [facility] [address] [place] [address] Dr. Priya Cespedes PROTIMEon 01-04-2022 INR Coag (PPP) [Relative time] 0.96 {INR} Normal [facility] Comment on above: Performed By: #### P T #### [facility] [address] [place] [address] Dr. Priya Cespedes INR GUIDELINES SEE BELOW Normal [facility] Comment on above: Result Comment: SOLIS RED INR: 2.0 - 3.0 CONDITIONS NOT LISTED BELOW 2.5 - 3.5 FOR PROSTHETIC HEART VALVE REPLACEMENT 2.5 - 3.5 RECURRENT THROMBOSIS Performed By: #### P T #### [facility] [address] [place] [address] Dr. Priya Cespedes PT Coag (PPP) [Time] 10.4 s Normal 9.0-11.6 [facility] Comment on above: Performed By: #### P T #### [facility] [address] [place] [address] Dr. Priya Cespedes PROTIMEon 08-24-2021 INR Coag (PPP) [Relative time] 0.93 {INR} Normal [facility] Comment on above: Performed By: #### P T #### [facility] [address] [place] [address] Dr. Priya Cespedes INR GUIDELINES SEE BELOW Normal [facility] Comment on above: Result Comment: SOLIS RED INR: 2.0 - 3.0 CONDITIONS NOT LISTED BELOW 2.5 - 3.5 FOR PROSTHETIC HEART VALVE REPLACEMENT 2.5 - 3.5 RECURRENT THROMBOSIS Performed By: #### P T #### [facility] [address] [place] [address] Dr. Priya Cespedes PT Coag (PPP) [Time] 10.1 s Normal 9.0-11.6 [facility] Comment on above: Performed By: #### P T #### [facility] [address] [address] [address] Priya Cespedes Quick Fluon 08-06-2021 FLUAV Ab CF (S) [Titer] Negative [facility] Other FLUBV Ab CF (S) [Titer] Negative [facility] Other PROTIMEon 08-03-2021 INR Coag (PPP) [Relative time] 0.95 {INR} Normal [facility] Comment on above: Performed By: #### P T #### [facility] [address] [place] [address] Dr. Priya Cespedes INR GUIDELINES SEE BELOW Normal [facility] Comment on above: Result Comment: SOLIS RED INR: 2.0 - 3.0 CONDITIONS NOT LISTED BELOW 2.5 - 3.5 FOR PROSTHETIC HEART VALVE REPLACEMENT 2.5 - 3.5 RECURRENT THROMBOSIS Performed By: #### P T #### [facility] [address] [address] [address] Priya Cespedes PT Coag (PPP) [Time] 10.3 s Normal 9.0-11.6 [facility] Comment on above: Performed By: #### P T #### [facility] [address] [place] [address] Dr. Priya Cespedes Provider Orderson 07-26-2021 Provider Orders [id number] [facility] Coding Summaryon 07-16-2021 Coding Summary HTMLBase 64 TesamvyzSYb6sBi+PGhlYWQ+PE 6GHOUfD62awYFleG8EI6iRKZ3C KINWXGUXZW7PVX5bwAS3YWunZ0 VybiAv FtyljJUeSK08DRy8DUX0sVvsND kylI2ntGUjR7k9CgIpIG32gP94 UKovTJSwVzK8ToCnmfeyfBFl P8opLnCeeVKaDqj+PHRhYmxlIH ekGAFrEVvkKUKkGzRjiDmfNW7g Ij2fHKXpRLPzxXiolNEdUiEp w7xbPHJvWDblOM2rvSbzL3UxdT N5TARyz6l5Jd00hWJ+PHRkIHN0 bEfvYKsmt687BsQvi8ocZZO3 lHRuZLcgSIW2Z77fe6O8DLCzOR OjRJF7wUF5kC4ytRpvatrjS5Tf nTNiAxI8RHM8xOCqxA1yvZjp zlredE0zKzj+G73CFI0IUXSAAF 8CSpw0M2ZxMsijcQZ+AN22CDSq EO80cZAuqEJsj3wllNt0VfIg YKUzELV1vMblRZpnk4FgPENwC5 4mqOGzd8R1EWAteZgffAOqEbOr tLM7dC0zGZiytmfqw2hzcdap Ecjwo0kqiu65wQ85W38nSFkvTU GbUQX4UWWnSMObxAfucz7wzA9p Ii8+GVddr1yfi5rkhGu3OpCd MHGewyZtvNiaAKD4j2VaRt57O1 XgqCifc3GiHqn6cv42sDIep5H4 eCR7RPwwPOTrdM9jUXeuXnL4 UMAuKsUapO15uJAsIDyePz7joL qrkTvlEM7nRQTdyplpQCGpxA7b BGQdbJHisRprHW3gMJYmacpw j250XaNeUVT9EOTygNVoB7WpfW 6kCjBsQBTgTBEiD6GpyVHyJZyf E999TBsjFjN1TXXvibYxU4Pd UFLlfFwiXxU7r5Q6Kl7Tg0Dczk wfUWK3RUyqJIN8UmRmCmLqZtO7 O4XbVkg0RWCorDryUX7oJ9Bp AKEmabdvbduhqPO0ADTbLQQztF 54gPYxPPjqCm9sq6J5x537YJHi KHBfdW33Lm3plZxaNAMsqUYX kW0gkolea4tamzznKaNrHWPpDF o8FCv8KWNhhDtxZoNwYTW4VkH4 IVD1xUPzkN7acDyfjcepoK6y Oyc+L13iwR9rYXJ4XUR1hucxNL UdjjHzJQ48RG38J8SkJkpjwLDw bGU+BZJhkwSjeMigTD0mOoGa i3sfs9LmYNpiQ0LmDFPsOLkfKz f2FABrPKS7bSA5rV9dWOBcOBqe d7Q2pKO5I1JnkjXzcq7ga6hs FJHsJEugJ99ttRGzg8F4GAWfgT D1BBBykYriXgVfgQ67Euo+PGNv yTcmb1BcQzvcv6fni3ixvMn7 TcTqHTEuveXmkKmyXHD7s0PgMt 59U19eNNgkXAGsUGEdOKFxBVYn fVugjm9vcL2wUx3+PGNvbCB3 eIK5gL4rSMGnSuT8FKqeZ622Nj BjhINbSzgfh3iia6axoCy6BkMx BJFvwnClfWnkCBR5e0LtHr22 X12qTLfhMEVnAAAuSBRmTPVdtE imhi0gsG9xAf7+SM9ju0yllp17 aI02bHB+RSYkQJL1iTvwYLoo KICamL3lLTtgGqO7QIIsJoShaN 01aURxUSjdGx6bnRvqfRqqZS1v CRVugwnfm010HpBud6bbGAMs nYGrTXjaCLD0V06qg1T1DPAwZS QlNSA3aJS3uC7emBtnbehzhLCi yXqtumSawKzrDPhtEFtuK585 IHRvcDsnPlBhdGllbnQgTmFtZT t3V8SdOzd7RYMetYemTL3vhYUu DBdbHq0igRpfkMxpXO1oAIZh rzvbj814LzJss0mnEGWglQSlNX wwOPH3O41oo6P4MEEhOZEmKKV7 oUO9iJ1peFrgpvyzjJRnmKdk plMrrLsvYTgnJAmvU477EYDkmK zeDyOszcLiYLQvkBO3WM52GX94 iDHiz6B1zYB9P3UdTSBtxahy qhgorEH7QBYfMPZboK02Lw5tzM ybZx6jAXAjVRP3XWZuoHQrC0Ue tZ5bGiOuAFAlIIGyD5DydAFg VTkeC035GYnjIjM7HHHcwjZhR4 VvFIWrpNbuOpC4i2S7Qs0IZ7S6 VV77VT87rBTav0F2eMC3D7Vu MGEyffivyjzfrSC7UFQgRHQiwJ 52Kj2scOxpEg4lFPLsLMJ2OMEf yAYzA9NznU6oBaXmSLWnHYZo V1JzuSXaTErzD799XCyeOzS6DF PyygUnU1KkOMDrzZsfIuD1o1B0 Qw8BNDy7BJ45RD46fYWyq3E7 vWN0E3GcITZbcoiwbvombER9QW DsWTSvwN71Xv2idZdrWi9sOKRu SLY3AIExfWFlM2OfwM5wCzAw GIUuFKRqT5KlySQlHVdtH385PM vtYyA2LVOzhrBqM9XtJFXbeFxo UuT2d2R2Nv7QLJSpYN48OBD7 xHP0HO15GD42B3HjGxtcdZPzxS U+PHRhYmxlIHdpZHRoPScxMDAl OoZcxWmsTT5fXx7oHCQnIVUm tRgifPHzZrSfu5sdWQFlTCpyNL 8cxWogD7FqoXZ9MGUnz2j6Ml30 X21dI1YylLV+HWDklSY8fCJ5 nW8bOaOmAmR0RAmdX043AsEqhZ CcPxidm2squ6hcdFi8YjV4SLLa vyYrwEbnYCS7t2UbOt66A42h IHdpZHRoPSIxNSUiIHZhbGlnbj 8kvP4hPw2+UQBnmDH4vAH8sA9r BpIfClC6QMsiH598BvHvkYKh Mmqou5zuk1uziSp9QwTnNVNrqd UxjRmsAYY5l3KxPs55B5VwxYvc o3GtIqu5ia31vRGcr1O6eZO4 Y6XmLMIouptxwHBisCozES2zJM DqsddfSVKpsL9pKWYjI4p4GkXy FlE9DSgtX7IclaN4BSQdyFOp ERwoZRV4J38ua9X4LOSaVISpJK R1zPT1yY2xvJepqrhbxEKdhAkq ddVmtWvvFXtcHConA243GAXv yJqvCRXogR0vNDJpdEAnxPgeNY 8pXOVasmyqTxjTFuDpXZRJX87R AaOMDQ83SB11yWYfr7F1gON8 L8IyJTDngckhxfgylPO0MJWlAN XsyT03bMAaFXdqQo8dg6X8u195 NWEmAJJgfB21Fu3zaAmuOOEa bZNVpR9luarzs3qfaueiKdKjDV RiFAi4SEr2OXIkhUdlJeWfFRE7 JgG4SRF0nNAsdE2fxHnbxeyf jU2nGjh+MHNaFVSdXXu8ETcjmY Q+ABOxTOJ2dSywVBmnCZUgdF5n IEFfG8o4MbVpQyD5MGoxM6Fu BRPnizdqBb35lE8zKzMcTnU3NL lhW5RiguK8UXQolRNgBLtaQNG1 R14af8P5AXUrWXQmGZI5eKW7 hM0syRybxvoesYLtbDzijwEyxY clKGrkHHxbL117VBHuxXniDvPk KAtaEUAvRF85SY38fNTpw1H1 tZC6O2LvJIQxqoprvvpqbPR1DL FrIOEozX33tSAjPMefAi3jb0R8 a819BGMfWNKrcO98Lt2onFti NMUgwRNLsP8uckytq9pojaamSa ZzMQYiKRq9IJs0HLMeeGfhRtZw SCZ7EeA5UBA9zZDcdZ1cqWft eptcdD6wRgc+TUFMRTwvdGQ+PH TxBOM0bFgfZDveDABijQ8nZBDu O5f1NiJaWiB3MXbjR1KfAFAg dyyjDb82hZ0eFpYmZcQ4BIzfI9 RofrT7AOMmsYQkZRuqNOM3S50j v3Z7ISWnABAuZVN0mVJ0rH5n bGlnbjogbGVmdDsgdmVydGljYW siZEyuP997IGDfvHgyVt0GSB63 FM81B0FqNymugZPozMD+PHRh YmxlIHdpZHRoPScxMDAlJyBzdH qiYG8bDq6kGNDjDZJcpQsxzYLm ScMem3mjGEZkIXaxRU4sfBvt G5FskTF6NULka5w9Za48O89nH7 JvdXA+QZQirME0wLL4kZ2eEqRg LjY4XPpsG523HxKfxRYxOpwh t0hot0nwmKp3ViFbYXDelrOtcD nuLHV1i6QmJp64L57hHWfjYFQs RILkPDKiREWakDiaij3meS4a Ii8+YCUhyIQ1hVM8wQ9uLhLfKn J0MLjoM368WoAtmLToMvuqC26e K8NvoHK+PJQmGno6YTUpkCib LI7epAWvDRybPx4wBOX7ZqPxOx NbAVqeV5XnNQXwxqqgpvhnrDJ4 ZULzLUHysT49Tz6coHwyVx9d NIZkGVH3BUYrnGFwY0TcsT3sPb JbAWFmFFErN3YbtRFsBFrdD948 MVbmXvX6ZCGkdvDiJ7VpIGBb oXktQrI6c2F4Ck8PeIcxxELjBE 3lMsUmPUt4W1JmNtj5UPJwoLbo IM4jiBFtXOzuPp0qzBomsThy HK2wACCcfrvfo826XoDph2iwOV KybWOxJXkcCWL8G66tj0P1TMLt DXEdTPT8pYN9cQ6dxChozktg bGVmdDsgdmVydGljYWwtYWxpZ2 08GNRduZgtDwQXNxa3P1OwHdp7 GGUaqJbmXT3iwMQaBPxnDy2n zMdfxOufRK8vNTIxprtrr981Np Hgk0beXIReyXZdMInyHZD4H26c q0Q7LKGmXUXwYPB5wHQ8gX0r bGlnbjogbGVmdDsgdmVydGljYW goDJhmP871MZCfjEtyHn0CFgc7 V3JlQcy2BWInzRpzXZ1ooPUk UCnjAv7fcKssfAazPD5qSERaeb tks123EvUrw0rxRZZwxNEaAQpw MLF8Z22qe8Q0CLKnJCWeVFW3 kGX0oP2aiAnlfyaqrSJerFwwyn JvmSwgNOmrBYiyU776CQElwKnv PlBheWVyOjwvdGQ+VN14ye79 H7OrBhybQfi7RRQwXNT9cCJ3pW 2nVMDfEJwvo2V5eXX7A2CwiwJm [id number] c2U (more content not included)... Normal [facility] 06-11-2021 S. pyogenes Org specific cx Ql (Throat) Negative [facility] Other Vital Signs Date Time Vital Sign Value Performing Clinician Facility 03-17-2023 11:00-0500 Body height 171.45 cm Joanna Bower Other [facility] 03-17-2023 11:00-0500 Body mass index (BMI) [Ratio] 30.46 kg/m2 Joanna Bower Other [facility] 03-17-2023 11:00-0500 Body weight 89.54 kg Joanna Bower Other [facility] 03-17-2023 11:00-0500 Diastolic blood pressure 64 mm[Hg] Joanna Bower Other [facility] 03-17-2023 11:00-0500 SaO2% (BldA) [Mass fraction] 97 % Joanna Bower Other [facility] 03-17-2023 11:00-0500 Systolic blood pressure 118 mm[Hg] Joanna Bower Other [facility] 11-11-2022 11:28-0400 Diastolic blood pressure 80 mm[Hg] ANEL Bower Work Phone: [facility] 11-11-2022 11:28-0400 Heart rate 49 /min ANEL Bower Work Phone: [facility] 11-11-2022 11:28-0400 Respiratory rate 18 /min ANEL Bower Work Phone: [facility] 11-11-2022 11:28-0400 SaO2% (BldA) [Mass fraction] 99 % MATHEMATICAL STATISTICIAN Joanna Lucasguillermo Work Phone: [facility] 11-11-2022 11:28-0400 Systolic blood pressure 121 mm[Hg] MATHEMATICAL STATISTICIAN Joanna Andrewrbacher Work Phone: [facility] 11-11-2022 10:08-0400 Body height 170.18 cm MATHEMATICAL STATISTICIAN Joanna Meridaacher Work Phone: [facility] 11-11-2022 10:08-0400 Body temperature 98.6 [degF] MATHEMATICAL STATISTICIAN Joanna Meridaacher Work Phone: [facility] 11-11-2022 10:08-0400 Body weight 86.18 kg MATHEMATICAL STATISTICIAN Joanna Meridaacher Work Phone: [facility] 09-09-2022 10:30-0400 Body height 171.45 cm Joanna Bower Other [facility] 09-09-2022 10:30-0400 Body mass index (BMI) [Ratio] 28.39 kg/m2 Joanna Bower Other [facility] 09-09-2022 10:30-0400 Body weight 83.46 kg Joanna Bower Other [facility] 09-09-2022 10:30-0400 Diastolic blood pressure 82 mm[Hg] Joanna Lucasr Other [facility] 09-09-2022 10:30-0400 Systolic blood pressure 120 mm[Hg] Joanna Meridaacher Other [facility] 06-11-2021 10:15-0400 Body height 171.45 cm Bharti Perez Other [facility] Other 06-11-2021 10:15-0400 Body mass index (BMI) [Ratio] 27.77 kg/m2 Bharti Perez Other [facility] 06-11-2021 10:15-0400 Body temperature 98 [degF] Bharti Perez Other [facility] 06-11-2021 10:15-0400 Body weight 81.65 kg Bharti Perez Other [facility] 06-11-2021 10:15-0400 Respiratory rate 18 /min Bharti Perez Other [facility] 06-11-2021 10:15-0400 SaO2% (BldA) [Mass fraction] 96 % Bharti Perez Other [facility] Other Encounters Encounter Date Encounter Type Care Provider Facility Start: 07-24-2023 End: 07-24-2023 ambulatory JOANNA BOWER Facility:[facility] Start: 07-24-2023 End: 07-24-2023 Patient encounter procedure Michele Reddy [facility] Start: 2023 End: 06-14-2023 ambulatory [facility] Start: 05-18-2023 Telephone encounter Ashlyn Hayden MA [facility] Start: 04-14-2023 End: 04-14-2023 ambulatory [facility] Start: 04-14-2023 End: 04-14-2023 Follow-up encounter Cortez Beltran MD Work Phone: [facility] Medication Therapy Management 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); S/P AVR (aortic valve replacement) Start: 03-10-2023 End: 03-16-2023 ambulatory [facility] Start: 02-23-2023 Telephone encounter Ashlyn Hayden MA [facility] Medication Therapy Management Start: 02-17-2023 End: 02-17-2023 Emergency department patient visit JOANNA BOWER [facility] Start: 02-17-2023 End: 02-17-2023 [facility] Start: 02-17-2023 End: 02-17-2023 Follow-up encounter Cortez Beltran MD Work Phone: [facility] Medication Therapy Management 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); S/P AVR (aortic valve replacement) Start: 01-13-2023 End: 02-13-2023 ambulatory [facility] Start: 12-22-2022 End: 12-22-2022 ambulatory Lorenzo Morgan Other [facility] Other Start: 12-22-2022 Telephone encounter Lorenzo [facility] Start: 11-25-2022 End: 11-25-2022 ambulatory Joanna Bower Other [facility] Other Start: 11-25-2022 Telephone encounter Joanna tim [facility] Start: 11-17-2022 End: 11-17-2022 ambulatory Bryant Sharma Other [facility] Other Start: 11-17-2022 Telephone encounter Bryant Hendrixnaeem [facility] Start: 11-11-2022 End: 11-11-2022 ambulatory Joanna Bower Facility:[facility] Start: 11-11-2022 End: 11-11-2022 Admission to same day surgery center MATHEMATICAL STATISTICIANBenjamín Bower Work Phone: [facility] Work Phone: Start: 11-11-2022 End: 11-11-2022 ambulatory ANEL Bower Work Phone: [facility] Work Phone: Start: 09-29-2022 End: 09-29-2022 ambulatory Imad Asaad Other [facility] Other Start: 09-29-2022 Telephone encounter Imad Asaad [facility] Start: 09-09-2022 End: 09-09-2022 ambulatory Joanna Bower Other [facility] Other Start: 09-09-2022 Encounter for genera l adult medical examination without abnormal findings Joanna Bower [facility] Start: 09-09-2022 Periodic preventive med est patient 40-64yrs Joanna Bower [facility] Start: 07-12-2022 End: 07-12-2022 ambulatory NARENDRANATH LAKSHMIPATHY . Facility: Start: 06-14-2022 End: 06-15-2022 ambulatory NARENDRANATH LAKSHMIPATHY . Facility:[facility] Start: 2022 End: 05-20-2022 ambulatory NARTAMIA ROCHAYVONNEOFEPATHY . Facility:[facility] Start: 04-19-2022 End: 04-20-2022 ambulatory JOANNA Oconnell SATHISH Facility:[facility] Start: 03-10-2022 End: 03-11-2022 ambulatory JOANNA Oconnell SATHISH Facility:[facility] Start: 02-22-2022 End: 02-22-2022 ambulatory JOANNA Oconnell SATHISH Facility:[facility] Start: 01-31-2022 End: 01-31-2022 ambulatory Joanna Sathish Other [facility] Other Start: 01-31-2022 Telephone encounter Joanna tim [facility] Start: 01-30-2022 End: 01-30-2022 ambulatory JOANNA BOWER [...] 06-11-2021 End: 06-11-2021 ambulatory Bharti Perez Other [facility] Other Start: 06-11-2021 Office outpatient visit 15 minutes Bharti Perez [facility] Start: 08-31-2018 Patient encounter status Pmh 1 [facility] Work Phone: Procedures Date Procedure Procedure Detail Performing Clinician Start: 04-14-2023 Prothrombin time [employer] Service Work Phone: Start: 03-17-2023 Prothrombin time [employer] Work Phone: Start: 02-17-2023 Prothrombin time [employer] Work Phone: Start: 11-11-2022 Colonoscopy ANEL Joanna Sathish Work Phone: Start: 09-23-2019 H/O: surgery S/P nasal septoplasty Pmh 1 Start: 09-23-2019 History of tonsillectomy S/P tonsillectomy Pmh 1 Arthropathy of left shoulder (disorder) Bautista Sarmini Colonoscopy Bautista Sarmin i Esophagogastroduodenoscopy M uhammad Sarmini History of aortic va lve replacement Bautista Sarmini Tonsillectomy and adenoidectomy Bautista Sarmini Plan of Treatment Date Care Activity Detail Author Start: 03-17-2024 Adult BMI Screening Adult BMI Screening [facility] [employer] [facility] Start: 02-18-2024 Adult BMI Screening Adult BMI Screening [facility] [employer] [facility] Start: 12-03-2023 Tobacco Screening Tobacco Screening [facility] [employer] [facility] Start: 10-15-2023 Influenza vaccination Influenza Vaccine [facility] Start: 2023 End: 2023 Follow-up encounter 2023 8:45 AM EDT Follow Up Anticoagulation [facility] Medication Therapy Management [address] [place] [address] Cortez Beltran MD [facility] [place] [address] [facility]ication Therapy Management Start: 04-14-2023 End: 04-14-2023 Follow-up encounter 04/14/2023 8:45 AM EST Follow Up Anticoagulation [facility] Medication Therapy Management [address] [facility] [place] [address] Cortez Beltran MD [address], [address] [place] [address] [facility] Medication Therapy Management Start: 03-17-2023 End: 03-17-2023 Patient encounter procedure 03/17/2023 9:00 AM EST Appointment [facility] - [facility] [address] [place] [address] Josie Fitzgerald MD [address] [place] [address] [facility] Start: 03-10-2023 End: 03-10-2023 Follow-up encounter 03/10/2023 8:45 AM EST Follow Up Anticoagulation [facility] Medication Therapy Management [address] [place] [address] Cortez Beltran MD [address] [place] [address] [facility] Medication Therapy Management Start: 11-11-2022 [facility] Start: 10-14-2022 Influenza vaccination Influenza Vaccine [facility] [employer] Start: 05-18-1998 DTaP,Tdap and Td Vaccines (1 - Tdap) DTaP,Tdap and Td Vaccines (1 - Tdap) [facility] Start: 05-18-1997 Adult BMI Follow Up Plan Adult BMI Follow Up Plan [facility] Start: 1991 Depression Screening Depression Screening [facility] [employer] Start: 1979 Tobacco Counseling Tobacco Counseling [facility] Patient Education Hemorrhoids (DC) [facility] Work Phone: Payers Date Payer Category Payer Self-pay [id number] 2022 Medicaid [id number] 2022 Medicaid ANTH MEDICAID [facility] MEDICAID [id number] 2022-Present [address] [place] [address] [id number] 1979 Unknown [id number] 2.16.840.1.443830.3.579.2.593 1979 Unknown [id number] 2.16.840.1.390573.3.579.2.593 1979 Unknown [id number] 2.16.840.1.899159.3.579.2.593 1979 Unknown [id number] 2.16.840.1.805359.3.579.2.593 1979 Unknown [id number] 2.16.840.1.580241.3.579.2.593 1979 Unknown [id number] 2.16.840.1.856148.3.579.2.593 1979 Unknown [id number] 2.16.840.1.959341.3.579.2.593 1979 Unknown [id number] 2.16.840.1.571532.3.579.2.593 1979 Unknown [id number] 2.16.840.1.948491.3.579.2.593 1979 Unknown [id number] 2.16.840.1.714226.3.579.2.593 1979 Unknown [id number] 2.16.840.1.209570.3.579.2.593 1979 Unknown [id number] 2.16.840.1.546211.3.579.2.593 1979 Unknown [id number] 2.16.840.1.736997.3.579.2.593 1979 Unknown [id number] 2.16.840.1.899379.3.579.2.593 1979 Unknown [id number] 2.16.840.1.749597.3.579.2.593 1979 Unknown [id number] 2.16.840.1.391948.3.579.2.593 1979 Unknown [id number] 2.16.840.1.081919.3.579.2.593 1979 Unknown [id number] 2.16.840.1.574290.3.579.2.1286 1979 Unknown [id number] 2.16.840.1.299705.3.579.2.1286 1979 Unknown [id number] 2.16.840.1.098884.3.579.2.1286 1979 Unknown [id number] 2.16.840.1.024214.3.579.2.1286 1979 Unknown [id number] 2.16.840.1.421358.3.579.2.1286 1979 Unknown [id number] 2.16.840.1.884145.3.579.2.1286 1979 Unknown [id number] 2.16.840.1.267360.3.579.2.727 1979 Unknown [id number] 2.16.840.1.340529.3.579.2.727 1959 Unknown [id number] 2.16.840.1.574936.19 1959 Unknown [id number] Unknown [id number] 2.16.840.1.466825.3.579.2.531 Social History Date Type Detail Facility Unknown if ever smoked [facility] Other Start: 03-03-2020 End: 12-02-2022 Sex Assigned At [facility] [employer] [facility] Start: 11-11-2022 Tobacco smoking stat [facility] Ex-smoker (finding) [facility] Start: 1980 Sex Assigned At Male F [facility] Start: 05-27-2022 Tobacco smoking stat [facility] Smokes tobacco daily [facility] History of tobacco use [facility] Start: 03-03-2020 End: 05-27-2022 Cigarettes smoked current (pack per day) - Reported 1 [facility] Start: 05-27-2022 Tobacco use and exposure Smokeless tobacco non-user [facility] Start: 12-02-2022 Alcohol intake Current drinke r of alcohol (finding) [facility] Adolescent depressio n screening assessment 0 [facility] Start: 09-02-2019 Alcohol Comment rare [facility] Start: 1980 Sex Assigned At Not on file P [facility] Start: 04-06-2018 Tobacco smoking status Heavy t obacco smoker (finding) [facility] Medical Equipment Procedure Code Equipment Code Equipment Origin al Text Equipment Identifier Dates Tiss Aldrm Gft 2 x4cm 6-12 Ea=1 Sheet=8 Cm2 - [id number] - [id number] Start: 09-16-2019 Goals Date Patient Goal Desired Activity /State Clinical Notes 03-31-2014 to 05-18-2023 Telephone Encounter - Ashlyn Hayden MA - 05/18/2023 11:19 AM EDTTelephone Encounter - Ashlyn Hayden MA - 05/18/2023 11:19 AM Alma Barertt [facility] - 04/14/2023 8:45 AM EST Note Date & Type Note Facility 05-18-2023 Miscellaneous Notes Patient appeared on the JENNIFER for tomorrow. Tower Hoist Operator called and spoke with him. He states he doesn't have insurance and once he gets it, he will call back to schedule an appointment. documented in this encounter [facility] 05-18-2023 Telephone encounter Note Patient appeared on the JENNIFER for tomorrow. Tower Hoist Operator called and spoke with him. He states he doesn't have insurance and once he gets it, he will call back to schedule an appointment. [facility] 04-14-2023 History of Presen t illness Narrative 15 minute tsdj-mq-tsek follow-up anticoagulation appointment. INR performed in office per protocol. INR 2.1 (goal range: 2.0-3.0). Patient reports: Taking warfarin dosing as documented. Missed or extra doses of warfarin: No Changes to medications: No Changes to lifestyle (diet / alcohol / smoking / activity): No Recent emergency department visit / hospitalization / health changes / new contraindication to current anticoagulant: No Signs/symptoms of bruising/bleeding or clotting or any intolerable adverse events: No Upcoming procedures: No Anticoagulant prescription needed: No Seen referring provider in the last year Duration of therapy reviewed Assessment: INR is remaining stable in therapeutic range on current warfarin regimen. Patient is aware insurance is inactive. Discussed pre-pay policy/No [place] Act. Patient notes no changes to insurance, therefore he will call Insurance today and notify [facility] if issue gets resolved. Plan: Patient instructed to continue warfarin 5 mg Tue/Th/Sat and 7.5 mg AOD. Check INR in 5 week(s) per patient request Patient verbalizes understanding of anticoagulant dosing instructions and information discussed. Dosing regimen, counseling, and follow-up appointment were provided to the patient. Patient reminded to call with questions or any medication changes. Patient instructed to seek medical attention if any major bleeding/bleeding that persists or worsens. Leola Barrett RPH 04/14/23 0853 documented in this encounter [facility] 03-17-2023 Evaluation note Encounter Date Diagnosis Assessment [...] valve replacement (ICD-10 - Z95.2) He follows [facility] every 6 months. Follows with the [facility] for Coumadin management. Mar, Anticoagulated on Coumadin (ICD-10 - Z79.01) Follows with [facility]. Mar, Hypercholesterolemia (ICD-10 - E78.00) [...] referral to GI. Last EGD was in 2017. Referral placed. Mar, Abdominal bloating (ICD-10 - [...] E66.09) Mar, BMI 29.0-29.9,adult (ICD-10 - Z68.29) [facility] Other 02-02-2024 History of Present illness Narrative* Chung Moreland RP - 03/17/2023 8:15 AM EST 02.17.23 NOTE.... CONSIDERATIONS/POTENTIAL PLAN: Been mostly stable, at goal 15 minute roga-fy-rdip follow-up anticoagulation appointment. INR performed in office [...] Moreland RPH 03/17/23 0829 documented in this encounterMer[facility] HospitalCoherus Biosciences01-11-2024 Miscellaneous Notes* Telephone Encounter - Ashlyn Hayden MA - 02/23/2023 8:10 AM EST The patient LVM requesting to reschedule his appointment. Tower Hoist Operator called home number and spoke with his as cell number does not have a voice mailbox set up yet. will get a message to patientto call [employer] MTM back. documented in this encounterRockingham Memorial HospitalKalVista Pharmaceuticals01-11-2024 Telephone encounter Note* Telephone Encounter - Ashlyn Hayden MA - 02/23/2023 8:10 AM EST The patient LVM requesting to reschedule his appointment. Tower Hoist Operator called home number and spoke with his as cell number does not have a voice mailbox set up yet. will get a message to patientto call [employer] MTM back. [facility] History of Present illness Narrative* Chung Aniceto, [facility] - 02/17/2023 8:45 AM EST 15 minute dbel-zh-npld follow-up anticoagulation appointment. INR performed in office [...] / new contraindication to current anticoagulant: Yes, [facility] / for virus Signs/symptoms of bruising/bleeding or clotting or any intolerable adverse events: No Upcoming procedures: No Anticoagulant prescription needed: No Seen referring provider in the last year Duration of therapy reviewed Assessment: INR is remaining stable in therapeutic range on current warfarin regimen. Plan: Patient instructed to continue warfarin 5 mg every e, Th, Sat; 7.5 mg all other days. Check INR in 3 week(s). Patient verbalizes understanding of anticoagulant dosing instructions and information discussed. Dosing regimen, counseling, and follow-up appointment were provided to the patient. Patient reminded to call with questions or any medication changes. Patient instructed to seek medical attention if anymajor bleeding/bleeding that persists or worsens. Chung Moreland RPH 02/17/23 0916 documented in this encounterRockingham Memorial HospitalKalVista Pharmaceuticals09-29-2023 Procedure note [facility]07-28-2023 Evaluation note* Encounter Date Diagnosis Assessment Notes [...] - Z95.2) He follows dr. Murphy at [facility] every 6 months. Follows with the [facility] for Coumadin management. Aug, [...] Z80.0) Aug, BMI 29.0-29.9,adult (ICD-10 - Z68.29) [facility] Other 05-02-2023 NoteCONSULTATION CONSULTATION DATE: 06/14/2022 TO: [...] our patients to inform us about any tpku-kfa-nkzsxuf medications or herbal remedies/nutritional supplements/alternative remedies. 2. [...] treatment options with their primary care provider.[facility] [id number] Note CONSULTATION CONSULTATION DATE: 2022 TO: Joanna [...] our patients to inform us about any dqpl-dhv-pakhpvj medications or herbal remedies/nutritional supplements/alternative remedies. 2. [...] treatment options with their primary care provider.[facility] [id number] Note CONSULTATION CONSULTATION DATE: 03/10/2022 HISTORY OF [...] be followed up in the office thereafter.[facility] [id number] NoteCONSULTATION PROCEDURE DATE: 03/10/2022 PREOPERATIVE DIAGNOSIS: Right [...] will be followed up in the office.[facility] [id number] NoteCONSULTATION PROCEDURE DATE: 01/20/2022 PREOPERATIVE DIAGNOSIS: Bilateral [...] the clinic and tolerated the procedure well.[facility] [id number] NoteCONSULTATION CONSULTATION DATE: 01/20/2022 HISTORY OF PRESENT [...] follow up in the clinic post procedure.[facility] [id number] NoteCONSULTATION CONSULTATION DATE: 12/16/2021 This is a [...] prior ablations on those regions at a [facility] in the past. REVIEW OF [...] and be followed in the clinic thereafter.[facility] 09-23-2021 NoteCONSULTATION CONSULTATION DATE: 09/23/2021 HISTORY [...] in three months' time unless otherwise indicated.[facility] [id number] NoteCONSULTATION PROCEDUREDATE: 09/23/2021 PREOPERATIVE DIAGNOSIS: Bilateral cervical [...] will be followed up in the clinic.[facility] [id number] Evaluation note* Encounter Date Diagnosis Assessment Notes [...] Patient care instructions given in writting by [facility] document. Due to infection control protocols for COVID-19 virus, direct physical contact with patient was limited to only the absolute essential needed assessments. [facility] Other [id number] History general Narrative - Reported* Type Description Date Medical History Asthma Medical History Aortic regurgitation d/t bicuspid aortic valve with congenital bicuspid mitral valve-replaced 03/31/2014. follows with cardiology regularly in [place] Medical History Nonrheumatic aortic valve stenos is with murmur Medical History chronic neck/back pa in [facility] pain management team Medical History Osteoartritis Medical History Hemorrhoids, internal Medical History GERD Medical History urolithiasis Medical History depression going to [facility] in [place] seeing counselor and will see psychiatrist in [...] ion Hospitalization History hx of substance abuse: dimitris tolliver Hospitalization History Open heart surgery 2014 Hospitalization History Strep throat/Nonrheumati c aortic valve stenosis 06-07-2016 Hospitalization History fx rt foot [facility] 1 03/2019 Hospitalization History [facility] 01/2020 [facility] Other Evaluation + Plan note No data available for this section [facility] Evaluation noteNo InformationNort [employer] Other Evaluation note* Diagnosis Onset Date Resolution Status Family history of colon canc er requiring screening colonoscopy acute [facility] Work Phone: Evaluation note* 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- Primary S/P AVR (aortic valve replacement) Heart valve replaced by other means [facility] 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 -Office number [phone] [facility] Work Phone: Hospital Discharge instructions No data available for this section [facility] InstructionsNot on filedocumented in this encounter [facility] SystemInstructionsNot on filedocumented in this encounter [facility] SystemInstructionsNot on filedocumented in this encounter [facility] SystemProgress note No data available for this section [facility] Summary Purpose Family History No Family History Records Found Relationship Condition Age at Onset Recorded Date/T harrison family member Malignant neoplasm of colon Unknown grandparent Malignant neoplasm of colon Unknown Not Specified Crohn's disease Unknown Advance Directives No Advanced Directives Records Found Advance Directive Response Recorded Date/ Time Advance Directives No July 16 9 3:31pm Latest Code Status on File Code Status Date Activated Date Inactivated Comments Full Code 06/07/2016 2:38 AM 06/08/2016 9:30 PM Reason for Referral Reason *FU 03/27 evaluate Diagnosis 1 Gastroesophageal ref lux disease, esophagitis presence not specified (K21.9) Diagnosis 2 Abdominal bloating ( R14.0) Referral Organization [facility] Referring Provider First Name Joanna Referring Provider Last Name Sathish Referring Provider Specialty Nurse Pract itioner Referred Organization [facility] Referred Provider Michele Reddy Referred Address [address] [place], [place],[address] Referred Provider Specialty Gastroentero logy Referral Priority Routine General Notes Kadie Murray 10:23:24 AM >received today Kadie Murray 03/20/2023 10:26:35 AM >notes locked, ins attached, referral faxed Clinical Notes f: [id number] Reason due for screeni ng and has a family history Diagnosis 1 Screening for colon cancer (Z12.11) Diagnosis 2 Family history of co randi cancer requiring screening colonoscopy (Z80.0) Referral Organization [facility] [place] Referring Provider First Name Joanna Referring Provider Last Name Fuadacher Referring Provider Specialty Nurse Pract itioner Referred Organization [facility] Gastroenterolo gy Referred Provider Lorenzo Morgan Referred Address [address],[address] Referred Provider Specialty Gastroentero logy Referral Priority [...] ized section and content) DATE CREATED AUTHOR 07/27/2021 [facility] DATE CREATED AUTHOR AUTHOR'S ORGANIZ ATION 07/22/2022 [facility] DATE CREATED AUTHOR AUTHOR'S ORGANIZ ATION 11/21/2022 [facility] DATE CREATED AUTHOR AUTHOR'S ORGANIZ ATION 06/15/2023 [facility] DATE CREATED AUTHOR AUTHOR'S ORGANIZ ATION [facility] REASON FOR VISIT (unrecogniz ed section and content) 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, RUNNY NOSE, AL LERGIES, EYES ITCHY X 1 DAYER follow up6 month follow up (KNOWS TO GO TO CROSS)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 REFERRALPREP PPW6 month Follow up Care Teams (unrecognized sec tion and content) Team Status: Active Member Role Status Dates Joanna Bower APRN PAPER CUTTING MACHINE OPERATOR-C Primary Care Provider Active Team Status: Inactive Member Role Status Dates Joanna Bower APRN PAPER CUTTING MACHINE OPERATOR-C Primary Care Provider Active Bryant Sharma MD Attending Provider Active Body Rolling Machine Tender Relationship Specialty Start Date End Date Joanna Bower APRN-PAPER CUTTING MACHINE OPERATOR [address] [place] [address] PCP - General Nurse Practitioner 12/02/22 Body Rolling Machine Tender Relationship Specialty Start Date End Date Joanna Bower APRN-NP [address] [place] [address] PCP - General Nurse Practitioner 12/02/22 Body Rolling Machine Tender Relationship Specialty Start Date End Date Joanna Bower APRN-PAPER CUTTING MACHINE OPERATOR [address] [place] [address] PCP - General Nurse Practitioner 12/02/22 Body Rolling Machine Tender Relationship Specialty Start Date End Date Joanna Bower APRN-NP [address] [place] [address] PCP - General Nurse Practitioner 12/02/22 FOR [...] BE BASED ON THE PRIMARY CLINICAL RECORDS. [facility] [place], [facility]. provides no warranty or guarantee of the accuracy or completeness of information in this document.
[2023-09-20 08:08] LABS: INR 1.99; Prothrombin Time 19.7 sec (9.0-11.6)
== END 2023-09-20 07:23 | disposition home or self-care (01) ==
LOC: LAB 07:25
PROVIDERS: PCP Nurse Practitioner Family; Visit Provider Nurse Practitioner Family
DX: Z79.01 Long term (current) use of anticoagulants (principal)
CPT/HCPCS: 36415; 85610